=== PATIENT | male | born 1995 | race Caucasian/White ===

== ENCOUNTER 2020-10-12 13:15 | Emergency (ER) | payer MEDICARE, MEDICAID, SELFPAY ==
--- NOTE | ~2020-10-12 | XR_ITS ---
EXAMINATION: XR RIBS, LEFT CLINICAL INFORMATION: Fall, trauma, left-sided pain COMPARISON: None TECHNIQUE: Frontal view chest and 6 views left ribs are obtained for a total of 7 views. FINDINGS: The lungs are clear. There is no pneumothorax, pneumomediastinum, airspace consolidation, or effusion. No pleural reaction. The costophrenic sulci are clear. The heart is normal in size. The hilar and mediastinal contours are normal. There is no visible left rib fracture or rib destructive process. No subcutaneous emphysema. No free air beneath the diaphragms. XR/XR ribs LT min 3V w CXR1V IMPRESSION: Unremarkable examination.
[2020-10-12 13:43] VITALS: BP 111/56; PULSE 90; RESP 18; TEMP 36.5; O2SAT 99; BMI 39.1
--- NOTE | 2020-10-12 14:31 | ED.FALL ---
HPI - Fall General Chief Complaint: Fall Stated Complaint: L SIDE RIB INJ Time Seen by Provider: 10/12/20 14:17 Source: patient Mode of arrival: ambulatory Limitations: no limitations History of Present Illness HPI Narrative: 25 y/o male presenting with left sided rib pain after a slip and fall on icy stairs at home at 3am today. He fell onto his left side and hit his head on the way down. He did not lose consciousness and he does not have any headaches. He has been taking Tylenol with minimal relief. He denies SOB but states it hurts when he takes a deep breath. complaint: fall Fall from: standing Fall witnessed: yes, by family Place fall occurred: home Loss of consciousness: none Prolonged down time: no Symptoms prior to fall: chest pain Context: tripped/slipped Location of injury: chest Severity: moderate Severity scale (1-10): 6 Quality: aching Associated symptoms (after fall): denies Related Data Previous Rx's Medication Instructions Recorded cyclobenzaprine 10 mg PO TID PRN #8 tab 10/12/20 ibuprofen 600 mg PO Q8H PRN #20 tab 10/12/20 lidocaine [Lidoderm] 1 patch TOPICAL DAILY #15 ea 10/12/20 Allergies Allergy/AdvReac Type Severity Reaction Status Date / Time No Known Allergies Allergy Unverified 05/14/20 16:36 Review of Systems Review of Systems: Constitutional: No Fever, No Chills Cardiovascular: + Chest Pain, No SOB, No Orthopnea, No Edema Respiratory: No Cough, No Sputum, No Wheezing, No dyspnea Gastrointestinal: No Nausea, No Vomiting, No Diarrhea, No abdominal Pain Musculoskeletal: + joint pain, + Myalgias Skin: No Skin Lesions, No rash Neuro: No Weakness, No Numbness, No Dizziness, No Headache Heme/Lymph: No Bruising, No Lymphadenopathy Endocrine: No Polyuria, No Polydipsia PMFSH Past Medical History Attestation statement: The following information was validated with the patient. Medical History (Updated 10/12/20 @ 14:37 by LUTHER Melchor) Asthma Physical Exam Vital Signs: Vital Signs: Last Vital Signs Temp 97.7 F 10/12/20 13:43 Pulse 90 10/12/20 13:43 Resp 18 10/12/20 13:43 BP 111/56 L 10/12/20 13:43 Pulse Ox 99 10/12/20 13:43 Body Mass Index 39.1 Appearance: Alert. Oriented X3. No acute distress. HEENT: superficial abrasion to right upper forehead. PERRLA, EOMI CVS: Normal heart rate and rhythm. Pulses normal. Respiratory: No respiratory distress. Lungs CTAB. Left lateral rib tenderness throughout, no ecchymosis. Skin: Skin warm and dry. Normal skin color. Normal skin turgor. No rashes. Extremities: atraumatic, no edema, no ecchymosis, no tenderness throughout. Neuro: Oriented X 3. No motor deficit. No sensory deficit. Ambulates with steady gait. Course Course Course Narrative: 25 y/o male presenting with left sided rib pain after a slip on icy stairs. SPO2 99%, no respiratory distress. Good inspiratory effort. XR is negative. Likely contusion to chest wall. Doubt pulmonary contusion without significant rib fractures. Will start NSAID, flexeril and Lidoderm patches. He has been counseled and is stable for discharge. Critical Care Time Critical Care Time Critical Care Time: No Discharge Plan Discharge Clinical Impression: Chest wall contusion Qualifiers: Encounter type: initial encounter Laterality: left Qualified Code(s): S20.212A - Contusion of left front wall of thorax, initial encounter Patient Disposition: Home, Self-Care Instructions: Rib Contusion (ED) Additional Instructions: Your x-ray today was normal. Recommend rest and using ice several times per day. Recommend taking Ibuprofen every 6 hours and Tylenol 1,000 mg every 6 hours. Take the muscle relaxer medication as needed. Do not drive after taking this medication, it can make you drowsy. Follow up with your doctor as needed. If you develop worsening pain, shortness of breath or difficulty breathing, come back to the ER for further evaluation. Prescriptions: New lidocaine [Lidoderm] 5 % adhesive patch,medicated 1 patch topical DAILY Qty: 15 RF: 0 ibuprofen 600 mg tablet 600 mg PO Q8H PRN (Reason: pain) Qty: 20 RF: 0 cyclobenzaprine 10 mg tablet 10 mg PO TID PRN (Reason: muscle spasm) Qty: 8 RF: 0
== END 2020-10-12 15:10 | disposition home or self-care (01) ==
LOC: HO.ED 15:00
PROVIDERS: Emergency Provider Emergency Medicine
DX: S20.212A Contusion of left front wall of thorax, initial encounter (principal); W00.1XXA Fall from stairs and steps due to ice and snow, initial encounter; Y93.89 Activity, other specified; Y92.019 Unspecified place in single-family (private) house as the place of occurrence of the external cause; Y99.9 Unspecified external cause status
CPT/HCPCS: 71101; 99283

== ENCOUNTER 2021-03-06 17:44 | Emergency (ER) | payer MEDICARE, MEDICAID, SELFPAY ==
--- NOTE | ~2021-03-06 | US_ITS ---
EXAMINATION: CHEST 2 VIEWS CLINICAL INFORMATION: Pain COMPARISON: None. TECHNIQUE: PA and lateral views of the chest were obtained. FINDINGS: No significant abnormality is noted involving the heart, lungs, mediastinum, bony thorax or soft tissues. US/US venous duplex LE RT IMPRESSION: Unremarkable examination. EXAMINATION: LEG VENOUS ULTRASOUND WITH DOPPLER, RIGHT CLINICAL INFORMATION: Calf pain COMPARISON: None TECHNIQUE: Deep venous ultrasound using grayscale and duplex Doppler. FINDINGS: No evidence of any DVT. Normal compressibility and phasic waveforms with respiration. No popliteal fossa abnormality. Of note are enlarged right inguinal lymph nodes measuring up to 5 cm. Similar but small lymph nodes within the left inguinal location. IMPRESSION: No DVT demonstrated in the right lower extremity. Pathologic right inguinal lymph nodes. Similar lymph nodes less prominent within the left inguinal location. Further workup indicated.. These are amenable to subcutaneous sampling.
--- NOTE | ~2021-03-06 | CT_ITS ---
EXAMINATION: CT ABDOMEN AND PELVIS WITH CONTRAST CLINICAL INFORMATION: Pathologic right inguinal node COMPARISON: Ultrasound 06/16/2015 TECHNIQUE: Multidetector volumetric images were obtained from the superior aspect of the liver through the pubic symphysis following administration 85 mL of Omnipaque 350 intravenous contrast. Sagittal and coronal reformatted images were obtained on the technologist's workstation. Oral contrast: No This CT examination was performed using dose optimization techniques as appropriate, variously including the following: *Automated exposure control *Adjustment of mA and/or kV according to patient size (this includes techniques or standardized protocols for targeted exams where dose is matched to indication/reason for exam; i.e. extremities or head) *Use of iterative reconstruction technique DLP: 866 mGy-cm FINDINGS: LUNG BASES: The visualized lung bases are unremarkable. LIVER, GALLBLADDER, AND BILIARY TREE: The liver is normal in size, shape, and attenuation. No focal hepatic lesion or biliary ductal dilatation is present. The gallbladder is unremarkable with no evidence of radiopaque gallstones, gallbladder wall thickening, or obvious pericholecystic inflammatory changes. PANCREAS: Unremarkable. SPLEEN: Enlarged spleen measuring 15.5 cm CC. No focal splenic lesion. ADRENAL GLANDS: Unremarkable. KIDNEYS AND URETERS: The kidneys are normal in size, shape, and attenuation. No hydronephrosis, hydroureter, or calculi seen. No perinephric stranding. BLADDER: Unremarkable. GASTROINTESTINAL TRACT: The stomach is unremarkable. Normal caliber of the small bowel. There is no obstruction. No colonic wall thickening or inflammatory change. Normal appendix. No free air or free fluid. ABDOMINAL WALL: No significant hernia is appreciated. LYMPH NODES: There is extensive lymphadenopathy. For instance, there is a left para-aortic lymph node measuring 5.3 cm at the level of the kidneys. There is a perisplenic lymph node measuring short axis I.4 cm on series 3 image 30. Enlarged bilateral iliac chain lymph nodes. Enlarged bilateral inguinal lymph nodes. For instance there is a right inguinal node which measures 2.8 x 2.6 cm. VASCULAR: Unremarkable. PELVIC VISCERA: The prostate and seminal vesicles are unremarkable. OSSEOUS STRUCTURES: No acute or suspicious osseous abnormality. CT/CT abdomen pelvis w con IMPRESSION: Extensive lymphadenopathy. This is concerning for lymphoma. Mild splenomegaly. This critical result was discussed with LUTHER Mello by telephone at 03/06/2021 11:36 PM and it was ascertained that the content and urgency of the report was understood at the time of direct communication.
[2021-03-06 17:53] VITALS: BP 132/71; PULSE 135; RESP 20; TEMP 39.6; O2SAT 99; BMI 39.1
[2021-03-06] MEDS: Acetaminophen 325 MG TABLET 650 MG PO (18:05)
[2021-03-06 18:36] LABS: COVID-19 Test Negative (Negative)
--- NOTE | 2021-03-06 20:45 | ED_ITS ---
HPI - General Adult General Chief complaint: Extremity Problem Stated complaint: blood clot? Time Seen by Provider: 03/06/21 19:30 Source: patient Mode of arrival: ambulatory History of Present Illness HPI narrative: 25-year-old male with a past medical history of asthma, ADHD, presenting to the ED complaining of right posterior knee/calf pain/swelling and superficial thrombophlebitis x a couple days. Patient also noted to be febrile in triage. Patient denies knowing he had fever. Denies chills, chest pain, shortness of breath, abdominal pain, nausea, vomiting, diarrhea, recent travel, sick contacts, history of blood clots Is a cigarette smoker Onset (ago): day(s) Related Data Previous Rx's Medication Instructions Recorded cyclobenzaprine 10 mg PO TID PRN #8 tab 10/12/20 ibuprofen 600 mg PO Q8H PRN #20 tab 10/12/20 lidocaine [Lidoderm] 1 patch TOPICAL DAILY #15 ea 10/12/20 Allergies Allergy/AdvReac Type Severity Reaction Status Date / Time No Known Allergies Allergy Verified 03/06/21 17:57 Review of Systems Review of Systems: Constitutional: +Fever, No Chills, No Fatigue, No Malaise ENT/Mouth: No Ear Pain, No sore throat, No Rhinorrhea Eyes: No Eye Pain, No Vision Changes Cardiovascular: No Chest Pain, No SOB, + Edema Respiratory: No Cough, No Sputum, No Dyspnea Gastrointestinal: No Nausea, No Vomiting, No Diarrhea, No Constipation, No Abdominal pain Genitourinary: No Dysuria, No Urinary Frequency, No Hematuria, No Flank Pain Musculoskeletal: No joint pain, No Myalgias, No Joint Swelling Skin: No Skin Lesions, No rash Neuro: No Weakness, No Numbness, No Headache Yes all other systems are reviewed and are negative [facility] Past Medical History Attestation statement: The following information was validated with the patient. Medical History (Updated 03/06/21 @ 23:49 by LUTHER Mello) ADHD Asthma Social History Social History Advance Directives: No Advance Directives Information Provided: Yes Physical Exam Vital Signs: Vital Signs: Last Vital Signs Temp 98.3 F 03/06/21 22:55 Pulse 98 03/06/21 22:20 Resp 20 03/06/21 22:20 BP 112/59 L 07/10/21 22:20 Pulse Ox 100 03/06/21 22:20 Body Mass Index 39.1 Const: General: cooperative, no acute distress and diaphoretic Nutritional Appearance: overweight Orientation/consciousness: patient oriented x3 Limitations: no limitations HENMT: Head: Yes normal to inspection and Yes atraumatic Ears: hearing grossly normal bilaterally and TM's normal bilaterally General nose exam: Normal external nose present Face and sinus: Yes normal facial exam Mouth: Normal oral and palatal mucosa present Throat: Yes posterior oropharynx normal, Yes tonsils normal, Yes uvula midline and No uvular edema Eyes: General: appearance normal, both eyes and all related structures EOM: EOMs intact bilaterally Neck: Neck: Yes normal visual inspection and Yes no meningeal signs Resp: Effort & Inspection: normal respiratory effort Auscultation: clear to auscultation bilaterally, no rales, no rhonchi and no wheezes Cardio: Rate: regular rate Heart sounds: S1 normal heart sound present and S2 normal heart sound present GI: Inspection: Yes normal to inspection Palpation (GI): Soft to palpation, nontender, no guarding and not rigid Skin: Rashes: no rashes Wounds: no wounds Neuro: General: patient oriented x3, tone normal and no meningeal signs G ait exam (Neuro): Normal gait present Extrem: Other: Right calf with tenderness to palpation. No appreciable swelling. Superficial thrombophlebitis noted to right upper thigh Course Course Course Narrative: -2046--chest x-ray unremarkable, COVID-19 and rapid strep negative -no leukocytosis, bilirubins/AST/ALT mildly elevated, lactic negative -2143--fever resolved with antipyretics LEG VENOUS ULTRASOUND WITH DOPPLER, RIGHT IMPRESSION: No DVT demonstrated in the right lower extremity Pathologic right inguinal lymph nodes. Similar lymph nodes less prominent within the left inguinal location. Further workup indicated.. These are amenable to subcutaneous sampling. -Case discussed with Dr. Francis, added CRP >> CT abdomen pelvis added for further evaluation -2345--CT abdomen pelvis w con IMPRESSION: Extensive lymphadenopathy. This is concerning for lymphoma. Mild splenomegaly. > results discussed with patient with Dr. Francis including need for close follow- up with Hem/Onc, patient verbalized understanding Medical Decision Making Lab Data Result diagrams: 03/06/21 20:46 03/06/21 20:46 Labs: Lab Results 03/06/21 03/06/21 03/06/21 Range/Units 18:02 20:46 20:46 WBC 8.4 (4.8-10.8) X10*3/uL RBC 4.27 L (4.60-5.80) X10*6/uL Hgb 10.5 L (14.0-18.0) g/dl Hct 33.2 L (42-52) % MCV 77.8 L (80-98) fL MCH 24.6 L (27.0-33.0) pg MCHC 31.6 (31.0-36.0) g/dl RDW 15.5 (11.0-16.0) % Plt Count 364 (160-400) X10*3/uL MPV 10.3 (9.4-12.4) fL Immature Gran % (Auto) 1.0 H (0.0-0.4) % Neut % (Auto) 72.8 (45-73) % Lymph % (Auto) 10.5 L (20-40) % [place] % (Auto) 15.5 H (2-11) % Eos % (Auto) 0.1 (0-4) % Baso % (Auto) 0.1 (0-2) % Lymph # (Auto) 0.9 L (1.2-4.9) X10*3/uL [place] # (Auto) 1.3 H (0.1-1.2) X10*3/uL Eos # (Auto) 0.0 (0.0-0.4) X10*3/uL Baso # (Auto) 0.0 (0.0-0.2) X10*3/uL Abs Immat Gran (auto) 0.08 H (0.00-0.03) X10*3/uL Absolute Neuts (auto) 6.1 (2.0-8.3) X10*3/uL Absolute Nucleated RBC 0.000 (0.0-0.012) X10*3/uL Nucleated RBC % (auto) 0.0 (0.0-0.2) /100WBC Sodium 136 (135-145) mmol/L Potassium 3.8 (3.3-5.1) mmol/L Chloride 97 (96-108) mmol/L Carbon Dioxide 23 (22-29) mmol/L Anion Gap 20 (12-20) BUN 7 L (9-16) mg/dL Creatinine 0.79 (0.5-1.4) mg/dL Estim Creat Clear Calc 174.8 Estimated GFR > 60 Random Glucose 114 (60-115) mg/dL Lactic Acid (0.5-2.0) mmol/L Calcium 9.2 (8.4-10.2) mg/dL Magnesium 2.2 (1.6-2.6) mg/dL Total Bilirubin 1.2 H (0.0-1.0) mg/dL Direct Bilirubin 0.7 H (0.0-0.5) mg/dL AST 67 H (5-37) U/L ALT 69 H (0-40) U/L Alkaline Phosphatase 247 H (39-117) U/L C-Reactive Protein 25.13 H (< or = 0.50) mg/dL Total Protein 6.2 L (6.5-8.0) g/dL Albumin 3.9 (3.5-5.0) g/dL COVID-19 (TRAY) Negative (Negative) COVID-19 Clin Com See Note S. pyogenes GrpA ROSA (Negative) 03/06/21 03/06/21 Range/Units 20:46 20:46 WBC (4.8-10.8) X10*3/uL RBC (4.60-5.80) X10*6/uL Hgb (14.0-18.0) g/dl Hct (42-52) % MCV (80-98) fL MCH (27.0-33.0) pg MCHC (31.0-36.0) g/dl RDW (11.0-16.0) % Plt Count (160-400) X10*3/uL MPV (9.4-12.4) fL Immature Gran % (Auto) (0.0-0.4) % Neut % (Auto) (45-73) % Lymph % (Auto) (20-40) % [place] % (Auto) (2-11) % Eos % (Auto) (0-4) % Baso % (Auto) (0-2) % Lymph # (Auto) (1.2-4.9) X10*3/uL [place] # (Auto) (0.1-1.2) X10*3/uL Eos # (Auto) (0.0-0.4) X10*3/uL Baso # (Auto) (0.0-0.2) X10*3/uL Abs Immat Gran (auto) (0.00-0.03) X10*3/uL Absolute Neuts (auto) (2.0-8.3) X10*3/uL Absolute Nucleated RBC (0.0-0.012) X10*3/uL Nucleated RBC % (auto) (0.0-0.2) /100WBC Sodium (135-145) mmol/L Potassium (3.3-5.1) mmol/L Chloride (96-108) mmol/L Carbon Dioxide (22-29) mmol/L Anion Gap (12-20) BUN (9-16) mg/dL Creatinine (0.5-1.4) mg/dL Estim Creat Clear Calc Estimated GFR Random Glucose (60-115) mg/dL Lactic Acid 1.0 (0.5-2.0) mmol/L Calcium (8.4-10.2) mg/dL Magnesium (1.6-2.6) mg/dL Total Bilirubin (0.0-1.0) mg/dL Direct Bilirubin (0.0-0.5) mg/dL AST (5-37) U/L ALT (0-40) U/L Alkaline Phosphatase (39-117) U/L C-Reactive Protein (< or = 0.50) mg/dL Total Protein (6.5-8.0) g/dL Albumin (3.5-5.0) g/dL COVID-19 (TRAY) (Negative) COVID-19 Clin Com S. pyogenes GrpA ROSA Negative (Negative) Discharge Plan Discharge Clinical Impression: Lymphadenopathy, Lymphoma Patient Disposition: Home, Self-Care Instructions: Lymphadenopathy (ED) Additional Instructions: Your CAT scan shows extensive inflamed lymph nodes throughout your abdomen and and inflamed spleen, this is concerning for lymphoma Lymphoma is a blood cancer, the diagnosis of lymphoma is made by biopsy, you need to call the poultry farm worker/oncologist for follow-up TOD If you develop fever unresolved with Tylenol/Motrin, constant worsening swelling, any chest pain or shortness of breath please return to the ED Prescriptions: No Action lidocaine [Lidoderm] 5 % adhesive patch,medicated 1 patch topical DAILY Qty: 15 RF: 0 ibuprofen 600 mg tablet 600 mg PO Q8H PRN (Reason: pain) Qty: 20 RF: 0 cyclobenzaprine 10 mg tablet 10 mg PO TID PRN (Reason: muscle spasm) Qty: 8 RF: 0 Referrals: Camila Naylor MD [Physician] - 2 days Interventions: ED Discharge Assessment Last Done: 03/06/21 23:57 Discharge Date/Time: 03/07/21 00:11
[2021-03-06 20:53] LABS: MANUAL DIFF FLAG NO
[2021-03-06] MEDS: 0.9 % Sodium Chloride 1,000 ML 999 ML IVCONT (20:53)
[2021-03-06] MEDS: Ibuprofen 600 MG TABLET PO (20:56)
[2021-03-06 20:57] LABS: Basophils Percent Auto 0.1 % (0-2); Eosinophils Percent Auto 0.1 % (0-4); Hematocrit 33.2 % (42-52); Hemoglobin 10.5 g/dl (14.0-18.0); Imm Gran Abs Auto 0.08 X10*3/uL (0.00-0.03); Lymphocytes Absolute Auto 0.9 X10*3/uL (1.2-4.9); Lymphocytes Percent Auto 10.5 % (20-40); Mean Corpuscular HGB Conc 31.6 g/dl (31.0-36.0); Mean Corpuscular Hemoglobin 24.6 pg (27.0-33.0); Mean Corpuscular Volume 77.8 fL (80-98); Mean Platelet Volume 10.3 fL (9.4-12.4); Monocytes Absolute Auto 1.3 X10*3/uL (0.1-1.2); Monocytes Percent Auto 15.5 % (2-11); Neutrophils Absolute Auto 6.1 X10*3/uL (2.0-8.3); Neutrophils Percent Auto 72.8 % (45-73); Platelet Count 364 X10*3/uL (160-400); Red Blood Count 4.27 X10*6/uL (4.60-5.80); Red Cell Distribution Width 15.5 % (11.0-16.0); White Blood Count 8.4 X10*3/uL (4.8-10.8)
[2021-03-06 20:58] VITALS: BP 124/67; PULSE 94; RESP 16
[2021-03-06 21:06] LABS: Strep A Nucleic Acid Negative (Negative)
[2021-03-06 21:22] LABS: Alanine Aminotransferase 69 U/L (0-40); Albumin Level 3.9 g/dL (3.5-5.0); Alkaline Phosphatase 247 U/L (39-117); Anion Gap 20 (12-20); Aspartate Amino Transferase 67 U/L (5-37); Bilirubin Direct 0.7 mg/dL (0.0-0.5); Bilirubin Total 1.2 mg/dL (0.0-1.0); Blood Urea Nitrogen 7 mg/dL (9-16); Calcium 9.2 mg/dL (8.4-10.2); Carbon Dioxide 23 mmol/L (22-29); Chloride 97 mmol/L (96-108); Creatinine Clr Calc Pharmacy 174.8; Estimated Glomerular Filt Rate > 60; Glucose Random 114 mg/dL (60-115); Magnesium 2.2 mg/dL (1.6-2.6); Potassium 3.8 mmol/L (3.3-5.1); Sodium 136 mmol/L (135-145); Total Protein 6.2 g/dL (6.5-8.0)
[2021-03-06 21:42] VITALS: TEMP 36.8
[2021-03-06 22:02] LABS: C Reactive Protein 25.13 mg/dL (< or = 0.50)
[2021-03-06 22:20] VITALS: BP 112/59; PULSE 98; RESP 20; TEMP 36.7; O2SAT 100
[2021-03-06 22:55] VITALS: TEMP 36.8
--- NOTE | 2021-03-06 22:56 | PC.NURSE ---
pt walking around by his bed trying to give a urine. steady gait.
--- NOTE | 2021-03-06 23:00 | PC.NURSE ---
pt refusing ct of abd and pelvis.
[2021-03-06] MEDS: iohexoL 350 MG/ML 100 ML INFUS..BTL 85 ML IV (23:15)
== END 2021-03-07 00:11 | disposition home or self-care (01) ==
PROVIDERS: Physician Assistant; Emergency Provider Internal Medicine
DX: R59.1 Generalized enlarged lymph nodes (principal); M79.661 Pain in right lower leg; R50.9 Fever, unspecified; F17.210 Nicotine dependence, cigarettes, uncomplicated; Z20.822 Contact with and (suspected) exposure to COVID-19
CPT/HCPCS: 36415; 71046; 74177; 80048; 80076; 83605; 83735; 85025; 86140; 87040; 87147; 87205; 87635; 87651; 93971; 96360; 99283; 99285; Q9967

== ENCOUNTER → 2021-03-17 10:44 | Outpatient (BNV) | payer MEDICAID, MEDICARE, SELFPAY | PROVIDERS: Referring Provider Physician Assistant; Visit Provider Internal Medicine | DX: C81.90 Hodgkin lymphoma, unspecified, unspecified site (principal); R74.01 Elevation of levels of liver transaminase levels | CPT/HCPCS: 99204; 99213; 99214 ==

== ENCOUNTER 2021-03-19 11:44 | Outpatient (REF) | payer MEDICARE, MEDICAID, SELFPAY ==
--- NOTE | ~2021-03-19 | US_ITS ---
EXAMINATION: ULTRASOUND-GUIDED LYMPH NODE BIOPSY CLINICAL INFORMATION: Enlarged lymph nodes. COMPARISON: Previous right lower extremity venous ultrasound and CT of the abdomen and pelvis 03/06/2021 TECHNIQUE: Procedure and risks and benefits including bleeding and infection were discussed with the patient and informed consent was obtained. The right groin was prepped and draped in the usual sterile fashion. Skin and soft tissues were anesthetized with 1% lidocaine plain. Using ultrasound guidance and a coaxial system, access to an enlarged right inguinal lymph node was obtained. 4 20-gauge core biopsies were obtained. FINDINGS: There is an enlarged approximately 2 x 4 cm right inguinal lymph node that was targeted for core biopsy. This has abnormal ultrasound morphology and appears diffusely hypoechoic. US/US biopsy lymph node IMPRESSION: Ultrasound-guided right inguinal lymph node biopsy.
--- NOTE | ~2021-03-19 | US_ITS ---
EXAMINATION: US SCROTUM CLINICAL INFORMATION: Lymphadenopathy. COMPARISON: None TECHNIQUE: A sonogram of the scrotum was performed assessing chaves-scale appearance and color Doppler flow. Spectral Doppler analysis of the arterial and venous flow were performed in the testes bilaterally. FINDINGS: RIGHT: Right testicle measures 4.0 x 1.8 x 2.4 cm, volume 8.7 mL. No focal testicular parenchymal lesions are visualized. Spectral Doppler analysis of the arterial and venous flow is normal in the right testis. Right epididymal head is normal in size. No right hydrocele or varicocele is seen. Right epididymal Doppler flow is normal. LEFT: Left testicle measures 3.9 x 1.6 x 2.3 cm, volume 7.5 mL. No focal testicular parenchymal lesions are visualized. Spectral Doppler analysis of the arterial and venous flow is normal in the left testis. Left epididymal head is normal in size. No left hydrocele or varicocele is seen. Left epididymal Doppler flow is normal. US/US scrotum IMPRESSION: Normal scrotal ultrasound.
[2021-03-19] MEDS: Lidocaine HCl 1 % MPF 5 ML VIAL SUBCUT (13:55)
[2021-03-19 14:33] LABS: INTERNATIONAL NORM RATIO 1.6 (0.9-1.1); Prothrombin Time 18.2 SEC (9.9-13.0)
[2021-03-19 14:35] LABS: Partial Thromboplastin Time 43.4 SEC (24.1-38.0)
[2021-03-19 14:45] LABS: Iron 15 mcg/dL (45-160); Percent Iron Saturation 6 % (15-50); Total Iron Binding Capacity 250 mcg/dL (228-428); Unsaturated Iron Binding 235 ug/dL
[2021-03-22 03:48] LABS: HBc Num1 0.02 S/CO (0.00-0.79); HBsAGNum1 0.15 S/CO (0.00-0.99); Hepatitis B Core Antibody Nonreactive (Nonreactive); Hepatitis B Surface Antigen Negative (Negative)
[2021-03-22 03:56] LABS: ~HepC Num1 0.03 S/CO (0.00-0.79); ~Hepatitis B Surface Antibody NONREACTIVE (Nonreactive); ~Hepatitis C Antibody Nonreactive (Nonreactive)
[2021-03-24 12:15] LABS: Hepatitis A Antibody IgM 0.29 Index (0-0.79); ~Hepatitis A Antibody IgM Nonreactive (Nonreactive)
== END 2021-03-19 11:45 | disposition home or self-care (01) ==
LOC: HO.US 11:44
PROVIDERS: Radiology Diagnostic Radiology; Visit Provider Internal Medicine
DX: R59.1 Generalized enlarged lymph nodes (principal)
CPT/HCPCS: 36415; 38505; 76870; 76942; 81245; 81246; 83540; 85610; 85730; 86704; 86706; 86709; 86803; 87340; 88184; 88185; 88300; 88305; 88333; 88341; 88342

== ENCOUNTER 2021-04-02 08:43 | Outpatient (REF) | payer MEDICARE, MEDICAID, SELFPAY ==
--- NOTE | 2021-04-02 | PFT_ITS ---
FLOWS: FEV1 of 116% of predicted at 4.90 L. FVC 109% of predicted at 5.43 L. FEV1 to FVC ratio of 0.90. No bronchodilator response. LUNG VOLUMES: Total lung capacity 99% of predicted at 6.01 L. Residual volume 63% of predicted at 0.81 L. Slow vital capacity 108% of predicted at 5.20 L. Expiratory reserve volume 123% of predicted at 1.92 L. Diffusion capacity is normal. IMPRESSION: No obstructive or restrictive ventilatory defect. No bronchodilator response. Essentially normal pulmonary function test. MD REGINALD Mclaughlin/MODL / [id number]
[2021-04-02 10:26] LABS: INTERNATIONAL NORM RATIO 1.5 (0.9-1.1); Prothrombin Time 17.7 SEC (9.9-13.0)
== END 2021-04-02 08:44 | disposition home or self-care (01) ==
LOC: HO.RESP 08:43
PROVIDERS: Visit Provider Internal Medicine
DX: C81.90 Hodgkin lymphoma, unspecified, unspecified site (principal); R59.1 Generalized enlarged lymph nodes
CPT/HCPCS: 36415; 85610; 94060; 94727; 94729

== ENCOUNTER 2021-04-02 10:12 | Day surgery (SDC) | payer MEDICARE, MEDICAID, SELFPAY ==
--- NOTE | ~2021-04-02 | IR_ITS ---
PROCEDURE: IR INSERTION OF TUNNEL CATHETER IR ULTRASOUND GUIDED VENOUS ACCESS CLINICAL INFORMATION: Hodgkin's lymphoma for chemotherapy. COMPARISON: None TECHNIQUE: Procedure and risks and benefits including bleeding, infection and pneumothorax were discussed with the patient, and informed consent was obtained. All elements of maximal sterile barrier technique followed including use of cap, mask, sterile gown, sterile gloves, a sterile full body drape and hand hygiene. Also followed skin preparation with 2% chlorhexidine for cutaneous antisepsis, and sterile ultrasound preparation with sterile gel and probe cover when applicable. The right neck and upper chest were prepped and draped in the usual sterile fashion. The skin and soft tissues were anesthetized with 1% lidocaine plain. Using ultrasound guidance and a 5-Ivorian micropuncture system, right internal jugular vein access was obtained. Over an .018 wire, a 5-Ivorian dilator was in the SVC. The skin and soft tissues of the upper anterior chest were anesthetized with 1% lidocaine plain. A small incision was made. Using blunt dissection, a subcutaneous pocket was created. A subcutaneous tunnel from the chest to the neck incision was anesthetized with 1% lidocaine plain. Using a tunneler, a 6.6-Ivorian single-lumen catheter was tunneled from the chest to the neck incision. The catheter was attached to the port. The port and catheter were flushed. The port was positioned in the subcutaneous pocket and secured using two 2-0 nonabsorbable sutures. An .035 wire was advanced through the 5-Ivorian dilator into the IVC. 5-Ivorian dilator was exchanged for a 7-Ivorian peel-away sheath. Using bent wire technique, the catheter length was estimated and the catheter was cut. The catheter was fed through the peel-away sheath. Catheter length is 21 cm. The neck incision was closed using a 4-0 absorbable subcuticular suture. The chest incision was closed using three 3-0 absorbable interrupted sutures followed by a 4-0 running absorbable subcuticular suture. The port was accessed. The port had good blood return and flushed easily and was instilled with 5 mL heparin 500 unit per mL solution. The patient received Versed 2 mg and fentanyl 125 mcg intravenously during the procedure and 2 g of intravenous Kefzol. Total sedation time was 39 minutes. Real-time ultrasound guidance was used to document vein patency and for needle entry. A formal ultrasound picture was recorded. One saved fluoroscopic image. Patient dose: 62 cGy-cm2. Fluoroscopy time: 0.3 minutes. FINDINGS: There is a right internal jugular Port-A-Cath with tip projecting over the cavoatrial junction. IR/IR cvc insert tunnel w prt/performance consultant IMPRESSION: 6.6-Ivorian single-lumen Dignity Port-A-Cath placement.
--- NOTE | ~2021-04-02 | IR_ITS ---
PROCEDURE: IR INSERTION OF TUNNEL CATHETER IR ULTRASOUND GUIDED VENOUS ACCESS CLINICAL INFORMATION: Hodgkin's lymphoma for chemotherapy. COMPARISON: None TECHNIQUE: Procedure and risks and benefits including bleeding, infection and pneumothorax were discussed with the patient, and informed consent was obtained. All elements of maximal sterile barrier technique followed including use of cap, mask, sterile gown, sterile gloves, a sterile full body drape and hand hygiene. Also followed skin preparation with 2% chlorhexidine for cutaneous antisepsis, and sterile ultrasound preparation with sterile gel and probe cover when applicable. The right neck and upper chest were prepped and draped in the usual sterile fashion. The skin and soft tissues were anesthetized with 1% lidocaine plain. Using ultrasound guidance and a 5-Ukrainian micropuncture system, right internal jugular vein access was obtained. Over an .018 wire, a 5-Ukrainian dilator was in the SVC. The skin and soft tissues of the upper anterior chest were anesthetized with 1% lidocaine plain. A small incision was made. Using blunt dissection, a subcutaneous pocket was created. A subcutaneous tunnel from the chest to the neck incision was anesthetized with 1% lidocaine plain. Using a tunneler, a 6.6-Ukrainian single-lumen catheter was tunneled from the chest to the neck incision. The catheter was attached to the port. The port and catheter were flushed. The port was positioned in the subcutaneous pocket and secured using two 2-0 nonabsorbable sutures. An .035 wire was advanced through the 5-Ukrainian dilator into the IVC. 5-Ukrainian dilator was exchanged for a 7-Ukrainian peel-away sheath. Using bent wire technique, the catheter length was estimated and the catheter was cut. The catheter was fed through the peel-away sheath. Catheter length is 21 cm. The neck incision was closed using a 4-0 absorbable subcuticular suture. The chest incision was closed using three 3-0 absorbable interrupted sutures followed by a 4-0 running absorbable subcuticular suture. The port was accessed. The port had good blood return and flushed easily and was instilled with 5 mL heparin 500 unit per mL solution. The patient received Versed 2 mg and fentanyl 125 mcg intravenously during the procedure and 2 g of intravenous Kefzol. Total sedation time was 39 minutes. Real-time ultrasound guidance was used to document vein patency and for needle entry. A formal ultrasound picture was recorded. One saved fluoroscopic image. Patient dose: 62 cGy-cm2. Fluoroscopy time: 0.3 minutes. FINDINGS: There is a right internal jugular Port-A-Cath with tip projecting over the cavoatrial junction. IR/IR us guide venous access IMPRESSION: 6.6-Ukrainian single-lumen Dignity Port-A-Cath placement.
[2021-04-02 10:17] VITALS: BMI 29.1
[2021-04-02] MEDS: LORazepam 1 MG TABLET PO (10:33)
--- NOTE | 2021-04-02 12:08 | HO.RADPN ---
RADIOLOGY Narrative Narrative: Right IJ 6.6 fr single lumen Dignity port placed. Tip at cavoatrial junction.
[2021-04-02] MEDS: Lidocaine HCl 1 % MPF 5 ML VIAL 10 ML SUBCUT (12:27)
[2021-04-02 12:28] VITALS: BP 104/60; PULSE 102; RESP 18; TEMP 36.4; O2SAT 98
[2021-04-02] MEDS: Heparin Sodium,Porcine Flush 500 UNIT/5 ML SYRINGE IVFLUSH (12:29)
[2021-04-02 12:47] VITALS: BP 98/59; PULSE 102; RESP 17; O2SAT 98
[2021-04-02 13:17] VITALS: BP 111/48; PULSE 103; RESP 17; O2SAT 98
== END 2021-04-02 13:32 | disposition home or self-care (01) ==
PROVIDERS: Visit Provider Radiology Diagnostic Radiology
DX: C85.90 Non-Hodgkin lymphoma, unspecified, unspecified site (principal); J45.909 Unspecified asthma, uncomplicated; F17.210 Nicotine dependence, cigarettes, uncomplicated; F12.90 Cannabis use, unspecified, uncomplicated; Z79.899 Other long term (current) drug therapy
CPT/HCPCS: 36561; 76937; 99152; 99153; C1769; C1788; J0690; J1642; J2250; J3010

== ENCOUNTER → 2021-04-05 08:58 | Outpatient (REF) | payer MEDICARE, MEDICAID, SELFPAY ==
--- NOTE | 2021-04-05 09:03 | CA_ITS ---
Transthoracic Echocardiogram Patient (Last, First, Middle): Shon Marion, Gender: Male Date of : 1995 Age: 25 Procedure Date: 04/05/2021 Procedure Type: Transthoracic Echocardiogram Location: OP Height: 167.64 cm Weight: 99. kg BSA: 2.08 m2 Heart Rate: bpm BP: 100 / 50 mmHg Fullerette: TANESHA Houston MD: Lenore Solomon MD Engineering Technician: Castillo Park MD Symptoms: adriamycin needed for treatment Study Quality: Fair ECG Rhythm: Sinus tachycardia Conclusions: - Essentially normal study Findings Procedure Information The patient receives contrast. Left Ventricle Normal left ventricular size, thickness, and systolic function. The visually estimated ejection fraction is between 60-65%. Diastolic function is normal for age. Right Ventricle Normal right ventricular cavity size and systolic function. Atria Both atria are normal in size. There is no evidence of interatrial shunt. Aortic Valve The aortic valve structure and function is likely normal. There is no aortic valve regurgitation. Mitral Valve Normal mitral valve structure and function. There is no mitral valve regurgitation. There is no mitral valve stenosis. Pulmonic Valve The pulmonic valve was not well visualized. Tricuspid Valve Likely normal tricuspid valve structure and function. Tricuspid regurgitation envelope is inadequate for calculation of right ventricular systolic pressure. Great Vessels All visible segments of the aorta are normal in size. The pulmonary artery was not well visualized. Venous The inferior vena cava is normal in size and collapses greater than 50% with inspiration. Pericardium/Pleural There is no evidence of pericardial effusion. Prior Study Comparison No prior study available for comparison. Measurements 2D Linear Measurements RVIDd: 2.77 RVIDd Index: 1.33 IVSd: 0.93 0.6-0.9/0.6-1.0 cm LVIDd: 5.16 3.9-5.3/4.2-5.9 cm LVIDd Index: 2.48 2.4-3.2/2.2-3.1 cm/m2 LVIDs: 3.71 2.0-3.6 cm LVPWd: 1.02 0.7-1.1 cm Ao Root: 3.00 2.1-3.5 cm LA Diam: 3.70 2.7-3.8/3.0-4.0 cm LAIDs Index: 1.78 1.5-2.3 cm/m2 LV Mass: 230.13 67-162/88-224 g LV Mass Index: 110.64 43-95/49-115 g/m2 LVOT Diam: 2.20 3.0+(-)1.3 cm 2D Systolic Function EF 4C: 67.10 >55% EF 2C: 60.50 >55% EF BiP: 63.70 >55% Mitral Valve MV Pk E: 0.98 MV PK A: 0.75 MV Decel Time: 146.00 E/A: 1.30 E'Lateral: 18.50 E'Medial: 11.50 E/E' Med: 8.50 E/E' Lat: 5.30 Aortic Valve AoV Pk Brandan: 1.72 AoV Mn Brandan: 1.20 AoV VTI: 0.25 AoV Pk Grad: 12.00 Aov Mn Grad: 7.00 JUAN DIEGO Cont.VTI: 2.49 LVOT LVOT Pk Brandan: 0.94 LVOT Mn Brandan: 0.63 LVOT VTI: 0.17 LVOT Pk Grad: 4.00 LVOT Mn Grad: 2.00 LVOT Diam: 2.20 LVOT Area: 3.80 Diastolic Function MV Pk E: 0.98 MV Pk A: 0.75 E/A: 1.30 E'Medial: 11.50 E/E' Med: 8.50 E' Laterial: 18.50 E/E' Lat: 5.30 Right Ventricle TAPSE (mm): 2.30 TVS' Brandan: 12.40 Tricuspid Valve RA Press: 3.00 Great Vessels Aorta Ao Root-2D: 3.00 2.0-3.7 cm Ao Asc: 2.50 2.1-3.4 cm Ao Arch: 2.80 Updated in Other Vendor System with Status of Final Castillo Park MD electronically signed on 04/06/2021 12:24:34 PM with status of Final
== END ==
LOC: HO.CARD 08:58
PROVIDERS: Visit Provider Internal Medicine
DX: C81.90 Hodgkin lymphoma, unspecified, unspecified site (principal)
CPT/HCPCS: 93306; Q9957

== ENCOUNTER 2021-04-06 12:57 | Outpatient (REF) | payer MEDICARE, MEDICAID, SELFPAY | END 2021-04-06 12:58 | disposition home or self-care (01) | LOC: HO.PET 12:57 | PROVIDERS: Visit Provider Internal Medicine | DX: Z13.89 Encounter for screening for other disorder (principal) ==

== ENCOUNTER 2021-04-20 09:57 | Outpatient (REF) | payer MEDICARE, MEDICAID, SELFPAY ==
--- NOTE | ~2021-04-20 | PE_ITS ---
EXAMINATION: Fluorine-18 FDG PET/CT Scan CLINICAL INDICATION: Initial treatment management. Hodgkin lymphoma. PROCEDURE: 58 minutes following the intravenous administration of 16.3 mCi of fluorine 18 FDG, images from the base of the skull to the mid thighs were obtained using a combined PET/CT scanner with CT scan based attenuation correction. No oral contrast was administered. No intravenous contrast was administered. Transverse, coronal, sagittal, and volume reconstruction projections were obtained. The patient's blood glucose as determined by a finger stick, was 98 mg/dl immediately prior to injection. Total CT exam dose-length product 1119.53 mGy-cm * These CT images were obtained using dose optimization techniques as appropriate, variously including the following: Automated exposure control * Adjustment of mA and/or kV according to patient size (this includes techniques or standardized protocols for targeted exams where dose is matched to indication/reason for exam; i.e. extremities or head) * Use of iterative reconstruction technique COMPARISON: No previous PET/CT scan is available for comparison. CT scan of the abdomen done pelvis dated 03/06/2021 is available for comparison. FINDINGS: (Slice numbers described in this report are numbered superiorly to inferiorly with slice #1 in the head) NECK AND VISUALIZED HEAD: Left parotid and multilevel bilateral intensely FDG avid cervical lymphadenopathy is present. The most intense focus is in the left parotid which shows SUVmax 12.7, slice 25/311. On the right of FDG avid lymph nodes which are predominantly within level 2B are noted showing SUVmax 9.6, slice 39/311. Bilateral small subcentimeter FDG avid cervical level 5B (supraclavicular) lymph nodes are also present. THORAX: Extensive intensely FDG avid mediastinal lymphadenopathy is present. Most intense focus is a right-sided pretracheal confluent lymph node mass showing SUVmax 14.1, slice 77/311. Additional FDG avid subcarinal, left prevascular, anterior, periaortic and bilateral hilar lymphadenopathy is present. A few weakly FDG avid subcentimeter right axillary lymph nodes are present. There there is no left sided axillary lymphadenopathy. No pulmonary nodules are visualized. There is no pleural or pericardial fluid, or pneumothorax. A left chest port with internal jugular catheter terminating in the superior vena cava is noted. ABDOMEN AND PELVIS: Extensive bulky retroperitoneal lymphadenopathy is present. The largest and most intense focus there is a left retroperitoneal mass showing SUVmax 25.3, slice 165/311. This measures 5.7 x 4.1 cm in largest transverse dimensions and approximately 11.6 cm cephalocaudad, extending from the L1-L4 levels. Bilateral retroperitoneal lymphadenopathy is present as well as periportal, portacaval and extensive left common, internal and external iliac lymphadenopathy. Some right common iliac and bulky right inguinal FDG avid lymphadenopathy is present. There are multiple intensely FDG avid foci within the spleen, most intense medially in the upper spleen showing SUVmax 14.5, slice 118/311. The spleen is enlarged measuring 17 cm in largest dimension in the coronal projection. No foci of abnormal FDG activity are present in the liver. The gallbladder is unremarkable. The kidneys, adrenal glands, and pancreas are unremarkable. There is FDG activity of varying intensities throughout the gastrointestinal tract with prominent FDG activity in the cecum and right colon but with no associated CT abnormality. The pelvic organs are unremarkable. MUSCULOSKELETAL: Multifocal FDG avid osseous lesions are noted. In the spine, the most intense of these involve the vertebral bodies of C3, T9, T10, L1, and L3 but less intensely increased FDG activity is present involving almost all of the vertebral bodies. Intensely increased FDG activity is present in multiple sacral lesions, most intensely S1 multiple additional pelvic lesions are present. The most intense osseous lesion is in the L1 vertebral body, SUVmax 16.7. FDG avid proximal right humeral lesion is present, SUVmax 9.7, slice 65/311. VASCULAR: No significant abnormalities are present. PET/PET CT fusion skull to thigh IMPRESSION: Extensive FDG avid malignant disease is noted. There is extensive FDG avid lymphadenopathy, osseous opacities and extensive multifocal FDG avid splenic lesions, the latter superimposed on moderate splenomegaly.
== END 2021-04-20 09:58 | disposition home or self-care (01) ==
LOC: HO.PET 09:57
PROVIDERS: Visit Provider Internal Medicine
DX: Z13.89 Encounter for screening for other disorder (principal)

== ENCOUNTER 2021-04-28 11:30 | Outpatient (REF) | payer MEDICARE, MEDICAID, SELFPAY ==
[2021-04-28 12:16] LABS: Basophils Percent Auto 0.8 % (0-2); Eosinophils Absolute Auto 0.1 X10*3/uL (0.0-0.4); Eosinophils Percent Auto 3.6 % (0-4); Hematocrit 34.4 % (42-52); Hemoglobin 10.4 g/dl (14.0-18.0); Imm Gran Abs Auto 0.11 X10*3/uL (0.00-0.03); Imm Gran Pct Auto 4.5 % (0.0-0.4); Lymphocytes Absolute Auto 0.5 X10*3/uL (1.2-4.9); Lymphocytes Percent Auto 20.6 % (20-40); MANUAL DIFF FLAG SCAN; Mean Corpuscular HGB Conc 30.2 g/dl (31.0-36.0); Mean Corpuscular Hemoglobin 23.9 pg (27.0-33.0); Mean Corpuscular Volume 78.9 fL (80-98); Mean Platelet Volume 10.2 fL (9.4-12.4); Monocytes Percent Auto 1.6 % (2-11); Neutrophils Absolute Auto 1.7 X10*3/uL (2.0-8.3); Neutrophils Percent Auto 68.9 % (45-73); Platelet Count 211 X10*3/uL (160-400); Red Blood Count 4.36 X10*6/uL (4.60-5.80); Red Cell Distribution Width 16.3 % (11.0-16.0); SCAN SMEAR FLAG 1
[2021-04-28 12:18] LABS: White Blood Count 2.5 X10*3/uL (4.8-10.8)
[2021-04-28 12:39] LABS: Alanine Aminotransferase 92 U/L (0-40); Alkaline Phosphatase 144 U/L (39-117); Anion Gap 13 (12-20); Aspartate Amino Transferase 61 U/L (5-37); Bilirubin Total 0.5 mg/dL (0.0-1.0); Blood Urea Nitrogen 10 mg/dL (9-16); Calcium 9.5 mg/dL (8.4-10.2); Carbon Dioxide 28 mmol/L (22-29); Chloride 103 mmol/L (96-108); Estimated Glomerular Filt Rate > 60; Glucose Random 99 mg/dL (60-115); Magnesium 2.2 mg/dL (1.6-2.6); Potassium 4.3 mmol/L (3.3-5.1); Sodium 140 mmol/L (135-145); Total Protein 5.7 g/dL (6.5-8.0)
[2021-04-28 12:49] LABS: SLIDE REVIEW VERIFIED
== END 2021-04-28 11:31 | disposition home or self-care (01) ==
LOC: HO.LAB 11:30
PROVIDERS: Visit Provider Internal Medicine
DX: C81.90 Hodgkin lymphoma, unspecified, unspecified site (principal)
CPT/HCPCS: 36415; 80053; 83735; 85025

== ENCOUNTER 2021-06-06 17:05 | Emergency (ER) | payer MEDICARE, MEDICAID, SELFPAY | END 2021-06-06 18:50 | disposition left against medical advice (07) | LOC: HO.ED 18:27 | PROVIDERS: Emergency Provider Emergency Medicine | DX: T14.8XXA Other injury of unspecified body region, initial encounter (principal); W57.XXXA Bitten or stung by nonvenomous insect and other nonvenomous arthropods, initial encounter; Y93.9 Activity, unspecified; Y92.9 Unspecified place or not applicable; Y99.9 Unspecified external cause status ==

== ENCOUNTER 2021-06-08 15:10 | Inpatient (IN) | payer MEDICARE, MEDICAID, SELFPAY ==
--- NOTE | 2021-06-08 | ECG_ITS ---
Test Reason : TACHYCARDIA Blood Pressure : / mmHG Vent. Rate : 128 BPM Atrial Rate : 128 BPM P-R Int : 128 ms QRS Dur : 068 ms QT Int : 296 ms P-R-T Axes : -15 049 021 degrees QTc Int : 432 ms Sinus tachycardia Nonspecific T wave abnormality Abnormal ECG When compared with ECG of 16-JUN-2015 17:26, Heart rate has increased Nonspecific T wave abnormality is new Referred By: Generic ED Physician Electronically Signed By:PANKAJ SMITH MD
--- NOTE | ~2021-06-08 | CT_ITS ---
EXAMINATION: CT PELVIS WITHOUT CONTRAST CLINICAL INFORMATION: Leaking pus on thigh . History of lymphoma. COMPARISON: PET/CT dated from 04/20/2021. TECHNIQUE: Helical scanning was performed with submillimeter collimation through the pelvis. Sagittal and coronal multiplanar 2-D reconstructions were obtained. This CT examination was performed using dose optimization techniques as appropriate, variously including the following: *Automated exposure control *Adjustment of mA and/or kV according to patient size (this includes techniques or standardized protocols for targeted exams where dose is matched to indication/reason for exam; i.e. extremities or head) *Use of iterative reconstruction technique DLP: 823 mGy-cm FINDINGS: PELVIS: There is asymmetric soft tissue thickening and fat stranding within the medial surface of the right upper thigh there is a subcutaneous laceration measuring up to 1.2 cm in depth on image 49 of series 5 and several foci of subcutaneous air more proximally in the upper thigh nearby the perineum for example as visualized on image 52 of series 5. Pelvic lymphadenopathy has decreased when compared to the PET from March. For instance, a 6 mm maximum short axis left pelvic sidewall lymph node (image 30, series 3) previously measured up to 2.2 cm. Retroperitoneal lymphadenopathy has also improved, for instance a left retroperitoneal lymph node measuring up to 9 mm in maximum short axis (image 1, series 3) previously measured up to 1.9 cm. Inguinal lymphadenopathy has also decreased, for example a right inguinal lymph nodes measuring up to 1.6 cm in maximum short axis (image 39, series 3) previously measured up to 2.5 cm. No pericolic or perirectal inflammatory changes within the visualized portions of the bowel. No ascites. Normal appearance of the prostate and urinary bladder. OSSEOUS STRUCTURES: Minimal heterogeneity of the bone marrow is slightly more apparent than on prior PET, possibly due to differences in technique. No destructive osseous lesions. No acute fractures. CT/CT pelvis wo con IMPRESSION: Soft tissue thickening and fat stranding within the medial surface of the right upper thigh where there is a subcutaneous laceration and more superiorly near the perineum there are a few foci of subcutaneous air. An acute necrotizing infection is difficult to exclude given the presence of air. Correlate clinically. Lymphadenopathy has decrease in size since March 2021. Heterogeneity of the bone marrow is slightly more prominent since March 2021 which could be related with treatment response, although this could also be in part explained by differences in technique. Metabolic response would be best evaluated with a PET/CT. This critical result was discussed with Dr. Puckett at 06/08/2021 11:57 PM and it was ascertained that the content and urgency of the report was understood at the time of direct communication.
[2021-06-08 15:14] VITALS: BP 118/79; PULSE 150; RESP 22; TEMP 36.8; O2SAT 99; BMI 32.1
--- NOTE | 2021-06-08 22:15 | ED.GENADULT ---
HPI - General Adult General Chief complaint: General Medical Stated complaint: multiple complaints, bleeding from spider bite Time Seen by Provider: 06/08/21 15:41 History of Present Illness HPI narrative: Patient is 25 years old presents today with a history non-Hodgkin's lymphoma. Seemed to be stage IV. Patient is currently on chemotherapy. Over last 2 weeks has noticed an increasing and wound over the area inferior to his scrotum. Also an area of wound to his right inner thigh. Extremely malodorous. Positive discharge. No fever no chills. Positive pain. Patient from home. Related Data Home Medications Medication Instructions Recorded Confirmed buspirone 15 mg tablet 1 tab PO BEDTIME 03/17/21 03/31/21 buspirone 5 mg tablet 1 tab PO QAM 03/17/21 03/31/21 dextroamphetamine-amphetamine ER 1 cap PO QAM 03/17/21 03/31/21 30 mg 24hr capsule,extend release fluoxetine 40 mg capsule 1 cap PO DAILY 03/17/21 03/31/21 guanfacine 1 mg tablet 1 tab PO BID 03/17/21 03/31/21 Previous Rx's Medication Instructions Recorded ibuprofen 600 mg tablet 600 mg PO Q8H PRN #20 tab 10/12/20 omeprazole magnesium 10 mg oral 20 mg PO DAILY #30 ea 03/17/21 suspension,delayed release (Prilosec) ferrous sulfate 325 mg (65 mg 325 mg PO BID #60 tab 03/19/21 iron) tablet (Iron (ferrous sulfate)) dexamethasone 4 mg tablet 4 mg PO BID #30 tab 04/14/21 (Decadron) ondansetron HCl 4 mg tablet 4 mg PO Q6H PRN #30 tab 04/14/21 (Zofran) chlorpromazine 25 mg tablet 25 mg PO Q8H PRN #20 tab 04/23/21 nystatin 100,000 unit/mL oral 1 ml PO TID #60 ml 04/28/21 suspension tramadol 37.5 mg-acetaminophen 325 1 tab PO Q6H PRN #30 tab 04/28/21 mg tablet oxycodone 5 mg tablet 5 mg PO BID PRN #60 tab 06/02/21 Allergies Allergy/AdvReac Type Severity Reaction Status Date / Time No Known Allergies Allergy Verified 06/08/21 15:14 Review of Systems Review of Systems: No fever, positive excruciating pain to the groin area No bowel urinary incontinence Increasing pain Yes all other systems are reviewed and are negative [facility] Past Medical History Attestation statement: The following information was validated with the patient. Medical History ADHD Asthma Hodgkin lymphoma Hx of fracture of foot Surgical History Hx of brain surgery Family History Family History Maternal Aunt Breast cancer Family/Other Colon cancer Maternal Aunt Ovarian cancer Maternal Grandfather Stroke Pulmonary emboli Heart attack Diabetes Parkinson disease Mother Asthma Father Diabetes Social History Social History Are you a primary career advisor to a significant other at home: No Alcohol intake: former Patient Tobacco Use Status: Current everyday Tobacco user Tobacco use type: Cigarette Substance Use Type: Marijuana Advance Directives: No Advance Directives Information Provided: Yes Current occupational status: unemployed Physical Exam Vital Signs: Vital Signs: Last Vital Signs Temp 98.7 F 06/08/21 23:28 Pulse 99 06/08/21 23:28 Resp 20 06/08/21 23:28 BP 138/68 06/08/21 23:28 Pulse Ox 100 06/08/21 23:28 Body Mass Index 32.1 Appearance: Alert. Oriented X3. Complaining of pain to the groin. Eyes: Pupils equal, round and reactive to light. ENT: Pharynx normal. Neck: Normal inspection. Neck supple. No lymph nodes noted. No crepitus CVS: Normal heart rate and rhythm. Pulses normal. Normal S1 and S2 Respiratory: No respiratory distress. Breath sounds normal. No Wheezing. No rales Abdomen: Soft and nontender. No rigidity. No distention. good BS x4 Skin: Large open wound to the right proximal thigh. Another large wound opening inferior to the scrotum appears to be producing the fecal and purulent material. Extremities: No lower extremity edema. Neurovascular intact to all extremities. No Lacerations. No Rash Neuro: Oriented X 3. No motor deficit. No sensory deficit. Moving all extermities. No slurred speech Medical Decision Making MDM Narrative Medical decision making narrative: Patient's white count was normal. Lactate was less than 2. However patient has a history of non-Hodgkin's lymphoma. Currently on chemotherapy is somewhat immunocompromised. Cultures obtained. Vancomycin and cefepime was started. CT scan of the pelvis was done. There is no gross abscess that was noted. There is evidence of possible early necrotizing fasciitis. Surgery was consulted. Will admit patient for further evaluation evaluated the patient in the emergency department. Agree with plan of antibiotics. Will monitor very carefully. Lab Data Result diagrams: 06/08/21 22:29 06/08/21 22:29 Labs: Lab Results 06/08/21 06/08/21 06/08/21 Range/Units 22:29 22:29 22:29 WBC 6.7 (4.8-10.8) X10*3/uL RBC 4.41 L (4.60-5.80) X10*6/uL Hgb 11.7 L (14.0-18.0) g/dl Hct 34.0 L (42-52) % MCV 77.1 L (80-98) fL MCH 26.5 L (27.0-33.0) pg MCHC 34.4 (31.0-36.0) g/dl RDW 20.2 H (11.0-16.0) % Plt Count 231 D (160-400) X10*3/uL MPV 10.4 (9.4-12.4) fL Immature Gran % (Auto) Cancelled Neut % (Auto) Cancelled Lymph % (Auto) Cancelled [place] % (Auto) Cancelled Eos % (Auto) Cancelled Baso % (Auto) Cancelled Lymph # (Auto) Cancelled [place] # (Auto) Cancelled Eos # (Auto) Cancelled Baso # (Auto) Cancelled Abs Immat Gran (auto) Cancelled Absolute Neuts (auto) Cancelled Absolute Nucleated RBC 0.000 (0.0-0.012) X10*3/uL Nucleated RBC % (auto) 0.0 (0.0-0.2) /100WBC Neutrophils % (Manual) 62 (45-73) % Band Neutrophils % 8 H (3-5) % Lymphocytes % (Manual) 23 (20-40) % Monocytes % (Manual) 7 (2-11) % Abs Neuts (Manual) 4.7 (2.2-7.9) X10*3/uL Lymphocytes # (Manual) 1.5 (0.6-4.8) X10*3/uL Monocytes # (Manual) 0.5 (0.0-1.2) X10*3/uL Platelet Estimate NORMAL (NORMAL) Plt Morphology Comment NORMAL RBC Morphology NOTED Hypochromasia 1+ (5-14) /OIF Microcytosis 1+ (5-14) /OIF Sodium 133 L (135-145) mmol/L Potassium 3.5 (3.3-5.1) mmol/L Chloride 94 L (96-108) mmol/L Carbon Dioxide 27 (22-29) mmol/L Anion Gap 16 (12-20) BUN 8 L (9-16) mg/dL Creatinine 0.67 (0.5-1.4) mg/dL Estim Creat Clear Calc 186.4 Estimated GFR > 60 Random Glucose 120 H (60-115) mg/dL Lactic Acid 1.6 (0.5-2.0) mmol/L Calcium 9.8 (8.4-10.2) mg/dL COVID-19 (TRAY) (Negative) COVID-19 Clin Com 06/08/21 Range/Units 22:43 WBC (4.8-10.8) X10*3/uL RBC (4.60-5.80) X10*6/uL Hgb (14.0-18.0) g/dl Hct (42-52) % MCV (80-98) fL MCH (27.0-33.0) pg MCHC (31.0-36.0) g/dl RDW (11.0-16.0) % Plt Count (160-400) X10*3/uL MPV (9.4-12.4) fL Immature Gran % (Auto) Neut % (Auto) Lymph % (Auto) [place] % (Auto) Eos % (Auto) Baso % (Auto) Lymph # (Auto) [place] # (Auto) Eos # (Auto) Baso # (Auto) Abs Immat Gran (auto) Absolute Neuts (auto) Absolute Nucleated RBC (0.0-0.012) X10*3/uL Nucleated RBC % (auto) (0.0-0.2) /100WBC Neutrophils % (Manual) (45-73) % Band Neutrophils % (3-5) % Lymphocytes % (Manual) (20-40) % Monocytes % (Manual) (2-11) % Abs Neuts (Manual) (2.2-7.9) X10*3/uL Lymphocytes # (Manual) (0.6-4.8) X10*3/uL Monocytes # (Manual) (0.0-1.2) X10*3/uL Platelet Estimate (NORMAL) Plt Morphology Comment RBC Morphology Hypochromasia /OIF Microcytosis /OIF Sodium (135-145) mmol/L Potassium (3.3-5.1) mmol/L Chloride (96-108) mmol/L Carbon Dioxide (22-29) mmol/L Anion Gap (12-20) BUN (9-16) mg/dL Creatinine (0.5-1.4) mg/dL Estim Creat Clear Calc Estimated GFR Random Glucose (60-115) mg/dL Lactic Acid (0.5-2.0) mmol/L Calcium (8.4-10.2) mg/dL COVID-19 (TRAY) Negative (Negative) COVID-19 Clin Com See Note Critical Care Time Critical Care Time Critical Care Time: Yes Total Critical Care Time: 40 Attestation: I have personally provided 40 minutes of critical care time exclusive of time spent on separately billable procedures. Time includes review of lab data, radiology results, discussion with consultants, and monitoring for potential decompensation. Interventions were performed as documented above Discharge Plan Discharge Clinical Impression: Cellulitis Patient Disposition: Admitted As Inpatient Prescriptions: No Action ibuprofen 600 mg tablet 600 mg PO Q8H PRN (Reason: pain) Qty: 20 RF: 0 fluoxetine 40 mg capsule 1 cap PO DAILY RF: 0 buspirone 5 mg tablet 1 tab PO QAM RF: 0 guanfacine 1 mg tablet 1 tab PO BID RF: 0 dextroamphetamine-amphetamine 30 mg capsule,extended release 24hr 1 cap PO QAM RF: 0 buspirone 15 mg tablet 1 tab PO BEDTIME RF: 0 Prilosec 10 mg Susp,Delayed Release For Recon 20 mg PO DAILY Qty: 30 RF: 1 ferrous sulfate [Iron (ferrous sulfate)] 325 mg (65 mg iron) Tablet 325 mg PO BID Qty: 60 RF: 2 ondansetron HCl [Zofran] 4 mg Tablet 4 mg PO Q6H PRN (Reason: Nausea) Qty: 30 RF: 3 dexamethasone [Decadron] 4 mg Tablet 4 mg PO BID Qty: 30 RF: 2 chlorpromazine 25 mg Tablet 25 mg PO Q8H PRN (Reason: Hiccups) Qty: 20 RF: 0 tramadol-acetaminophen 37.5-325 mg Tablet 1 tab PO Q6H PRN (Reason: Back Pain) Qty: 30 RF: 0 nystatin 100,000 unit/mL Suspension 1 ml PO TID Qty: 60 RF: 2 oxycodone 5 mg Tablet 5 mg PO BID PRN (Reason: Pain) Qty: 60 RF: 0
[2021-06-08 22:45] LABS: Lactic Acid 1.6 mmol/L (0.5-2.0)
[2021-06-08 22:54] LABS: Anion Gap 16 (12-20); Blood Urea Nitrogen 8 mg/dL (9-16); Calcium 9.8 mg/dL (8.4-10.2); Carbon Dioxide 27 mmol/L (22-29); Chloride 94 mmol/L (96-108); Creatinine Clr Calc Pharmacy 186.4; Estimated Glomerular Filt Rate > 60; Glucose Random 120 mg/dL (60-115); Hemoglobin 11.7 g/dl (14.0-18.0); Mean Corpuscular HGB Conc 34.4 g/dl (31.0-36.0); Mean Corpuscular Hemoglobin 26.5 pg (27.0-33.0); Mean Corpuscular Volume 77.1 fL (80-98); Mean Platelet Volume 10.4 fL (9.4-12.4); Platelet Count 231 X10*3/uL (160-400); Potassium 3.5 mmol/L (3.3-5.1); Red Blood Count 4.41 X10*6/uL (4.60-5.80); Red Cell Distribution Width 20.2 % (11.0-16.0); Sodium 133 mmol/L (135-145)
[2021-06-08 22:56] LABS: WBC ABN SCTR FOR CBC 1
[2021-06-08 23:02] LABS: Band Neutrophils Percent 8 % (3-5); Lymphocytes Percent Manual 23 % (20-40); Monocytes Percent Manual 7 % (2-11); Neutrophils Percent Manual 62 % (45-73); RBC Morphology NOTED
[2021-06-08 23:03] LABS: Hypochromasia 1+ (5-14) /OIF; Microcytosis 1+ (5-14) /OIF; Platelet Estimate NORMAL (NORMAL); Platelet Morphology Comment NORMAL
[2021-06-08 23:04] LABS: Lymphocytes Absolute Manual 1.5 X10*3/uL (0.6-4.8); Monocytes Absolute Manual 0.5 X10*3/uL (0.0-1.2); Neutrophils Absolute Manual 4.7 X10*3/uL (2.2-7.9); White Blood Count 6.7 X10*3/uL (4.8-10.8)
[2021-06-08 23:10] LABS: COVID-19 Test Negative (Negative); IDNOW Serial# 55D5AD1C
[2021-06-08 23:28] VITALS: BP 138/68; PULSE 99; RESP 20; TEMP 37.1; O2SAT 100
[2021-06-08] MEDS: 0.9 % Sodium Chloride 1,000 ML 999 ML IV (23:29)
[2021-06-08] MEDS: cefEPime HCl 2 GM in 0.9 % Sodium Chloride 50 ML IV (23:29)
[2021-06-08] MEDS: HYDROmorphone HCl 0.5 MG/0.5 ML SYRINGE IVPUSH (23:59)
[2021-06-08] MEDS: vancomycin HCL 1,000 MG in 0.9 % Sodium Chloride 250 ML 270 MG IV (23:59)
[2021-06-09] VITALS (14 sets, daily range): BP systolic 110–146; BP diastolic 47–74; PULSE 74–95; RESP 16–20; TEMP 36.3–37.1; O2SAT 98–100; BMI 32.1
--- NOTE | 2021-06-09 00:50 | P.HPGS_ITS ---
History of Present Illness History of Present Illness Date of Service: 06/09/21 Chief complaint: multiple complaints, bleeding from spider bite Narrative: Shon Marion is a 25 year old male presenting with an open draining wound of the groin extending up towards the scrotal sac which developed over the last 3 weeks. Patient is currently being treated for Hodgkin's lymphoma receiving chemotherapy under the direction of Dr. Solomon. He reports having a wound in the groin which would stick to his clothing but now is open and draining. He reports severe pain when the lesion is touched. He presented to the emergency department last evening and was found to have foul-smelling discharge from the wound especially in the upper inner thigh right side. CT of the pelvis revealed inflammation of the skin especially on the right leg with several air bubbles within the skin. Patient is being admitted for wound care and IV antibiotics. Review of Systems Review of Systems: Yes all other systems are reviewed and are negative Constitutional: Constitutional: Reports body ache(s), Reports lethargy and Reports weakness Cardiovascular: Cardiovascular: Denies chest pain, Denies rapid heart rate, De nies irregular heart rhythm and Denies dyspnea Respiratory: Respiratory: Denies chest congestion, Denies cough and Denies dyspnea Gastrointestinal: Gastrointestinal: Denies abdominal pain Musculoskeletal: Musculoskeletal: Reports as per HPI Integumentary/Breasts: Skin/Breast: Reports as per HPI Neurologic: Reports weakness PMFSH Past Medical History Medical History ADHD Asthma Hodgkin lymphoma Hx of fracture of foot Family History Family History Maternal Aunt Breast cancer Family/Other Colon cancer Maternal Aunt Ovarian cancer Maternal Grandfather Stroke Pulmonary emboli Heart attack Diabetes Parkinson disease Mother Asthma Father Diabetes Surgical History Surgical History Hx of brain surgery Social History Social History Are you a primary vehicle care specialist to a significant other at home: No Alcohol intake: former Patient Tobacco Use Status: Current everyday Tobacco user Tobacco use type: Cigarette Substance Use Type: Marijuana Advance Directives: No Advance Directives Information Provided: Yes Current occupational status: unemployed Meds Allergies Allergy/AdvReac Type Severity Reaction Status Date / Time No Known Allergies Allergy Verified 06/08/21 15:14 Active Medications: Current Medications Pharmacy Consult (Consult Rx Perform Med Rec) 1 each MISCELLANE ONCE PRN PRN Reason: Consult order Home Medications Medication Instructions Recorded Confirmed Last Taken Type buspirone 15 mg tablet 1 tab PO BEDTIME 03/17/21 03/31/21 Unknown History buspirone 5 mg tablet 1 tab PO QAM 03/17/21 03/31/21 Unknown History dextroamphetamine-amphetamine ER 1 cap PO QAM 03/17/21 03/31/21 Unknown History 30 mg 24hr capsule,extend release fluoxetine 40 mg capsule 1 cap PO DAILY 03/17/21 03/31/21 Unknown History guanfacine 1 mg tablet 1 tab PO BID 03/17/21 03/31/21 Unknown History Physical Exam Vital Signs: Vital Signs: Last Vital Signs Temp 98.7 F 06/08/21 23:28 Pulse 99 06/08/21 23:28 Resp 20 06/08/21 23:28 BP 138/68 06/08/21 23:28 Pulse Ox 100 06/08/21 23:28 Body Mass Index 32.1 Const: General: well developed and ill appearing Nutritional Appearance: well nourished Orientation/consciousness: patient oriented x3 Limitations: no limitations HENMT: Head: Yes normocephalic and Yes atraumatic Ears: hearing grossly normal bilaterally Neck: Neck: Yes normal visual inspection Resp: Effort & Inspection: normal respiratory effort, no audible wheezes, no cough and no respiratory distress Cardio: Jugular venous distension: no JVD Rate: regular rate Rhythm: regular rhythm GI: Inspection: Yes normal to inspection Palpation (GI): Soft to palpation, nontender and no guarding : Other: Edema in the scrotum to the right of midline. No palpable subcutaneous crepitance. Open wound in the Right upper inner thigh with purulence discharge. No evidence of skin necrosis, tender along the inner thigh. Male genitals images: 1. open wound with foul-smelling discharge Skin: Other: as noted above Neuro: General: patient oriented x3 Extrem: General: Yes no pedal edema Results Results Labs: Short CBC 06/08/21 Range/Units 22:29 WBC 6.7 (4.8-10.8) X10*3/uL Hgb 11.7 L (14.0-18.0) g/dl Hct 34.0 L (42-52) % Plt Count 231 D (160-400) X10*3/uL [facility] 06/08/21 22:29 Sodium 133 L Potassium 3.5 Chloride 94 L Carbon Dioxide 27 BUN 8 L Creatinine 0.[address] scan - pelvis: image reviewed Assessment and Plan (1) Hodgkin lymphoma: Status: Acute (2) Abscess of groin, right: Status: Acute 25-year-old male patient with history of Hodgkin's disease currently undergoing chemotherapy found to have an open wound in the right upper inner thigh with foul-smelling discharge. The wound developed approximately 3 weeks ago and is increasing in severity. He has not been on antibiotics for this infection. On examination the patient has an open wound in the upper inner thigh with tenderness surrounding the wound. There is no evidence of necrotizing skin infection and no palpable crepitus is identified. The wounds will need to be watched carefully and may require operative debridement in the OR. I recommended admission for IV antibiotics and local wound care. I will consult Dr. Solomon and infectious disease. He will be started on Zosyn. Recheck laboratories in a.m. Quality Stroke Does the patient have a stroke diagnosis?: No VTE Prior VTE?: No VTE Risk Level:: Surgical - moderate VTE Device Contraindication: N/A - Device Ordered VTE Drug Contraindication: Treatment Not Indicated Procedures Date of Service Date of Service: 06/09/21
[2021-06-09] MEDS: Piperacillin Sodium/Tazobactam 3.375 GM in 0.9 % Sodium Chloride 50 ML IV ×4 (03:09→20:02)
[2021-06-09] MEDS: Dextrose 5 % and Lactated Ring 1,000 ML 125 ML IVCONT ×3 (03:09→20:05)
[2021-06-09] MEDS: oxyCODONE HCl Immed Release 5 MG TABLET PO ×2 (03:13→19:58)
[2021-06-09 07:34] LABS: MANUAL DIFF FLAG NO
[2021-06-09 07:36] LABS: Basophils Absolute Auto 0.1 X10*3/uL (0.0-0.2); Eosinophils Percent Auto 0.2 % (0-4); Hematocrit 30.7 % (42-52); Hemoglobin 10.3 g/dl (14.0-18.0); Imm Gran Abs Auto 0.19 X10*3/uL (0.00-0.03); Imm Gran Pct Auto 3.2 % (0.0-0.4); Lymphocytes Absolute Auto 1.2 X10*3/uL (1.2-4.9); Lymphocytes Percent Auto 19.5 % (20-40); Mean Corpuscular HGB Conc 33.6 g/dl (31.0-36.0); Mean Corpuscular Hemoglobin 25.9 pg (27.0-33.0); Mean Corpuscular Volume 77.3 fL (80-98); Mean Platelet Volume 9.1 fL (9.4-12.4); Monocytes Absolute Auto 0.3 X10*3/uL (0.1-1.2); Monocytes Percent Auto 5.4 % (2-11); Neutrophils Absolute Auto 4.2 X10*3/uL (2.0-8.3); Neutrophils Percent Auto 70.7 % (45-73); Platelet Count 202 X10*3/uL (160-400); Red Blood Count 3.97 X10*6/uL (4.60-5.80); Red Cell Distribution Width 20.3 % (11.0-16.0)
--- NOTE | 2021-06-09 08:13 | PHA.MEDREC ---
Pharmacy Consult ? Medication Reconciliation Pharmacy has completed the medication reconciliation. Thanks Sofia Hedrick
[2021-06-09] MEDS: HYDROmorphone HCl 0.5 MG/0.5 ML SYRINGE IVPUSH ×5 (08:22→22:46)
--- NOTE | 2021-06-09 09:37 | P.CONAN_ITS ---
HPI - Anesthesia Eval Consult details Narrative: Urgent case for I & D absecess lower extremites PMFSH Active Problems Active Problems: All Active Problems (Updated 06/09/21 @ 01:01 by Aren Hicks MD) Abscess of groin, right (Acute) Lymphadenopathy (Acute) Hodgkin lymphoma (Acute) Cellulitis (Acute) Past Medical History Medical History ADHD Asthma Hodgkin lymphoma Hx of fracture of foot Family History Family History Maternal Aunt Breast cancer Family/Other Colon cancer Maternal Aunt Ovarian cancer Maternal Grandfather Stroke Pulmonary emboli Heart attack Diabetes Parkinson disease Mother Asthma Father Diabetes Family history of problems with anesthesia: No Surgical History Surgical History Hx of brain surgery History of Problems with Anesthesia: No Social History Social History Are you a primary career development facilitator to a significant other at home: No Alcohol intake: former Patient Tobacco Use Status: Current everyday Tobacco user Tobacco use type: Cigarette Cigarettes Per Day: 15 Years Smoked: 12 Substance Use Type: Marijuana Current occupational status: unemployed Meds Allergies Allergy/AdvReac Type Severity Reaction Status Date / Time No Known Allergies Allergy Verified 06/09/21 09:25 Active Medications: Current Medications Acetaminophen (Acetaminophen 325 Mg Tablet) 650 mg PO Q6H PRN PRN Reason: Pain, Mild (Pain Scale 1-3) Hydromorphone HCl (Hydromorphone Hcl 0.5 Mg/0.5 Ml Syringe) 0.5 mg IVPUSH Q4H PRN; Protocol PRN Reason: Pain, Severe (Pain Scale 7-10) Last Admin: 06/09/21 08:22 Dose: 0.5 mg Documented by: Dextrose/Lactated Ringer's ([email or web address]) 1,000 mls @ 125 mls/hr IVCONT .Q8H JANNA Last Admin: 06/09/21 03:09 Dose: 125 mls/hr Documented by: Piperacillin Sod/Tazobactam (Sod 3.375 gm/ Sodium Chloride) 50 mls @ 100 mls/hr IV Q6H JANNA Last Admin: 06/09/21 08:22 Dose: 100 mls/hr Documented by: Ondansetron HCl (Ondansetron Hcl 4 Mg/2 Ml Vial) 4 mg IVPUSH Q8H PRN PRN Reason: Nausea and Vomiting Oxycodone HCl (Oxycodone Hcl Immed Release 5 Mg Tablet) 5 mg PO Q6H PRN PRN Reason: Pain, Moderate (Pain Scale 4-6 Last Admin: 06/09/21 03:13 Dose: 5 mg Documented by: Pharmacy Consult (Consult Rx Perform Med Rec) 1 each MISCELLANE ONCE PRN PRN Reason: Consult order Zolpidem Tartrate (Zolpidem Tartrate 5 Mg Tablet) 5 mg PO BEDTIME PRN PRN Reason: Insomnia Home Medications Medication Instructions Recorded Confirmed Last Taken Type buspirone 15 mg tablet 1 tab PO BEDTIME 03/17/21 06/09/21 Unknown History dextroamphetamine-amphetamine ER 1 cap PO QAM 03/17/21 06/09/21 06/08/21 History 30 mg 24hr capsule,extend release fluoxetine 40 mg capsule 1 cap PO DAILY 03/17/21 06/09/21 06/08/21 History guanfacine 1 mg tablet 1 tab PO BID 03/17/21 06/09/21 06/08/21 History chlorpromazine 25 mg tablet 25 mg PO Q8H PRN 06/09/21 06/09/21 Unknown History Exam Exam Date and Time: June 09, 2021 0937 Height,Weight and Vital Signs: Height 5 ft 7 in Weight 92.986 kg Last Vital Signs Temp 98.4 F 06/09/21 07:40 Pulse 95 06/09/21 07:40 Resp 20 06/09/21 07:40 BP 125/59 L 06/09/21 07:40 Pulse Ox 98 06/09/21 06:26 Pertinent Lab Results Pertinent Lab Results: Laboratory Tests 06/08/21 06/08/21 06/08/21 22:29 22:29 22:29 WBC 6.7 RBC 4.41 L Hgb 11.7 L Hct 34.0 L MCV 77.1 L MCH 26.5 L MCHC 34.4 RDW 20.2 H Plt Count 231 D MPV 10.4 Immature Gran % (Auto) Cancelled Neut % (Auto) Cancelled Lymph % (Auto) Cancelled Starke % (Auto) Cancelled Eos % (Auto) Cancelled Baso % (Auto) Cancelled Lymph # (Auto) Cancelled Starke # (Auto) Cancelled Eos # (Auto) Cancelled Baso # (Auto) Cancelled Abs Immat Gran (auto) Cancelled Absolute Neuts (auto) Cancelled Absolute Nucleated RBC 0.000 Nucleated RBC % (auto) 0.0 Neutrophils % (Manual) 62 Band Neutrophils % 8 H Lymphocytes % (Manual) 23 Monocytes % (Manual) 7 Abs Neuts (Manual) 4.7 Lymphocytes # (Manual) 1.5 Monocytes # (Manual) 0.5 Platelet Estimate NORMAL Plt Morphology Comment NORMAL RBC Morphology NOTED Hypochromasia 1+ (5-14) Microcytosis 1+ (5-14) Sodium 133 L Potassium 3.5 Chloride 94 L Carbon Dioxide 27 Anion Gap 16 BUN 8 L Creatinine 0.67 Estim Creat Clear Calc 186.4 Estimated GFR > 60 Random Glucose 120 H Lactic Acid 1.6 Calcium 9.8 COVID-19 (TRAY) COVID-19 Clin Com 06/08/21 06/09/21 22:43 07:28 WBC 6.0 RBC 3.97 L Hgb 10.3 L Hct 30.7 L MCV 77.3 L MCH 25.9 L MCHC 33.6 RDW 20.3 H Plt Count 202 MPV 9.1 L Immature Gran % (Auto) 3.2 H Neut % (Auto) 70.7 Lymph % (Auto) 19.5 L Starke % (Auto) 5.4 Eos % (Auto) 0.2 Baso % (Auto) 1.0 Lymph # (Auto) 1.2 Starke # (Auto) 0.3 Eos # (Auto) 0.0 Baso # (Auto) 0.1 Abs Immat Gran (auto) 0.19 H Absolute Neuts (auto) 4.2 Absolute Nucleated RBC 0.000 Nucleated RBC % (auto) 0.0 Neutrophils % (Manual) Band Neutrophils % Lymphocytes % (Manual) Monocytes % (Manual) Abs Neuts (Manual) Lymphocytes # (Manual) Monocytes # (Manual) Platelet Estimate Plt Morphology Comment RBC Morphology Hypochromasia Microcytosis Sodium Potassium Chloride Carbon Dioxide Anion Gap BUN Creatinine Estim Creat Clear Calc Estimated GFR Random Glucose Lactic Acid Calcium COVID-19 (TRAY) Negative COVID-19 Clin Com See Note Airway Mallampati Class: III TM Dist: >3cm Neck ROM: Full Loose/Missing/Broken Teeth: Yes (1 lower left back molar loose) Heart: [id number] Lungs: cta b/l Assessment and Plan Assessment Anesthesia Assessment: Anesthesia Plan Discussed and Chart Reviewed Final Anesthetic Review Family History of Problems with Anesthesia: No History of Problems with Anesthesia: No NPO: Yes ASA Class: III Final Preanesthetic Review: No Changes in Pt Med Stat, Meds/Allgs Chart R jazmyn, Consent Obtained/Reviewed and Anes Risks/Benef Reviewed Patient Risk: Intermediate Procedure Risk: Intermediate Assessment/Block/Sedation in SS: Assess/Block/Sedation-SS Anesthetic Plan Anesthetic Plan: GA and Agree w/ Assess. and Plan Disposition: Standard PACU
--- NOTE | 2021-06-09 09:39 | PC.NURSE ---
Patient arrived tp [facility] with a PRN angio #20 in Left AC. Site asymptomatic and flushed well.
--- NOTE | 2021-06-09 09:40 | PC.NURSE ---
Patient states he ate Two chicken nuggets at about 2330 last night as well as Two cups of water and two cups of gingerale this AM . Patient specified that last time he had any fluid was 0730am. Dr. Smallwood aware. No new orders. Okay to proceed with surgery.
--- NOTE | 2021-06-09 10:16 | MHC.SHP ---
Pre-Procedural Eval Section A Date of Service: 06/09/21 The patient is an INPATIENT: Yes Section B Chief Complaint: Hodgkin's lymphoma, groin abscess Allergies: Allergies Allergy/AdvReac Type Severity Reaction Status Date / Time No Known Allergies Allergy Verified 06/09/21 09:25 Plan Diagnosis/Plan: Unchanged I have reviewed the history and physical and performed a pertinent physical examination on my patient. No changes have occurred unless specified.
[2021-06-09] MEDS: Lactated Ringers 1,000 ML 50 ML IVCONT (10:26)
--- NOTE | 2021-06-09 11:33 | P.OP_ITS ---
Operative Note Operative Note Date of Service: 06/09/21 Narrative: Preoperative diagnosis: right leg necrotizing skin infection Postoperative diagnosis: same Procedure: exam under anesthesia, debridement of right leg necrotizing skin infection Surgeon: Aren Hicks MD Associate Professor Of Geography: Josee Berger PA-C Anesthesia: general LMA Indications for procedure: 25-year-old male patient diagnosed with stage IV chance disease currently undergoing chemotherapy presenting with an open foul- smelling wound in the right groin and upper leg. Patient also has areas of inflammation extending into the buttock. Presents today for wound exploration under anesthesia and debridement. Operative findings: Area of necrosis located in the right groin in the crease of the leg with a 2nd wound located slightly inferior to this with necrotic subcutaneous tissue. An area measuring approximately 10 x 5 cm was debrided in the groin (Skin/ subcutaneous tissue)down to viable healthy tissue. The lower wound measured approximately 3 x 2 cm and was also debrided in skin and subcutaneous tissue. Specimen: necrotic skin and subcutaneous tissue right groin Estimated blood loss: 25 Complications: none Procedure details: patient was brought to the OR placed in a supine position. After administering general anesthesia the patient's legs were placed in a frogleg position. The patient's groin and perineum and upper legs were prepped with Betadine and draped in a sterile fashion. A surgical time-out was called the consent confirmed. Patient received preoperative antibiotics and Venodyne boots were in place. Local anesthesia consisting of 1% lidocaine with epinephrine plus 0.5% Sensorcaine plain was infiltrated around both ulcers as noted above. A scalpel was then used to excise necrotic skin surrounding the 2 ulcers down to viable skin and subcutaneous tissue. Copious bleeding was identified from the tissue and no deeper pockets were identified. No undrained abscess could be identified. Hemostasis was achieved using electrocautery and light pressure. When both wounds are completely debrided they were then irrigated with copious amounts of saline solution using the Pulsavac. This was then irrigated with peroxide and packed with Betadine-soaked Kerlix. Fluffed gauze followed by ABD pads were then applied. The patient tolerated the procedure well. He was transferred to PACU in stable condition.
[2021-06-09] MEDS: oxyCODONE HCl Immed Release 5 MG TABLET 10 MG PO (11:55)
--- NOTE | 2021-06-09 13:54 | MHC.CM.PN ---
Patient transferred to surgery before he could be seen by case management. Continue to monitor for d/c needs.
--- NOTE | 2021-06-09 15:13 | MHC.CLN ---
NUTRITION CONSULT CONSULT FOR WEIGHT LOSS, NAUSEA, RECEIVES CHEMOTHERAPY. WEIGHT HX REVIEWED AND CONFIRMS SIGNIFICANT WEIGHT LOSS, -20.4 KG (45#) X 3 MONTHS. DESPITE SIGNIFICANT WEIGHT LOSS, APPEARS WELL NOURISHED WITH BMI=32.1. REPORTS NAUSEA WITH CHEMOTHERAPY. WOULD LIKE CHOCOLATE ENSURE TID (1050 KCAL, 60 G PROTEIN). KITCHEN AWARE OF FLAVOR PREFERENCE. DIET LIMITED SINCE DISLIKES VEGETABLES AND DOES NOT EAT MUCH FRUIT.
--- NOTE | 2021-06-09 16:17 | P.CNHO_ITS ---
Subjective - Subjective Chief complaint: Consult for: Hodgkin's lymphoma. Patient: known to practice within the last 3 years Consult date: 06/09/21 Requesting Physician: Kurt Primary Care Provider: [facility] Medical Summary: DIAGNOSIS: HODGKIN'S LYMPHOMA. HPI - Consult Narrative Reason for consult: Consult for: Hodgkin's lymphoma. Narrative: Shon Marion is a pleasant 25 year old gentleman, who presents today with a history Hodgkin's lymphoma. Seemed to be stage IV. Patient is currently on chemotherapy. Over last 2 weeks has noticed an increasing and wound over the area inferior to his scrotum. Also an area of wound to his right inner thigh. Extremely malodorous. Positive discharge. No fever no chills. Positive pain. Recent history: Diagnosis: Hodgkin's lymphoma February 2021. Presented with extensive retroperitoneal lymphadenopathy mostly on the left side along with splenomegaly and constitutional symptoms. CT abdomen /pelvis with contrast performed 03/06/2021 showed enlarged spleen measuring 15.5 cm, enlarged left para-aortic lymph node measuring 5.3 cm at the level of the kidneys, perisplenic lymph node measuring 1.4 cm, enlarged bilateral iliac chain and bilateral inguinal lymph nodes. Largest right inguinal lymph node measuring 2.8 x 2.6 cm. On 03/19/2021 patient underwent core biopsy of right inguinal lymph node which revealed atypical lymphoid infiltrate consistent with classical Hodgkin's lymphoma. Flow cytometry revealed scan T-cell predominant lymphoid population LDH is elevated. AFP and beta HCG were normal. Scrotal ultrasound was negative for testicular tumor. Review of Systems - Constitutional Reports system reviewed and no additional complaints, except as documented, Reports fever(s), Reports lack of energy, Reports malaise, Reports weakness, Reports weight loss - Eyes Reports system reviewed and no additional complaints, except as documented - ENT Reports system reviewed and no additional complaints, except as documented - Cardiovascular Reports system reviewed and no additional complaints, except as documented - Respiratory Reports no additional respiratory complaints - Gastrointestinal Reports system reviewed and no additional complaints, except as documented - Genitourinary Genitourinary: Reports no additional male genitourinary complaints - Musculoskeletal Reports system reviewed and no additional complaints, except as documented - Integumentary/Breasts Skin/Breast: Reports no additional skin complaints - Neurologic Reports weakness - Psychiatric Reports system reviewed and no additional complaints, except as documented - Endocrine Reports no additional endocrine complaints - Hematologic/Lymphatic Reports system reviewed and no additional complaints, except as documented - Allergic/Immunologic Reports system reviewed and no additional complaints, except as documented [facility] Medical History: Medical History (Last Reviewed 06/10/21 @ 21:45 by Zayda Sanchez MD) ADHD Asthma Hodgkin lymphoma Hx of fracture of foot Family History: Family History (Last Reviewed 06/10/21 @ 21:45 by Zayda Sanchez MD) Maternal Aunt Breast cancer Family/Other Colon cancer Maternal Aunt Ovarian cancer Maternal Grandfather Stroke Pulmonary emboli Heart attack Diabetes Parkinson disease Mother Asthma Father Diabetes Surgical History: Surgical History (Last Reviewed 06/10/21 @ 21:46 by Zayda Sanchez MD) Hx of brain surgery Social History: Social History (Last Reviewed 06/10/21 @ 21:46 by Zayda Sanchez MD) Living Situation History: Household Members: Significant Other Household Members Other:: 6 children Housing: Apartment Are you a primary child caregiver to a significant other at home: No Do you presently have visiting nurse or other home services: Yes Alcohol History: Alcohol intake: former Alcohol History Details: Alcohol intake frequency: former alcohol drinker Tobacco History: Patient Tobacco Use Status: Current everyday Tobacco Tobacco use type: Cigarette Years Smoked: 12 Substance Use History: Substance Use Type: Marijuana Occupation Assessmet: service: No Current occupational status: unemployed Home Medications and Allergies Current Medications: Current Medications Acetaminophen (Acetaminophen 325 Mg Tablet) 650 mg PO Q6H PRN PRN Reason: Pain, Mild (Pain Scale 1-3) Buspirone HCl (Buspirone Hcl 5 Mg Tablet) 15 mg PO BEDTIME JANNA Fluoxetine HCl (Fluoxetine Hcl 20 Mg Capsule) 40 mg PO DAILY JANNA Hydromorphone HCl (Hydromorphone Hcl 0.5 Mg/0.5 Ml Syringe) 0.5 mg IVPUSH Q4H PRN; Protocol PRN Reason: Pain, Severe (Pain Scale 7-10) Last Admin: 06/09/21 08:22 Dose: 0.5 mg Documented by: Dextrose/Lactated Ringer's (D5lr) 1,000 mls @ 125 mls/hr IVCONT .Q8H JANNA Last Admin: 06/09/21 12:29 Dose: 125 mls/hr Documented by: Piperacillin Sod/Tazobactam (Sod 3.375 gm/ Sodium Chloride) 50 mls @ 100 mls/hr IV Q6H JANNA Last Admin: 06/09/21 15:28 Dose: 100 mls/hr Documented by: Promethazine HCl 12.5 mg/ (Sodium Chloride) 50.5 mls @ 202 mls/hr IV Q6H PRN PRN Reason: Nausea and Vomiting Last Infusion: 06/09/21 14:30 Dose: Infused Documented by: Non-Formulary Medication (Guanfacine) 1 tab PO BID JANNA Ondansetron HCl (Ondansetron Hcl 4 Mg/2 Ml Vial) 4 mg IVPUSH Q8H PRN PRN Reason: Nausea and Vomiting Oxycodone HCl (Oxycodone Hcl Immed Release 5 Mg Tablet) 5 mg PO Q6H PRN PRN Reason: Pain, Moderate (Pain Scale 4-6 Last Admin: 06/09/21 03:13 Dose: 5 mg Documented by: Pharmacy Consult (Consult Rx Perform Med Rec) 1 each MISCELLANE ONCE PRN PRN Reason: Consult order Zolpidem Tartrate (Zolpidem Tartrate 5 Mg Tablet) 5 mg PO BEDTIME PRN PRN Reason: Insomnia Home Medications Medication Instructions Recorded Confirmed Type buspirone 15 mg tablet 1 tab PO BEDTIME 03/17/21 06/09/21 History dextroamphetamine-amphetamine ER 1 cap PO QAM 03/17/21 06/09/21 History 30 mg 24hr capsule,extend release fluoxetine 40 mg capsule 1 cap PO DAILY 03/17/21 06/09/21 History guanfacine 1 mg tablet 1 tab PO BID 03/17/21 06/09/21 History chlorpromazine 25 mg tablet 25 mg PO Q8H PRN 06/09/21 06/09/21 History Allergies Allergy/AdvReac Type Severity Reaction Status Date / Time No Known Allergies Allergy Verified 06/09/21 09:25 Physical Exam Vital signs: Vital Signs Temp 98.5 F 06/09/21 15:30 Pulse 82 06/09/21 15:30 Resp 18 06/09/21 15:30 BP 128/60 06/09/21 15:30 Pulse Ox 99 06/09/21 15:30 Intake & Output 06/08/21 06/09/21 06/09/21 18:59 06:59 18:59 Intake Total 1370 / 1370 1584.667 / 1584.667 Output Total 650 / 650 Balance 1370 / 1370 934.667 / 934.667 Urine Output (Average ml/kg/hr) 0.58 Intake: Intake, Oral Amount 360 / 360 Intake, IV Amount 1370 / 1370 1224.667 / 1224.667 0.9 % Sodium Chloride 1,000 ml 1000 / 1000 @ 999 mls/hr IV .Q1H1M [facility] Rx#: [id number] Piperacillin Sodium/Tazobactam 50 / 50 50 / 50 3.375 gm In 0.9 % Sodium Chloride 50 ml @ 100 mls/hr IV Q6H [facility] Rx#:[id number] Promethazine HCL 12.5 mg In 0.9 50.5 / 50.5 % Sodium Chloride 50 ml @ 202 mls/hr IV Q6H PRN Rx#: [id number] cefEPime HCl 2 gm In 0.9 % 50 / 50 Sodium Chloride 50 ml @ 100 mls /hr IV ONCE ONE Rx#:[id number] vancomycin HCL 1,000 mg In 0.9 270 / 270 % Sodium Chloride 250 ml @ 270 mls/hr IV ONCE ONE Rx#: [id number] Dextrose 5 % and Lactated Ring 1000 / 1000 1,000 ml @ 125 mls/hr IVCONT . Q8H [facility] Rx#:[id number] Lactated Ringers 1,000 ml @ 50 124.167 / 124.167 mls/hr IVCONT .Q20H [facility] Rx#: [id number] Output: Output, Urine Amount 650 / 650 Other: Meal Refused No NPO No Lunch % Eaten 100% Last Bowel Movement 06/08/21 Weight 92.986 kg 92.986 kg Weight 92.986 kg - Constitutional Present: mild distress - Routine HEENT Exam Head: Present: normal inspection Eye: Present: normal appearance ENT: Present: mucous membranes moist - Routine Neck Exam Present: supple - Routine Respiratory Exam Present: CTAB - Routine Cardiovascular Exam Cardiovascular: Present: RRR, S1, S2 - Routine Abdominal Exam Present: normal bowel sounds, nontender Hem/Onc Consult Result - Labs CBC & Chem 7: 06/09/21 07:28 06/08/21 22:29 Labs: Short CBC 06/08/21 06/09/21 Range/Units 22:29 07:28 WBC 6.7 6.0 (4.8-10.8) X10*3/uL Hgb 11.7 L 10.3 L (14.0-18.0) g/dl Hct 34.0 L 30.7 L (42-52) % Plt Count 231 D 202 (160-400) X10*3/uL BMP 06/08/21 22:29 Sodium 133 L Potassium 3.5 Chloride 94 L Carbon Dioxide 27 BUN 8 L Creatinine 0.67 Calcium 9.8 Assessment and Plan Patient Active problem list reviewed?: Yes (1) Hodgkin lymphoma Status: Acute Assessment and plan: This is a 25-year-old male with classical Hodgkin's lymphoma, stage IV, advanced stage. IPS 3, which gives him a 5 year FFP of 74% and overall survival 88%. On 03/19/2021 patient underwent core biopsy of right inguinal lymph node which revealed atypical lymphoid infiltrate consistent with classical Hodgkin's lymphoma. PET-CT performed 04/20/21 revealed extensive FDG avid lymphadenopathy, osseous opacities and extensive multifocal FDG avid splenic lesions, with maximum SUV of 25.3 in the retroperitoneum. He started on treatment with AVD plus brentuximab vedotin. He had cycle 2, day 15, last week. He has tolerated it well so far. 2. Iron deficiency anemia with symptoms of GERD. He has been prescribed both Prilosec and ferrous sulfate. He now presents with infection in his inguinal and groin area. His Skin exam revealed: Large open wound to the right proximal thigh. Another large wound opening inferior to the scrotum appears to be producing the fecal and purulent material. There is evidence of possible early necrotizing fasciitis. His white count is normal. Lactate less than 2. CT scan of the pelvis was done. There is no gross abscess that was noted. He does have a history of Hodgkin's lymphoma. Currently on chemotherapy with ABVD. He would be immunocompromised. PLAN: Cultures have been obtained. Vancomycin and cefepime was started. Seen by ID as follows: (1) Necrotizing soft tissue infection: He was started on Zosyn and feels better. THere is no MRSA found Would continue Zosyn Observe for cultures Surgery has been consulted. Planning on taking him to the OR for I and D. Will monitor very carefully. PET-CT is to be performed after this cycle to assess response to treatment. Thank you for the consult, Will follow along with you, CC: - Time Spent With Patient Time Spent with Patient (in minutes): 35
[2021-06-09] MEDS: ondansetron HCL 4 MG/2 ML VIAL IVPUSH (19:58)
[2021-06-09] MEDS: busPIRone HCl 5 MG TABLET 15 MG PO (19:59)
[2021-06-09] MEDS: Zolpidem Tartrate 5 MG TABLET PO (22:47)
[2021-06-10] MEDS: Piperacillin Sodium/Tazobactam 3.375 GM in 0.9 % Sodium Chloride 50 ML IV ×4 (02:56→19:26)
[2021-06-10] MEDS: HYDROmorphone HCl 0.5 MG/0.5 ML SYRINGE IVPUSH ×6 (03:05→23:32)
[2021-06-10 03:18] VITALS: BP 100/53; PULSE 80; RESP 17; TEMP 36.2; O2SAT 99
[2021-06-10] MEDS: Dextrose 5 % and Lactated Ring 1,000 ML 125 ML IVCONT ×3 (04:26→19:19)
--- NOTE | 2021-06-10 06:49 | HO.POSTANES ---
Post Anesthesia Evaluation Post Anesthesia Evaluation Vital Signs: Vital Signs Temp Pulse Resp BP Pulse Ox 06/10/21 03:18 97.1 F 80 17 100/53 L 99 06/09/21 23:35 97.3 F 81 17 110/56 L 99 06/09/21 19:11 97.8 F 91 18 127/70 99 Anesthesia: General Mental Status: Awake Pain Control: Satisfactory Nausea/Vomiting: None Hydration: Adequate Anesthesia-Related Issues: No Anes. Related Issues
--- NOTE | 2021-06-10 07:53 | PM.PNGS ---
Subjective Subjective Date of Service: 06/10/21 <Josee Berger PA-C - Last Filed: 06/10/21 07:59> 06/10/21 <Aren Hicks MD - Last Filed: 06/10/21 08:17> Interval history: Pain at debridement site. <Josee Berger PA-C - Last Filed: 06/10/21 07:59> Physical Exam Vital Signs: Vital Signs: Last Vital Signs Temp 97.1 F 06/10/21 03:18 Pulse 80 06/10/21 03:18 Resp 17 06/10/21 03:18 BP 100/53 L 06/10/21 03:18 Pulse Ox 99 06/10/21 03:18 Body Mass Index 32.1 <Josee Berger PA-C - Last Filed: 06/10/21 07:59> Const: General: no acute distress and alert <Josee Berger PA-C - Last Filed: 06/10/21 07:59> Orientation/consciousness: patient oriented x3 <Josee Berger PA-C - Last Filed: 06/10/21 07:59> Resp: Effort & Inspection: normal respiratory effort <Josee Berger PA-C - Last Filed: 06/10/21 07:59> Skin: Other: right groin debridement sites remain open with healthy appearing subq tissue and granulation tissue, no necrosis noted, no purulent drainage, no surrounding erythema; site remains significantly tender <Josee Berger PA-C - Last Filed: 06/10/21 07:59> Neuro: General: patient oriented x3 <Josee Berger PA-C - Last Filed: 06/10/21 07:59> Extrem: General: Yes no clubbing, cyanosis or edema <Josee Berger PA-C - Last Filed: 06/10/21 07:59> Procedures Date of Service Date of Service: 06/10/21 <Josee Berger PA-C - Last Filed: 06/10/21 07:59> Progress Note: A&P Assessment and plan (1) Hodgkin lymphoma: Status: Acute <MARTINEZ Sutherland Last Filed: 06/10/21 07:59> (2) Necrotizing soft tissue infection: Status: Acute <Josee Berger PA-C - Last Filed: 06/10/21 07:59> Assessment and Plan: 25 year old male with hx of hodgkin lymphoma admitted with necrotizing soft tissue infection of right groin POD #1 s/p EUA, debridement of soft tissue of right groin. The dressings were changed this morning and the wounds are clean with some granulation tissue. No further necrosis noted. Continue daily dressings changes with dry gauze, abdominal dressings. Cont IV abx, pain control. <Josee Berger PA-C - Last Filed: 06/10/21 07:59> 25 year old male with hx of hodgkin lymphoma admitted with necrotizing soft tissue infection of right groin POD #1 s/p EUA, debridement of soft tissue of right groin. The dressings were changed this morning and the wounds are clean with some granulation tissue. No further necrosis noted. Continue daily dressings changes with dry gauze, abdominal dressings. Cont IV abx, pain control. Appreciate Oncology evaluation. Will consult wound care for outpatient follow up. <Aren Hicks MD - Last Filed: 06/10/21 08:17> Fall Risk Details Current Medications: Current Medications Acetaminophen (Acetaminophen 325 Mg Tablet) 650 mg PO Q6H PRN PRN Reason: Pain, Mild (Pain Scale 1-3) Buspirone HCl (Buspirone Hcl 5 Mg Tablet) 15 mg PO BEDTIME [facility] Last Admin: 06/09/21 19:59 Dose: 15 mg Documented by: Fluoxetine HCl (Fluoxetine Hcl 20 Mg Capsule) 40 mg PO DAILY [facility] Hydromorphone HCl (Hydromorphone Hcl 0.5 Mg/0.5 Ml Syringe) 0.5 mg IVPUSH Q4H PRN; Protocol PRN Reason: Pain, Severe (Pain Scale 7-10) Last Admin: 06/10/21 03:05 Dose: 0.5 mg Documented by: Dextrose/Lactated Ringer's (D5lr) 1,000 mls @ 125 mls/hr IVCONT .Q8H [facility] Last Admin: 06/10/21 04:26 Dose: 125 mls/hr Documented by: Piperacillin Sod/Tazobactam (Sod 3.375 gm/ Sodium Chloride) 50 mls @ 100 mls/hr IV Q6H JANNA Last Infusion: 06/10/21 03:35 Dose: Infused Documented by: Promethazine HCl 12.5 mg/ (Sodium Chloride) 50.5 mls @ 202 mls/hr IV Q6H PRN PRN Reason: Nausea and Vomiting Last Infusion: 06/09/21 14:30 Dose: Infused Documented by: Non-Formulary Medication (Guanfacine) 1 tab PO BID JANNA Ondansetron HCl (Ondansetron Hcl 4 Mg/2 Ml Vial) 4 mg IVPUSH Q8H PRN PRN Reason: Nausea and Vomiting Last Admin: 06/09/21 19:58 Dose: 4 mg Documented by: Oxycodone HCl (Oxycodone Hcl Immed Release 5 Mg Tablet) 5 mg PO Q6H PRN PRN Reason: Pain, Moderate (Pain Scale 4-6 Last Admin: 06/09/21 19:58 Dose: 5 mg Documented by: Pharmacy Consult (Consult Rx Perform Med Rec) 1 each MISCELLANE ONCE PRN PRN Reason: Consult order Zolpidem Tartrate (Zolpidem Tartrate 5 Mg Tablet) 5 mg PO BEDTIME PRN PRN Reason: Insomnia Last Admin: 06/09/21 22:47 Dose: 5 mg Documented by: <Josee Berger PA-C - Last Filed: 06/10/21 07:59> Time Spent With Patient Time: Total time spent is greater than 50% in coordination of care (as documented) at patient's floor/unit and/or counseling patient: <Josee Berger PA-C - Last Filed: 06/10/21 07:59> Time with patient: 15 - 24 minutes <Josee Berger PA-C - Last Filed: 06/10/21 07:59> Quality Stroke Does the patient have a stroke diagnosis?: No <Josee Berger PA-C - Last Filed: 06/10/21 07:59> VTE Prior VTE?: No <Josee Berger PA-C - Last Filed: 06/10/21 07:59> VTE Risk Level:: Surgical - moderate <MARTINEZ Sutherland Last Filed: 06/10/21 07:59> VTE Device Contraindication: N/A - Device Ordered <Josee Berger PA-C - Last Filed: 06/10/21 07:59> VTE Drug Contraindication: Treatment Not Indicated <Josee Berger PA-C - Last Filed: 06/10/21 07:59>
[2021-06-10] MEDS: ondansetron HCL 4 MG/2 ML VIAL IVPUSH ×2 (07:55→16:16)
[2021-06-10 08:00] VITALS: BP 124/59; PULSE 81; RESP 18; TEMP 36.3; O2SAT 98
[2021-06-10] MEDS: FLUoxetine HCl 20 MG CAPSULE 40 MG PO (09:47)
--- NOTE | 2021-06-10 11:15 | MHC.CM.PN ---
IMM 06/10/21, EMR REVIEWED, PT W/HODGKIN'S LYMPHOMA ADMITTED W/GROIN ABCESS, CM MET W/PT WHO LIVES W/ AND 6 CHILDREN, PT REPORTS HE IS INDEPENDENT W/ALL CARE, NO DME AND NO HOME SERVICES, PT DENIES HAVING A PCP AND WOULD LIKE A PROVIDER IN [place], PT GIVEN FLYER W/[facility] PROVIDERS AND [facility] FOR WOUND CLINIC WHERE PT WILL NEED OUTPT FOLLOW-UP, PT HAS COMPLETED HCP W/CM, PT GIVEN EDUCATIONAL INFO, ORIGINAL AND 3 COPIES, COPY UPLOADED TO [employer] AND PLACED IN CHART. D/C PLAN: HOME SELF-CARE W/OUTPT FOLLOW-UP IN WOUND CLINIC, FAMILY FOR TRANSPORT. PCP: NONE HCP: HAYLEY LAURENT (PARENT) [phone]
[2021-06-10 12:00] VITALS: BP 133/63; PULSE 83; RESP 16; TEMP 36.4; O2SAT 99
[2021-06-10] MEDS: oxyCODONE HCl Immed Release 5 MG TABLET PO (14:41)
[2021-06-10 15:25] VITALS: BP 137/63; PULSE 75; RESP 18; TEMP 36.2; O2SAT 99
[2021-06-10] MEDS: busPIRone HCl 5 MG TABLET 15 MG PO (19:26)
[2021-06-10 19:33] VITALS: BP 131/71; PULSE 84; RESP 18; TEMP 36.4; O2SAT 100
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
[2021-06-10 23:54] VITALS: BP 137/73; PULSE 87; RESP 17; TEMP 36.9; O2SAT 100
[2021-06-11] MEDS: oxyCODONE HCl Immed Release 5 MG TABLET PO (03:00)
[2021-06-11] MEDS: ondansetron HCL 4 MG/2 ML VIAL IVPUSH ×2 (03:00→15:48)
[2021-06-11] MEDS: Piperacillin Sodium/Tazobactam 3.375 GM in 0.9 % Sodium Chloride 50 ML IV ×4 (03:01→20:55)
[2021-06-11] MEDS: Dextrose 5 % and Lactated Ring 1,000 ML 125 ML IVCONT (03:06)
[2021-06-11 03:28] VITALS: BP 115/74; PULSE 83; RESP 17; TEMP 36.6; O2SAT 97
[2021-06-11] MEDS: HYDROmorphone HCl 0.5 MG/0.5 ML SYRINGE IVPUSH ×3 (03:35→15:48)
[2021-06-11 07:29] VITALS: BP 140/80; PULSE 79; RESP 18; TEMP 36.4; O2SAT 97
[2021-06-11] MEDS: FLUoxetine HCl 20 MG CAPSULE 40 MG PO (08:36)
--- NOTE | 2021-06-11 09:11 | P.PNGS_ITS ---
Subjective Subjective Date of Service: 06/11/21 <Josee Berger PA-C - Last Filed: 06/11/21 09:17> 06/11/21 <Aren Hicks MD - Last Filed: 06/11/21 13:42> Interval history: Pain a little better. Still requiring IV analgesics but complains that it wears off too quickly. Tolerating food but having some nausea. Was OOB yesterday to the chair. <Josee Berger PA-C - Last Filed: 06/11/21 09:17> Physical Exam Vital Signs: Vital Signs: Last Vital Signs Temp 97.5 F 06/11/21 07:29 Pulse 79 06/11/21 07:29 Resp 18 06/11/21 07:29 BP 140/80 H 06/11/21 07:29 Pulse Ox 97 06/11/21 07:29 Body Mass Index 32.1 <Josee Berger PA-C - Last Filed: 06/11/21 09:17> Const: General: comfortable, no acute distress and alert <Josee Berger PA-C - Last Filed: 06/11/21 09:17> Orientation/consciousness: patient oriented x3 <Josee Berger PA-C - Last Filed: 06/11/21 09:17> Resp: Effort & Inspection: normal respiratory effort <Josee Berger PA-C - Last Filed: 06/11/21 09:17> Skin: Other: right groin debridement site with dressing still in place, remains clean <Josee Berger PA-C - Last Filed: 06/11/21 09:17> Neuro: General: patient oriented x3 <Josee Berger PA-C - Last Filed: 06/11/21 09:17> Extrem: General: Yes no clubbing, cyanosis or edema <Josee Berger PA-C - Last Filed: 06/11/21 09:17> Procedures Date of Service Date of Service: 06/11/21 <Josee Berger PA-C - Last Filed: 06/11/21 09:17> Progress Note: A&P Assessment and plan (1) Necrotizing soft tissue infection: Status: Acute <Josee Berger PA-C - Last Filed: 06/11/21 09:17> (2) Hodgkin lymphoma: Status: Acute <Josee Berger PA-C - Last Filed: 06/11/21 09:17> Assessment and Plan: 25 year old male with hx of hodgkin lymphoma admitted with necro tizing soft tissue infection of right groin POD #2 s/p debridement of soft tissue of right groin. Having difficulty with pain control- will add ketorolac, oxycodone 10mg in hopes that it lasts longer for him. Wound to be evaluated by tobacco sample puller, dressings to be changed then. Continue daily dressings changes with dry gauze, abdominal dressings for now. Cont antibiotics.? <Josee Berger PA-C - Last Filed: 06/11/21 09:17> 25 year old male with hx of hodgkin lymphoma admitted with necrotizing soft tissue infection of right groin POD #2 s/p debridement of soft tissue of right groin. Having difficulty with pain control- will add ketorolac, oxycodone 10mg in hopes that it lasts longer for him. Wound to be evaluated by tobacco sample puller, dressings to be changed then. Continue daily dressings changes with dry gauze, abdominal dressings for now. Cont antibiotics.? Patient was independently interviewed and examined by me today and I agree with the above assessment and plan. Will await evaluation from wound care later today. Patient will need follow-up with wound care center upon discharge as well. <Aren Hicks MD - Last Filed: 06/11/21 13:42> Fall Risk Details Current Medications: Current Medications Acetaminophen (Acetaminophen 325 Mg Tablet) 650 mg PO Q6H PRN PRN Reason: Pain, Mild (Pain Scale 1-3) Buspirone HCl (Buspirone Hcl 5 Mg Tablet) 15 mg PO BEDTIME [facility] Last Admin: 06/10/21 19:26 Dose: 15 mg Documented by: Fluoxetine HCl (Fluoxetine Hcl 20 Mg Capsule) 40 mg PO DAILY [facility] Last Admin: 06/11/21 08:36 Dose: 40 mg Documented by: Hydromorphone HCl (Hydromorphone Hcl 0.5 Mg/0.5 Ml Syringe) 0.5 mg IVPUSH Q4H PRN; Protocol PRN Reason: Pain, Severe (Pain Scale 7-10) Last Admin: 06/11/21 08:39 Dose: 0.5 mg Documented by: Dextrose/Lactated Ringer's (D5lr) 1,000 mls @ 125 mls/hr IVCONT .Q8H JANNA Last Admin: 06/11/21 03:06 Dose: 125 mls/hr Documented by: Piperacillin Sod/Tazobactam (Sod 3.375 gm/ Sodium Chloride) 50 mls @ 100 mls/hr IV Q6H JANNA Last Admin: 06/11/21 08:36 Dose: 100 mls/hr Documented by: Promethazine HCl 12.5 mg/ (Sodium Chloride) 50.5 mls @ 202 mls/hr IV Q6H PRN PRN Reason: Nausea and Vomiting Last Infusion: 06/10/21 12:18 Dose: Infused Documented by: Non-Formulary Medication (Guanfacine) 1 tab PO BID [facility]AN[facility] Ondansetron HCl (Ondansetron Hcl 4 Mg/2 Ml Vial) 4 mg IVPUSH Q8H PRN PRN Reason: Nausea and Vomiting Last Admin: 06/11/21 03:00 Dose: 4 mg Documented by: Oxycodone HCl (Oxycodone Hcl Immed Release 5 Mg Tablet) 5 mg PO Q6H PRN PRN Reason: Pain, Moderate (Pain Scale 4-6 Last Admin: 06/11/21 03:00 Dose: 5 mg Documented by: Pharmacy Consult (Consult Rx Perform Med Rec) 1 each MISCELLANE ONCE PRN PRN Reason: Consult order Zolpidem Tartrate (Zolpidem Tartrate 5 Mg Tablet) 5 mg PO BEDTIME PRN PRN Reason: Insomnia Last Admin: 06/09/21 22:47 Dose: 5 mg Documented by: <Josee Berger PA-C - Last Filed: 06/11/21 09:17> Time Spent With Patient Time: Total time spent is greater than 50% in coordination of care (as documented) at patient's floor/unit and/or counseling patient: <Josee Berger PA-C - Last Filed: 06/11/21 09:17> Time with patient: 15 - 24 minutes <Josee Berger PA-C - Last Filed: 06/11/21 09:17> Quality Stroke Does the patient have a stroke diagnosis?: No <Josee Berger PA-C - Last Filed: 06/11/21 09:17> VTE Prior VTE?: No <Josee Berger PA-C - Last Filed: 06/11/21 09:17> VTE Risk Level:: Surgical - moderate <Josee Berger PA-C - Last Filed: 06/11/21 09:17> VTE Device Contraindication: N/A - Device Ordered <Josee Berger PA-C - Last Filed: 06/11/21 09:17> VTE Drug Contraindication: Treatment Not Indicated <Josee Berger PA-C - Last Filed: 06/11/21 09:17>
[2021-06-11] MEDS: oxyCODONE HCl Immed Release 5 MG TABLET 10 MG PO ×3 (11:29→19:18)
[2021-06-11] MEDS: Ketorolac Tromethamine 15 MG/ML VIAL 30 MG IVPUSH (11:30)
[2021-06-11 11:34] VITALS: BP 128/74; PULSE 86; RESP 18; TEMP 36.2; O2SAT 98
--- NOTE | 2021-06-11 13:35 | MHC.CLN ---
F/U TOLERATING FOOD WITH SOME NAUSEA. CONTINUE REGULAR DIET AND SUPPLEMENT ENSURE TID.
[2021-06-11 15:18] VITALS: BP 127/62; PULSE 67; RESP 18; TEMP 36.8; O2SAT 100
[2021-06-11 19:40] VITALS: BP 132/68; PULSE 80; RESP 18; TEMP 36.8; O2SAT 99
[2021-06-11] MEDS: busPIRone HCl 5 MG TABLET 15 MG PO (20:54)
[2021-06-12] VITALS: BP 147/66; PULSE 80; RESP 18; TEMP 36; O2SAT 98
[2021-06-12] MEDS: oxyCODONE HCl Immed Release 5 MG TABLET 10 MG PO ×3 (00:22→17:54)
[2021-06-12] MEDS: ondansetron HCL 4 MG/2 ML VIAL IVPUSH ×3 (00:32→19:52)
[2021-06-12] MEDS: Piperacillin Sodium/Tazobactam 3.375 GM in 0.9 % Sodium Chloride 50 ML IV ×4 (03:53→20:58)
[2021-06-12 03:54] VITALS: BP 127/68; PULSE 71; RESP 16; TEMP 36.2; O2SAT 99
[2021-06-12] MEDS: HYDROmorphone HCl 0.5 MG/0.5 ML SYRINGE IVPUSH ×3 (04:13→09:20)
[2021-06-12 08:00] VITALS: BP 132/60; PULSE 76; RESP 17; TEMP 36.7; O2SAT 98
[2021-06-12] MEDS: FLUoxetine HCl 20 MG CAPSULE 40 MG PO (08:34)
--- NOTE | 2021-06-12 11:28 | P.PNGS_ITS ---
Subjective Subjective Date of Service: 06/12/21 Interval history: Continues to report significant pain, difficulty sitting Physical Exam Vital Signs: Vital Signs: Last Vital Signs Temp 98.1 F 06/12/21 08:00 Pulse 76 06/12/21 08:00 Resp 17 06/12/21 08:00 BP 132/60 06/12/21 08:00 Pulse Ox 98 06/12/21 08:00 Body Mass Index 32.1 Const: General: cooperative and no acute distress Skin: Other: Moderate induration right groin/proximal medial right thigh, no significant erythema, wound bed pink and granulating, moderate induration of surrounding subcutaneous tissues Procedures Date of Service Date of Service: 06/12/21 Progress Note: A&P Assessment and plan (1) Necrotizing soft tissue infection: Status: Acute (2) Abscess of groin, right: Status: Acute (3) Hodgkin lymphoma: Status: Acute (4) Cellulitis: Status: Acute Assessment and Plan: 25-year-old with Hodgkin's lymphoma receiving chemotherapy, developed necrotizing soft tissue right groin area, improving. Has been on Zosyn. Cultures today are growing MRSA. Add Vanco today. Dressing change done. Wound clean and granulating. Continue daily silver alginate dressings. Culture re sults reviewed with him. Fall Risk Details Current Medications: Current Medications Acetaminophen (Acetaminophen 325 Mg Tablet) 650 mg PO Q6H PRN PRN Reason: Pain, Mild (Pain Scale 1-3) Buspirone HCl (Buspirone Hcl 5 Mg Tablet) 15 mg PO BEDTIME [facility] [place] Last Admin: 06/11/21 20:54 Dose: 15 mg Documented by: Fluoxetine HCl (Fluoxetine Hcl 20 Mg Capsule) 40 mg PO DAILY [facility] [place] Last Admin: 06/12/21 08:34 Dose: 40 mg Documented by: Hydromorphone HCl (Hydromorphone Hcl 0.5 Mg/0.5 Ml Syringe) 0.5 mg IVPUSH Q4H PRN; Protocol PRN Reason: Pain, Severe (Pain Scale 7-10) Last Admin: 06/12/21 08:33 Dose: 0.5 mg Documented by: Piperacillin Sod/Tazobactam (Sod 3.375 gm/ Sodium Chloride) 50 mls @ 100 mls/hr IV Q6H [facility] [place] Last Infusion: 06/12/21 09:13 Dose: Infused Documented by: Promethazine HCl 12.5 mg/ (Sodium Chloride) 50.5 mls @ 202 mls/hr IV Q6H PRN PRN Reason: Nausea and Vomiting Last Infusion: 06/12/21 11:14 Dose: Infused Documented by: Ketorolac Tromethamine (Ketorolac Tromethamine 15 Mg/Ml Vial) 30 mg IVPUSH Q6H PRN PRN Reason: pain Last Admin: 06/11/21 11:30 Dose: 30 mg Documented by: Non-Formulary Medication (Guanfacine) 1 tab PO BID [facility] Ondansetron HCl (Ondansetron Hcl 4 Mg/2 Ml Vial) 4 mg IVPUSH Q8H PRN PRN Reason: Nausea and Vomiting Last Admin: 06/12/21 08:33 Dose: 4 mg Documented by: Oxycodone HCl (Oxycodone Hcl Immed Release 5 Mg Tablet) 5 mg PO Q6H PRN PRN Reason: Pain, Moderate (Pain Scale 4-6 Last Admin: 06/11/21 03:00 Dose: 5 mg Documented by: Oxycodone HCl (Oxycodone Hcl Immed Release 5 Mg Tablet) 10 mg PO Q4H PRN PRN Reason: Pain, Severe (Pain Scale 7-10) Last Admin: 06/12/21 00:22 Dose: 10 mg Documented by: Pharmacy Consult (Consult Rx Perform Med Rec) 1 each MISCELLANE ONCE PRN PRN Reason: Consult order Pharmacy Consult (Consult Rx Vancomycin Dosing) 1 each MISCELLANE DAILY PRN PRN Reason: Consult order Zolpidem Tartrate (Zolpidem Tartrate 5 Mg Tablet) 5 mg PO BEDTIME PRN PRN Reason: Insomnia Last Admin: 06/09/21 22:47 Dose: 5 mg Documented by: Time Spent With Patient Time: Total time spent is greater than 50% in coordination of care (as documented) at patient's floor/unit and/or counseling patient: Time with patient: 15 - 24 minutes Quality Stroke Does the patient have a stroke diagnosis?: No VTE Prior VTE?: No VTE Risk Level:: Surgical - moderate VTE Device Contraindication: N/A - Device Ordered VTE Drug Contraindication: Treatment Not Indicated
[2021-06-12 12:00] VITALS: BP 139/75; PULSE 84; RESP 16; TEMP 36.8; O2SAT 100
[2021-06-12] MEDS: vancomycin HCL 1,500 MG in 0.9 % Sodium Chloride 500 ML 333.33 MG IV (12:17)
[2021-06-12] MEDS: Ketorolac Tromethamine 15 MG/ML VIAL 30 MG IVPUSH (12:20)
[2021-06-12] MEDS: Nicotine 14 MG PATCH.TD24 TRANSDERMA (13:51)
[2021-06-12] MEDS: Doxycycline Hyclate 100 MG in 0.9 % Sodium Chloride 250 ML 166.67 MG IV (13:52)
[2021-06-12 15:51] VITALS: BP 126/76; PULSE 78; RESP 18; TEMP 36; O2SAT 98
[2021-06-12 20:06] VITALS: BP 127/59; PULSE 88; RESP 18; TEMP 36.8; O2SAT 97
[2021-06-12] MEDS: busPIRone HCl 5 MG TABLET 15 MG PO (20:59)
[2021-06-13] VITALS (7 sets, daily range): BP systolic 113–135; BP diastolic 56–66; PULSE 67–86; RESP 16–18; TEMP 36–36.9; O2SAT 97–99
[2021-06-13] MEDS: HYDROmorphone HCl 0.5 MG/0.5 ML SYRINGE IVPUSH ×3 (00:16→14:26)
[2021-06-13] MEDS: Piperacillin Sodium/Tazobactam 3.375 GM in 0.9 % Sodium Chloride 50 ML IV ×4 (02:09→20:40)
[2021-06-13] MEDS: Doxycycline Hyclate 100 MG in 0.9 % Sodium Chloride 250 ML 166.67 MG IV ×2 (02:58→14:26)
[2021-06-13] MEDS: FLUoxetine HCl 20 MG CAPSULE 40 MG PO (09:28)
[2021-06-13] MEDS: Nicotine 14 MG PATCH.TD24 TRANSDERMA (09:35)
[2021-06-13] MEDS: Ketorolac Tromethamine 15 MG/ML VIAL 30 MG IVPUSH ×2 (10:24→20:41)
--- NOTE | 2021-06-13 11:39 | P.PNGS_ITS ---
Subjective Subjective Date of Service: 06/13/21 Interval history: Continues to report significant pain associated with his right groin and medial thigh wounds, exacerbated by movement and dressing changes. Physical Exam Vital Signs: Vital Signs: Last Vital Signs Temp 98.3 F 06/13/21 08:00 Pulse 83 06/13/21 08:00 Resp 18 06/13/21 08:00 BP 130/66 06/13/21 08:00 Pulse Ox 97 06/13/21 08:00 Body Mass Index 32.1 Const: General: cooperative, no acute distress and alert Skin: Other: Wound a right groin appears generally clean with some exudate medially, wound of medial right thigh is clean and granulating Procedures Date of Service Date of Service: 06/13/21 Progress Note: A&P Assessment and plan (1) Necrotizing soft tissue infection: Status: Acute (2) Abscess of groin, right: Status: Acute (3) Hodgkin lymphoma: Status: Acute Assessment and Plan: Wounds of right groin and right medial thigh generally clean. Wound culture is growing MRSA. Doxycycline added yesterday. Continue Zosyn, daily dressing changes with silver alginate. Fall Risk Details Current Medications: Current Medications Acetaminophen (Acetaminophen 325 Mg Tablet) 650 mg PO Q6H PRN PRN Reason: Pain, Mild (Pain Scale 1-3) Buspirone HCl (Buspirone Hcl 5 Mg Tablet) 15 mg PO BEDTIME [facility] Last Admin: 06/12/21 20:59 Dose: 15 mg Documented by: Fluoxetine HCl (Fluoxetine Hcl 20 Mg Capsule) 40 mg PO DAILY [facility] Last Admin: 06/13/21 09:28 Dose: 40 mg Documented by: Hydromorphone HCl (Hydromorphone Hcl 0.5 Mg/0.5 Ml Syringe) 0.5 mg IVPUSH Q4H PRN; Protocol PRN Reason: Pain, Severe (Pain Scale 7-10) Last Admin: 06/13/21 09:27 Dose: 0.5 mg Documented by: Piperacillin Sod/Tazobactam (Sod 3.375 gm/ Sodium Chloride) 50 mls @ 100 mls/hr IV Q6H [facility] Last Infusion: 06/13/21 10:25 Dose: Infused Documented by: Promethazine HCl 12.5 mg/ (Sodium Chloride) 50.5 mls @ 202 mls/hr IV Q6H PRN PRN Reason: Nausea and Vomiting Last Infusion: 06/13/21 09:54 Dose: Infused Documented by: Doxycycline Hyclate 100 mg/ (Sodium Chloride) 250 mls @ 166.67 mls/hr IV Q12H [facility] Last Infusion: 06/13/21 04:54 Dose: Infused Documented by: Ketorolac Tromethamine (Ketorolac Tromethamine 15 Mg/Ml Vial) 30 mg IVPUSH Q6H PRN PRN Reason: pain Last Admin: 06/13/21 10:24 Dose: 30 mg Documented by: Nicotine (Nicotine 14 Mg Patch.Td24) 14 mg TRANSDERMA DAILY [facility] Last Admin: 06/13/21 09:35 Dose: 14 mg Documented by: Non-Formulary Medication (Guanfacine) 1 tab PO BID [facility]AN[facility] Ondansetron HCl (Ondansetron Hcl 4 Mg/2 Ml Vial) 4 mg IVPUSH Q8H PRN PRN Reason: Nausea and Vomiting Last Admin: 06/12/21 19:52 Dose: 4 mg Documented by: Oxycodone HCl (Oxycodone Hcl Immed Release 5 Mg Tablet) 5 mg PO Q6H PRN PRN Reason: Pain, Moderate (Pain Scale 4-6 Last Admin: 06/11/21 03:00 Dose: 5 mg Documented by: Oxycodone HCl (Oxycodone Hcl Immed Release 5 Mg Tablet) 10 mg PO Q4H PRN PRN Reason: Pain, Severe (Pain Scale 7-10) Last Admin: 06/12/21 17:54 Dose: 10 mg Documented by: Pharmacy Consult (Consult Rx Perform Med Rec) 1 each MISCELLANE ONCE PRN PRN Reason: Consult order Zolpidem Tartrate (Zolpidem Tartrate 5 Mg Tablet) 5 mg PO BEDTIME PRN PRN Reason: Insomnia Last Admin: 06/09/21 22:47 Dose: 5 mg Documented by: Time Spent With Patient Time: Total time spent is greater than 50% in coordination of care (as documented) at patient's floor/unit and/or counseling patient: Time with patient: 15 - 24 minutes Quality Stroke Does the patient have a stroke diagnosis?: No VTE Prior VTE?: No VTE Risk Level:: Surgical - moderate VTE Device Contraindication: N/A - Device Ordered VTE Drug Contraindication: Treatment Not Indicated
[2021-06-13] MEDS: oxyCODONE HCl Immed Release 5 MG TABLET 10 MG PO (12:08)
[2021-06-13] MEDS: ondansetron HCL 4 MG/2 ML VIAL IVPUSH ×2 (12:08→20:41)
[2021-06-13] MEDS: busPIRone HCl 5 MG TABLET 15 MG PO (20:41)
[2021-06-14] MEDS: oxyCODONE HCl Immed Release 5 MG TABLET PO (00:11)
[2021-06-14] MEDS: Doxycycline Hyclate 100 MG in 0.9 % Sodium Chloride 250 ML 166.7 MG IV (02:36)
[2021-06-14 04:00] VITALS: BP 121/59; PULSE 80; RESP 18; TEMP 36.3; O2SAT 97
[2021-06-14] MEDS: ondansetron HCL 4 MG/2 ML VIAL IVPUSH ×2 (06:18→15:30)
[2021-06-14] MEDS: Piperacillin Sodium/Tazobactam 3.375 GM in 0.9 % Sodium Chloride 50 ML IV ×4 (06:18→20:29)
[2021-06-14] MEDS: HYDROmorphone HCl 0.5 MG/0.5 ML SYRINGE IVPUSH ×2 (06:19→15:30)
[2021-06-14 07:23] VITALS: BP 129/59; PULSE 83; RESP 18; TEMP 36.1; O2SAT 96
[2021-06-14] MEDS: oxyCODONE HCl Immed Release 5 MG TABLET 10 MG PO ×3 (08:04→18:48)
[2021-06-14] MEDS: FLUoxetine HCl 20 MG CAPSULE 40 MG PO (08:05)
[2021-06-14] MEDS: Nicotine 14 MG PATCH.TD24 TRANSDERMA (08:05)
[2021-06-14 11:55] VITALS: BP 131/61; PULSE 88; RESP 18; TEMP 36.1; O2SAT 97
--- NOTE | 2021-06-14 13:18 | P.PNGS_ITS ---
Subjective Subjective Date of Service: 06/14/21 <Josee Berger PA-C - Last Filed: 06/14/21 13:23> 06/14/21 <Aren Hicks MD - Last Filed: 06/14/21 13:57> Interval history: Continues to have pain at groin site; dressing changes remain very painful. C/o burning from yesterdays dressing change. <Josee Berger PA-C - Last Filed: 06/14/21 13:23> Physical Exam Vital Signs: Vital Signs: Last Vital Signs Temp 97 F 06/14/21 11:55 Pulse 88 06/14/21 11:55 Resp 18 06/14/21 11:55 BP 131/61 06/14/21 11:55 Pulse Ox 97 06/14/21 11:55 Body Mass Index 32.1 <Josee Berger PA-C - Last Filed: 06/14/21 13:23> Const: General: comfortable, no acute distress and alert <Josee Berger PA-C - Last Filed: 06/14/21 13:23> Orientation/consciousness: patient oriented x3 <Josee Berger PA-C - Last Filed: 06/14/21 13:23> Resp: Effort & Inspection: normal respiratory effort <Josee Berger PA-C - Last Filed: 06/14/21 13:23> Skin: Other: right groin debridement site- dressing intact, no surrounding significant induration or erythema <Josee Berger PA-C - Last Filed: 06/14/21 13:23> Neuro: General: patient oriented x3 <Josee Berger PA-C - Last Filed: 06/14/21 13:23> Procedures Date of Service Date of Service: 06/14/21 <Josee Berger PA-C - Last Filed: 06/14/21 13:23> Progress Note: A&P Assessment and plan (1) Necrotizing soft tissue infection: Status: Acute <Josee Berger PA-C - Last Filed: 06/14/21 13:23> (2) Hodgkin lymphoma: Status: Acute <Josee Berger PA-C - Last Filed: 06/14/21 13:23> Assessment and Plan: Wounds of right groin/right medial thigh remained clean over weekend. No significant cellulitis today.? Wound culture growing MRSA- day 3 of Doxycyline.? Continue Zosyn/doxycycline, daily dressing changes with silver alginate. Encouraged transition to PO analgesics for eventual disposition. <Josee Berger PA-C - Last Filed: 06/14/21 13:23> Wounds of right groin/right medial thigh remained clean over weekend. No significant cellulitis today.? Wound culture growing MRSA- day 3 of Doxycyline.? Continue Zosyn/doxycycline, daily dressing changes with silver alginate. Encouraged transition to PO analgesics for eventual disposition. 25-year-old male patient with necrotizing skin infection of the right groin status post wide excision in the OR last week. Wound cultures revealed MRSA and he is now being treated with Zosyn/doxycycline. Overall he appears much more comfortable but still complains of pain with dressing changes. Examination reveals no additional erythema in the surrounding skin with evidence of healing at the wound base. He should continue with the IV antibiotics and local wound care. Agree with the above assessment and plan, transition to oral pain med ication. He was encouraged to get out of bed and ambulate. <Aren Hicks MD - Last Filed: 06/14/21 13:57> Fall Risk Details Current Medications: Current Medications Acetaminophen (Acetaminophen 325 Mg Tablet) 650 mg PO Q6H PRN PRN Reason: Pain, Mild (Pain Scale 1-3) Buspirone HCl (Buspirone Hcl 5 Mg Tablet) 15 mg PO BEDTIME [facility] Last Admin: 06/13/21 20:41 Dose: 15 mg Documented by: Fluoxetine HCl (Fluoxetine Hcl 20 Mg Capsule) 40 mg PO DAILY [facility] Last Admin: 06/14/21 08:05 Dose: 40 mg Documented by: Hydromorphone HCl (Hydromorphone Hcl 0.5 Mg/0.5 Ml Syringe) 0.5 mg IVPUSH Q4H PRN; Protocol PRN Reason: Pain, Severe (Pain Scale 7-10) Last Admin: 06/14/21 06:19 Dose: 0.5 mg Documented by: Piperacillin Sod/Tazobactam (Sod 3.375 gm/ Sodium Chloride) 50 mls @ 100 mls/hr IV Q6H [facility] Last Infusion: 10/18/21 08:52 Dose: Infused Documented by: Promethazine HCl 12.5 mg/ (Sodium Chloride) 50.5 mls @ 202 mls/hr IV Q6H PRN PRN Reason: Nausea and Vomiting Last Infusion: 06/14/21 09:45 Dose: Infused Documented by: Doxycycline Hyclate 100 mg/ (Sodium Chloride) 250 mls @ 166.67 mls/hr IV Q12H [facility] Last Infusion: 06/14/21 06:20 Dose: Infused Documented by: Ketorolac Tromethamine (Ketorolac Tromethamine 15 Mg/Ml Vial) 30 mg IVPUSH Q6H PRN PRN Reason: pain Last Admin: 06/13/21 20:41 Dose: 30 mg Documented by: Nicotine (Nicotine 14 Mg Patch.Td24) 14 mg TRANSDERMA DAILY [facility] Last Admin: 06/14/21 08:05 Dose: 14 mg Documented by: Non-Formulary Medication (Guanfacine) 1 tab PO BID [facility] Ondansetron HCl (Ondansetron Hcl 4 Mg/2 Ml Vial) 4 mg IVPUSH Q8H PRN PRN Reason: Nausea and Vomiting Last Admin: 06/14/21 06:18 Dose: 4 mg Documented by: Oxycodone HCl (Oxycodone Hcl Immed Release 5 Mg Tablet) 5 mg PO Q6H PRN PRN Reason: Pain, Moderate (Pain Scale 4-6 Last Admin: 06/14/21 00:11 Dose: 5 mg Documented by: Oxycodone HCl (Oxycodone Hcl Immed Release 5 Mg Tablet) 10 mg PO Q4H PRN PRN Reason: Pain, Severe (Pain Scale 7-10) Last Admin: 06/14/21 08:04 Dose: 10 mg Documented by: Pharmacy Consult (Consult Rx Perform Med Rec) 1 each MISCELLANE ONCE PRN PRN Reason: Consult order Zolpidem Tartrate (Zolpidem Tartrate 5 Mg Tablet) 5 mg PO BEDTIME PRN PRN Reason: Insomnia Last Admin: 06/09/21 22:47 Dose: 5 mg Documented by: <Josee Berger PA-C - Last Filed: 06/14/21 13:23> Time Spent With Patient Time: Total time spent is greater than 50% in coordination of care (as documented) at patient's floor/unit and/or counseling patient: <Josee Berger PA-C - Last Filed: 06/14/21 13:23> Time with patient: less than 15 minutes <Josee Berger PA-C - Last Filed: 06/14/21 13:23> Quality Stroke Does the patient have a stroke diagnosis?: No <Josee Berger PA-C - Last Filed: 06/14/21 13:23> VTE Prior VTE?: No <Josee Berger PA-C - Last Filed: 06/14/21 13:23> VTE Risk Level:: Surgical - moderate <Josee Berger PA-C - Last Filed: 06/14/21 13:23> VTE Device Contraindication: N/A - Device Ordered <Josee Berger PA-C - Last Filed: 06/14/21 13:23> VTE Drug Contraindication: Treatment Not Indicated <Josee Berger PA-C - Last Filed: 06/14/21 13:23>
[2021-06-14] MEDS: Doxycycline Hyclate 100 MG in 0.9 % Sodium Chloride 250 ML 167 MG IV (13:21)
--- NOTE | 2021-06-14 14:12 | MHC.CLN ---
F/U PATIENT REPORTS THAT ATE BITES ONLY AT LUNCH. VARIABLE INTAKE RECORDED, 0-100%, AT MEALS. CONTINUE REGULAR DIET WITH ENSURE (CHOCOLATE) TID.
[2021-06-14 14:55] VITALS: BP 136/62; PULSE 76; RESP 18; TEMP 36.4; O2SAT 99
--- NOTE | 2021-06-14 15:08 | PM.HEMONCPN ---
Medical Summary - Medical Summary Date of Service: 06/14/21 Chief complaint: Right thigh pain Medical Summary: DIAGNOSIS: HODGKIN'S LYMPHOMA. Interval History Interval history: Patient is feeling better overall. Pain in his right thigh and groin has improved. He denies fever or chills. He is receiving IV antibiotics. Review of Systems - Constitutional Reports as per HPI, Reports no additional constitutional complaints - Cardiovascular Reports no additional cardiovascular complaints - Respiratory Reports no additional respiratory complaints - Neurologic Reports weakness [facility] Medical History: Medical History (Last Reviewed 06/10/21 @ 21:45 by Zayda Sanchez MD) ADHD Asthma Hodgkin lymphoma Hx of fracture of foot Family History: Family History (Last Reviewed 06/10/21 @ 21:45 by Zayda Sanchez MD) Maternal Aunt Breast cancer Family/Other Colon cancer Maternal Aunt Ovarian cancer Maternal Grandfather Stroke Pulmonary emboli Heart attack Diabetes Parkinson disease Mother Asthma Father Diabetes Family history: reviewed and not pertinent Surgical History: Surgical History (Last Reviewed 06/10/21 @ 21:46 by Zayda Sanchez MD) Hx of brain surgery Social History: Social History (Last Reviewed 06/10/21 @ 21:46 by Zayda Sanchez MD) Living Situation History: Household Members: Significant Other Household Members Other:: 6 children Housing: Apartment Are you a primary career and transition teacher to a significant other at home: No Do you presently have visiting nurse or other home services: Yes Alcohol History: Alcohol intake: former Alcohol History Details: Alcohol intake frequency: former alcohol drinker Tobacco History: Patient Tobacco Use Status: Current everyday Tobacco Tobacco use type: Cigarette Years Smoked: 12 Substance Use History: Substance Use Type: Marijuana Occupation Assessmet: service: No Current occupational status: unemployed Home Medications and Allergies Current Medications: Current Medications Acetaminophen (Acetaminophen 325 Mg Tablet) 650 mg PO Q6H PRN PRN Reason: Pain, Mild (Pain Scale 1-3) Buspirone HCl (Buspirone Hcl 5 Mg Tablet) 15 mg PO BEDTIME [facility] Last Admin: 06/13/21 20:41 Dose: 15 mg Documented by: Fluoxetine HCl (Fluoxetine Hcl 20 Mg Capsule) 40 mg PO DAILY [facility] Last Admin: 06/14/21 08:05 Dose: 40 mg Documented by: Hydromorphone HCl (Hydromorphone Hcl 0.5 Mg/0.5 Ml Syringe) 0.5 mg IVPUSH Q4H PRN; Protocol PRN Reason: Pain, Severe (Pain Scale 7-10) Last Admin: 06/14/21 06:19 Dose: 0.5 mg Documented by: Piperacillin Sod/Tazobactam (Sod 3.375 gm/ Sodium Chloride) 50 mls @ 100 mls/hr IV Q6H [facility] Last Infusion: 06/14/21 08:52 Dose: Infused Documented by: Promethazine HCl 12.5 mg/ (Sodium Chloride) 50.5 mls @ 202 mls/hr IV Q6H PRN PRN Reason: Nausea and Vomiting Last Infusion: 06/14/21 09:45 Dose: Infused Documented by: Doxycycline Hyclate 100 mg/ (Sodium Chloride) 250 mls @ 166.67 mls/hr IV Q12H [facility] Last Admin: 06/14/21 13:21 Dose: 167 mls/hr Documented by: Ketorolac Tromethamine (Ketorolac Tromethamine 15 Mg/Ml Vial) 30 mg IVPUSH Q6H PRN PRN Reason: pain Last Admin: 06/13/21 20:41 Dose: 30 mg Documented by: Nicotine (Nicotine 14 Mg Patch.Td24) 14 mg TRANSDERMA DAILY [facility] Last Admin: 06/14/21 08:05 Dose: 14 mg Documented by: Non-Formulary Medication (Guanfacine) 1 tab PO BID [facility] Ondansetron HCl (Ondansetron Hcl 4 Mg/2 Ml Vial) 4 mg IVPUSH Q8H PRN PRN Reason: Nausea and Vomiting Last Admin: 06/14/21 06:18 Dose: 4 mg Documented by: Oxycodone HCl (Oxycodone Hcl Immed Release 5 Mg Tablet) 5 mg PO Q6H PRN PRN Reason: Pain, Moderate (Pain Scale 4-6 Last Admin: 06/14/21 00:11 Dose: 5 mg Documented by: Oxycodone HCl (Oxycodone Hcl Immed Release 5 Mg Tablet) 10 mg PO Q4H PRN PRN Reason: Pain, Severe (Pain Scale 7-10) Last Admin: 06/14/21 13:21 Dose: 10 mg Documented by: Pharmacy Consult (Consult Rx Perform Med Rec) 1 each MISCELLANE ONCE PRN PRN Reason: Consult order Zolpidem Tartrate (Zolpidem Tartrate 5 Mg Tablet) 5 mg PO BEDTIME PRN PRN Reason: Insomnia Last Admin: 06/09/21 22:47 Dose: 5 mg Documented by: Home Medications Medication Instructions Recorded Confirmed Type buspirone 15 mg tablet 1 tab PO BEDTIME 03/17/21 06/09/21 History dextroamphetamine-amphetamine ER 1 cap PO QAM 03/17/21 06/09/21 History 30 mg 24hr capsule,extend release fluoxetine 40 mg capsule 1 cap PO DAILY 03/17/21 06/09/21 History guanfacine 1 mg tablet 1 tab PO BID 03/17/21 06/09/21 History chlorpromazine 25 mg tablet 25 mg PO Q8H PRN 06/09/21 06/09/21 History Allergies Allergy/AdvReac Type Severity Reaction Status Date / Time No Known Allergies Allergy Verified 06/09/21 09:25 Exam Vital signs: Vital Signs Temp 97.6 F 06/14/21 14:55 Pulse 76 06/14/21 14:55 Resp 18 06/14/21 14:55 BP 136/62 06/14/21 14:55 Pulse Ox 99 06/14/21 14:55 Intake & Output 06/13/21 06/14/21 06/14/21 18:59 06:59 18:59 Intake Total 1411.0 / 2251.0 840 / 2251.0 1110.5 / 1110.5 Output Total 925 / 1525 600 / 1525 1125 / 1125 Balance 486.0 / 726.0 240 / 726.0 -14.5 / -14.5 Urine Output (Average ml/kg/hr) 0.83 0.54 1.01 Intake: Intake, Oral Amount 960 / 1500 540 / 1500 960 / 960 Intake, IV Amount 451.0 / 751.0 300 / 751.0 150.5 / 150.5 Doxycycline Hyclate 100 mg In 0 250 / 500 250 / 500 .9 % Sodium Chloride 250 ml @ 166.67 mls/hr IV Q12H [facility]ANNA Rx#: [id number] Piperacillin Sodium/Tazobactam 100 / 150 50 / 150 100 / 100 3.375 gm In 0.9 % Sodium Chloride 50 ml @ 100 mls/hr IV Q6H [facility]AN[facility] Rx#:[id number] Promethazine HCL 12.5 mg In 0.9 101.0 / 101.0 50.5 / 50.5 % Sodium Chloride 50 ml @ 202 mls/hr IV Q6H PRN Rx#: [id number] Output: Output, Urine Amount 925 / 1525 600 / 1525 1125 / 1125 Other: Meal Refused No NPO No Breakfast % Eaten 25% <25% Lunch % Eaten 75% <25% Urine Urinal Urinal Urinal Urine Color Yellow Yellow Yellow Weight 92.986 kg Body Mass Index 32.1 - Constitutional Present: mild distress - Routine HEENT Exam Head: Present: normal inspection - Routine Respiratory Exam Present: CTAB - Routine Cardiovascular Exam Cardiovascular: Present: RRR, S1, S2 - Routine Abdominal Exam Present: normal bowel sounds, nontender Data - Labs CBC & Chem 7: 06/09/21 07:28 06/08/21 22:29 Labs: 06/08/21 ECG 12 lead EKG Stat 06/08/21 15:26 EKG Documentation DIRECTED 06/08/21 22:14 cefEPime HCl [Maxipime] 2 gm 0.9 % Sodium Chloride [Ns] 50 ml IV ONCE vancomycin HCL 1,000 mg 0.9 % Sodium Chloride [Ns] 250 ml IV ONCE 06/08/21 22:17 CT pelvis wo con Stat 06/08/21 22:18 vancomycin HCL 1,000 mg .ROUTE .STK-MED ONE 06/08/21 22:19 cefEPime HCl [Maxipime] 2 gm IV .STK-MED ONE 06/08/21 22:29 Basic Metabolic Panel Stat Complete Blood Count Man Dif Stat Lactic Acid Stat 06/08/21 22:43 COVID-19 ID NOW ([facility]) Stat 06/08/21 22:50 Blood Culture X2 [BC] Stat 06/08/21 22:56 EKG Documentation DIRECTED 06/08/21 23:00 0.9 % Sodium Chloride [Ns] 1,000 ml IV 999 mls/hr 06/08/21 23:34 HYDROmorphone HCl [Dilaudid] 0.5 mg IVPUSH ONCE ONE 06/09/21 00:43 Transfer Order Routine 06/09/21 02:28 Dextrose 5 % and Lactated Ring [D5lr] 1,000 ml IVCONT 125 mls/hr 06/09/21 03:03 Piperacillin Sodium/Tazobactam [Zosyn] 3.375 gm IV .STK-MED ONE 06/09/21 07:28 Complete Blood Count Auto Diff AM 06/09/21 08:14 Piperacillin Sodium/Tazobactam [Zosyn] 3.375 gm IV .STK-MED ONE 06/09/21 09:36 HYDROmorphone HCl [Dilaudid] 0.5 mg IVPUSH Q5M PRN oxyCODONE HCl Immed Release [Roxicodone] 10 mg PO ONCE PRN 06/09/21 09:48 ceFAZolin Sodium/Dextrose,Iso [Ancef] 2 gm in 50 ml .ROUTE As directed 06/09/21 10:00 Lactated Ringers [Lr] 1,000 ml IVCONT 50 mls/hr 06/09/21 10:01 Lidocaine HCl 2 % MPF [Xylocaine 2 % MPF] 5 ml .ROUTE .STK-MED ONE Midazolam HCl/PF [Versed] 2 mg .ROUTE .STK-MED ONE Rocuronium [place] [Zemuron] 100 mg IV .STK-MED ONE Sugammadex Sodium [Bridion] 200 mg IVPUSH .STK-MED ONE dexAMETHasone sod phosphate [Decadron] 4 mg .ROUTE .STK-MED ONE fentaNYL citrate/PF [Sublimaze] 50 mcg .ROUTE .STK-MED ONE ondansetron HCL [Zofran] 4 mg .ROUTE .STK-MED ONE propofoL [Diprivan] 200 mg IVPUSH .STK-MED ONE 06/09/21 10:15 Artificial Tears Ophth Oint [Lacri-Lube Ophth Oint] 1 appl .ROUTE .STK-MED ONE 06/09/21 10:29 Bupivacaine MPF 0.5 % [Sensorcaine MPF 0.5% 30 ML] 30 ml .ROUTE .STK-MED ONE Lidocaine HCl 1%/Epi 1:100,000 [Xylocaine 1 %-Epi 1:100,000] 20 ml .ROUTE .STK-MED ONE 06/09/21 10:50 Sevoflurane [Ultane] 250 ml INHALE .STK-MED ONE 06/09/21 10:57 fentaNYL citrate/PF [Sublimaze] 50 mcg .ROUTE .STK-MED ONE 06/09/21 11:07 fentaNYL citrate/PF [Sublimaze] 50 mcg .ROUTE .STK-MED ONE 06/09/21 11:11 fentaNYL citrate/PF [Sublimaze] 50 mcg .ROUTE .STK-MED ONE 06/09/21 11:20 fentaNYL citrate/PF [Sublimaze] 50 mcg .ROUTE .STK-MED ONE 06/09/21 11:26 Transfer Order Routine 06/09/21 11:37 Routine Culture w Gram Stain Stat Surgical [PTH] Routine 06/09/21 11:53 oxyCODONE HCl Immed Release [Roxicodone] 5 mg .ROUTE .STK-MED ONE 06/09/21 11:54 HYDROmorphone HCl [Dilaudid] 0.5 mg .ROUTE .STK-MED ONE 06/09/21 12:05 HYDROmorphone HCl [Dilaudid] 0.5 mg .ROUTE .STK-MED ONE 06/09/21 13:44 Promethazine HCL [Phenergan] 25 mg IV .STK-MED ONE 06/09/21 15:20 Piperacillin Sodium/Tazobactam [Zosyn] 3.375 gm IV .STK-MED ONE 06/09/21 18:27 Flu Vacc [id number](6mos up)/PF [Fluarix Quad [id number]] 0.5 ml IM .ONCE ONE 06/09/21 19:53 Piperacillin Sodium/Tazobactam [Zosyn] 3.375 gm IV .STK-MED ONE 06/10/21 02:51 Piperacillin Sodium/Tazobactam [Zosyn] 3.375 gm IV .STK-MED ONE 06/10/21 07:30 HYDROmorphone HCl [Dilaudid] 0.5 mg IVPUSH ONCE ONE 06/10/21 09:39 Piperacillin Sodium/Tazobactam [Zosyn] 3.375 gm IV .STK-MED ONE 06/10/21 09:44 HYDROmorphone HCl [Dilaudid] 2 mg .ROUTE .STK-MED ONE 06/10/21 11:58 Promethazine HCL [Phenergan] 25 mg IV .STK-MED ONE 06/10/21 14:33 Piperacillin Sodium/Tazobactam [Zosyn] 3.375 gm IV .STK-MED ONE 06/10/21 19:22 Piperacillin Sodium/Tazobactam [Zosyn] 3.375 gm IV .STK-MED ONE 06/11/21 02:54 Piperacillin Sodium/Tazobactam [Zosyn] 3.375 gm IV .STK-MED ONE 06/11/21 08:31 Piperacillin Sodium/Tazobactam [Zosyn] 3.375 gm IV .STK-MED ONE 06/11/21 09:02 Promethazine HCL [Phenergan] 25 mg IV .STK-MED ONE 06/11/21 15:34 Piperacillin Sodium/Tazobactam [Zosyn] 3.375 gm IV .STK-MED ONE 06/11/21 19:48 Promethazine HCL [Phenergan] 25 mg IV .STK-MED ONE 06/11/21 20:48 Piperacillin Sodium/Tazobactam [Zosyn] 3.375 gm IV .STK-MED ONE 06/12/21 03:46 Piperacillin Sodium/Tazobactam [Zosyn] 3.375 gm IV .STK-MED ONE 06/12/21 08:23 Piperacillin Sodium/Tazobactam [Zosyn] 3.375 gm IV .STK-MED ONE 06/12/21 09:05 HYDROmorphone HCl [Dilaudid] 0.5 mg IVPUSH ONCE STA 06/12/21 09:26 Promethazine HCL [Phenergan] 25 mg IV .STK-MED ONE 06/12/21 11:25 Consult Rx Vancomycin Dosing 1 each MISCELLANE DAILY PRN 06/12/21 11:34 vancomycin HCL 1,500 mg 0.9 % Sodium Chloride [Ns] 500 ml IV ONCE 06/12/21 12:07 vancomycin HCL 1,500 mg IV .STK-MED ONE 06/12/21 13:47 Doxycycline Hyclate [Vibramycin] 100 mg IV .STK-MED ONE 06/12/21 15:20 Piperacillin Sodium/Tazobactam [Zosyn] 3.375 gm IV .STK-MED ONE 06/12/21 17:47 Promethazine HCL [Phenergan] 25 mg IV .STK-MED ONE 06/12/21 20:55 Piperacillin Sodium/Tazobactam [Zosyn] 3.375 gm IV .STK-MED ONE 06/13/21 02:05 Piperacillin Sodium/Tazobactam [Zosyn] 3.375 gm IV .STK-MED ONE 06/13/21 02:20 Promethazine HCL [Phenergan] 25 mg IV .STK-MED ONE 06/13/21 02:21 Doxycycline Hyclate [Vibramycin] 100 mg IV .STK-MED ONE 06/13/21 09:17 Promethazine HCL [Phenergan] 25 mg IV .STK-MED ONE 06/13/21 09:19 Piperacillin Sodium/Tazobactam [Zosyn] 3.375 gm IV .STK-MED ONE 06/13/21 14:18 Doxycycline Hyclate [Vibramycin] 100 mg IV .STK-MED ONE 06/13/21 16:15 Piperacillin Sodium/Tazobactam [Zosyn] 3.375 gm IV .STK-MED ONE Promethazine HCL [Phenergan] 25 mg IV .STK-MED ONE 06/13/21 20:02 Piperacillin Sodium/Tazobactam [Zosyn] 3.375 gm IV .STK-MED ONE 06/14/21 02:26 Doxycycline Hyclate [Vibramycin] 100 mg IV .STK-MED ONE Piperacillin Sodium/Tazobactam [Zosyn] 3.375 gm IV .STK-MED ONE 06/14/21 08:02 Piperacillin Sodium/Tazobactam [Zosyn] 3.375 gm IV .STK-MED ONE 06/14/21 09:24 Promethazine HCL [Phenergan] 25 mg IV .STK-MED ONE 06/14/21 13:10 Doxycycline Hyclate [Vibramycin] 100 mg IV .STK-MED ONE Laboratory Last Values WBC 6.0 X10*3/uL (4.8-10.8) 06/09/21 07:28 RBC 3.97 X10*6/uL (4.60-5.80) L 06/09/21 07:28 Hgb 10.3 g/dl (14.0-18.0) L 06/09/21 07:28 Hct 30.7 % (42-52) L 06/09/21 07: MCV 77.3 fL (80-98) L 06/09/21 07: MCH 25.9 pg (27.0-33.0) L 06/09/21 07: MCHC 33.6 g/dl (31.0-36.0) 06/09/21 07: RDW 20.3 % (11.0-16.0) H 06/09/21 07:28 Plt Count 202 X10*3/uL (160-400) 06/09/21 07: MPV 9.1 fL (9.4-12.4) L 06/09/21 07: Immature Gran % (Auto) 3.2 % (0.0-0.4) H 06/09/21: Neut % (Auto) 70.7 % (45-73) 06/09/21 07: Lymph % (Auto) 19.5 % (20-40) L 06/09/21: [place] % (Auto) 5.4 % (2-11) 06/09/21 07: Eos % (Auto) 0.2 % (0-4) 06/09/21 07: Baso % (Auto) 1.0 % (0-2) 06/09/21: Lymph # (Auto) 1.2 X10*3/uL (1.2-4.9) 06/09/21 07: [place] # (Auto) 0.3 X10*3/uL (0.1-1.2) 06/09/21 07: Eos # (Auto) 0.0 X10*3/uL (0.0-0.4) 06/09/21 07: Baso # (Auto) 0.1 X10*3/uL (0.0-0.2) 06/09/21 07: Abs Immat Gran (auto) 0.19 X10*3/uL (0.00-0.03) H 06/09/21 07:28 Absolute Neuts (auto) 4.2 X10*3/uL (2.0-8.3) 06/09/21 07:28 Absolute Nucleated RBC 0.000 X10*3/uL (0.0-0.012) 06/09/21 07:28 Nucleated RBC % (auto) 0.0 /100WBC (0.0-0.2) 06/09/21 07:28 Neutrophils % (Manual) 62 % (45-73) 06/08/21 22:29 Band Neutrophils % 8 % (3-5) H 06/08/21 22:29 Lymphocytes % (Manual) 23 % (20-40) 06/08/21 22:29 Monocytes % (Manual) 7 % (2-11) 06/08/21 22:29 Abs Neuts (Manual) 4.7 X10*3/uL (2.2-7.9) 06/08/21 22: Lymphocytes # (Manual) 1.5 X10*3/uL (0.6-4.8) 06/08/21 22:29 Monocytes # (Manual) 0.5 X10*3/uL (0.0-1.2) 06/08/21 22:29 Platelet Estimate NORMAL (NORMAL) 06/08/21 22:29 Plt Morphology Comment NORMAL 06/08/21 22:29 RBC Morphology NOTED 06/08/21 22:29 Hypochromasia 1+ (5-14) /OIF 06/08/21 22:29 Microcytosis 1+ (5-14) /OIF 06/08/21 22:29 Sodium 133 mmol/L (135-145) L 06/08/21 22:29 Potassium 3.5 mmol/L (3.3-5.1) 06/08/21 22:29 Chloride 94 mmol/L (96-108) L 06/08/21 22:29 Carbon Dioxide 27 mmol/L (22-29) 06/08/21 22:29 Anion Gap 16 (12-20) 06/08/21 22:29 BUN 8 mg/dL (9-16) L 06/08/21 22:29 Creatinine 0.67 mg/dL (0.5-1.4) 06/08/21 22:29 Estim Creat Clear Calc 186.4 06/08/21 22:29 Estimated GFR > 60 06/08/21 22:29 Random Glucose 120 mg/dL (60-115) H 06/08/21 22:29 Lactic Acid 1.6 mmol/L (0.5-2.0) 10/12/21 22:29 Calcium 9.8 mg/dL (8.4-10.2) 06/08/21 22:29 COVID-19 (TRAY) Negative (Negative) 06/08/21 22:43 COVID-19 Clin Com See Note 06/08/21 22:43 - Imaging Radiologist's impression: ITS Impressions Pelvis CT 06/08/21 22:17 IMPRESSION: Soft tissue thickening and fat stranding within the medial surface of the right upper thigh where there is a subcutaneous laceration and more superiorly near the perineum there are a few foci of subcutaneous air. An acute necrotizing infection is difficult to exclude given the presence of air. Correlate clinically. Lymphadenopathy has decrease in size since March 2021. Heterogeneity of the bone marrow is slightly more prominent since March 2021 which could be related with treatment response, although this could also be in part explained by differences in technique. Metabolic response would be best evaluated with a PET/CT. This critical result was discussed with Dr. Puckett at 06/08/2021 11:57 PM and it was ascertained that the content and urgency of the report was understood at the time of direct communication. Assessment and Plan Patient Active problem list reviewed?: Yes (1) Hodgkin lymphoma Status: Acute Assessment and plan: This is a 25-year-old male with advanced stage Hodgkin's lymphoma admitted for right thigh necrotizing fasciitis. He has MRSA growing from his wound culture. He is on Zosyn and doxycycline. He is feeling better overall. He has completed 2 cycles of chemotherapy. He appears to have had a disease response based on imaging with CT pelvis recently, PET CT is awaited. Chemotherapy will be postponed this week. Patient was advised to follow-up next week in the clinic. - Time Spent With Patient Time Spent with Patient (in minutes): 15
--- NOTE | 2021-06-14 17:48 | PC.NURSE ---
Pt today does not want to be bothered. States wants to sleep. When asked to look at dressing, he replied my dressing is fine and proceeded to close his eyes. Pt medicated as needed for pain and nausae with good effect. Encouraged oob but refused at this time
[2021-06-14 20:00] VITALS: BP 137/60; PULSE 78; RESP 18; TEMP 36.3; O2SAT 99
[2021-06-14] MEDS: busPIRone HCl 5 MG TABLET 15 MG PO (20:29)
--- NOTE | 2021-06-14 21:02 | PM.EVENT ---
Event Note Date of Service: 07/25/21 Event Note: He is seeing Surgery He has no fever or chills or elevated WBC. He has MRSA Po Doxycycline for 14 days and Surgery followup.
[2021-06-14 23:40] VITALS: BP 124/58; PULSE 78; RESP 18; TEMP 36.9; O2SAT 97
[2021-06-15 04:00] VITALS: BP 130/71; PULSE 84; RESP 16; TEMP 36.3; O2SAT 97
[2021-06-15 07:39] VITALS: BP 122/60; PULSE 85; RESP 17; TEMP 36.9; O2SAT 97
[2021-06-15] MEDS: FLUoxetine HCl 20 MG CAPSULE 40 MG PO (07:42)
[2021-06-15] MEDS: Nicotine 14 MG PATCH.TD24 TRANSDERMA (07:42)
[2021-06-15] MEDS: oxyCODONE HCl Immed Release 5 MG TABLET 10 MG PO ×3 (07:47→22:29)
[2021-06-15] MEDS: ondansetron HCL 4 MG/2 ML VIAL IVPUSH ×2 (08:47→16:58)
[2021-06-15] MEDS: Ketorolac Tromethamine 15 MG/ML VIAL 30 MG IVPUSH ×2 (10:09→19:46)
[2021-06-15 11:57] VITALS: BP 153/65; PULSE 94; RESP 19; TEMP 36.7; O2SAT 100
--- NOTE | 2021-06-15 11:58 | PC.NURSE ---
Skin/wound assessment completed. Patient is a surgical patient with incision to right groin and thigh from an I & D of abscesses. Small drainage is present with severe pain. Wound cleansed and patted dry, silver alginate applied covered with gauze and ABD pad. No other skin issues at this time. His nurse was told of this pain.
[2021-06-15 15:35] VITALS: BP 126/60; PULSE 83; RESP 18; TEMP 36.8; O2SAT 99
[2021-06-15 18:58] VITALS: BP 134/63; PULSE 82; RESP 18; TEMP 36.7; O2SAT 98
[2021-06-15] MEDS: busPIRone HCl 5 MG TABLET 15 MG PO (19:47)
[2021-06-15] MEDS: Zolpidem Tartrate 5 MG TABLET PO (22:30)
[2021-06-15 23:44] VITALS: BP 134/62; PULSE 79; RESP 18; TEMP 37.1; O2SAT 99
[2021-06-16 04:00] VITALS: BP 121/58; PULSE 75; RESP 18; TEMP 36.1; O2SAT 99
[2021-06-16] MEDS: FLUoxetine HCl 20 MG CAPSULE 40 MG PO (07:32)
[2021-06-16] MEDS: Nicotine 14 MG PATCH.TD24 TRANSDERMA (07:32)
[2021-06-16 07:40] VITALS: BP 113/57; PULSE 67; RESP 17; TEMP 36.8; O2SAT 99
[2021-06-16] MEDS: Acetaminophen 325 MG TABLET 650 MG PO (08:38)
[2021-06-16] MEDS: oxyCODONE HCl Immed Release 5 MG TABLET 10 MG PO (08:38)
[2021-06-16] MEDS: ondansetron HCL 4 MG/2 ML VIAL IVPUSH (08:49)
--- NOTE | 2021-06-16 09:05 | MHC.CM.PN ---
PT DISCHARGING TODAY HOME SELF-CARE PER SURGICAL, PT'S MOTHER IS A WET SANDER AND WILL BE ASSISTING PT WITH DRESSING CHANGES, PT W/HAVE OUTPT FOLLOW-UP W/DR SPRAGUE, PT'S MOTHER FOR TRANSPORT
--- NOTE | 2021-06-16 09:31 | PM.DS ---
DS: Providers Provider Date of Service: 06/16/21 Date of admission: 06/09/21 00:49 Primary care physician: Unknown Physician Consults: 06/09/21 02:28 Consult to Hematology / Oncology Routine Consulting Provider: Lenore Solomon Reason for consultation: Hodgkin's disease, groin infection Consult to Infectious Diseases Routine Consulting Provider: Zayda Sanchez Reason for consultation: Groin infection, immunocompromised DS: Diagnosis Discharge Diagnosis (1) Hodgkin lymphoma: Status: Acute (2) Necrotizing soft tissue infection: Status: Acute DS: Summary Hospital Course Hospital Course: BRIEF HPI: Shon Marion is a 25 year old male? presenting with an open draining wound of the groin extending up towards the scrotal sac which developed over the last 3 weeks.? Patient is currently being treated for Hodgkin's lymphoma receiving chemotherapy under the direction of Dr. Solomon.? He reports having a wound in the groin which would stick to his clothing but now is open and draining.? He reports severe pain when the lesion is touched.? He presented to the emergency department last evening and was found to have foul-smelling discharge from the wound especially in the upper inner thigh right side.? CT of the? pelvis revealed inflammation of the skin especially on the right leg with several air? bubbles within the skin.? HOSPITAL COURSE: The patient was admitted for IV antibiotics and local wound care.? He was started on Zosyn. Dr. Solomon was consulted for his hodgkin lymphoma and infectious disease.?? On 06/09/21, ASHLEY, debridement of right leg/groin necrotizing skin infection was performed by Dr. Hicks without complication. Operative findings included an area of necrosis located in the right groin in the crease of the leg with a 2nd wound located slightly inferior to this with necrotic subcutaneous tissue. The patient tolerated the procedure well and was admitted to the medical/surgical floor for observation. The patient had an uncomplicated recovery and post operative course. He remained inpatient for IV antibiotics and pain control. The wounds remained clean following the debridement and began granulating. The surrounding cellulitic changes improved significantly. He was seen by the wound care nurse and started on silver alginate dressing to the wounds daily. The wound cultures grew MRSA and he was started on doxycycline 100mg IV BID. Zosyn was discontinued. His pain control improved and he was tolerating dressing changes with PO analgesics. He completed a 6 day course of IV zosyn and 2 day course of IV doxycycline and was then transitioned to PO doxycyline by ID. He felt well on the day of discharge and his wounds remained clean. He declined VNA services and his mother, who is a SEAS[employer] P[employer]AGE [employer]ER will be doing the daily dressing changes with silver alginate followed by fluffs. He was discharged to home on 06/16/21 on a course of PO doxycycline to complete a 14 day course per ID. He is to follow up with Dr. Hicks in office in 1 week for a wound check. Status at Discharge Functional status at discharge: independent ambulation Overall status at discharge: patient is progressing back to baseline Time Spent with Patient Time attestation: Total time spent providing and/or coordinating discharge services: Discharge coordination time: Greater than 30 minutes Quality: Stroke Does the patient have a stroke diagnosis?: No Physical Exam Vital Signs: Vital Signs: Last Vital Signs Temp 98.2 F 06/16/21 07:40 Pulse 67 06/16/21 07:40 Resp 17 06/16/21 07:40 BP 113/57 L 06/16/21 07:40 Pulse Ox 99 06/16/21 07:40 Body Mass Index 32.1 Const: General: comfortable, no acute distress and alert Orientation/consciousness: patient oriented x3 Resp: Effort & Inspection: normal respiratory effort Skin: Other: right groin wounds clean, granulation at base, no surrounding induration or edema, areas remain significantly tender Neuro: General: patient oriented x3 Extrem: General: Yes no clubbing, cyanosis or edema DS: Data Data Completed and Pending Completed studies during hospitalization [Text1]: 06/09/21 11:37 Surgical [PTH] Routine Skin, groin, excision:? Ulcerated and necrotic skin and subcutaneous tissue with abscess formation; no malignancy identified. Discharge Plan Discharge Patient Disposition: Home, Self-Care Discharge Diagnosis: necrotizing soft tissue infection Referrals: Aren Hicks MD [Physician] - 1 Week PhysicianEthan [Primary Care Provider] - 1 Week Discharge Medications: New doxycycline hyclate 100 mg Tablet 100 mg PO Q12H 12 Days Qty: 24 RF: 0 oxycodone 5 mg Tablet 5 mg PO Q6H PRN (Reason: Pain, Moderate (Pain Scale 4-6) Qty: 30 RF: 0 silver-calcium alginate 2 X 2 bandage 1 ea topical Q OTHER DAY Qty: 10 RF: 2 Continued fluoxetine 40 mg capsule 1 cap PO DAILY RF: 0 guanfacine 1 mg tablet 1 tab PO BID RF: 0 dextroamphetamine-amphetamine 30 mg capsule,extended release 24hr 1 cap PO QAM RF: 0 buspirone 15 mg tablet 1 tab PO BEDTIME RF: 0 ferrous sulfate [Iron (ferrous sulfate)] 325 mg (65 mg iron) Tablet 325 mg PO BID Qty: 60 RF: 2 ondansetron HCl [Zofran] 4 mg Tablet 4 mg PO Q6H PRN (Reason: Nausea) Qty: 30 RF: 3 dexamethasone [Decadron] 4 mg Tablet 4 mg PO BID Qty: 30 RF: 2 chlorpromazine 25 mg tablet 25 mg PO Q8H PRN (Reason: Nausea) RF: 0 Discontinued oxycodone 5 mg Tablet 5 mg PO BID PRN (Reason: Pain) Qty: 60 RF: 0 Discharge Orders: Discharge Order (Routine); Ordered 06/16/21 Ordered By: Aren Hicks Diet: advance to usual diet Activity on Discharge: As tolerated Stand Alone Forms: Patient Portal Discharge page Care Plan Goals: Wound healing Health Concerns: Hodgkin lymphoma, necrotizing skin infection Plan of Treatment: PO doxycycline, f/u in office wound care Assessment: Improved Discharge Date/Time: 06/16/21 10:29
== END 2021-06-16 10:29 | disposition home or self-care (01) | DRG 464 ==
LOC: HO.ED 06-09 00:43 → HO.EDOVER 06-09 01:05 → HO.S3 06-09 10:06
PROVIDERS: Admitting Provider Surgery; Emergency Provider Emergency Medicine Emergency Medical Services; Visit Provider Surgery
PROC: 0JBC0ZZ Excision of Pelvic Region Subcutaneous Tissue and Fascia, Open Approach (ICD-10-PCS; principal; 2021-06-09 10:00)
DX: M72.6 Necrotizing fasciitis (principal); L02.214 Cutaneous abscess of groin; C81.90 Hodgkin lymphoma, unspecified, unspecified site; B95.62 Methicillin resistant Staphylococcus aureus infection as the cause of diseases classified elsewhere; F90.9 Attention-deficit hyperactivity disorder, unspecified type; F17.210 Nicotine dependence, cigarettes, uncomplicated; Z71.6 Tobacco abuse counseling; Z23 Encounter for immunization; Z20.822 Contact with and (suspected) exposure to COVID-19; Z79.899 Other long term (current) drug therapy
CPT/HCPCS: 36415; 72192; 80048; 83605; 85007; 85025; 85027; 87040; 87071; 87077; 87186; 87205; 87635; 88304; 88305; 90686; 93005; 96361; 96365; 96375; 99024; 99284; 99291; J0690; J0692; J1100; J1170; J1885; J2250; J2405; J2543; J2550; J3010; J3370

== ENCOUNTER 2021-06-22 11:08 | Outpatient (REF) | payer MEDICARE, MEDICAID, SELFPAY ==
--- NOTE | ~2021-06-22 | PE_ITS ---
EXAMINATION: Fluorine-18 FDG PET/CT Scan CLINICAL INDICATION: Subsequent treatment management. Hodgkin lymphoma, status post chemotherapy. PROCEDURE: 63 minutes following the intravenous administration of 16.8 mCi of fluorine 18 FDG, images from the base of the skull to the mid thighs were obtained using a combined PET/CT scanner with CT scan based attenuation correction. No oral contrast was administered. No intravenous contrast was administered. Transverse, coronal, sagittal, and volume reconstruction projections were obtained. The patient's blood glucose as determined by a finger stick, was 79 mg/dl immediately prior to injection. Total CT exam dose-length product 890.13 mGy-cm * These CT images were obtained using dose optimization techniques as appropriate, variously including the following: Automated exposure control * Adjustment of mA and/or kV according to patient size (this includes techniques or standardized protocols for targeted exams where dose is matched to indication/reason for exam; i.e. extremities or head) * Use of iterative reconstruction technique COMPARISON: The previous PET CT scan dated 04/20/2021 is available for comparison. CT scan of the pelvis dated 06/08/2021 is also available for comparison. FINDINGS: (Slice numbers described in this report are numbered superiorly to inferiorly with slice #1 in the head) NECK AND VISUALIZED HEAD: Previously present extensive intensely FDG avid cervical lymphadenopathy present on the prior 04/20/[address] scan is almost completely resolved. A few mildly FDG avid normal-sized cervical lymph nodes persist, the most prominent a left cervical level 2B lymph node showing SUVmax 3.3, slice 38/311, similar to the same lymph node on the prior study which showed SUVmax 3.0, 4.1, slice 45/311 and a more superior cervical level IIb lymph node showing SUVmax 4.1, previously SUVmax 4.7. There is also a mildly FDG avid normal-sized right cervical level IIb lymph node that is also much less intense than FDG avid lymphadenopathy in this region on 04/20/2021. No definite new FDG avid lymph nodes or lymph nodes of increasing intensity are present in the cervical region. All of the other activity in this region appears physiological. THORAX: There are normal-sized mediastinal lymph nodes which do not show FDG activity more intense than the mediastinal blood pool. Some of these were intensely FDG avid on the prior 04/20/2021 PET/CT and none of that previously intensely FDG avid lymphadenopathy is now present. There is no axillary or supraclavicular lymphadenopathy. No pulmonary nodules are visualized. There is no pleural or pericardial fluid, or pneumothorax. The mediastinal blood pool shows SUVmax 2.3, slice 89/311. A right-sided chest port with internal jugular catheter terminating in the superior vena cava is noted. ABDOMEN AND PELVIS: There is an FDG avid lymph node in the right groin that shows SUVmax 7.5, slice 241/311, and this measures 2.2 x 1.3 cm in largest transverse dimensions on the CT images. Previously this showed SUVmax 6.7 and measured 3.0 x 1.[address] images. Mildly FDG avid subcentimeter bilateral inguinal lymph nodes are present with FDG avidity similar to the mediastinal blood pool. Extensive retroperitoneal, abdominal, and pelvic lymphadenopathy present on 04/20/2021 is almost completely resolved. There is a small subcentimeter FDG avid focus in the gastrohepatic ligament posteriorly showing SUVmax 3.3, slice 134/311, corresponding to a larger and much more FDG avid focus on 04/20/2021, previous S SUVmax 6.4. No additional significant FDG avid lymphadenopathy is present in the abdomen or pelvis. Multifocal FDG avid lesions previously present in the spleen are no longer present, and the spleen is now similar intensity to the liver and much smaller in size than previously, now measuring 13.8 cm in largest dimension on the coronal projections versus 17 cm previously. The liver, gallbladder, kidneys, adrenal glands and pancreas appear unremarkable. SUVmax in the liver is 3.5, slice 126/311. MUSCULOSKELETAL: Multiple intensely FDG avid osseous lesions previously present are either resolved or markedly improved. No new FDG avid osseous lesions are present. [employer] is a T10 lesion which now shows SUVmax 5.5, slice 127/311, versus SUVmax 12.1 previously. The most intense FDG avid vertebral body on the prior study was at L1 which showed SUVmax 16.7, but which on the current study is relatively photopenic compared to adjacent vertebra, showing SUVmax 4.4. No new FDG avid osseous lesions are present. VASCULAR: No significant abnormalities are present. PET/PET CT fusion skull to thigh IMPRESSION: There has been a marked partial metabolic response to therapy as described above. Extensive previously present multifocal intensely FDG avid lymphadenopathy, splenic lesions and osseous lesions are now almost completely resolved. Some residual activity is present in a few osseous lesions and lymph nodes, as described above. The most intense residual activity is in a right groin node showing SUVmax 7.5, and this is significantly more intense than the liver. No significantly FDG avid new lesions are visualized. Using the 5 point Deauville scale, this patient would be classified as a Deauville score of 5.
== END 2021-06-22 11:09 | disposition home or self-care (01) ==
LOC: HO.PET 11:08
PROVIDERS: Visit Provider Internal Medicine
DX: Z13.89 Encounter for screening for other disorder (principal)

== ENCOUNTER → 2021-07-01 09:11 | Outpatient (BNVA) | payer MEDICARE, MEDICAID, SELFPAY | PROVIDERS: Visit Provider Surgery | DX: Z48.817 Encounter for surgical aftercare following surgery on the skin and subcutaneous tissue (principal); Z87.2 Personal history of diseases of the skin and subcutaneous tissue; C81.90 Hodgkin lymphoma, unspecified, unspecified site | CPT/HCPCS: 99212 ==

== ENCOUNTER 2021-09-07 10:26 | Outpatient (REF) | payer MEDICARE, MEDICAID, SELFPAY ==
--- NOTE | ~2021-09-07 | PE_ITS ---
EXAMINATION: Fluorine-18 FDG PET/CT Scan CLINICAL INDICATION: Subsequent treatment management. Hodgkin's lymphoma, restaging. PROCEDURE: 60 minutes following the intravenous administration of 13.4 mCi of fluorine 18 FDG, images from the base of the skull to the mid thighs were obtained using a combined PET/CT scanner with CT scan based attenuation correction. No oral contrast was administered. No intravenous contrast was administered. Transverse, coronal, sagittal, and volume reconstruction projections were obtained. The patient's blood glucose as determined by a finger stick, was 93 mg/dl immediately prior to injection. Total CT exam dose-length product 922.75 mGy-cm * These CT images were obtained using dose optimization techniques as appropriate, variously including the following: Automated exposure control * Adjustment of mA and/or kV according to patient size (this includes techniques or standardized protocols for targeted exams where dose is matched to indication/reason for exam; i.e. extremities or head) * Use of iterative reconstruction technique COMPARISON: Previous PET CT scans dated 06/22/2021 and 04/20/2021 are available for comparison. FINDINGS: (Slice numbers described in this report are numbered superiorly to inferiorly with slice #1 in the head) NECK AND VISUALIZED HEAD: No foci of abnormal FDG activity are noted. The distribution of FDG activity is physiological. There is no cervical lymphadenopathy. There is fairly bilaterally symmetrical increased FDG activity in the supraclavicular adipose tissues, consistent with physiological brown fat uptake. Small mildly FDG avid cervical lymph nodes present on the 06/22/2021 PET/CT scan are not present on the current study. THORAX: There are no foci of abnormal FDG activity. No pulmonary nodules are visualized. There is no pleural or pericardial fluid or pneumothorax. There is no mediastinal, supraclavicular, or axillary lymphadenopathy. The mediastinal blood pool shows SUVmax 2.1, slice 87/311. ABDOMEN AND PELVIS: There are no foci of abnormal FDG activity in the abdomen or pelvis. There is mild FDG activity throughout the gastrointestinal tract, predominantly in the large bowel without a suspicious focal component. The liver, spleen, gallbladder, kidneys, adrenal glands, and pancreas are unremarkable. The liver SUVmax is 4.9, slice 132/311. There is a small subcentimeter peripancreatic lymph node that shows mild FDG activity, SUVmax 3.9, slice 135/311. There is a mildly FDG avid left inguinal lymph node that shows SUVmax 2.7, slice 233/311 and measures 1.1 x 0.8 cm in largest transverse dimensions. This is similar in appearance to its size and FDG avidity on 06/22/2021. An FDG avid right inguinal lymph node present on 06/22/2021 has resolved. There is no additional retroperitoneal, mesenteric, pelvic or inguinal lymphadenopathy. MUSCULOSKELETAL: No FDG avid osseous lesions are now present. Some mild FDG avid vertebral lesions present on 06/22/2021 are now no longer present. VASCULAR: No significant abnormalities are present. PET/PET CT fusion skull to thigh IMPRESSION: FDG avid lesions present on the prior study have resolved. A few minimally FDG avid normal-sized lymph nodes are present in the abdomen as described above. These are less intense than the FDG activity in the liver. Using the 5 point Deauville scale, this patient would be classified as a Deauville score of 3. Extensive FDG avid abnormalities present on the baseline 04/20/[address] scan are resolved.
== END 2021-09-07 10:27 | disposition home or self-care (01) ==
LOC: HO.PET 10:26
PROVIDERS: Visit Provider Internal Medicine
DX: Z13.89 Encounter for screening for other disorder (principal)

== ENCOUNTER 2021-10-18 17:23 | Emergency (ER) | payer MEDICARE, MEDICAID, SELFPAY ==
--- NOTE | ~2021-10-18 | XR_ITS ---
EXAMINATION: PORTABLE CHEST 1 VIEW CLINICAL INFORMATION: chest pain . COMPARISON: 03/06/2021. TECHNIQUE: Portable frontal view of the chest was obtained. FINDINGS: The lungs are well expanded. No focal infiltrate, effusion, edema, or pneumothorax. Cardiac and mediastinal silhouettes are within normal limits for technique. Right-sided CT compatible chest port in place with the tip near the cavoatrial junction. No acute bony abnormality seen. XR/XR chest 1V IMPRESSION: No evidence of acute disease.
--- NOTE | 2021-10-18 17:43 | ECG_ITS ---
Test Reason : CHEST PAIN Blood Pressure : / mmHG Vent. Rate : 090 BPM Atrial Rate : 090 BPM P-R Int : 134 ms QRS Dur : 086 ms QT Int : 330 ms P-R-T Axes : -04 061 013 degrees QTc Int : 403 ms Normal sinus rhythm Nonspecific ST and T wave abnormality Borderline ECG When compared with ECG of 08-JUN-2021 15:38, No significant change was found Referred By: Generic ED Physician Electronically Signed By:KALPANA HERNANDEZ
[2021-10-18 18:45] LABS: MANUAL DIFF FLAG NO
[2021-10-18 18:46] LABS: Basophils Percent Auto 0.2 % (0-2); Hematocrit 38.6 % (42.0-52.0); Hemoglobin 12.8 g/dl (14.0-18.0); Imm Gran Abs Auto 0.12 X10*3/uL (0.00-0.03); Imm Gran Pct Auto 1.1 % (0.0-0.4); Lymphocytes Absolute Auto 1.7 X10*3/uL (1.2-4.9); Lymphocytes Percent Auto 15.5 % (20-40); Mean Corpuscular HGB Conc 33.2 g/dl (31.0-36.0); Mean Corpuscular Hemoglobin 27.8 pg (27.0-33.0); Mean Corpuscular Volume 83.9 fL (80.0-98.0); Monocytes Absolute Auto 0.5 X10*3/uL (0.1-1.2); NRBC Pct Auto 0.2 /100WBC (0.0-0.2); Neutrophils Absolute Auto 8.5 x10*3/uL (2.0-8.3); Neutrophils Percent Auto 78.2 % (45-73); Platelet Count 416 X10*3/uL (160-400); Red Cell Distribution Width 18.6 % (11.0-16.0); White Blood Count 10.8 X10*3/uL (4.8-10.8)
[2021-10-18 19:02] LABS: Anion Gap 18 (12-20); Blood Urea Nitrogen 8 mg/dL (9-16); Calcium 10.8 mg/dL (8.4-10.2); Carbon Dioxide 25 mmol/L (22-29); Chloride 105 mmol/L (96-108); Estimated Glomerular Filt Rate > 60; Glucose Random 97 mg/dL (60-115); Potassium 3.5 mmol/L (3.3-5.1); Sodium 144 mmol/L (135-145)
[2021-10-18 19:06] LABS: Troponin-I High Sensitivity 4.1 ng/L (<3.5-35.0)
[2021-10-18 19:29] VITALS: BP 152/65; PULSE 120; RESP 24; TEMP 36.8; O2SAT 100; BMI 32.8
[2021-10-18] MEDS: Ondansetron ODT 4 MG TAB.RAPDIS TRANSLINGU (19:36)
[2021-10-18 23:51] VITALS: BP 118/62; PULSE 86; RESP 20; O2SAT 100
[2021-10-19] MEDS: 0.9 % Sodium Chloride 1,000 ML 999 ML IV (00:03)
--- NOTE | 2021-10-19 00:07 | ED_ITS ---
HPI - Nausea/Vomiting/Diarrhea General Chief complaint: Chest Pain Stated complaint: chest pains/nausea/hot flashes Time Seen by Provider: 10/18/21 23:49 Source: patient Mode of arrival: ambulatory Limitations: no limitations History of Present Illness HPI Narrative: History of Hodgkin's lymphoma finish his last cycle on 10/13 been vomiting multiple times taking Zofran 8 mg without much relief unable to hold down any food also while vomiting complaining of mid chest pain and cough with muco purulent phlegm no fever no chills Related Data Home Medications Medication Instructions Recorded Confirmed buspirone 15 mg tablet 1 tab PO BEDTIME 03/17/21 09/15/21 dextroamphetamine-amphetamine ER 1 cap PO QAM 03/17/21 09/15/21 30 mg 24hr capsule,extend release fluoxetine 40 mg capsule 1 cap PO DAILY 03/17/21 09/15/21 guanfacine 1 mg tablet 1 tab PO BID 03/17/21 09/15/21 chlorpromazine 25 mg tablet 25 mg PO Q8H PRN 06/09/21 09/15/21 Previous Rx's Medication Instructions Recorded silver-calcium alginate 2 X 2 1 ea TOPICAL Q OTHER DAY #10 ea 06/16/21 bandage ondansetron HCl 4 mg tablet 4 mg PO Q6H PRN #30 tab 06/25/21 (Zofran) dexamethasone 4 mg tablet 4 mg PO BID #30 tab 08/04/21 (Decadron) ferrous sulfate 325 mg (65 mg 325 mg PO BID #60 tab 08/04/21 iron) tablet (Iron (ferrous sulfate)) ondansetron 8 mg disintegrating 8 mg PO Q8H PRN #30 tab 09/01/21 tablet ondansetron 4 mg disintegrating 4 mg PO Q6H #60 tab 09/29/21 tablet oxycodone 5 mg tablet 5 mg PO BID PRN #60 tab 09/29/21 carbamide peroxide 6.5 % ear drops 5 drp OTIC (EARS) Q12H #20 ml 10/13/21 (Debrox) Allergies Allergy/AdvReac Type Severity Reaction Status Date / Time No Known Allergies Allergy Verified 10/18/21 19:29 Review of Systems Review of Systems: Yes all other systems are reviewed and are negative PMFSH Past Medical History Medical History ADHD Asthma Hodgkin lymphoma Hx of fracture of foot Surgical History Hx of brain surgery Family History Family History Maternal Aunt Breast cancer Family/Other Colon cancer Maternal Aunt Ovarian cancer Maternal Grandfather Stroke Pulmonary emboli Heart attack Diabetes Parkinson disease Mother Asthma Father Diabetes Social History Social History Household Members: Significant Other Household Members Other:: 6 children Housing: Apartment Are you a primary home care companion to a significant other at home: No Do you presently have visiting nurse or other home services: Yes Alcohol intake: former Patient Tobacco Use Status: Current everyday Tobacco user Tobacco use type: Cigarette Years Smoked: 12 Substance Use Type: Marijuana Advance Directives: No service: No Current occupational status: unemployed Physical Exam Vital Signs: Vital Signs: Last Vital Signs Temp 98.2 F 10/18/21 19:29 Pulse 86 10/18/21 23:51 Resp 20 10/18/21 23:51 BP 118/62 10/18/21 23:51 Pulse Ox 100 10/18/21 23:51 BMI result Body Mass Index 32.8 Appearance: Alert. Oriented X3. No acute distress. Eyes: Mild pallor ENT: Pharynx normal. Oral Mucosa moist Neck: Normal inspection. Neck supple. CVS: Normal heart rate and rhythm. Pulses normal. Respiratory: No respiratory distress. Equal air entry bilateral, no wheezing/rales/rhonchi Abdomen: Soft, mild epigastric tenderness no rebound tenderness or guarding Bowel sounds are present, no mass palpable, no CVA tenderness Skin: Skin warm and dry. Normal skin color. Normal skin turgor. Extremities: No lower extremity edema. No calf tenderness Neuro: Oriented X 3. No motor deficit. MDM - Nausea/Vomiting/Diarrhea MDM Narrative Medical decision making narrative: Patient's chemo induced vomiting feeling much better after IV hydration taking p.o. fluids will discharge patient home patient already has Compazine and Zofran at home Medical Records Attestation: I reviewed the patient's medical records. Lab Data Attestation: I reviewed the patient's lab results. Result diagrams: 10/18/21 18:30 10/18/21 18:30 Labs: Lab Results 10/18/21 10/18/21 10/18/21 Range/Units 18:30 18:30 18:30 WBC 10.8 (4.8-10.8) X10*3/uL RBC 4.60 (4.60-5.80) X10*6/uL Hgb 12.8 L (14.0-18.0) g/dl Hct 38.6 L (42.0-52.0) % MCV 83.9 (80.0-98.0) fL MCH 27.8 (27.0-33.0) pg MCHC 33.2 (31.0-36.0) g/dl RDW 18.6 H (11.0-16.0) % Plt Count 416 H (160-400) X10*3/uL MPV 9.0 L (9.4-12.4) fL Immature Gran % (Auto) 1.1 H (0.0-0.4) % Neut % (Auto) 78.2 H (45-73) % Lymph % (Auto) 15.5 L (20-40) % [place] % (Auto) 5.0 (2-11) % Eos % (Auto) 0.0 (0-4) % Baso % (Auto) 0.2 (0-2) % Lymph # (Auto) 1.7 (1.2-4.9) X10*3/uL [place] # (Auto) 0.5 (0.1-1.2) X10*3/uL Eos # (Auto) 0.0 (0.0-0.4) X10*3/uL Baso # (Auto) 0.0 (0.0-0.2) X10*3/uL Abs Immat Gran (auto) 0.12 H (0.00-0.03) X10*3/uL Absolute Neuts (auto) 8.5 H (2.0-8.3) x10*3/uL Absolute Nucleated RBC 0.020 H (0.0-0.012) X10*3/uL Nucleated RBC % (auto) 0.2 (0.0-0.2) /100WBC Sodium 144 (135-145) mmol/L Potassium 3.5 (3.3-5.1) mmol/L Chloride 105 (96-108) mmol/L Carbon Dioxide 25 (22-29) mmol/L Anion Gap 18 (12-20) BUN 8 L D (9-16) mg/dL Creatinine 0.79 (0.5-1.4) mg/dL Estim Creat Clear Calc TNP Estimated GFR > 60 Random Glucose 97 (60-115) mg/dL Calcium 10.8 H D (8.4-10.2) mg/dL Troponin I High Sens 4.1 (<3.5-35.0) ng/L Urine Color Urine Appearance Urine pH (5.0-8.0) Ur Specific [place] (1.005-1.025) Urine Protein (NEG-TRACE) MG/DL Urine Glucose (UA) (NEG) MG/DL Urine Ketones (NEG) MG/DL Urine Blood (NEG) Urine Nitrite (NEG) Ur Leukocyte Esterase (NEG) Urine RBC (0) /HPF Urine WBC (0-4) /HPF Ur Squamous Epith Cells /LPF Amorphous Sediment /LPF Urine Bacteria /LPF Hyaline Casts /LPF Urine Mucus /LPF COVID-19 (TRAY) (Negative) COVID-19 Clin Com 10/19/21 10/19/21 Range/Units 00:04 00:46 WBC (4.8-10.8) X10*3/uL RBC (4.60-5.80) X10*6/uL Hgb (14.0-18.0) g/dl Hct (42.0-52.0) % MCV (80.0-98.0) fL MCH (27.0-33.0) pg MCHC (31.0-36.0) g/dl RDW (11.0-16.0) % Plt Count (160-400) X10*3/uL MPV (9.4-12.4) fL Immature Gran % (Auto) (0.0-0.4) % Neut % (Auto) (45-73) % Lymph % (Auto) (20-40) % [place] % (Auto) (2-11) % Eos % (Auto) (0-4) % Baso % (Auto) (0-2) % Lymph # (Auto) (1.2-4.9) X10*3/uL [place] # (Auto) (0.1-1.2) X10*3/uL Eos # (Auto) (0.0-0.4) X10*3/uL Baso # (Auto) (0.0-0.2) X10*3/uL Abs Immat Gran (auto) (0.00-0.03) X10*3/uL Absolute Neuts (auto) (2.0-8.3) x10*3/uL Absolute Nucleated RBC (0.0-0.012) X10*3/uL Nucleated RBC % (auto) (0.0-0.2) /100WBC Sodium (135-145) mmol/L Potassium (3.3-5.1) mmol/L Chloride (96-108) mmol/L Carbon Dioxide (22-29) mmol/L Anion Gap (12-20) BUN (9-16) mg/dL Creatinine (0.5-1.4) mg/dL Estim Creat Clear Calc Estimated GFR Random Glucose (60-115) mg/dL Calcium (8.4-10.2) mg/dL Troponin I High Sens (<3.5-35.0) ng/L Urine Color DK YELLOW Urine Appearance HAZY Urine pH 6.5 (5.0-8.0) Ur Specific [place] 1.020 (1.005-1.025) Urine Protein 1+ H (NEG-TRACE) MG/DL Urine Glucose (UA) NEG (NEG) MG/DL Urine Ketones 5 (NEG) MG/DL Urine Blood NEG (NEG) Urine Nitrite NEG (NEG) Ur Leukocyte Esterase NEG (NEG) Urine RBC 0 (0) /HPF Urine WBC 0-2 (0-4) /HPF Ur Squamous Epith Cells TRACE /LPF Amorphous Sediment 2+ /LPF Urine Bacteria TRACE /LPF Hyaline Casts 0-2 /LPF Urine Mucus 4+ /LPF COVID-19 (TRAY) Negative (Negative) COVID-19 Clin Com See Note Discharge Plan Discharge Clinical Impression: Chemotherapy induced nausea and vomiting Patient Disposition: Home, Self-Care Instructions: Chemo Induced Nausea and Vomiting (ED) Additional Instructions: Drink plenty of fluids Take medication for nausea as prescribed by your oncologist and follow-up with them Prescriptions: No Action fluoxetine 40 mg capsule 1 cap PO DAILY 0RF guanfacine 1 mg tablet 1 tab PO BID 0RF dextroamphetamine-amphetamine 30 mg capsule,extended release 24hr 1 cap PO QAM 0RF buspirone 15 mg tablet 1 tab PO BEDTIME 0RF ondansetron HCl [Zofran] 4 mg Tablet 4 mg PO Q6H PRN (Reason: Nausea) Qty: 30 3RF ferrous sulfate [Iron (ferrous sulfate)] 325 mg (65 mg iron) Tablet 325 mg PO BID Qty: 60 2RF dexamethasone [Decadron] 4 mg Tablet 4 mg PO BID Qty: 30 2RF Rx Instructions: for 2 days after chemo ondansetron 8 mg Tablet,Disintegrating 8 mg PO Q8H PRN (Reason: Nausea) Qty: 30 6RF oxycodone 5 mg Tablet 5 mg PO BID PRN (Reason: Pain) Qty: 60 0RF ondansetron 4 mg Tablet,Disintegrating 4 mg PO Q6H Qty: 60 6RF Debrox 6.5 % Drops 5 drp OTIC (EARS) Q12H Qty: 20 0RF chlorpromazine 25 mg tablet 25 mg PO Q8H PRN (Reason: Nausea) 0RF silver-calcium alginate 2 X 2 bandage 1 ea topical Q OTHER DAY Qty: 10 2RF
[2021-10-19 00:29] LABS: COVID-19 Test Negative (Negative); IDNOW Serial# 55D5AD1C
[2021-10-19 00:51] LABS: Appearance Urine HAZY; Color Urine DK YELLOW; Glucose Urine UA NEG (NEG); Leukocyte Esterase Urine NEG (NEG); Nitrite Urine NEG (NEG); PH 6.5 (5.0-8.0); UACC Culture Trigger NO; Urine Blood NEG (NEG); Urine Ketones 5 MG/DL (NEG); Urine Protein 1+ MG/DL (NEG-TRACE)
[2021-10-19 01:05] LABS: Amorphous Sediment Urine 2+ /LPF; Bacteria Urine TRACE /LPF; Hyaline Casts Urine 0-2 /LPF; Mucus Urine 4+ /LPF; RBC Urine 0 /HPF (0); Squamous Epithelial Cell Urine TRACE /LPF; WBC Urine 0-2 /HPF (0-4)
[2021-10-19] MEDS: Morphine Sulfate 4 MG/ML CARTRIDGE IVPUSH (01:42)
[2021-10-19 01:45] VITALS: BP 112/84; PULSE 70; RESP 16; TEMP 37; O2SAT 100
== END 2021-10-19 01:47 | disposition home or self-care (01) ==
PROVIDERS: Emergency Provider Internal Medicine
DX: R07.89 Other chest pain (principal); R11.2 Nausea with vomiting, unspecified; Z20.822 Contact with and (suspected) exposure to COVID-19; Z79.899 Other long term (current) drug therapy
CPT/HCPCS: 36415; 71045; 80048; 81001; 84484; 85025; 87635; 93005; 96361; 96374; 99284; J2270

== ENCOUNTER 2021-11-01 12:03 | Outpatient (REF) | payer MEDICARE, MEDICAID, SELFPAY ==
--- NOTE | 2021-11-01 16:45 | MHC.AU.AEV ---
Adult Audiological Evaluation Date of Visit: 11/01/21 Reason for Appointment: Audiological evaluation due to concern for decreased hearing in the right ear. Mr. Marion just completed chemotherapy to treat Hodgkin Lymphoma, with his last round on October 13, 2021. He states that prior to his final round of chemo, he noticed a sudden decrease in hearing, feelings of blockage, and onset of tinnitus. At present, he feels he is hearing well again and tinnitus has decreased. Does patient feel they have a hearing loss?: Unsure Hearing Handicap Inventory HHIE SCORE: 6 Based on HHIE score, patient has: No perceived hearing handicap Ear History: Recent Ear Pain: Left Ear Blocked/Full Sensation in Ear(s): Yes Medical History: Medical History: Cancer, Dizziness or Unsteadiness, Headache, Tobacco Use Medical History: Hodgkin Lymphoma. Began chemotherapy in late February 2021 and had his final treatment on October 13, 2021. Allergies: No Known Allergies Medication List: buspirone, dextroamphetamine-amphetamine, fluoxetine, guanfacine, chlorpromazine Otoscopy: Right Ear: Clear canal, dull TM Left Ear: Clear canal, dull TM Tympanometry: Tympanometry performed due to: Patient reports sensation that ears are blocked/plugged. Right Ear: Negative Middle Ear Pressure (Type C), Reduced Middle Ear Compliance (Type As) Left Ear: Non-compliant Middle Ear System (Type B) Hearing Evaluation: Transducer(s) Used: High Frequency Headphones Method: Conventional Audiometry Stimuli Used: Pure Tones Right Ear: Description of Hearing: Normal hearing from 250-8k Hz. Left Ear: Description of Hearing: Normal hearing from 250-8k Hz. High Frequency Audiometry: High Frequency Audiometry: High frequency audiometry performed from 9k-20k Hz due to recent chemotherapy treatment, which is known to be ototoxic and typically causes an initial decrease in hearing for high frequencies . Responses in the normal hearing range from 9k-12.5k in the right ear and 9k-11.2k Hz in the left ear, then sloping to the mild hearing loss range through 20k Hz. Speech Recognition Threshold (SRT): Method Used: Monitored Live Voice Stimuli Used: Spondee Words Right Ear: 10 dBHL Left Ear: 15 dBHL Word Discrimination: Method: Recorded Lists Word Lists Used: NU-6 Right Ear: 92% at 50 dBHL Left Ear: 92% at 55 dBHL Interpretation of Results: Audiometry for the standard test frequencies indicates normal hearing bilaterally. Hearing for high-frequency audiometry suggests a slight decrease into the mild hearing loss range, which may indicate some ototoxic effects of chemotherapy, though there are no previous audiograms to compare. Mr. Marion also presents with binaural middle-ear dysfunction today, likely related to any recent sinus problems/congestion, which can cause sounds to have a dull, muffled quality as if listening underwater. Recommendations: Audiological re-evaluation if changes are noted. If symptoms of middle-ear dysfunction persist, Mr. Marion may benefit from a referral to otolaryngology. Diagnosis: Primary Diagnosis: H69.93 Unspecified Eustachian Tube Dysfunction, Bilateral Services Performed: Pure Tone- Air (CPT 39726) Speech Audiometry Threshold, with Speech Recognition (CPT 63076) Tympanometry (CPT 96603) Signature: Provider: Dayan Galeano, CCC-A
== END 2021-11-01 12:04 | disposition home or self-care (01) ==
LOC: HO.SH 12:03
PROVIDERS: Visit Provider Internal Medicine
DX: H91.90 Unspecified hearing loss, unspecified ear (principal); Z92.21 Personal history of antineoplastic chemotherapy
CPT/HCPCS: 92552; 92556; 92567

== ENCOUNTER 2021-11-20 12:13 | Emergency (ER) | payer MEDICARE, MEDICAID, SELFPAY ==
[2021-11-20 12:22] VITALS: BP 106/56; PULSE 118; RESP 16; TEMP 36.8; O2SAT 98; BMI 36.3
--- NOTE | 2021-11-20 12:30 | ED.SKABFB ---
HPI - Skin/Abscess/Foreign Bdy General Chief complaint: Skin/Abscess/Foreign Body Stated complaint: Abscess Time Seen by Provider: 11/20/21 12:30 Source: patient Mode of arrival: ambulatory Limitations: no limitations History of Present Illness HPI narrative: 26-year-old male with a history Hodgkin's lymphoma status post chemotherapy, history of a right inguinal abscess secondary to MRSA requiring operative debridement and admission for IV antibiotics May 2021 who presents to the ER with a left upper thigh abscess for the last 4 days. The area has been very tender and painful. He denies any fever or chills. He denies any drainage. He reports history of chronic abscess and infections in his inguinal area for a long time. He states when he got admitted for this in the Fall it was much worse and he kept putting it off. He states there was significant drainage and it was much larger area. He has completely chemotherapy with Dr. Solomon but was told his counts are still low. MD complaint: abscess/boil Onset (ago): day(s) (4) Tetanus up to date: yes Location: LLE Severity: moderate Severity scale (1-10): 7 Quality: aching Pain Consistency: intermittent Relieving factors: immobilization Exacerbating factors: movement Context: none Associated symptoms: denies other symptoms Treatments prior to arrival: none Related Data Home Medications Medication Instructions Recorded Confirmed buspirone 15 mg tablet 1 tab PO BEDTIME 03/17/21 11/03/21 dextroamphetamine-amphetamine ER 1 cap PO QAM 03/17/21 11/03/21 30 mg 24hr capsule,extend release fluoxetine 40 mg capsule 1 cap PO DAILY 03/17/21 11/03/21 guanfacine 1 mg tablet 1 tab PO BID 03/17/21 11/03/21 chlorpromazine 25 mg tablet 25 mg PO Q8H PRN 06/09/21 11/03/21 Previous Rx's Medication Instructions Recorded silver-calcium alginate 2 X 2 1 ea TOPICAL Q OTHER DAY #10 ea 06/16/21 bandage dexamethasone 4 mg tablet 4 mg PO BID #30 tab 08/04/21 (Decadron) ferrous sulfate 325 mg (65 mg 325 mg PO BID #60 tab 08/04/21 iron) tablet (Iron (ferrous sulfate)) ondansetron 8 mg disintegrating 8 mg PO Q8H PRN #30 tab 09/01/21 tablet oxycodone 5 mg tablet 5 mg PO BID PRN #60 tab 09/29/21 carbamide peroxide 6.5 % ear drops 5 drp OTIC (EARS) Q12H #20 ml 10/13/21 (Debrox) amoxicillin 500 mg tablet 500 mg PO BID #14 tab 11/10/21 doxycycline hyclate 100 mg tablet 100 mg PO BID #20 tab 11/20/21 Allergies Allergy/AdvReac Type Severity Reaction Status Date / Time No Known Allergies Allergy Verified 11/03/21 12:51 Review of Systems Review of Systems: Constitutional: No Fever, No Chills Cardiovascular: No Chest Pain, No SOB Gastrointestinal: No Nausea, No Vomiting, No Diarrhea, No abdominal Pain Genitourinary: No Dysuria, No Urinary Frequency, No Hematuria, No scrotal pain Musculoskeletal: No joint pain, No Myalgias Skin: + Skin Lesions, No rash Neuro: No Weakness, No Numbness, No Dizziness, No Headache Psych: + Anxiety/Panic, No Depression Heme/Lymph: No Bruising, No Lymphadenopathy Endocrine: No Polyuria, No Polydipsia PMFSH Past Medical History Medical History ADHD Asthma Hodgkin lymphoma Hx of fracture of foot Surgical History Hx of brain surgery Family History Family History Maternal Aunt Breast cancer Family/Other Colon cancer Maternal Aunt Ovarian cancer Maternal Grandfather Stroke Pulmonary emboli Heart attack Diabetes Parkinson disease Mother Asthma Father Diabetes Social History Social History (Updated 11/03/21 @ 12:51 by Brooke Bone CMA) Household Members: Significant Other Household Members Other:: 6 children Housing: Apartment Are you a primary hearing healthcare practitioner to a significant other at home: No Do you presently have visiting nurse or other home services: No Alcohol intake: former Patient Tobacco Use Status: Current everyday Tobacco user Tobacco use type: Cigarette Cigarette Packs Per Day: 0.5 Years Smoked: 12 Substance Use Type: Marijuana Advance Directives: No Advance Directives Information Provided: No service: No Current occupational status: unemployed Physical Exam Vital Signs: Vital Signs: Last Vital Signs Temp 98.2 F 11/20/21 12:22 Pulse 118 H 11/20/21 12:22 Resp 16 11/20/21 12:22 BP 106/56 L 11/20/21 12:22 Pulse Ox 98 11/20/21 12:22 BMI result Body Mass Index 36.3 Appearance: Alert. Oriented X3. No acute distress. HEENT: alopecia of the scalp with diffuse new growth CVS: Normal heart rate and rhythm. Pulses normal. Respiratory: No respiratory distress. Skin: Skin warm and dry. Normal skin color. Normal skin turgor. No rashes. Extremities: left inner proximal thigh with 2x2cm tender and indurated area with foul smelling yellow purulent discharge, small area of surrounding erythema and warmth, other surrounding lesions consistent with open comedomes Neuro: Oriented X 3. No motor deficit. No sensory deficit. Course Course Course Narrative: 26-year-old male with a history of Hodgkin lymphoma status post chemotherapy, now completed, history of right inguinal abscess due to MRSA requiring surgical debridement of necrotic tissue and admission for IV antibiotics presents to the ER with a new left proximal inner thigh abscess. Area was able to be drained of pus at the bedside without any incision. Patient tolerated well. Area of infection does not extend to the perineal or scrotal area. It seems to be localized and is much less extensive than the infection that was present on the right In the past. He has no systemic signs of infection. Given his recent completion of chemotherapy will check basic lab workup and make sure he is neutropenic. Will plan to treat for MRSA with oral doxycycline. Reevaluation(s) Reevaluation #1: white blood cell count is normal. He is not neutropenic. Given the areas very localized will plan to discharge home with oral doxycycline to treat empirically for possible MRSA. Will refer to Dr. Hicks for wound follow-up. Stable for discharge home. Patient agrees with plan. MDM - Skin/Abscess/Foreign Bdy Lab Data Result diagrams: 11/20/21 13:13 11/20/21 13:13 Labs: Lab Results 11/20/21 11/20/21 Range/Units 13:13 13:13 WBC 7.9 (4.8-10.8) X10*3/uL RBC 4.79 (4.60-5.80) X10*6/uL Hgb 13.7 L (14.0-18.0) g/dl Hct 42.7 (42.0-52.0) % MCV 89.1 (80.0-98.0) fL MCH 28.6 (27.0-33.0) pg MCHC 32.1 (31.0-36.0) g/dl RDW 16.3 H (11.0-16.0) % Plt Count 264 (160-400) X10*3/uL MPV 9.3 L (9.4-12.4) fL Immature Gran % (Auto) 0.6 H (0.0-0.4) % Neut % (Auto) 58.5 (45-73) % Lymph % (Auto) 31.6 (20-40) % Emmons % (Auto) 6.1 (2-11) % Eos % (Auto) 2.8 (0-4) % Baso % (Auto) 0.4 (0-2) % Lymph # (Auto) 2.5 (1.2-4.9) X10*3/uL Emmons # (Auto) 0.5 (0.1-1.2) X10*3/uL Eos # (Auto) 0.2 (0.0-0.4) X10*3/uL Baso # (Auto) 0.0 (0.0-0.2) X10*3/uL Abs Immat Gran (auto) 0.05 H (0.00-0.03) X10*3/uL Absolute Neuts (auto) 4.6 (2.0-8.3) x10*3/uL Absolute Nucleated RBC 0.000 (0.0-0.012) X10*3/uL Nucleated RBC % (auto) 0.0 (0.0-0.2) /100WBC Sodium 139 (135-145) mmol/L Potassium 4.6 (3.3-5.1) mmol/L Chloride 103 (96-108) mmol/L Carbon Dioxide 27 (22-29) mmol/L Anion Gap 14 (12-20) BUN 7 L D (9-16) mg/dL Creatinine 0.72 (0.5-1.4) mg/dL Estim Creat Clear Calc 177.0 Estimated GFR > 60 Random Glucose 89 (60-115) mg/dL Calcium 9.5 (8.4-10.2) mg/dL Discharge Plan Discharge Clinical Impression: Abscess Patient Disposition: Home, Self-Care Instructions: Abscess (ED) Additional Instructions: Use warm compresses to the area several times per day. Take the prescribed antibiotic as directed - complete the entire course Follow up with Dr. Hicks this week If you develop worsening pain or infection come back to the ER for further evaluation. Prescriptions: New doxycycline hyclate 100 mg tablet 100 mg PO BID Qty: 20 0RF No Action fluoxetine 40 mg capsule 1 cap PO DAILY 0RF guanfacine 1 mg tablet 1 tab PO BID 0RF dextroamphetamine-amphetamine 30 mg capsule,extended release 24hr 1 cap PO QAM 0RF buspirone 15 mg tablet 1 tab PO BEDTIME 0RF ferrous sulfate [Iron (ferrous sulfate)] 325 mg (65 mg iron) Tablet 325 mg PO BID Qty: 60 2RF dexamethasone [Decadron] 4 mg Tablet 4 mg PO BID Qty: 30 2RF Rx Instructions: for 2 days after chemo ondansetron 8 mg Tablet,Disintegrating 8 mg PO Q8H PRN (Reason: Nausea) Qty: 30 6RF oxycodone 5 mg Tablet 5 mg PO BID PRN (Reason: Pain) Qty: 60 0RF Debrox 6.5 % Drops 5 drp OTIC (EARS) Q12H Qty: 20 0RF amoxicillin 500 mg Tablet 500 mg PO BID Qty: 14 0RF chlorpromazine 25 mg tablet 25 mg PO Q8H PRN (Reason: Nausea) 0RF silver-calcium alginate 2 X 2 bandage 1 ea topical Q OTHER DAY Qty: 10 2RF Referrals: Aren Hicks MD [Physician] - 3 days (left inguinal abscess)
[2021-11-20 13:18] LABS: MANUAL DIFF FLAG NO
[2021-11-20 13:19] LABS: Basophils Percent Auto 0.4 % (0-2); Eosinophils Absolute Auto 0.2 X10*3/uL (0.0-0.4); Eosinophils Percent Auto 2.8 % (0-4); Hematocrit 42.7 % (42.0-52.0); Hemoglobin 13.7 g/dl (14.0-18.0); Imm Gran Abs Auto 0.05 X10*3/uL (0.00-0.03); Imm Gran Pct Auto 0.6 % (0.0-0.4); Lymphocytes Absolute Auto 2.5 X10*3/uL (1.2-4.9); Lymphocytes Percent Auto 31.6 % (20-40); Mean Corpuscular HGB Conc 32.1 g/dl (31.0-36.0); Mean Corpuscular Hemoglobin 28.6 pg (27.0-33.0); Mean Corpuscular Volume 89.1 fL (80.0-98.0); Mean Platelet Volume 9.3 fL (9.4-12.4); Monocytes Absolute Auto 0.5 X10*3/uL (0.1-1.2); Monocytes Percent Auto 6.1 % (2-11); Neutrophils Absolute Auto 4.6 x10*3/uL (2.0-8.3); Neutrophils Percent Auto 58.5 % (45-73); Platelet Count 264 X10*3/uL (160-400); Red Blood Count 4.79 X10*6/uL (4.60-5.80); Red Cell Distribution Width 16.3 % (11.0-16.0); White Blood Count 7.9 X10*3/uL (4.8-10.8)
[2021-11-20 13:35] LABS: Anion Gap 14 (12-20); Blood Urea Nitrogen 7 mg/dL (9-16); Calcium 9.5 mg/dL (8.4-10.2); Carbon Dioxide 27 mmol/L (22-29); Chloride 103 mmol/L (96-108); Estimated Glomerular Filt Rate > 60; Glucose Random 89 mg/dL (60-115); Potassium 4.6 mmol/L (3.3-5.1); Sodium 139 mmol/L (135-145)
== END 2021-11-20 13:52 | disposition home or self-care (01) ==
PROVIDERS: Physician Assistant; Emergency Provider Emergency Medicine
DX: L02.415 Cutaneous abscess of right lower limb (principal); F17.200 Nicotine dependence, unspecified, uncomplicated; F12.90 Cannabis use, unspecified, uncomplicated; Z79.899 Other long term (current) drug therapy; C81.90 Hodgkin lymphoma, unspecified, unspecified site; Z92.21 Personal history of antineoplastic chemotherapy; Z86.14 Personal history of Methicillin resistant Staphylococcus aureus infection
CPT/HCPCS: 36415; 80048; 85025; 99283

== ENCOUNTER 2021-12-14 23:25 | Emergency (ER) | payer MEDICARE, MEDICAID, SELFPAY ==
--- NOTE | ~2021-12-14 | XR_ITS ---
EXAMINATION: XR CHEST CLINICAL INFORMATION: Confusion and change in mental status with question pneumonia COMPARISON: 10/18/2021 TECHNIQUE: 2 views of the chest were obtained. FINDINGS: No significant abnormality is noted involving the heart, lungs, mediastinum, bony thorax or soft tissues. Again noted is a right chest wall jugular port with its tip in the SVC. XR/XR chest 2V IMPRESSION: Unremarkable examination.
--- NOTE | ~2021-12-14 | CT_ITS ---
EXAMINATION: CT HEAD WITHOUT CONTRAST CLINICAL INFORMATION: Change in mental status. COMPARISON: None. TECHNIQUE: Contiguous axial imaging was performed from the skull base to vertex without intravenous contrast. This CT examination was performed using dose optimization techniques as appropriate, variously including the following: * Automated exposure control * Adjustment of mA and/or kV according to patient size (this includes techniques or standardized protocols for targeted exams where dose is matched to indication/reason for exam; i.e. extremities or head) Use of iterative reconstruction technique DLP: 735 mGy-cm. FINDINGS: There is no evidence of acute intracranial hemorrhage or territorial infarction. No abnormal mass effect or midline shift is seen. Miller to white matter differentiation is well preserved. No extra-axial fluid collections are identified. No hydrocephalus. No significant volume loss. There is no abnormal attenuation within the brain parenchyma. The osseous structures and soft tissues are normal. Partially opacified bilateral mastoid air cells. Moderate opacification throughout the paranasal sinuses, greatest in the left [facility] region. CT/CT head/brain wo con IMPRESSION: No acute intracranial pathology.
[2021-12-14 23:40] VITALS: BP 138/63; BP 192/94; PULSE 103; PULSE 81; RESP 16; TEMP 36.9; O2SAT 100; O2SAT 98; BMI 35.5
--- NOTE | 2021-12-14 23:40 | ED_ITS ---
HPI - Altered Mental Status General Chief Complaint: Altered Mental Status Stated Complaint: SUBSTANCE ABUSE Time Seen by Provider: 12/14/21 23:29 Source: patient Mode of arrival: EMS Limitations: altered mental status History of Present Illness HPI narrative: 26-year-old male who was brought to the emergency department for evaluation with altered mental status. I did receive the report from [facility] EMT who transported the patient to the emergency department. Apparently, the patient was noted to be altered by his family. There is some concerned that he may have taken some drugs at home, possibly PCP. The EMT states that the patient initially seem to be out of it, he would open his eyes to verbal commands and appeared to have labor breathing. When they got him into the ambulance he seemed to be more responsive. He did not receive any Narcan EN route. At the time of my evaluation in the emergency department the patient is oriented to person and place, he does appear to be slightly confused and often stares off into the distance. He did not appear to be in any distress. He does admit to smoking ma rijuana daily. He denies using opiates benzodiazepines or PCP. Information was also obtained from the patient's mother who was here in the emergency department, she is Amharic speaking only assistant dean was used. The patient lives with his on the 1st floor. Apparently his found him lying on the floor in the hallway. His body was lying in the house but has had was lying outside of the door. He apparently vomited. He was unresponsive. His called an ambulance. His mother states he does use marijuana and also uses other drugs. She believes that since he was diagnosed with Hodgkin's lymphoma was no longer using drugs except for marijuana. She is not certain what drugs he has used in the past. The patient has a history of Hodgkin's lymphoma 1st diagnosed in February 2021 with completion of his chemotherapy treatment with resolution of lesions seen on PET scan done in August of 2021, last seen here in the emergency department on 11/20/2021 (30 days prior) with left proximal inner thigh abscess which was drained in the emergency department and treated with doxycycline orally. Laboratory evaluation was normal at that time with a WBC of 7900. complaint: altered mental status Onset (ago): unknown (Just prior to arrival) Timing confirmed by: family member Severity: severe Consistency of symptoms: waxing and waning Context: unknown Related Data Home Medications Medication Instructions Recorded Confirmed buspirone 15 mg tablet 1 tab PO BEDTIME 03/17/21 12/15/21 dextroamphetamine-amphetamine ER 1 cap PO QAM 03/17/21 12/15/21 30 mg 24hr capsule,extend release fluoxetine 40 mg capsule 1 cap PO DAILY 03/17/21 12/15/21 guanfacine 1 mg tablet 1 tab PO BID 03/17/21 12/15/21 Previous Rx's Medication Instructions Recorded silver-calcium alginate 2 X 2 1 ea TOPICAL Q OTHER DAY #10 ea 06/16/21 bandage ferrous sulfate 325 mg (65 mg 325 mg PO BID #60 tab 08/04/21 iron) tablet (Iron (ferrous sulfate)) ondansetron 8 mg disintegrating 8 mg PO Q8H PRN #30 tab 09/01/21 tablet oxycodone 5 mg tablet 5 mg PO BID PRN #60 tab 09/29/21 Allergies Allergy/AdvReac Type Severity Reaction Status Date / Time No Known Allergies Allergy Verified 11/03/21 12:51 Review of Systems Review of Systems: Yes Unobtainable due to mental status PMFSH Past Medical History Medical History ADHD Asthma Hodgkin lymphoma Hx of fracture of foot Surgical History Hx of brain surgery Family History Family History Maternal Aunt Breast cancer Family/Other Colon cancer Maternal Aunt Ovarian cancer Maternal Grandfather Stroke Pulmonary emboli Heart attack Diabetes Parkinson disease Mother Asthma Father Diabetes Social History Social History (Updated 11/03/21 @ 12:51 by Brooke Bone CMA) Household Members: Significant Other Household Members Other:: 6 children Housing: Apartment Are you a primary coronary care unit nurse to a significant other at home: No Do you presently have visiting nurse or other home services: No Alcohol intake: former Patient Tobacco Use Status: Current everyday Tobacco user Tobacco use type: Cigarette Cigarette Packs Per Day: 0.5 Years Smoked: 12 Use of substances other than those prescribed or required for medical reasons: Yes Substance Use Type: Marijuana Last Used Substance: Just Prior to Admission Advance Directives: No service: No Current occupational status: unemployed Physical Exam ED Vital Signs: Vital Signs - 24 hr 12/14/21 23:40 Temperature 98.4 F Pulse Rate 81 Respiratory Rate 16 Blood Pressure 138/63 Pulse Oximetry 98 BMI result Body Mass Index 35.5 Course Course Course Narrative: 26-year-old male who was brought to emergency department by EMS for evaluation of altered level of consciousness at home. The circumstances regarding the patient's presentation are unclear, there was question that he may have taken some illicit drugs at home however patient denies this. The patient does have a history stage IV, advanced, Hodgkin's lymphoma diagnosed in February of 2021, he re ceived chemotherapy with no radiation therapy and had resolution of his lesions on a PET scan done in August of 2021. He was also seen in the emergency department proximally 30 days prior with a left inner thigh abscess which was drained in the emergency department in treated doxycycline, does have a history of MRSA in the past. The patient does appear to be confused on presentation. Vital signs were normal. Physical examination was unremarkable. I did order laboratory evaluation to include CBC, CMP, lipase, lactic acid, drug screen, lactate, alcohol level, urinalysis, blood cultures x2. I also ordered a chest x-ray two view and CT scan of the head without contrast. Patient will be kept on a cardiac and O2 saturation monitor. 0153: Laboratory evaluation: Elevated WBC 09416. Elevated alk-phos 139. Urinalysis was negative. Ethanol was below detectable limits. Urine tox screen was positive for PCP and marijuana. Radiology evaluation: CT scan of the brain was unremarkable. Chest x-ray was unremarkable. Given the patient's positive drug screen, I suspect that the patient did do PCP today which causes his change in mental status. Discuss this with th e patient and the patient's mother. The patient does not want any detox at this time, however he was given patient resources. I did tell the patient that any street drug can be contaminated with fentanyl and if he was to continue to use street drugs he should make sure that there is a sober observer that can administer Narcan in the event that he loses consciousness. He was given a Narcan discharge CT. MDM - Altered Mental Status Lab Data Result diagrams: 12/14/21 23:59 12/15/21 00:56 Labs: Lab Results 12/14/21 12/14/21 12/15/21 Range/Units 23:59 23:59 00:00 WBC 12.0 H (4.8-10.8) X10*3/uL RBC 5.32 (4.60-5.80) X10*6/uL Hgb 15.0 (14.0-18.0) g/dl Hct 46.2 (42.0-52.0) % MCV 86.8 (80.0-98.0) fL MCH 28.2 (27.0-33.0) pg MCHC 32.5 (31.0-36.0) g/dl RDW 14.6 (11.0-16.0) % Plt Count 253 (160-400) X10*3/uL MPV 10.0 (9.4-12.4) fL Immature Gran % (Auto) 0.3 (0.0-0.4) % Neut % (Auto) 52.3 (45-73) % Lymph % (Auto) 40.9 H (20-40) % [place] % (Auto) 4.9 (2-11) % Eos % (Auto) 1.3 (0-4) % Baso % (Auto) 0.3 (0-2) % Lymph # (Auto) 4.9 (1.2-4.9) X10*3/uL [place] # (Auto) 0.6 (0.1-1.2) X10*3/uL Eos # (Auto) 0.2 (0.0-0.4) X10*3/uL Baso # (Auto) 0.0 (0.0-0.2) X10*3/uL Abs Immat Gran (auto) 0.04 H (0.00-0.03) X10*3/uL Absolute Neuts (auto) 6.3 (2.0-8.3) x10*3/uL Absolute Nucleated RBC 0.000 (0.0-0.012) X10*3/uL Nucleated RBC % (auto) 0.0 (0.0-0.2) /100WBC ESR 4 (0-15) MM/HR Sodium (135-145) mmol/L Potassium (3.3-5.1) mmol/L Chloride (96-108) mmol/L Carbon Dioxide (22-29) mmol/L Anion Gap (12-20) BUN (9-16) mg/dL Creatinine (0.5-1.4) mg/dL Estim Creat Clear Calc Estimated GFR Random Glucose (60-115) mg/dL Lactic Acid (0.5-2.0) mmol/L Calcium (8.4-10.2) mg/dL Total Bilirubin (0.0-1.0) mg/dL AST (5-37) U/L ALT (0-40) U/L Alkaline Phosphatase (39-117) U/L C-Reactive Protein (< or = 0.50) mg/dL Total Protein (6.5-8.0) g/dL Albumin (3.5-5.0) g/dL Lipase (8-78) U/L Urine Color Urine Appearance Urine pH (5.0-8.0) Ur Specific Barnhart (1.005-1.025) Urine Protein (NEG-TRACE) MG/DL Urine Glucose (UA) (NEG) MG/DL Urine Ketones (NEG) MG/DL Urine Blood (NEG) Urine Nitrite (NEG) Ur Leukocyte Esterase (NEG) Urine Opiates Screen (Not Detect) Urine Fentanyl Screen (Not Detect) Ur Barbiturates Screen (Not Detect) Ur Phencyclidine Scrn (Not Detect) Ur Amphetamines Screen (Not Detect) U Benzodiazepines Scrn (Not Detect) Urine Cocaine Screen (Not Detect) U Marijuana (THC) Screen (Not Detect) Ethyl Alcohol < 10 mg/dL 12/15/21 12/15/21 12/15/21 Range/Units 00:02 00:56 01:16 WBC (4.8-10.8) X10*3/uL RBC (4.60-5.80) X10*6/uL Hgb (14.0-18.0) g/dl Hct (42.0-52.0) % MCV (80.0-98.0) fL MCH (27.0-33.0) pg MCHC (31.0-36.0) g/dl RDW (11.0-16.0) % Plt Count (160-400) X10*3/uL MPV (9.4-12.4) fL Immature Gran % (Auto) (0.0-0.4) % Neut % (Auto) (45-73) % Lymph % (Auto) (20-40) % [place] % (Auto) (2-11) % Eos % (Auto) (0-4) % Baso % (Auto) (0-2) % Lymph # (Auto) (1.2-4.9) X10*3/uL [place] # (Auto) (0.1-1.2) X10*3/uL Eos # (Auto) (0.0-0.4) X10*3/uL Baso # (Auto) (0.0-0.2) X10*3/uL Abs Immat Gran (auto) (0.00-0.03) X10*3/uL Absolute Neuts (auto) (2.0-8.3) x10*3/uL Absolute Nucleated RBC (0.0-0.012) X10*3/uL Nucleated RBC % (auto) (0.0-0.2) /100WBC ESR (0-15) MM/HR Sodium 142 (135-145) mmol/L Potassium 4.2 (3.3-5.1) mmol/L Chloride 104 (96-108) mmol/L Carbon Dioxide 27 (22-29) mmol/L Anion Gap 15 (12-20) BUN 11 D (9-16) mg/dL Creatinine 0.84 (0.5-1.4) mg/dL Estim Creat Clear Calc 149.9 Estimated GFR > 60 Random Glucose 97 (60-115) mg/dL Lactic Acid 1.3 (0.5-2.0) mmol/L Calcium 10.7 H D (8.4-10.2) mg/dL Total Bilirubin 0.7 (0.0-1.0) mg/dL AST 18 (5-37) U/L ALT 15 (0-40) U/L Alkaline Phosphatase 139 H (39-117) U/L C-Reactive Protein 0.83 H (< or = 0.50) mg/dL Total Protein 7.8 D (6.5-8.0) g/dL Albumin 5.3 H (3.5-5.0) g/dL Lipase 27 (8-78) U/L Urine Color Urine Appearance Urine pH (5.0-8.0) Ur Specific Barnhart (1.005-1.025) Urine Protein (NEG-TRACE) MG/DL Urine Glucose (UA) (NEG) MG/DL Urine Ketones (NEG) MG/DL Urine Blood (NEG) Urine Nitrite (NEG) Ur Leukocyte Esterase (NEG) Urine Opiates Screen Not Detected (Not Detect) Urine Fentanyl Screen Not Detected (Not Detect) Ur Barbiturates Screen Not Detected (Not Detect) Ur Phencyclidine Scrn POSITIVE H (Not Detect) Ur Amphetamines Screen Not Detected (Not Detect) U Benzodiazepines Scrn Not Detected (Not Detect) Urine Cocaine Screen Not Detected (Not Detect) U Marijuana (THC) Screen POSITIVE H (Not Detect) Ethyl Alcohol mg/dL 12/15/21 Range/Units 01:16 WBC (4.8-10.8) X10*3/uL RBC (4.60-5.80) X10*6/uL Hgb (14.0-18.0) g/dl Hct (42.0-52.0) % MCV (80.0-98.0) fL MCH (27.0-33.0) pg MCHC (31.0-36.0) g/dl RDW (11.0-16.0) % Plt Count (160-400) X10*3/uL MPV (9.4-12.4) fL Immature Gran % (Auto) (0.0-0.4) % Neut % (Auto) (45-73) % Lymph % (Auto) (20-40) % [place] % (Auto) (2-11) % Eos % (Auto) (0-4) % Baso % (Auto) (0-2) % Lymph # (Auto) (1.2-4.9) X10*3/uL [place] # (Auto) (0.1-1.2) X10*3/uL Eos # (Auto) (0.0-0.4) X10*3/uL Baso # (Auto) (0.0-0.2) X10*3/uL Abs Immat Gran (auto) (0.00-0.03) X10*3/uL Absolute Neuts (auto) (2.0-8.3) x10*3/uL Absolute Nucleated RBC (0.0-0.012) X10*3/uL Nucleated RBC % (auto) (0.0-0.2) /100WBC ESR (0-15) MM/HR Sodium (135-145) mmol/L Potassium (3.3-5.1) mmol/L Chloride (96-108) mmol/L Carbon Dioxide (22-29) mmol/L Anion Gap (12-20) BUN (9-16) mg/dL Creatinine (0.5-1.4) mg/dL Estim Creat Clear Calc Estimated GFR Random Glucose (60-115) mg/dL Lactic Acid (0.5-2.0) mmol/L Calcium (8.4-10.2) mg/dL Total Bilirubin (0.0-1.0) mg/dL AST (5-37) U/L ALT (0-40) U/L Alkaline Phosphatase (39-117) U/L C-Reactive Protein (< or = 0.50) mg/dL Total Protein (6.5-8.0) g/dL Albumin (3.5-5.0) g/dL Lipase (8-78) U/L Urine Color YELLOW Urine Appearance CLEAR Urine pH 6.0 (5.0-8.0) Ur Specific Barnhart 1.010 (1.005-1.025) Urine Protein NEG (NEG-TRACE) MG/DL Urine Glucose (UA) NEG (NEG) MG/DL Urine Ketones NEG (NEG) MG/DL Urine Blood NEG (NEG) Urine Nitrite NEG (NEG) Ur Leukocyte Esterase NEG (NEG) Urine Opiates Screen (Not Detect) Urine Fentanyl Screen (Not Detect) Ur Barbiturates Screen (Not Detect) Ur Phencyclidine Scrn (Not Detect) Ur Amphetamines Screen (Not Detect) U Benzodiazepines Scrn (Not Detect) Urine Cocaine Screen (Not Detect) U Marijuana (THC) Screen (Not Detect) Ethyl Alcohol mg/dL ECG Data ECG #1: Attestation: I personally reviewed and interpreted this ECG as follows: Interpretation: 2335: Normal sinus rhythm with a rate of 89, normal NM interval, QRS duration and QTC interval, no ST segment elevation, no ST segment depression, no PACs, no PVCs, this is a normal EKG. Discharge Plan Discharge Clinical Impression: Acute alteration in mental status, PCP (phencyclidine) abuse, Marijuana use Patient Disposition: Home, Self-Care Instructions: Polysubstance Abuse (ED) Additional Instructions: The CT scan of your head was normal. Your chest x-ray was normal. Your blood work was unremarkable. Your alcohol level was below detectable limits. Your urine drug screen was positive for marijuana and PCP. The PCP is most likely the cause of the passing out and your confusion. Any street drugs that you by an use can be contaminated with fentanyl and can cause you to . Your are being discharged home with intranasal Narcan. If you are going to continue to use street drugs, you should make sure that there is a sober person with you that is not using drugs and that this person can administer intranasal Narcan in the event that you stop breathing. Prescriptions: No Action fluoxetine 40 mg capsule 1 cap PO DAILY 0RF guanfacine 1 mg tablet 1 tab PO BID 0RF dextroamphetamine-amphetamine 30 mg capsule,extended release 24hr 1 cap PO QAM 0RF buspirone 15 mg tablet 1 tab PO BEDTIME 0RF ferrous sulfate [Iron (ferrous sulfate)] 325 mg (65 mg iron) Tablet 325 mg PO BID Qty: 60 2RF ondansetron 8 mg Tablet,Disintegrating 8 mg PO Q8H PRN (Reason: Nausea) Qty: 30 6RF oxycodone 5 mg Tablet 5 mg PO BID PRN (Reason: Pain) Qty: 60 0RF silver-calcium alginate 2 X 2 bandage 1 ea topical Q OTHER DAY Qty: 10 2RF
--- NOTE | 2021-12-14 23:50 | PC.NURSE ---
pt confused as to why he is here, this RN reassured him and told him his family was worried about him for acting strange. pt understands but moments later will ask the same question. pt asking why he needs blood work and despite letting him know numberous times, he continues to ask this RN.
--- NOTE | 2021-12-15 | ECG_ITS ---
Test Reason : ALTERED MENTAL STATUS Blood Pressure : / mmHG Vent. Rate : 089 BPM Atrial Rate : 089 BPM P-R Int : 166 ms QRS Dur : 082 ms QT Int : 350 ms P-R-T Axes : 021 022 022 degrees QTc Int : 425 ms Normal sinus rhythm Normal ECG When compared to the previous EKG of No significant changes seen Referred By: Juan Eaton Electronically Signed By:STEPHANY MEJÍA MD
[2021-12-15 00:07] LABS: MANUAL DIFF FLAG NO
[2021-12-15 00:08] LABS: Basophils Percent Auto 0.3 % (0-2); Eosinophils Absolute Auto 0.2 X10*3/uL (0.0-0.4); Eosinophils Percent Auto 1.3 % (0-4); Hematocrit 46.2 % (42.0-52.0); Imm Gran Abs Auto 0.04 X10*3/uL (0.00-0.03); Imm Gran Pct Auto 0.3 % (0.0-0.4); Lymphocytes Absolute Auto 4.9 X10*3/uL (1.2-4.9); Lymphocytes Percent Auto 40.9 % (20-40); Mean Corpuscular HGB Conc 32.5 g/dl (31.0-36.0); Mean Corpuscular Hemoglobin 28.2 pg (27.0-33.0); Mean Corpuscular Volume 86.8 fL (80.0-98.0); Monocytes Absolute Auto 0.6 X10*3/uL (0.1-1.2); Monocytes Percent Auto 4.9 % (2-11); Neutrophils Absolute Auto 6.3 x10*3/uL (2.0-8.3); Neutrophils Percent Auto 52.3 % (45-73); Platelet Count 253 X10*3/uL (160-400); Red Blood Count 5.32 X10*6/uL (4.60-5.80); Red Cell Distribution Width 14.6 % (11.0-16.0)
[2021-12-15 00:21] LABS: Lactic Acid 1.3 mmol/L (0.5-2.0)
[2021-12-15 00:29] LABS: Ethanol < 10 mg/dL
[2021-12-15 01:26] LABS: Erythrocyte Sedimentation Rate 4 MM/HR (0-15)
[2021-12-15 01:26] LABS: Appearance Urine CLEAR; Color Urine YELLOW; Glucose Urine UA NEG (NEG); Leukocyte Esterase Urine NEG (NEG); Nitrite Urine NEG (NEG); Urine Blood NEG (NEG); Urine Ketones NEG (NEG); Urine Protein NEG (NEG-TRACE)
[2021-12-15 01:29] LABS: Alanine Aminotransferase 15 U/L (0-40); Albumin Level 5.3 g/dL (3.5-5.0); Alkaline Phosphatase 139 U/L (39-117); Anion Gap 15 (12-20); Aspartate Amino Transferase 18 U/L (5-37); Bilirubin Total 0.7 mg/dL (0.0-1.0); Blood Urea Nitrogen 11 mg/dL (9-16); C Reactive Protein 0.83 mg/dL (< or = 0.50); Calcium 10.7 mg/dL (8.4-10.2); Carbon Dioxide 27 mmol/L (22-29); Chloride 104 mmol/L (96-108); Creatinine Clr Calc Pharmacy 149.9; Estimated Glomerular Filt Rate > 60; Glucose Random 97 mg/dL (60-115); Lipase 27 U/L (8-78); Potassium 4.2 mmol/L (3.3-5.1); Sodium 142 mmol/L (135-145); Total Protein 7.8 g/dL (6.5-8.0)
--- NOTE | 2021-12-15 01:33 | PC.NURSE ---
family member at bedside
[2021-12-15 01:47] LABS: Amphetamine Screen Urine Not Detected (Not Detect); Barbiturates, Urine Not Detected (Not Detect); Benzodiazepines Screen Urine Not Detected (Not Detect); Cannabinoid Screen Urine POSITIVE (Not Detect); Cocaine Screen Urine Not Detected (Not Detect); Fentanyl, urine Not Detected (Not Detect); Opiate Screen Urine Not Detected (Not Detect); Phencyclidine Screen Urine POSITIVE (Not Detect)
[2021-12-15 02:21] VITALS: BP 138/63; PULSE 83; PULSE 93; RESP 20; RESP 22; O2SAT 96; O2SAT 98
--- NOTE | 2021-12-15 02:31 | PC.NURSE ---
mom at bedside, pt being discharged home with a take home narcan. this RN educated pt on how and when to use it
== END 2021-12-15 02:37 | disposition home or self-care (01) ==
PROVIDERS: Emergency Provider Emergency Medicine Emergency Medical Services
DX: R41.82 Altered mental status, unspecified (principal); F16.10 Hallucinogen abuse, uncomplicated; F12.90 Cannabis use, unspecified, uncomplicated; J45.909 Unspecified asthma, uncomplicated; F17.210 Nicotine dependence, cigarettes, uncomplicated; Z85.71 Personal history of Hodgkin lymphoma; Z92.21 Personal history of antineoplastic chemotherapy; Z79.899 Other long term (current) drug therapy
CPT/HCPCS: 36415; 70450; 71046; 80053; 80307; 81003; 82077; 83605; 83690; 85025; 85652; 86140; 87040; 93005; 99285

== ENCOUNTER 2022-02-10 11:06 | Emergency (ER) | payer MEDICARE, MEDICAID, SELFPAY ==
--- NOTE | ~2022-02-10 | CT_ITS ---
EXAMINATION: CT HEAD WITHOUT CONTRAST CLINICAL INFORMATION: Disorientation COMPARISON: Previous head CT November 2020 TECHNIQUE: Contiguous axial imaging was performed from the skull base to vertex without intravenous administration of contrast. This CT examination was performed using dose optimization techniques as appropriate, variously including the following: *Automated exposure control *Adjustment of mA and/or kV according to patient size (this includes techniques or standardized protocols for targeted exams where dose is matched to indication/reason for exam; i.e. extremities or head) *Use of iterative reconstruction technique DLP: 717 mGy-cm FINDINGS: There is no evidence of acute intracranial hemorrhage or territorial infarction. No abnormal mass effect or midline shift is seen. Miller to white matter differentiation is well preserved. No extra-axial fluid collections are identified. The ventricles are normal in size. There is no abnormal attenuation within the brain parenchyma. The osseous structures and soft tissues are normal. There is mild soft tissue opacification of the bilateral inferior mastoid air cells. The mastoid air cells and visualized portions of the paranasal sinuses are otherwise clear. CT/CT head/brain wo con IMPRESSION: No acute intracranial pathology.
--- NOTE | 2022-02-10 11:27 | ED.GENADULT ---
HPI - General Adult General Chief complaint: Psychiatric Symptoms Stated complaint: crisis Time Seen by Provider: 02/10/22 11:27 Source: patient and family (mother) Mode of arrival: ambulatory Limitations: no limitations History of Present Illness HPI narrative: Patient is a 26 year old male presenting to the emergency department today with suicidal ideation. Patient states that he is ready to and wants to kill himself. Patient's mother states that she is very concerned to leave the patient alone because he is going to kill himself. Patient denies any dizziness, lightheadedness, abdominal pain, nausea, vomiting, fever, chills, blurry vision, double vision, loss of vision, chest pain, difficulty breathing, shortness of breath, back pain, night sweats, pain with urination, increased urinary frequency, increased urinary urgency, blood in his urine or stool, syncope or a near syncopal episode, recent trauma or falls, bowel incontinence, bladder incontinence, bowel retention, bladder retention, or any other complaints at this time. Onset (ago): day(s) Relieving factors: none Exacerbating factors: none Associated symptoms: denies other symptoms Treatments prior to arrival: none Related Data Home Medications Medication Instructions Recorded Confirmed buspirone 15 mg tablet 1 tab PO BEDTIME 03/17/21 12/15/21 dextroamphetamine-amphetamine ER 1 cap PO QAM 03/17/21 12/15/21 30 mg 24hr capsule,extend release fluoxetine 40 mg capsule 1 cap PO DAILY 03/17/21 12/15/21 guanfacine 1 mg tablet 1 tab PO BID 03/17/21 12/15/21 Previous Rx's Medication Instructions Recorded silver-calcium alginate 2 X 2 1 ea topical Q OTHER DAY #10 ea 06/16/21 bandage ferrous sulfate 325 mg (65 mg 325 mg PO BID #60 tabs 08/04/21 iron) tablet (Iron (ferrous sulfate)) ondansetron 8 mg disintegrating 8 mg PO Q8H PRN Nausea #30 tabs 09/01/21 tablet oxycodone 5 mg tablet 5 mg PO BID PRN Pain #60 tabs 09/29/21 Allergies Allergy/AdvReac Type Severity Reaction Status Date / Time No Known Allergies Allergy Verified 11/03/21 12:51 Review of Systems Constitutional: Constitutional: Reports no additional constitutional complaints, Denies chills, Denies fever(s) and Denies night sweats Eyes: Eyes: Reports no additional eye complaints, Denies blurry vision, Denies change in vision, Denies diplopia, Denies eye discharge, Denies loss of vision and Denies eye pain ENT: Denies dizziness Cardiovascular: Cardiovascular: Reports no additional cardiovascular complaints, Denies chest pain, Denies lightheadedness, Denies Loss of Consciousness and Denies dyspnea Respiratory: Respiratory: Reports no additional respiratory complaints and Denies dyspnea Gastrointestinal: Gastrointestinal: Reports no additional gastrointestinal complaints, Denies abdominal pain, Denies melena, Denies hematochezia, Denies change in bowel habits and Denies change in stool character Genitourinary: Genitourinary: Reports no additional male genitourinary complaints, Denies hematuria, Denies oliguria, Denies difficulty urinating, Denies dysuria, Denies urinary frequency, Denies urinary hesitancy, Denies urinary incontinence and Denies urinary urgency Musculoskeletal: Musculoskeletal: Reports no additional musculoskeletal complaints, Denies numbness and Denies tingling Neurologic: Denies dizziness, Denies loss of vision, Denies numbness and Denies tingling Psychiatric: Psychiatric: Reports depression and Reports suicidal ideation Endocrine: Endocrine: Reports no additional endocrine complaints Hematologic/Lymphatic: Hematologic/Lymphatic: Reports no additional hematologic/lymphatic complaints Allergic/Immunologic: Allergic/Immunologic: Reports no additional allergic/immunologic complaints [facility] Past Medical History Attestation statement: The following information was validated with the patient. Source: old records reviewed Medical History ADHD Asthma Hodgkin lymphoma Hx of fracture of foot Surgical History Hx of brain surgery Family History Family History Maternal Aunt Breast cancer Family/Other Colon cancer Maternal Aunt Ovarian cancer Maternal Grandfather Stroke Pulmonary emboli Heart attack Diabetes Parkinson disease Mother Asthma Father Diabetes Social History Social History Household Members: Significant Other Household Members Other:: 6 children Housing: Apartment Are you a primary reservoir caretaker to a significant other at home: No Do you presently have visiting nurse or other home services: No Alcohol intake: former Patient Tobacco Use Status: Current everyday Tobacco user Tobacco use type: Cigarette Cigarette Packs Per Day: 0.5 Years Smoked: 12 Substance Use Type: Marijuana Advance Directives: Yes Advance Directives on File: Yes Advance Directives Date on File: 06/17/21 service: No Current occupational status: unemployed Physical Exam ED Vital Signs: Vital Signs - 24 hr 02/10/22 11:37 Pulse Rate 78 Respiratory Rate 16 Blood Pressure 147/81 H BMI result Body Mass Index 0.0 Const General: cooperative, no acute distress, alert and awake Nutritional Appearance: well nourished Orientation/consciousness: patient oriented x3 Limitations: no limitations HENMT Head: Yes normal to inspection and Yes atraumatic Ears: hearing grossly normal bilaterally and external ears normal General nose exam: Normal external nose present, no nasal discharge noted and no epistaxis Face and sinus: Yes normal facial exam, No abrasion and No laceration Mouth: Normal oral and palatal mucosa present, no drooling and no muffled voice Eyes General: appearance normal, both eyes and all related structures Periorbital: periorbital findings normal Eyelids: Yes eyelids normal Conjunctivae: conjunctivae normal Pupils: Equal, round and reactive pupils present EOM: EOMs intact bilaterally Neck Neck: Yes normal visual inspection, Yes full ROM and Yes no lymphadenopathy Chest Chest palpation & inspection: normal inspection of the chest Resp Effort & Inspection: normal respiratory effort and able to speak in complete sentences Auscultation: clear to auscultation bilaterally Cardio Rate: regular rate Rhythm: regular rhythm GI Inspection: Yes normal to inspection Neuro General: patient oriented x3 and moves all extremities Cranial nerves: Yes Equal, round and reactive pupils present Cognition (Neuro): normal cognition Motor exam (neuro): 5/5 motor strength present throughout Sensory Exam: Normal double simultaneous stimulation for sensation Coordination: [id number] test normal Extrem General: Yes normal to inspection, Yes full ROM and Yes capillary refill normal Psych Appearance: grossly normal Mental Status: mental status grossly normal Affect: Sad affect present and Irritable affect present Attitude: Guarded attititude/behavior present Thought process: Normal thought process present Thought content: Suicidality present Insight: Fair insight present (Psych) Judgement: Fair judgement present (Psych) Medical Decision Making MDM Narrative Medical decision making narrative: Patient is a 26 year old male presenting to the emergency department today with agitation and suicidal ideation. Patient's physical exam showed a disorganized male. Patient's blood work was unremarkable. Patient's urine showed no acute process. Patient's drug screen was positive for PCP. Patient's head CT showed no acute process. I explained my physical exam findings as well as all test results to the patient. I answered all questions asked by the patient. I spoke with CARE team who recommended the patient stay for the remainder of the evening and be reevaluated tomorrow by a member of CARE team. Differential Diagnosis Differential Diagnosis: PCP psychosis Medical Records Medical records reviewed: Yes I reviewed the patient's medical records. Lab Data Lab results reviewed: Yes I reviewed the patient's lab results. Result diagrams: 02/10/22 15:04 02/10/22 15:04 Labs: Lab Results 02/10/22 02/10/22 02/10/22 Range/Units 12:37 12:37 15:04 WBC 9.4 (4.8-10.8) X10*3/uL RBC 5.71 (4.60-5.80) X10*6/uL Hgb 15.3 (14.0-18.0) g/dl Hct 47.1 (42.0-52.0) % MCV 82.5 (80.0-98.0) fL MCH 26.8 L (27.0-33.0) pg MCHC 32.5 (31.0-36.0) g/dl RDW 14.5 (11.0-16.0) % Plt Count 237 (160-400) X10*3/uL MPV 10.0 (9.4-12.4) fL Immature Gran % (Auto) 0.3 (0.0-0.4) % Neut % (Auto) 63.5 (45-73) % Lymph % (Auto) 29.3 (20-40) % Denali % (Auto) 5.9 (2-11) % Eos % (Auto) 0.8 (0-4) % Baso % (Auto) 0.2 (0-2) % Lymph # (Auto) 2.8 (1.2-4.9) X10*3/uL Denali # (Auto) 0.6 (0.1-1.2) X10*3/uL Eos # (Auto) 0.1 (0.0-0.4) X10*3/uL Baso # (Auto) 0.0 (0.0-0.2) X10*3/uL Abs Immat Gran (auto) 0.03 (0.00-0.03) X10*3/uL Absolute Neuts (auto) 6.0 (2.0-8.3) x10*3/uL Absolute Nucleated RBC 0.000 (0.0-0.012) X10*3/uL Nucleated RBC % (auto) 0.0 (0.0-0.2) /100WBC Sodium (135-145) mmol/L Potassium (3.3-5.1) mmol/L Chloride (96-108) mmol/L Carbon Dioxide (22-29) mmol/L Anion Gap (12-20) BUN (9-16) mg/dL Creatinine (0.5-1.4) mg/dL Estim Creat Clear Calc Estimated GFR Random Glucose (60-115) mg/dL Calcium (8.4-10.2) mg/dL Total Bilirubin (0.0-1.0) mg/dL AST (5-37) U/L ALT (0-40) U/L Alkaline Phosphatase (39-117) U/L Total Protein (6.5-8.0) g/dL Albumin (3.5-5.0) g/dL Urine Color YELLOW Urine Appearance CLOUDY Urine pH 6.0 (5.0-8.0) Ur Specific Crockett >= 1.030 H (1.005-1.025) Urine Protein 1+ H (NEG-TRACE) MG/DL Urine Glucose (UA) NEG (NEG) MG/DL Urine Ketones 5 (NEG) MG/DL Urine Blood TRACE (NEG) Urine Nitrite NEG (NEG) Ur Leukocyte Esterase NEG (NEG) Urine RBC 1-4 (0) /HPF Urine WBC 0 (0-4) /HPF Ur Squamous Epith Cells NONE /LPF Calcium Oxalate Crystal 1+ /LPF Urine Bacteria NONE /LPF Urine Mucus 1+ /LPF Urine Opiates Screen Not Detected (Not Detect) Urine Fentanyl Screen Not Detected (Not Detect) Ur Barbiturates Screen Not Detected (Not Detect) Ur Phencyclidine Scrn POSITIVE H (Not Detect) Ur Amphetamines Screen Not Detected (Not Detect) U Benzodiazepines Scrn Not Detected (Not Detect) Urine Cocaine Screen Not Detected (Not Detect) U Marijuana (THC) Screen POSITIVE H (Not Detect) COVID-19 (TRAY) (Negative) COVID-19 Clin Com 02/10/22 02/10/22 Range/Units 15:04 16:19 WBC (4.8-10.8) X10*3/uL RBC (4.60-5.80) X10*6/uL Hgb (14.0-18.0) g/dl Hct (42.0-52.0) % MCV (80.0-98.0) fL MCH (27.0-33.0) pg MCHC (31.0-36.0) g/dl RDW (11.0-16.0) % Plt Count (160-400) X10*3/uL MPV (9.4-12.4) fL Immature Gran % (Auto) (0.0-0.4) % Neut % (Auto) (45-73) % Lymph % (Auto) (20-40) % Denali % (Auto) (2-11) % Eos % (Auto) (0-4) % Baso % (Auto) (0-2) % Lymph # (Auto) (1.2-4.9) X10*3/uL Denali # (Auto) (0.1-1.2) X10*3/uL Eos # (Auto) (0.0-0.4) X10*3/uL Baso # (Auto) (0.0-0.2) X10*3/uL Abs Immat Gran (auto) (0.00-0.03) X10*3/uL Absolute Neuts (auto) (2.0-8.3) x10*3/uL Absolute Nucleated RBC (0.0-0.012) X10*3/uL Nucleated RBC % (auto) (0.0-0.2) /100WBC Sodium 142 (135-145) mmol/L Potassium 3.5 (3.3-5.1) mmol/L Chloride 108 (96-108) mmol/L Carbon Dioxide 23 (22-29) mmol/L Anion Gap 15 (12-20) BUN 9 (9-16) mg/dL Creatinine 0.79 (0.5-1.4) mg/dL Estim Creat Clear Calc TNP Estimated GFR > 60 Random Glucose 104 (60-115) mg/dL Calcium 10.0 (8.4-10.2) mg/dL Total Bilirubin 0.8 (0.0-1.0) mg/dL AST 35 D (5-37) U/L ALT 27 (0-40) U/L Alkaline Phosphatase 154 H (39-117) U/L Total Protein 7.3 (6.5-8.0) g/dL Albumin 5.2 H (3.5-5.0) g/dL Urine Color Urine Appearance Urine pH (5.0-8.0) Ur Specific Crockett (1.005-1.025) Urine Protein (NEG-TRACE) MG/DL Urine Glucose (UA) (NEG) MG/DL Urine Ketones (NEG) MG/DL Urine Blood (NEG) Urine Nitrite (NEG) Ur Leukocyte Esterase (NEG) Urine RBC (0) /HPF Urine WBC (0-4) /HPF Ur Squamous Epith Cells /LPF Calcium Oxalate Crystal /LPF Urine Bacteria /LPF Urine Mucus /LPF Urine Opiates Screen (Not Detect) Urine Fentanyl Screen (Not Detect) Ur Barbiturates Screen (Not Detect) Ur Phencyclidine Scrn (Not Detect) Ur Amphetamines Screen (Not Detect) U Benzodiazepines Scrn (Not Detect) Urine Cocaine Screen (Not Detect) U Marijuana (THC) Screen (Not Detect) COVID-19 (TRAY) Negative (Negative) COVID-19 Clin Com See Note Imaging Data CT scan - head: Attestation: I personally reviewed and interpreted this imaging study as follows: My impression: No acute process. Radiologist's impression: EXAMINATION: CT HEAD WITHOUT CONTRAST CLINICAL INFORMATION: Disorientation? COMPARISON: Previous head CT November 2020 TECHNIQUE: Contiguous axial imaging was performed from the skull base to vertex without intravenous administration of contrast. This CT examination was performed using dose optimization techniques as appropriate, variously including the following: *Automated exposure control *Adjustment of mA and/or kV according to patient size (this includes techniques or standardized protocols for targeted exams where dose is matched to indication/reason for exam; i.e. extremities or head) *Use of iterative reconstruction technique DLP: 717 mGy-cm FINDINGS: There is no evidence of acute intracranial hemorrhage or territorial infarction. No abnormal mass effect or midline shift is seen. Miller to white matter differentiation is well preserved. No extra-axial fluid collections are identified. The ventricles are normal in size. There is no abnormal attenuation within the brain parenchyma. The osseous structures and soft tissues are normal. There is mild soft tissue opacification of the bilateral inferior mastoid air cells. The mastoid air cells and visualized portions of the paranasal sinuses are otherwise clear. ? CT/CT head/brain wo con IMPRESSION: No acute intracranial pathology. Dictated By: Angelica Wolff MD Signed By: Electronically signed by Angelica Wolff MD 02/10/22 1075 Discharge Plan Discharge Clinical Impression: Psychosis Patient Disposition: Still a Patient Prescriptions: No Action fluoxetine 40 mg capsule 1 cap PO DAILY guanfacine 1 mg tablet 1 tab PO BID dextroamphetamine-amphetamine 30 mg capsule,extended release 24hr 1 cap PO QAM buspirone 15 mg tablet 1 tab PO BEDTIME ferrous sulfate [Iron (ferrous sulfate)] 325 mg (65 mg iron) Tablet 325 mg PO BID Qty: 60 2RF ondansetron 8 mg Tablet,Disintegrating 8 mg PO Q8H PRN (Reason: Nausea) Qty: 30 6RF oxycodone 5 mg Tablet 5 mg PO BID PRN (Reason: Pain) Qty: 60 0RF silver-calcium alginate 2 X 2 bandage 1 ea topical Q OTHER DAY Qty: 10 2RF Print Language: Bhutanese
[2022-02-10 11:37] VITALS: BP 147/81; PULSE 78; RESP 16
--- NOTE | 2022-02-10 11:51 | PC.NURSE ---
PT REFUSING TO TALK WITH STAFF. KEEPS YELLING THAT HE WANTS TO GO HOME.
--- NOTE | 2022-02-10 12:25 | PC.NURSE ---
Kirsten - [phone] (four kids - Ryan Servin Aiden, Amena)
[2022-02-10 12:46] LABS: Appearance Urine CLOUDY; Color Urine YELLOW; Glucose Urine UA NEG (NEG); Leukocyte Esterase Urine NEG (NEG); Nitrite Urine NEG (NEG); Specific Gravity - Urine >= 1.030 (1.005-1.025); UACC Culture Trigger NO; Urine Blood TRACE (NEG); Urine Ketones 5 MG/DL (NEG); Urine Protein 1+ MG/DL (NEG-TRACE)
[2022-02-10] MEDS: LORazepam 2 MG/ML VIAL IM (12:53)
[2022-02-10] MEDS: Haloperidol Lactate 5 MG/ML VIAL IM (12:53)
--- NOTE | 2022-02-10 12:55 | PC.NURSE ---
PT AGREED TO IM MEDICATION ORDERED PER TRANSPORT TANK TECHNICIAN. T/W ATTEMPTED TO GIVE IM PT AGREED TO T/W TO ADMINISTER, AFTER T/W CLEANED WITH ALCOHOL AND UNCAPPED THE NEEDLE, PT JUMPED BACK STATING NO . EDUCATED PROVIDED TO PT REGARDING NEED AND SAFETY OF THE MEDICATION AT THIS TIME PT IS THREATENING. PT STATED DURING OUR CONVERSATION I JUST WANT TO KILL MYSELF . PT TEARFUL. MOMENTS WHERE HE IS BLOCKING HIS EARS DURING OUR CONVERSATION. PT APPEARS TO BE THOUGHT BLOCKING, VACANT FACIAL EXPRESSION. PT RUMINATIVE RELATED TO WANTING TO LEAVE. NEEDING REPEAT RE-DIRECTION AND INSTRUCTION
[2022-02-10 12:58] LABS: Amphetamine Screen Urine Not Detected (Not Detect); Barbiturates, Urine Not Detected (Not Detect); Benzodiazepines Screen Urine Not Detected (Not Detect); Cannabinoid Screen Urine POSITIVE (Not Detect); Cocaine Screen Urine Not Detected (Not Detect); Fentanyl, urine Not Detected (Not Detect); Opiate Screen Urine Not Detected (Not Detect); Phencyclidine Screen Urine POSITIVE (Not Detect)
[2022-02-10 13:00] LABS: Calcium Oxalate Crystals Urine 1+ /LPF; Mucus Urine 1+ /LPF; WBC Urine 0 /HPF (0-4)
--- NOTE | 2022-02-10 13:28 | MHC.CARE ---
CARE Team makes numerous attempts to engage with pt in order to assess for safety. Pt repeats let me go, let me go. According to security who were present when pt's mother and brother dropped him off at the ED, pt's mother reports that pt made a suicidal statement. Pt is asked about this, but only responds with let me do. He escalates at times, yelling, mood is irritable. He is also agitated when redirected to his room and is difficult to redirect. Thought process is fixed on being discharged, and pt is not able/willing to participate in the process to be discharged potentially, which is explained to pt numerous times. CARE Team speaks with pt's partner of six years, Kirsten [phone], who reports that she has been concerned about pt for the past three days because he's not right, looks off like he's not there, and seems confused and not himself. Kirsten was concerned that pt may have had a strke. She reports that when mother was bringing pt to the ED, he made the SI statement in the context of being brought to the ED. Suicidality was not the initial reason family brought pt to the ED. Kirsten reports that pt just beat cancer, and was treated from Hodgkins lymphoma. Wide denies any drug use in many years, outside of pt smoking marijuana. denies pt having a hx of inpt admissions, delusions, hallucinations, disturbances with sleep or apatite. reports that pt does see a counselor and is prescribed psychiatric medications. She states that he went off his psych meds for two weeks, but resumed taking them three days ago. speculates that pt restarting his psych meds ma have contributed to his change in mental status. UTOX positive for PCP. Pt continues to appear confused, distressed, yelling out, and holding his ears as if there is a constant loud noise around him. Plan is for pt to be assessed medically at this time. If pt is in need of crisis assessment, CARE Team should be consulted.
--- NOTE | 2022-02-10 13:48 | MHC.CARE ---
CARE Team attempts to return brother's phone call [phone], Jason Villarreal, but this does not appear to be a working number.
[2022-02-10 15:10] LABS: MANUAL DIFF FLAG NO
[2022-02-10 15:12] LABS: Basophils Percent Auto 0.2 % (0-2); Eosinophils Absolute Auto 0.1 X10*3/uL (0.0-0.4); Eosinophils Percent Auto 0.8 % (0-4); Hematocrit 47.1 % (42.0-52.0); Hemoglobin 15.3 g/dl (14.0-18.0); Imm Gran Abs Auto 0.03 X10*3/uL (0.00-0.03); Imm Gran Pct Auto 0.3 % (0.0-0.4); Lymphocytes Absolute Auto 2.8 X10*3/uL (1.2-4.9); Lymphocytes Percent Auto 29.3 % (20-40); Mean Corpuscular HGB Conc 32.5 g/dl (31.0-36.0); Mean Corpuscular Hemoglobin 26.8 pg (27.0-33.0); Mean Corpuscular Volume 82.5 fL (80.0-98.0); Monocytes Absolute Auto 0.6 X10*3/uL (0.1-1.2); Monocytes Percent Auto 5.9 % (2-11); Neutrophils Percent Auto 63.5 % (45-73); Platelet Count 237 X10*3/uL (160-400); Red Blood Count 5.71 X10*6/uL (4.60-5.80); Red Cell Distribution Width 14.5 % (11.0-16.0); White Blood Count 9.4 X10*3/uL (4.8-10.8)
[2022-02-10 15:29] LABS: Alanine Aminotransferase 27 U/L (0-40); Albumin Level 5.2 g/dL (3.5-5.0); Alkaline Phosphatase 154 U/L (39-117); Anion Gap 15 (12-20); Aspartate Amino Transferase 35 U/L (5-37); Bilirubin Total 0.8 mg/dL (0.0-1.0); Blood Urea Nitrogen 9 mg/dL (9-16); Carbon Dioxide 23 mmol/L (22-29); Chloride 108 mmol/L (96-108); Estimated Glomerular Filt Rate > 60; Glucose Random 104 mg/dL (60-115); Potassium 3.5 mmol/L (3.3-5.1); Sodium 142 mmol/L (135-145); Total Protein 7.3 g/dL (6.5-8.0)
[2022-02-10 16:56] LABS: COVID-19 Test Negative (Negative); IDNOW Serial# 16C4AD1C
--- NOTE | 2022-02-10 17:50 | MHC.CARE ---
CARE Team speaks with LUTHER Tao who reports that pt is medically stable. Hypothesis at this time is that behavioral changes resulted from use of PCP. Plan is for CARE Team to meet with pt in the morning to screen for risk once clinically sober.
[2022-02-11 03:42] VITALS: BP 132/74; PULSE 69; RESP 16; O2SAT 97
--- NOTE | 2022-02-11 06:18 | PC.NURSE ---
Patient slept through the night, no distress observed/reported, med rec completed/pending provider's approval, patient was assessed by care team with disposition pending, patient constantly requesting for discharge, behavior non concerning at this time may escalate, VSS, will continue to monitor.
--- NOTE | 2022-02-11 07:23 | PC.NURSE ---
patient appears to remain asleep at present respirations are even and unlabored patient appears in no distress
--- NOTE | 2022-02-11 08:47 | PHA.MEDREC ---
Pharmacy Consult ? Medication Reconciliation Pharmacy has reviewed the medication reconciliation compelted by Daniel.
[2022-02-11] MEDS: FLUoxetine HCl 20 MG CAPSULE 40 MG PO (09:51)
[2022-02-11] MEDS: Ferrous Sulfate 324 MG TABLET.DR PO ×2 (09:52→20:00)
[2022-02-11] MEDS: LORazepam 1 MG TABLET 2 MG PO ×2 (10:09→20:00)
[2022-02-11] MEDS: diphenhydrAMINE HCL 25 MG TABLET 50 MG PO (10:09)
[2022-02-11] MEDS: HaloperidoL 5 MG TABLET PO (10:10)
--- NOTE | 2022-02-11 12:39 | MHC.CARE ---
CARE Team meets with pt as a follow up to yesterday?s presentation to the ED.? Pt is re-assessed for risk in his room in the behavioral health pod of the ED.? He appears confused and it is difficult to determine his level of alertness and orientation.? Pt appears confused and disoriented throughout the re-assessment; he asks CARE Team who I was 4 times during the brief exchange.? He repeatedly stated ?I don?t know?, and stated ?I?m confused?.? He denies SI, HI, and self-harm urges.? He stated at one point ?I wanted to once.?? He appeared to have difficulty recalling when that was or the circumstances that may have provoked that feeling. ? He denies AVH but was observed mid conversation, stopping mid-sentence and saying ?I?m not doing anything.? His tone was mumbled and he appeared to not be addressing this conventional mortgage underwriter.? Speech is soft in tone, at times inaudible, and sounds confused.? Eye contact is minimal.? He cannot discuss sleep or appetite as he doesn?t ?Know? appearing to have difficulty recalling.? Mood is not discussed, his affect is flat. Pt is observed after the reassessment demonstrating exit seeking behavior, patrolling the common area nearby the exit to the pod, testing the push bar and expressing he wants to leave. Staff attempted to redirect pt and were largely unsuccessful.? Pt received medication willingly and grew calm. Insight, judgement, memory, impulse control, and concentration appear poor.? While pt does not immediately appear to be a risk to himself or others, the level of risk is, however, unclear. CARE Team speaks with pt?s significant other Kirsten, who reports that they have been with one another for 6 years.? She states that pt?s confusion appears to stem from his not knowing why he is at this facility; pt is questioning the validity of his need to be here and is growing frustrated with being on a locked unit.? She reports that when pt is frustrated he acts out and grows stubborn.? She reports that up until a few days ago (Approximately 5), when pt started his medications back up again, he appeared fine.? When pt started his medications again his behavior became this way.? It is unclear if pt is taking his medications as prescribed or overtaking/undertaking them, his presentation is due to his recent PCP use or prolonged PCP use. She stated that pt was off his medications at least 2 weeks ?Maybe longer? and discontinued their use ?because he felt better?. She does report speaking with pt this morning and that pt ?Sounds better? and is ?his normal self? on the phone.? She reports no hx (to her knowledge) of AVH, SI, HI, , self-harm, and attempts.? She reports that at baseline pt is ?Very? guarded.? He has a therapist he sees every other week, a psychiatrist who prescribes his medication (both from [facility]), and a ?Big? family support system.? She does note that his mother appears to be a trigger for him. She reports that he is able to return home and believes he can be safe a home.? She stated that, based on her experience with pt, he sounds as if he is at his baseline. CARE has consulted with psychiatry on this case. Pt appears to be at his baseline and does not appear to an imminent risk of harm to self or others.? Psychiatry and [facility] Garner are in agreement.? Ed provider has raised concerns over discharging today and believes re-evaluation tomorrow would be a wiser decision for this patient. Pt will be a follow up tomorrow to determine a final disposition.
[2022-02-11] MEDS: busPIRone HCl 5 MG TABLET 15 MG PO ×2 (19:59)
[2022-02-12 06:00] VITALS: BP 134/70; PULSE 93; RESP 16; TEMP 36; O2SAT 97
--- NOTE | 2022-02-12 06:32 | PC.NURSE ---
Patient slept through the night, no distress observed/reported, medication compliant, patient was re-assessed by care team with disposition still pending, behavior non concerning at this time, contracted for the safety, VSS, will continue to monitor.
[2022-02-12 07:42] VITALS: BP 121/71; PULSE 100; RESP 16; TEMP 36.4; O2SAT 98
[2022-02-12] MEDS: Ondansetron ODT 8 MG TAB.RAPDIS TRANSLINGU (07:46)
--- NOTE | 2022-02-12 07:48 | PC.NURSE ---
this technical publications writer assumed care of this pt at 0700. pt in room having breakfast, then out in common area. pt requested something for nausea, prn zofran given. will continue to observe.
[2022-02-12] MEDS: FLUoxetine HCl 20 MG CAPSULE 40 MG PO (08:10)
[2022-02-12] MEDS: Dextroamphetamine/Amphetamine XR 10 MG CAP.ER.24H 30 MG PO (08:10)
[2022-02-12] MEDS: Ferrous Sulfate 324 MG TABLET.DR PO (08:11)
--- NOTE | 2022-02-12 08:16 | PC.NURSE ---
pt c/o confusion. asked this narrative writer why is he here and how long has he been here. med compliant.
[2022-02-12] MEDS: LORazepam 1 MG TABLET 2 MG PO (08:36)
--- NOTE | 2022-02-12 10:00 | PC.NURSE ---
pt requested to use phone to call girlfriend. shortly after being on the phone he began banging the phone. he was redirected to his room. pt went into his room, slammed the door, and threw the water pitcher on the bed then started crying and saying he's sorry. he came out of his room shortly after and sat in the common area. no other issues observed. will continue to monitor.
[2022-02-12] MEDS: Acetaminophen 325 MG TABLET 650 MG PO (10:41)
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
== END 2022-02-12 12:28 | disposition home or self-care (01) ==
PROVIDERS: Physician Assistant Medical; Emergency Provider Student in an Organized Health Care Education/Training Program
DX: F16.951 Hallucinogen use, unspecified with hallucinogen-induced psychotic disorder with hallucinations (principal); R45.851 Suicidal ideations; R45.1 Restlessness and agitation; F17.200 Nicotine dependence, unspecified, uncomplicated; F12.90 Cannabis use, unspecified, uncomplicated; Z20.822 Contact with and (suspected) exposure to COVID-19
CPT/HCPCS: 36415; 70450; 80053; 80307; 81001; 85025; 87635; 96372; 99285; J2060; Q0163

== ENCOUNTER 2022-03-06 12:58 | Emergency (ER) | payer MEDICARE, MEDICAID, SELFPAY | END 2022-03-06 14:14 | disposition left against medical advice (07) | LOC: HO.ED 14:12 | PROVIDERS: Emergency Provider Emergency Medicine | DX: R22.0 Localized swelling, mass and lump, head (principal) ==

== ENCOUNTER 2024-04-10 11:01 | Outpatient (REF) | payer MEDICAID, SELFPAY ==
--- NOTE | ~2024-04-10 | US_ITS ---
History of non-Hodgkin's lymphoma. Patient presents with right inguinal lymphadenopathy PROCEDURES: 1. Limited preprocedure ultrasound of the right groin. Permanent images saved in PACS. 2. Ultrasound-guided biopsy of the enlarged right inguinal lymph node. 3. Limited preprocedure ultrasound of the right groin. Permanent images saved in PACS. CLINICIANS: Matias Guerrero PA-C MEDICATIONS: -Lidocaine 1% 10 mL SQ -Antibiotics: None -For additional details, please see nursing flowsheet. COMPLICATIONS: None ESTIMATED BLOOD LOSS: < 5 ml CONTRAST: None SPECIMENS: 4 x 18 g cores were sent to for pathology and flow cytometry PROCEDURE NOTE: The procedure, risks, benefits, and alternatives were carefully explained to the patient and written informed consent was obtained. The patient was placed supine on the exam table. A timeout was performed. A limited ultrasound of the right groin was performed to localize the enlarged right inguinal lymph node and choose appropriate needle entry and trajectory. The patient was prepped and draped in usual sterile fashion. The skin and deeper soft tissues were anesthetized with lidocaine. Under ultrasound guidance, a 17 gague trocar needle was advanced to the right inguinal lymph node. An 18 gauge biopsy device was inserted through the trocar needle and advanced into the lymph node. A total of 4,18 gague cores were performed. The specimens were placed in formalin and RPMI. The needle was removed. A limited post procedure ultrasound was then performed. Images were saved in PACS. A dry dressing was applied and secured with Tegaderm. There were no immediate complications. US/US biopsy lymph node IMPRESSION: Ultrasound-guided biopsy of the enlarged right inguinal lymph node. No immediate complication. This procedure was performed by Matias Guerrero PA-C and supervised by Dr. Carlisle.
[2024-04-10] MEDS: Lidocaine HCl 1 % 20 ML VIAL 10 ML SUBCUT (12:31)
== END 2024-04-10 11:02 | disposition home or self-care (01) ==
LOC: HO.US 11:01
PROVIDERS: Pathology Anatomic Pathology & Clinical Pathology; Visit Provider Internal Medicine
DX: C81.90 Hodgkin lymphoma, unspecified, unspecified site (principal)
CPT/HCPCS: 36415; 38505; 76942; 88184; 88185; 88300; 88305; 88312; 88341; 88342; 88360

== ENCOUNTER → 2024-04-10 11:06 | Outpatient (BNV) | payer MEDICAID, SELFPAY | PROVIDERS: Visit Provider Physician Assistant Surgical | DX: R59.0 Localized enlarged lymph nodes (principal) | CPT/HCPCS: 38505; 76942 ==

== ENCOUNTER 2024-08-19 13:06 | Outpatient (REF) | payer MEDICAID, SELFPAY ==
--- NOTE | ~2024-08-19 | CT_ITS ---
EXAMINATION: CT ABDOMEN AND PELVIS WITH CONTRAST CLINICAL INFORMATION: ? Recurrent lymphoma. COMPARISON: PET CT 09/07/2021. TECHNIQUE: Multidetector volumetric images were obtained from the superior aspect of the liver through the pubic symphysis following administration 85 mL of Omnipaque 350 intravenous contrast. Sagittal and coronal reformatted images were obtained on the technologist's workstation. Oral contrast: No This CT examination was performed using dose optimization techniques as appropriate, variously including the following: *Automated exposure control *Adjustment of mA and/or kV according to patient size (this includes techniques or standardized protocols for targeted exams where dose is matched to indication/reason for exam; i.e. extremities or head) *Use of iterative reconstruction technique DLP: 1800 mGy-cm FINDINGS: LUNG BASES: The dedicated chest CT performed concurrently. LIVER, GALLBLADDER, AND BILIARY TREE: Liver is borderline enlarged with associated diffuse fatty infiltration. There are foci of focal fatty sparing. There is no suspicious liver lesion. There is no intra or extrahepatic biliary dilatation. The gallbladder is unremarkable with no evidence of radiopaque gallstones, gallbladder wall thickening, or obvious pericholecystic inflammatory changes. PANCREAS: Unremarkable. SPLEEN: Unremarkable. ADRENAL GLANDS: Unremarkable. KIDNEYS AND URETERS: The kidneys are normal in size, shape, and attenuation. No hydronephrosis, hydroureter, or calculi seen. No perinephric stranding. BLADDER: Unremarkable. GASTROINTESTINAL TRACT: The small and large bowel are unremarkable. The appendix is unremarkable. ABDOMINAL WALL: No significant hernia is appreciated. LYMPH NODES: -There are a few borderline enlarged retroperitoneal left para-aortic nodes measuring up to 1.0 cm short axis, which were notably more enlarged on the PET CT of 09/07/2021. -There are are pathologically enlarged and increasing in size right inguinal lymph nodes, highly suspicious for disease recurrence and extending into the external iliac chain. Largest lymph node measures approximately 1.7 cm in short axis (series 3, image 101). VASCULAR: Unremarkable. PELVIC VISCERA: Unremarkable. OSSEOUS STRUCTURES: Unremarkable. CT/CT abdomen pelvis w IV con IMPRESSION: 1. Compared with the prior PET CT on 09/07/2021, increasing right inguinal and external iliac pathologically enlarged lymph nodes is suggestive of disease recurrence. 2. Borderline enlarged retroperitoneal left periaortic nodes, smaller than on the previous PET/CT. 3. Diffuse fatty infiltration of liver. No focal lesion. 4. Otherwise, no additional significant findings. Fleischner guidelines were followed. Electronically signed by: Myles Carlisle MD 08/20/2024 03:37 PM [facility]
--- NOTE | ~2024-08-19 | CT_ITS ---
EXAMINATION: CT SOFT TISSUE NECK WITH CONTRAST CLINICAL INFORMATION: ? Recurrent lymphoma COMPARISON: PET/CT on 09/07/2021 TECHNIQUE: Following the intravenous administration of 90 mL of Omnipaque 350 intravenous contrast, helical imaging was performed in the axial plane with generation of coronal and sagittal reformatted images. This CT examination was performed using dose optimization techniques as appropriate, variously including the following: *Automated exposure control *Adjustment of mA and/or kV according to patient size (this includes techniques or standardized protocols for targeted exams where dose is matched to indication/reason for exam; i.e. extremities or head) *Use of iterative reconstruction technique DLP: 352 mGy-cm FINDINGS: There are multiple predominantly subcentimeter lymph nodes scattered through the neck bilaterally, increased in number and size when compared to PET/CT on 09/07/2021. For reference: -Bilateral level Ib nodes measuring 0.9 cm on the left and 0.7 cm on the right. -Multiple bilateral level IIa nodes measuring up to 0.9 cm on the right and 1.1 cm on the left. -Multiple bilateral level IIb nodes measuring up to 0.7 cm on the right and 0.6 cm on the left. -Bilateral level IV nodes measuring up to 0.8 cm on the right and 0.6 cm on the left. The nasopharynx, oropharynx, hypopharynx, and laryngeal structures are unremarkable. The parotid, submandibular, and thyroid glands are unremarkable. The visualized orbits are unremarkable. Mild mucosal thickening of the paranasal sinuses. Small right mastoid effusion. Right approach Port-A-Cath in place. The visualized vasculature of the neck are otherwise unremarkable. The imaged portions of the brain are unremarkable. No acute osseous abnormality. No lytic or blastic osseous lesions. Please refer to same-day imaging for findings below the thoracic inlet. CT/CT soft tissue neck w IV con IMPRESSION: Since 09/07/2021, -Interval increased size and number of multiple bilateral predominantly subcentimeter cervical lymph nodes. Electronically signed by: Stephy Tolentino MD 08/20/2024 02:37 PM [facility]
--- NOTE | ~2024-08-19 | CT_ITS ---
EXAMINATION: CT CHEST WITH CONTRAST CLINICAL INFORMATION: ? Recurrent lymphoma. COMPARISON: PET CT 09/07/2021. TECHNIQUE: Multidetector volumetric CT imaging of the chest was obtained after the administration of 50 mL of Omnipaque 350 intravenous contrast without immediate adverse reactions. Axial MIP volume rendering provided. Sagittal and coronal reformatted images were obtained. This CT examination was performed using dose optimization techniques as appropriate, variously including the following: *Automated exposure control *Adjustment of mA and/or kV according to patient size (this includes techniques or standardized protocols for targeted exams where dose is matched to indication/reason for exam; i.e. extremities or head) *Use of iterative reconstruction technique DLP: 552 mGy-cm FINDINGS: Right chest port noted in place, tip terminates in the distal SVC above the right atrium. PULMONARY NODULES: -No suspicious pulmonary nodules. LUNGS: -Linear discoid atelectasis present in the lingular segment, new from prior. This could also represent scarring. -Minimal bronchiectasis and bronchial wall thickening of the small airways within the right middle lobe, lingula, and bilateral lower lobes. Findings suggest some component of inflammatory airways disease. -Lungs otherwise clear. No consolidations or abnormal groundglass opacities. -No effusions or pneumothoraces. MEDIASTINUM: -Stable and unchanged subcentimeter lymph nodes in the mediastinum when compared with the prior PET CT. No change in the size nor appearance. No pathologic lymphadenopathy present. -Heart size is normal. There is no pericardial effusion. -Aorta and main pulmonary artery are normal. -No esophageal abnormality. -Normal thyroid. AXILLA/CHEST WALL: -Moderate bilateral male gynecomastia. -Mildly increasing in size right greater than left low axillary lymph nodes measuring up to 1.0 cm short axis (series 3, image 21), previously measuring approximately 4 mm. -No masses. UPPER ABDOMEN: Refer to the dedicated abdomen and pelvis CT. OSSEOUS STRUCTURES: -No lytic or blastic bone lesions identified. There are a few scattered Schmorl's nodes in the spinal endplates. CT/CT chest w IV con IMPRESSION: 1. Slightly more prominent borderline enlarged right greater than left axillary lymph nodes measuring up to 1.0 cm currently, measuring approximately 4 mm on the prior PET CT from 09/07/2021. This is nonspecific. 2. No increasing or worsening mediastinal lymphadenopathy identified. There is no clear evidence of thoracic lymphoma recurrence. 3. Interval development of linear scarring or platelike atelectasis in the lingula. The lungs are otherwise grossly clear. 4. There is mild bronchiectasis of the small airways with associated wall thickening, findings suggesting chronic bronchitis/inflammatory airways disease. Electronically signed by: Myles Carlisle MD 08/20/2024 03:28 PM [facility]
[2024-08-19] MEDS: iohexoL 350 MG/ML 100 ML INFUS..BTL 90 ML IV (15:27)
== END 2024-08-19 13:07 | disposition home or self-care (01) ==
LOC: HO.CT 13:06
PROVIDERS: PCP Internal Medicine; Visit Provider Internal Medicine
DX: C81.90 Hodgkin lymphoma, unspecified, unspecified site (principal)
CPT/HCPCS: 70491; 71260; 74177; Q9967

== ENCOUNTER 2024-08-19 13:06 | Outpatient (REF) | payer MEDICAID, SELFPAY | END 2024-08-19 13:07 | disposition home or self-care (01) | LOC: HO.CT 13:06 | PROVIDERS: PCP Internal Medicine; Visit Provider Internal Medicine | DX: Z13.89 Encounter for screening for other disorder (principal) ==

== ENCOUNTER → 2024-08-19 13:08 | Outpatient (BNV) | payer MEDICAID, SELFPAY | PROVIDERS: PCP Internal Medicine; Visit Provider Radiology Diagnostic Radiology | DX: C81.90 Hodgkin lymphoma, unspecified, unspecified site (principal) | CPT/HCPCS: 71260; 74177 ==

== ENCOUNTER 2024-10-30 11:35 | Outpatient (AMB) | payer MEDICAID, SELFPAY ==
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
[2024-10-30 11:40] VITALS: BMI 47.1
--- OUTSIDE RECORDS SUMMARY | 2024-10-30 14:03 | XMS_ITS | Encounter Summary ---
Author Organization [employer] Address [address] [place] [address] Care Team Providers Care Hot Oiler Name Role Phone Celso Lewis MD Primary Care Prov ider Encounter Details Date Type Department Care Team (Late st Contact Info) Description 10/15/2024 Telephone [facility] MEDICINE [address] [place] [address] Celso Lewis MD [address] [place] [address] Social History Tobacco Use Types Packs/Day Years Used Date Smoking Tobacco: Every Day Cigarettes 0.5 10.2 Started: 2014 Smokeless Tobacco: Never Depression Answer Date Recorded Patient Health Questionnaire-9 Score 10 07/10/2024 Patient Health Questionnaire-9 Score 10 07/10/2024 Last PHQ-9: Questionnaire Data Not on file 1 09/09/2023 Depression Answer Date Recorded Patient Health Questionnaire-2 Score 4 07/10/2024 Sex and Gender Information Value Date Recorded Sex Assigned at Male 06/27/2022 10:14 AM EDT Legal Sex Male 10:14 AM EDT Gender Identity Male 01/11/2024 8:16 AM EDT Sexual Orientation Straight 01/11/2024 8: 17 AM EDT documented as of this encounter Miscellaneous Notes * Telephone Encounter - Edgar Michael - 10/15/2024 10:35 AM EST Pharmacy [facility] attempted outreach call on 10/15/24 for CDTM - Diabetes appointment; however, unable to reach patient. LVM for patient to contact Edgar Michael at [phone]. documented in this encounter Plan of Treatment Upcoming Encounters Date Type Department Care Team (Late st Contact Info) Description 11/05/2024 1:15 PM EDT Telemedicine [facility] MED & PEDS [address] [place] [address] Celso Lewis MD [address] [place] [address] documented as of this encounter Visit Diagnoses Not on filedocumented in this encounter Additional Health Concerns Assessment Noted Time PHQ-9 Depression Total Score: 10 024 2:32 PM EST documented as of this encounter Care Teams Hot Oiler Relationship Specialty Start Date End Date Celso Lewis MD [address] [place] [address] PCP - General Internal Medicine 02/21/24 documented as of this encounter
--- OUTSIDE RECORDS SUMMARY | 2024-10-30 14:03 | XMS_ITS | Encounter Summary ---
Author Organization [employer] Address [address], [place] [address] Care Team Providers Care Forest Logistics Manager Name Role Phone Celso Lewis MD Primary Care Prov ider Reason for Visit * Reason Comments Care Coordination Outreach Encounter Details Date Type Department Care Team (Latest Contact Info) Description 10/25/2024 Patient Outreach [facility] [address] [place] [address] Celso Lewis MD [address] [place] [address] Care Coordination (Outreach) Social History Tobacco Use Types Packs/Day Years [...] AM EDT documented as of this encounter Progress Notes * Kristen Ernst - 10/25/2024 8:41 AM EST CHW Kristen Ernst , placed outbound call to patient in regards to offer services. CHW introducing herself from [facility] Department with CHW's name department and direct contact number requesting call back. Will re-attempt to contact within 5 days. and address not confirmed. documented in this encounter Plan of Treatment Upcoming Encounters Date Type Department Care Team ([facility] st Contact Info) Description 11/05/2024 1:15 PM EDT Telemedicine [facility] [address] [place] [address] Celso Lewis MD [address] [place] [address] documented as of this encounter Visit Diagnoses Not on filedocumented in this encounter Additional Health Concerns Assessment Noted Time PHQ-9 Depression Total Score: 10 07/10/ 024 2:32 PM EST documented as of this encounter Care Teams Forest Logistics Manager Relationship Specialty Start Date End Date Celso Leiws MD [address] [place] [address] PCP - General Internal Medicine 02/21/24 documented as of this encounter
--- OUTSIDE RECORDS SUMMARY | 2024-10-30 14:03 | XMS_ITS | Clinical Summary ---
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 HO.CT ? Attending Dr: Lenore Solomon MD ? Ordering Physician: Lenore Solomon MD ?? Date of Service: 08/19/24 ?? Procedure(s): CT soft tissue neck w IV con ?? Accession Number(s): [id number] ? cc: Celso Lewis MD; Lenore Solomon MD ? EXAMINATION: ?? CT SOFT TISSUE NECK WITH CONTRAST ? CLINICAL INFORMATION: ?? ? Recurrent lymphoma ? COMPARISON: ?? PET/CT on 09/07/2021 ? TECHNIQUE: ?? Following the intravenous administration of 90 mL of Omnipaque 350 ?? intravenous contrast, helical imaging was performed in the axial plane ?? with generation of coronal and sagittal reformatted images. ? This CT examination was performed using dose optimization techniques as ?? appropriate, variously including the following: ?? *Automated exposure control ?? *Adjustment of mA and/or kV according to patient size (this includes ?? techniques or standardized protocols for targeted exams where dose is ?? matched to indication/reason for exam; i.e. extremities or head) ?? *Use of iterative reconstruction technique ? DLP: ?? 352 mGy-cm ? FINDINGS: ?? There are multiple predominantly subcentimeter lymph nodes scattered ?? through the neck bilaterally, increased in number and size when ?? compared to PET/CT on 09/07/2021. For reference: ?? -Bilateral level Ib nodes measuring 0.9 cm on the left and 0.7 cm on ?? the right. ?? -Multiple bilateral level IIa nodes measuring up to 0.9 cm on the right ?? and 1.1 cm on the left. ?? -Multiple bilateral level IIb nodes measuring up to 0.7 cm on the right ?? and 0.6 cm on the left. ?? -Bilateral level IV nodes measuring up to 0.8 cm on the right and 0.6 ?? cm on the left. ? The nasopharynx, oropharynx, hypopharynx, and laryngeal structures are ?? unremarkable. ? The parotid, submandibular, and thyroid glands are unremarkable. ? The visualized orbits are unremarkable. Mild mucosal thickening of the ?? paranasal sinuses. Small right mastoid effusion. ? Right approach Port-A-Cath in place. The visualized vasculature of the ?? neck are otherwise unremarkable. ? The imaged portions of the brain are unremarkable. ? No acute osseous abnormality. No lytic or blastic osseous lesions. ? Please refer to same-day imaging for findings below the thoracic inlet. ? CT/CT soft tissue neck w IV con ?? IMPRESSION: ?? Since 09/07/2021, ? -Interval increased size and number of multiple bilateral predominantly ?? subcentimeter cervical lymph nodes. ? Electronically signed by: ??Stephy Tolentino MD ??08/20/2024 02:37 PM EST RP ? Dictated By: ?Stephy Tolentino MD ? Signed By: ?<Electronically signed by Stephy Tolentino MD in OV> ? 08/20/24 1437 ? DD/ 1325 ? TD/TT: 08/19/24 1340 ? Audio Visual Director: ? Procedure Note Donotuseinterpreter, Image - 08/20/[address] [place] [id number] [address] Scan Report Signed Patient: Kenny [place]#: [id number] : 1995Acct:[id number] Age/Sex: 28 / MADM Date: 08/19/24 Loc: HO.CT Attending Dr: Lenore Solomon MD Ordering Physician: Lenoer Solomon MD Date of Service: 08/19/24 Procedure(s): CT soft tissue neck w IV con Accession Number(s): [id number] cc: Celso Lewis MD; Lenore Solomon MD EXAMINATION: CT SOFT TISSUE NECK WITH CONTRAST CLINICAL INFORMATION: ? Recurrent lymphoma COMPARISON: PET/CT on 09/07/2021 TECHNIQUE: Following the intravenous administration of 90 mL of Omnipaque 350 intravenous contrast, helical imaging was performed in the axial plane with generation of coronal and sagittal reformatted images. This CT examination was performed using dose optimization techniques as appropriate, variously including the following: *Automated exposure control *Adjustment of mA and/or kV according to patient size (this includes techniques or standardized protocols for targeted exams where dose is matched to indication/reason for exam; i.e. extremities or head) *Use of iterative reconstruction technique DLP: 352 mGy-cm FINDINGS: There are multiple predominantly subcentimeter lymph nodes scattered through the neck bilaterally, increased in number and size when compared to PET/CT on 09/07/2021. For reference: -Bilateral level Ib nodes measuring 0.9 cm on the left and 0.7 cm on the right. -Multiple bilateral level IIa nodes measuring up to 0.9 cm on the right and 1.1 cm on the left. -Multiple bilateral level IIb nodes measuring up to 0.7 cm on the right and 0.6 cm on the left. -Bilateral level IV nodes measuring up to 0.8 cm on the right and 0.6 cm on the left. The nasopharynx, oropharynx, hypopharynx, and laryngeal structures are unremarkable. The parotid, submandibular, and thyroid glands are unremarkable. The visualized orbits are unremarkable. Mild mucosal thickening of the paranasal sinuses. Small right mastoid effusion. Right approach Port-A-Cath in place. The visualized vasculature of the neck are otherwise unremarkable. The imaged portions of the brain are unremarkable. No acute osseous abnormality. No lytic or blastic osseous lesions. Please refer to same-day imaging for findings below the thoracic inlet. CT/CT soft tissue neck w IV con IMPRESSION: Since 09/07/2021, -Interval increased size and number of multiple bilateral predominantly subcentimeter cervical lymph nodes. Electronically signed by: Stephy Tolentino MD 08/20/2024 02:37 PM [facility] Dictated By: Stephy Tolentino MD Signed By: <Electronically signed by Stephy Tolentino MD in OV> 08/20/24 1437 DD/ 1325 TD/TT: 08/19/24 1340 Audio Visual Director: [facility] External Provider IMG CT PROCEDURES Edited Result - Final * (ABNORMAL) POCT HGB A1C (05/02/2024 4:20 PM EDT) Hemoglobin A1C 6.6(A) 4.0 - 6.0 % QC Media Lot # [id number] Lot# Expiration Date [id number] Blood 05/02/2024 4:20 PM EDT Adalberto Pacheco MD POINT OF CARE TEST ENTER/ED IT ORDERABLES Final Result from Last 3 Months or Most Recently Relevant to Health Maintenance [place] [address] [place] [address] C3 Care Teams Literacy Coordinator Relationship Specialty Start Date End Date Celso Lewis MD [address] [place] [id number] PCP - General Internal Medicine 02/21/24
--- OUTSIDE RECORDS SUMMARY | 2024-10-30 14:03 | XMS_ITS | Encounter Summary ---
Author Organization [employer] [facility] Address [address] [place] [address] Care Team Providers Care Retoucher Photoengraving Name Role Phone Celso Lewis MD Primary Care Prov ider Reason for Referral * Consultation (Routine) - Authorized Specialty Diagnoses / Procedures Referred By Contac t Referred To Contact Pharmacy Diagnoses Type 2 diabetes mellitus with hypoglycemia without coma, without long-term current use of insulin (CMS/HCC) Celso Lewis MD [address] [place] [address] Phone: tel: fax: Referral ID Status Reason Start Date Expiration Date Visits Requested Visits Authorized [id number] Authorized Consult and Treat 10/11/2024 10/11/2025 6 6 Encounter Details Date Type Department Care Team (Late st Contact Info) Description 10/11/2024 Orders Only [facility] MED & PEDS [address] [place] [id number] Celso Lewis MD [address] [place] [address] Type 2 diabetes mellitus with hypoglycemia without coma, without long-term current use of insulin (CMS/HCC) (Primary Dx) Social History Tobacco Use Types Packs/Day Years [...] AM EDT documented as of this encounter Plan of Treatment Upcoming Encounters Date Type Department Care Team (Late st Contact Info) Description 11/05/2024 1:15 PM EDT Telemedicine [facility] MED & PEDS [address] [place] [address] Celso Lewis MD [address] [place] [address] Scheduled Referrals Name Type Priority Associated Diagnoses Orde r Schedule Referral to Pharmacy CDTM Outpatient Referral Routine Type 2 diabetes mellitus with hypoglycemia without coma, without long-term current use of insulin (CMS/[facility]) Ordered: 10/11/2024 documented as of this encounter Visit Diagnoses Diagnosis Type 2 diabetes mellitus with hypoglycemia without coma, without long-term current use of insulin (CMS/[facility])- Primary documented in this encounter Additional Health Concerns Assessment Noted Time PHQ-9 Depression Total Score: 10 024 2:32 PM EST documented as of this encounter Care Teams Retoucher Photoengraving Relationship Specialty Start Date End Date Celso Lewis MD [address] [place] [address] PCP - General Internal Medicine 02/21/24 documented as of this encounter
--- OUTSIDE RECORDS SUMMARY | 2024-10-30 14:03 | XMS_ITS | Encounter Summary ---
Author Organization [employer] Address [address] [facility] [address], [place] [address] Care Team Providers Care Microsoft Dynamics Manager Architect Name Role Phone Celso Lewis MD Primary Care Prov ider Reason for Visit * Reason Comments Care Coordination Outreach Encounter Details Date Type Department Care Team (Latest Contact Info) Description 10/09/2024 Patient Outreach [facility] CH[facility] MED & PEDS [address] [place] [address] Celso Lewis MD [address] [place] [address] Care Coordination (Outreach) Social History Tobacco Use [...] encounter Progress Notes * Kristen Ernst - 10/09/2024 11:03 AM EST CHW Kristen Ernst , placed outbound call to patient in regards to offer services. CHW introducing herself from [facility] Department with CHW's name, department and direct contact [phone] requesting call back. Will re-attempt to contact within 5 days. and address not confirmed. documented in this encounter Plan of Treatment Upcoming Encounters Date Type Department Care Team ([facility] st Contact Info) Description 11/05/2024 1:15 PM EDT Telemedicine [facility] MED & PEDS [address] [place] [address] Celso Lewis MD [address] [place] [address] documented as of this encounter Visit Diagnoses Not on filedocumented in this encounter Additional Health Concerns Assessment Noted Time PHQ-9 Depression Total Score: 10 07/10/ 024 2:32 PM EST documented as of this encounter Care Teams Microsoft Dynamics Manager Architect Relationship Specialty Start Date End Date Celso Lewis MD [address] [place] [address] PCP - General Internal Medicine 02/21/24 documented as of this encounter
--- OUTSIDE RECORDS SUMMARY | 2024-10-30 14:03 | XMS_ITS | Encounter Summary ---
Author Organization [employer] Address [address] [facility] [address] [address] Care Team Providers Care Lead Producer Name Role Phone Celso Lewis MD Primary Care Prov ider Reason for Visit * Reason Comments Care Coordination Outreach Encounter Details Date Type Department Care Team (Latest Contact Info) Description 10/02/2024 Patient Outreach [facility] MED & PEDS [address] [place] [address] Celso Lewis MD [address] [place] [address] Care Coordination (Outreach) Social History Tobacco Use [...] encounter Progress Notes * Kristen Ernst - 10/02/2024 10:04 AM EST CHW Kristen Ernst , placed outbound call to patient in regards to offer services. CHW introducing herself from [facility] Department with CHW's name, department and direct contact [phone] requesting call back. Will re-attempt to contact within 5 days. and address not confirmed. documented in this encounter Plan of Treatment Upcoming Encounters Date Type Department Care Team ([facility] st Contact Info) Description 11/05/2024 1:15 PM EDT Telemedicine [facility] MED & PEDS [address] [place] [address] Celso Lewis MD [address] [place] [address] documented as of this encounter Visit Diagnoses Not on filedocumented in this encounter Additional Health Concerns Assessment Noted Time PHQ-9 Depression Total Score: 10 07/10/ 024 2:32 PM EST documented as of this encounter Care Teams Lead Producer Relationship Specialty Start Date End Date Celso Lewis MD [address] [place] [address] PCP - General Internal Medicine 02/21/24 documented as of this encounter
--- OUTSIDE RECORDS SUMMARY | 2024-10-30 14:03 | XMS_ITS | Encounter Summary ---
Author Organization [employer] Address [address] [facility] [address] [address] Care Team Providers Care Area Safety Manager Name Role Phone Celso Lewis MD Primary Care Prov ider Reason for Visit * Reason Onset Date Comments Med Change Request 05/23/2024 Encounter Details Date Type Department Care Team (Late Contact Info) Description 05/23/2024 Telephone [facility] MEDICINE [address] [place] [address] Celso Lewis MD [address] [place], [place] [phone] Med Change Request Social History Tobacco Use Types Packs/Day Years Used Date Smoking Tobacco: Every Day Cigarettes 0.5 10.2 Started: 2014 Smokeless Tobacco: Never Sex and Gender Information Value Date Recorded Sex Assigned at Male 06/27/2022 10:14 AM EDT Legal Sex Male 10:14 AM EDT Gender Identity Male 01/11/2024 8:16 AM EDT Sexual Orientation Straight 01/11/2024 8: 17 AM EDT documented as of this encounter Miscellaneous Notes * Telephone Encounter - Houston Wagner - 05/23/2024 2:40 PM EDT Tc from patient calling in regards to metFORMIN (Glucophage) 500 MG tablet states was told by pharmacy the insurance will only cover cost if it was a 90 day supply documented in this encounter Plan of Treatment Upcoming Encounters Date Type Department Care Team (Late st Contact Info) Description 11/05/2024 1:15 PM EDT Telemedicine [facility] CHC MED & PEDS [address] [place], [place] [phone] Celso Lewis MD [address] [place] [address] documented as of this encounter Visit Diagnoses Not on filedocumented in this encounter Care Teams Area Safety Manager Relationship Specialty Start Date End Date Celso Lewis MD [address] [place] [address] PCP - General Internal Medicine 02/21/24 documented as of this encounter
== END 2024-10-30 11:44 | disposition home or self-care (01) ==
PROVIDERS: PCP Internal Medicine; Visit Provider Surgery
DX: R59.1 Generalized enlarged lymph nodes (principal)
CPT/HCPCS: 99203

== ENCOUNTER → 2024-10-30 11:35 | Outpatient (BNVA) | payer MEDICAID, SELFPAY | PROVIDERS: PCP Internal Medicine; Visit Provider Surgery | DX: R59.1 Generalized enlarged lymph nodes (principal); Z85.71 Personal history of Hodgkin lymphoma | CPT/HCPCS: 99202 ==

== ENCOUNTER 2024-11-08 12:01 | Day surgery (SDC) | payer MEDICAID, SELFPAY ==
--- OUTSIDE RECORDS SUMMARY | 2024-11-01 06:48 | XMS_ITS | Encounter Summary ---
Author Organization [employer] Address [address] [facility] [address] [place] [address] Care Team Providers Care Nuclear Physics Teacher Name Role Phone Celso Lewis MD Primary Care Prov ider Encounter Details Date Type Department Care Team (Late st Contact Info) Description 10/15/[address] [facility] MEDICINE [address] [place] [address] Celso Lewis MD [address] [place] [address] Social History Tobacco Use Types Packs/Day Years [...] for patient to contact Edgar Michael at [phone]. documented in this encounter Plan of Treatment Upcoming Encounters Date Type Department Care Team (Late st Contact Info) Description 11/05/2024 1:[address] [facility] CHC MED & PEDS [address] [place] [address] Celso Lewis MD [address] [place] [address] documented as of this encounter Visit Diagnoses Not on filedocumented in this encounter Additional Health Concerns Assessment Noted Time PHQ-9 Depression Total Score: 10 024 2:32 PM EST documented as of this encounter Care Teams Nuclear Physics Teacher Relationship Specialty Start Date End Date Celso Lewis MD [address] [place] [address] PCP - General Internal Medicine 02/21/24 documented as of this encounter
--- OUTSIDE RECORDS SUMMARY | 2024-11-01 06:48 | XMS_ITS | Encounter Summary ---
Author Organization [employer] Address [address] [facility] [address] [place] [address] Care Team Providers Care Dance Instructor Name Role Phone Celso Lewis MD Primary Care Prov ider Reason for Visit * Reason Onset Date Comments Med Change Request 05/23/2024 Encounter Details Date Type Department Care Team (Late Contact Info) Description 05/23/2024 Telephone [facility] MEDICINE [address] [place] [address] Celso Lewis MD [address] [place], [place] [phone] Med Change Request Social History Tobacco Use [...] Info) Description 11/05/2024 1:15 PM EDT Telemedicine [facility] CH[facility] MED & PEDS [address] [place], [place] [phone] Celso Lewis MD [address] [place] [address] documented as of this encounter Visit Diagnoses Not on filedocumented in this encounter Care Teams Dance Instructor Relationship Specialty Start Date End Date Celso Lewis MD [address] [place] [address] PCP - General Internal Medicine 02/21/24 documented as of this encounter
--- OUTSIDE RECORDS SUMMARY | 2024-11-01 06:48 | XMS_ITS | Encounter Summary ---
Author Organization [employer] Address [address] [facility] [address] [place] [address] Care Team Providers Care Resident In Diagnostic Radiology Name Role Phone Celso Lewis MD Primary Care Prov ider Reason for Visit * Reason Comments Care Coordination Outreach Encounter Details Date Type Department Care Team (Latest Contact Info) Description 10/25/2024 Patient Outreach [facility] CH[facility] MED & PEDS [address] [place] [address] Celso Lewis MD [address] [place] [address] Care Coordination (Outreach) Social History Tobacco Use [...] to offer services. CHW introducing herself from [facility] Department with CHW's name department and direct contact number requesting call back. Will re-attempt to contact within 5 days. and address not confirmed. documented in this encounter Plan of Treatment Upcoming Encounters Date Type Department Care Team ([facility] st Contact Info) Description 11/05/2024 1:15 PM EDT Telemedicine [facility] ED MED & PEDS [address] [place] [address] Celso Lewis MD [address] [place] [address] documented as of this encounter Visit Diagnoses Not on filedocumented in this encounter Additional Health Concerns Assessment Noted Time PHQ-9 Depression Total Score: 10 07/10/ 024 2:32 PM EST documented as of this encounter Care Teams Resident In Diagnostic Radiology Relationship Specialty Start Date End Date Celso Lewis MD [address] [place] [address] PCP - General Internal Medicine 02/21/24 documented as of this encounter
--- OUTSIDE RECORDS SUMMARY | 2024-11-01 06:48 | XMS_ITS | Clinical Summary ---
Author Organization [employer] Address [address] [place] [address] Care Team Providers Care Supervisor Commissary Production Name Role Phone Celso Lewis MD Primary [...] coma, without long-term current use of insulin ([facility]) Use to test blood sugar 2 times daily 100 each 12 4 05/02/20 25 Active Lancets miscIndications:T ype 2 diabetes mellitus with hypoglycemia without coma, without long-term current use of insulin ([facility]) Use to test blood sugar 2 times daily 100 each 4 Active Alcohol Swabs 70 % padsIndications:T ype 2 diabetes mellitus with hypoglycemia without coma, without long-term current use of insulin ([facility]) Use to test blood sugar 2 times daily 100 each 4 Active Blood Glucose Monitoring Suppl (FreeStyle Colwich Lite) w/Device kitIndications:Ty pe 2 diabetes mellitus with hypoglycemia without coma, without long-term current use of insulin ([facility]) Use to test blood sugar 2 times [...] Department Care Team Description 10/25/2024 Patient Outreach [facility] MED & PEDS [address] [place] [address] Celso Lewis MD Care Coordination (Outreach) 10/15/2024 Telephone [facility] [address] [place], [place] [phone] Celso Lewis MD 10/11/2024 Orders Only [facility] MED & PEDS [address] [place] [address] Celso Lewis MD Type 2 diabetes mellitus with hypoglycemia without coma, without long-term current use of insulin ([facility]) (Primary Dx) 10/09/2024 Patient Outreach [facility] [address] [place] [address] Celso Lewis MD Care Coordination (Outreach) 10/02/2024 Patient Outreach [facility] [address] [place] [address] Celso Lewis MD Care Coordination (Outreach) 09/26/2024 Patient Outreach [facility] & PEDS [address] [place] [address] Celso Lewis MD Care Coordination (Outreach) 09/18/2024 Telephone [facility] [address] [place] [address] Celso Lewis MD 08/19/2024 Orders Only [facility] External Provider, [facility] from Last 3 Months Immunizations Name Administration Dates Next Due DTaP 05/10/2002, 9,03/20/1998,01/13,1997 HPV, Quadrivalent 12/23/2013 Hep A, Unspecified 12/23/2013 Hep A, ped/adol, 2 dose 12/23/2013 Hep B, Adolescent or Pediatric 03/20/1998,1997,1997 Hib ([facility]) 02/10/1999, 8,01/13/1998,11/18 IPV 05/10/2002, 8,01/13/1998,11/18 Influenza injectable [...] Info) Description 11/05/2024 1:15 PM EDT Telemedicine [facility] PEDS [address] [place] [address] Celso Lewis MD [address] [place] [address] Health Maintenance Due Date Last Done Comments [...] coma, without long-term current use of insulin ([facility]) from Last 3 Months or Most Recently Relevant to Health Maintenance Results * CT Abdomen Pelvis w/ Contrast (08/19/2024 1:25 PM EST) Anatomical Region Laterality Modality Body, Pelvis, Abdomen Computed T omography 08/19/2024 1:25 PM EST Narrative 08/20/2024 3:41 PM EST ? [facility] ?[address] ?[place] [address] ? CT Scan Report ? Signed ? Patient: Shon Marion ?MR#: [id number] ? : 1995 ?Acct:[id number] ? Age/Sex: 28 / M ?ADM Date: 08/19/24 ? Loc: HO.CT ? Attending Dr: Lenore Solomon MD ? Ordering Physician: Lenore Solomon MD ?? Date of Service: 08/19/24 ?? Procedure(s): CT abdomen pelvis w IV con ?? Accession Number(s): [id number] ? cc: Celso Lewis MD; Lenore Solomon [...] DD/ 1325 ? TD/TT: 08/19/24 1340 ? Slot Floor Attendant: ? Procedure Note Donotuseinterpreter, Image - 08/20/[address] [place] [address] [address] Scan Report Signed Patient: Kenny Marion#: [id number] : 1995Acct:[id number] Age/Sex: 28 / MADM Date: 08/19/24 Loc: HO.CT Attending Dr: Lenore Solomon MD Ordering Physician: Lenore Solomon MD Date of Service: 08/19/24 Procedure(s): CT abdomen pelvis w IV con Accession Number(s): [id number] cc: Celso Lewis MD; Lenore Solomon MD [...] 08/20/24 1537 DD/ 1325 TD/TT: 08/19/24 1340 Slot Floor Attendant: [facility] External Provider IMG CT PROCEDURES Edited Result - Final * CT Chest w/ Contrast (08/19/2024 1:25 PM EST) Anatomical Region Laterality Modality Body, Chest Computed Tomogra phy 08/19/2024 1:25 PM EST Narrative 08/20/2024 3:31 PM EST ? [facility] ?[address] ?[place] [address] ? CT Scan Report ? Signed ? Patient: Marion,Shon ?MR#: [id number] ? : 1995 ?Acct:[id number] ? Age/Sex: 28 / M ?ADM Date: 08/19/24 ? Loc: HO.CT ? Attending Dr: Lenore Solomon MD ? Ordering Physician: Lenore Solomon MD ?? Date of Service: 08/19/24 ?? Procedure(s): CT chest w IV con ?? Accession Number(s): [id number] ? cc: Celso Lewis MD; Lenore Solomon [...] DD/ 1325 ? TD/TT: 08/19/24 1340 ? Slot Floor Attendant: ? Procedure Note Julieth, Image - 08/20/[address] [address] [address] Scan Report Signed Patient: Kenny Marion#: [id number] : 1995Acct:[id number] Age/Sex: 28 / MADM Date: 08/19/24 Loc: HO.CT Attending Dr: Lenore Solomon MD Ordering Physician: Lenore Solomon MD Date of Service: 08/19/24 Procedure(s): CT chest w IV con Accession Number(s): [id number] cc: Celso Lewis MD; Lenore Solomon MD [...] 08/20/24 1528 DD/ 1325 TD/TT: 08/19/24 1340 Slot Floor Attendant: [facility] External Provider IMG CT PROCEDURES Edited Result - Final * CT Soft Tissue Neck w/ Contrast (08/19/2024 1:25 PM EST) Anatomical Region Laterality Modality Head, Neck Computed Tomogra phy 08/19/2024 1:25 PM EST Narrative 08/20/2024 2:40 PM EST ? [facility] ?[address] ?[place] [address] ? CT Scan Report ? Signed ? Patient: Doni,Shon ?MR#: [id number] ? : 1995 ?Acct:[id number] ? Age/Sex: 28 / M ?ADM Date: 12/23/24 ? Loc: HO.CT ? Attending Dr: Lenore Solomon MD ? Ordering Physician: Lenore Solomon MD ?? Date of Service: 08/19/24 ?? Procedure(s): CT soft tissue neck w IV con ?? Accession Number(s): [id number] ? cc: Celso Lewis MD; Lenore Solomon [...] DD/ 1325 ? TD/TT: 08/19/24 1340 ? Slot Floor Attendant: ? Procedure Note Donotuseinterpreter, Image - 08/20/[address] [place] [address] [address] Scan Report Signed Patient: Kenny Marion#: [id number] : 1995Acct:[id number] Age/Sex: 28 / MADM Date: 08/19/24 Loc: HO.CT Attending Dr: Lenore Solomon MD Ordering Physician: Lenore Solomon MD Date of Service: 08/19/24 Procedure(s): CT soft tissue neck w IV con Accession Number(s): [id number] cc: Celso Lewis MD; Lenore Solomon MD [...] by: Stephy Tolentino MD 08/20/2024 02:37 PM [facility] Dictated By: Stephy Tolentino MD Signed By: <Electronically signed by Stephy Tolentino MD in OV> 08/20/24 1437 DD/ 1325 TD/TT: 08/19/24 1340 Slot Floor Attendant: [facility] External Provider IMG CT PROCEDURES Edited Result - Final * (ABNORMAL) POCT HGB A1C (05/02/2024 4:20 PM EDT) Hemoglobin A1C 6.6(A) 4.0 - 6.0 % QC Media Lot # [id number] Lot# Expiration Date [id number] Blood 05/02/2024 4:20 PM EDT Adalberto Pacheco MD POINT OF CARE TEST ENTER/ED IT ORDERABLES Final Result from Last 3 Months or Most Recently Relevant to Health Maintenance [place] [address] [place] [address] C3 Care Teams Supervisor Commissary Production Relationship Specialty Start Date End Date Celso Lewis MD [address] [place] [id number] PCP - General Internal Medicine 02/21/24
--- OUTSIDE RECORDS SUMMARY | 2024-11-01 06:48 | XMS_ITS | Encounter Summary ---
Author Organization [facility] [facility] Address [address] [place] [address] Care Team Providers Care Cops Name Role Phone Celso Lewis MD Primary Care Prov ider Reason for Referral * Consultation (Routine) - Authorized Specialty Diagnoses / Procedures Referred By Contac t Referred To Contact Pharmacy Diagnoses Type 2 diabetes mellitus with hypoglycemia without coma, without long-term current use of insulin (CMS/HCC) Celso Lewis MD [address] [place] [address] Phone: tel: fax: Referral ID Status Reason Start Date Expiration Date Visits Requested Visits Authorized [id number] Authorized Consult and Treat 10/11/2024 10/11/2025 6 6 Encounter Details Date Type Department Care Team (Late st Contact Info) Description 10/11/2024 Orders Only [facility] MED & PEDS [address] [place] [id number] Celso Lewis MD [address] [place] [address] Type 2 diabetes mellitus with hypoglycemia without [...] Info) Description 11/05/2024 1:15 PM EDT Telemedicine [facility] MED & PEDS [address] [place] [address] Celso Lewis MD [address] [place] [address] Scheduled Referrals Name Type Priority Associated Diagnoses Orde r Schedule Referral to Pharmacy CDTM Outpatient Referral Routine Type 2 diabetes mellitus with hypoglycemia without coma, without long-term current use of insulin (CMS/[facility]) Ordered: 10/11/2024 documented as of this encounter Visit Diagnoses Diagnosis Type 2 diabetes mellitus with hypoglycemia without coma, without long-term current use of insulin (CMS/[facility])- Primary documented in this encounter Additional Health Concerns Assessment Noted Time PHQ-9 Depression Total Score: 10 024 2:32 PM EST documented as of this encounter Care Teams Cops Relationship Specialty Start Date End Date Celso Lewis MD [address] [place] [address] PCP - General Internal Medicine 02/21/24 documented as of this encounter
--- OUTSIDE RECORDS SUMMARY | 2024-11-01 06:48 | XMS_ITS | Encounter Summary ---
Author Organization [employer] Address [address] [facility] [address] [place] [address] Care Team Providers Care Vp Lab Name Role Phone Celso Lewis MD Primary Care Prov ider Reason for Visit * Reason Comments Care Coordination Outreach Encounter Details Date Type Department Care Team (Latest Contact Info) Description 10/02/2024 Patient Outreach [facility] MED & PEDS [address] [place] [address] Celso Lewis MD [address] [place] [address] Care Coordination (Outreach) Social History Tobacco Use [...] to offer services. CHW introducing herself from [facility] Department with CHW's name, department and direct contact [phone] requesting call back. Will re-attempt to contact within 5 days. and address not confirmed. documented in this encounter Plan of Treatment Upcoming Encounters Date Type Department Care Team ([facility] st Contact Info) Description 11/05/2024 1:15 PM EDT Telemedicine [facility] MED & PEDS [address] [place] [address] Celso Lewis MD [address] [place] [address] documented as of this encounter Visit Diagnoses Not on filedocumented in this encounter Additional Health Concerns Assessment Noted Time PHQ-9 Depression Total Score: 10 07/10/ 024 2:32 PM EST documented as of this encounter Care Teams Vp Lab Relationship Specialty Start Date End Date Celso Lewis MD [address] [place] [address] PCP - General Internal Medicine 02/21/24 documented as of this encounter
--- OUTSIDE RECORDS SUMMARY | 2024-11-01 06:48 | XMS_ITS | Encounter Summary ---
Author Organization [employer] Address [address] [facility] [address] [place] [address] Care Team Providers Care Barrel Filler Head Name Role Phone Celso Lewis MD Primary Care Prov ider Reason for Visit * Reason Comments Care Coordination Outreach Encounter Details Date Type Department Care Team (Latest Contact Info) Description 10/09/2024 Patient Outreach [facility] MED [facility] PEDS [address] [place] [address] Celso Lewis MD [address] [place] [address] Care Coordination (Outreach) Social History Tobacco Use [...] to offer services. CHW introducing herself from [facility] Department with CHW's name, department and direct contact [phone] requesting call back. Will re-attempt to contact within 5 days. and address not confirmed. documented in this encounter Plan of Treatment Upcoming Encounters Date Type Department Care Team ([facility] st Contact Info) Description 11/05/2024 1:15 PM EDT Telemedicine [facility] MED & PEDS [address] [place] [address] Celso Lewis MD [address] [place] [address] documented as of this encounter Visit Diagnoses Not on filedocumented in this encounter Additional Health Concerns Assessment Noted Time PHQ-9 Depression Total Score: 10 07/10/ 024 2:32 PM EST documented as of this encounter Care Teams Barrel Filler Head Relationship Specialty Start Date End Date Celso Lewis MD [address] [place] [address] PCP - General Internal Medicine 02/21/24 documented as of this encounter
--- NOTE | 2024-11-06 13:19 | HO.ANESPROP2 ---
Documented by User: Darshana Escamilla NP 11/06/24 13:21 HPI - Anesthesia Eval Consult details Narrative: 29yo M for Right ?Excision Groin Lymph node Hodgkin's lymphoma February 2021 s/p tx with ? recurrence PMFSH Active Problems Active Problems: All Active Problems Abscess of groin, right (Acute) Lymphadenopathy (Chronic) Hodgkin lymphoma (Acute) Past Medical History Medical History Hodgkin lymphoma Hx of fracture of foot ADHD Asthma Family History Family History Maternal Aunt Breast cancer Family/Other Colon cancer Maternal Aunt Ovarian cancer Maternal Grandfather Stroke Pulmonary emboli Heart attack Diabetes Parkinson disease Mother Asthma Father Diabetes Family history of problems with anesthesia: No Surgical History Surgical History Hx of brain surgery History of Problems with Anesthesia: No Social History Social History Household Members: Significant Other Household Members Other:: 6 children Housing: Apartment Are you a primary day care center director to a significant other at home: No Do you presently have visiting nurse or other home services: No Alcohol intake: former Patient Tobacco Use Status: Current everyday Tobacco user Tobacco use type: Cigarette Cigarette Packs Per Day: 0.5 Cigarettes Per Day: 10.0 Years Smoked: 12 Use of substances other than those prescribed or required for medical reasons: Yes Substance Use Type: Marijuana Substance Use Type Other:: last smoked 11/07 Substance Use Frequency: Daily Are you DNR?: No Advance Directives: No Advance Directives Information Provided: Yes Advance Directives Date on File: 06/17/21 service: No Current occupational status: unemployed Meds Allergies Allergy/AdvReac Type Severity Reaction Status Date / Time No Known Allergies Allergy Verified 10/30/24 11:42 Home Medications ?Medication ?Instructions ?Recorded ?Confirmed ?Last Taken ?Type buspirone 15 mg tablet 1 tab PO BID 03/17/21 11/08/24 Unknown History fluoxetine 40 mg capsule 2 cap PO DAILY 03/17/21 11/08/24 06/08/21 History guanfacine 1 mg tablet 1 tab PO BID 03/17/21 11/08/24 06/08/21 History olanzapine 10 mg tablet 10 mg PO DAILY 09/26/23 11/08/24 Unknown History acetaminophen 325 mg tablet 325 mg PO DAILY 03/20/24 11/08/24 Unknown History albuterol 90 mcg-budesonide 80 2 inh inhalation TID PRN prn 03/20/24 11/08/24 Unknown History mcg/actuation HFA aerosol inhaler divalproex 250 mg tablet,extended 250 mg PO BID 03/20/24 11/08/24 Unknown History release 24 hr divalproex 500 mg tablet,delayed 500 mg PO DAILY 03/20/24 11/08/24 Unknown History release hydroxyzine pamoate 50 mg capsule 25 mg PO DAILY 03/20/24 11/08/24 Unknown History nicotine 7 mg/24 hr daily 7 mg DAILY 03/20/24 11/08/24 Unknown History transdermal patch quetiapine 100 mg tablet 100 mg PO DAILY 03/20/24 11/08/24 Unknown History Exam Pertinent Lab Results Pertinent Lab Results: Laboratory Tests 10/15/24 15:25 WBC 10.7 Hgb 17.1 Hct 49.9 Plt Count 234 Sodium 142 Potassium 4.0 Chloride 107 Carbon Dioxide 27 BUN 9 Creatinine 0.67 Assessment and Plan Assessment Anesthesia Assessment: Chart Reviewed Final Anesthetic Review Family History of Problems with Anesthesia: No History of Problems with Anesthesia: No Documented by User: Abril Looney MD 11/08/24 13:40 [facility] Past Medical History Medical History Hodgkin lymphoma Hx of fracture of foot ADHD Asthma Family History Family History Maternal Aunt Breast cancer Family/Other Colon cancer Maternal Aunt Ovarian cancer Maternal Grandfather Stroke Pulmonary emboli Heart attack Diabetes Parkinson disease Mother Asthma Father Diabetes Surgical History Surgical History Hx of brain surgery Social History Social History Household Members: Significant Other Household Members Other:: 6 children Housing: Apartment Are you a primary day care center director to a significant other at home: No Do you presently have visiting nurse or other home services: No Alcohol intake: former Patient Tobacco Use Status: Current everyday Tobacco user Tobacco use type: Cigarette Cigarette Packs Per Day: 0.5 Cigarettes Per Day: 10.0 Years Smoked: 12 Use of substances other than those prescribed or required for medical reasons: Yes Substance Use Type: Marijuana Substance Use Type Other:: last smoked 11/07 Substance Use Frequency: Daily Are you DNR?: No Advance Directives: No Advance Directives Information Provided: Yes Advance Directives Date on File: 06/17/21 service: No Current occupational status: unemployed Meds Allergies Allergy/AdvReac Type Severity Reaction Status Date / Time No Known Allergies Allergy Verified 10/30/24 11:42 Home Medications ?Medication ?Instructions ?Recorded ?Confirmed ?Last Taken ?Type buspirone 15 mg tablet 1 tab PO BID 03/17/21 11/08/24 Unknown History fluoxetine 40 mg capsule 2 cap PO DAILY 03/17/21 11/08/24 06/08/21 History guanfacine 1 mg tablet 1 tab PO BID 03/17/21 11/08/24 06/08/21 History olanzapine 10 mg tablet 10 mg PO DAILY 09/26/23 11/08/24 Unknown History acetaminophen 325 mg tablet 325 mg PO DAILY 03/20/24 11/08/24 Unknown History albuterol 90 mcg-budesonide 80 2 inh inhalation TID PRN prn 03/20/24 11/08/24 Unknown History mcg/actuation HFA aerosol inhaler divalproex 250 mg tablet,extended 250 mg PO BID 03/20/24 11/08/24 Unknown History release 24 hr divalproex 500 mg tablet,delayed 500 mg PO DAILY 03/20/24 11/08/24 Unknown History release hydroxyzine pamoate 50 mg capsule 25 mg PO DAILY 03/20/24 11/08/24 Unknown History nicotine 7 mg/24 hr daily 7 mg DAILY 03/20/24 11/08/24 Unknown History transdermal patch quetiapine 100 mg tablet 100 mg PO DAILY 03/20/24 11/08/24 Unknown History Exam Airway Mallampati Class: II TM Dist: >3cm Neck ROM: Full Heart: rrr Lungs: cts Assessment and Plan Assessment Anesthesia Assessment: Anesthesia Plan Discussed Final Anesthetic Review NPO: Yes ASA Class: III Final Preanesthetic Review: No Changes in Pt Med Stat, Meds/Allgs Chart Reviewed and Consent Obtained/Reviewed Patient Risk: Intermediate Procedure Risk: Low Anesthetic Plan Anesthetic Plan: GA Disposition: Standard PACU
[2024-11-08] VITALS (11 sets, daily range): BP systolic 101–151; BP diastolic 54–95; PULSE 77–95; RESP 14–18; TEMP 36.1–36.8; O2SAT 94–98; BMI 46.6
--- NOTE | 2024-11-08 13:38 | MHC.SHP ---
Pre-Procedural Eval Section A - 24 Hr Update-Section A only Date of Service: 11/08/24 The patient is an INPATIENT: No Changes since office visit: No Cold of Flu in the past 2 weeks, No New Medical Problems, No Changes in Medication and No Patient answered all questions The patient has been examined within 24 hours of the surgical procedure. The History & Physical has been completed within 30 days and I have reviewed it.: Yes Section B - Complete if H&P > 30 days Chief Complaint: Generalized enlarged lymph nodes Allergies: Allergies Allergy/AdvReac Type Severity Reaction Status Date / Time No Known Allergies Allergy Verified 10/30/24 11:42 Plan I have reviewed the history and physical and performed a pertinent physical examination on my patient. No changes have occurred unless specified. Time Spent With Patient Time: Total time managing care of this patient today ____ minutes.
[2024-11-08] MEDS: Lactated Ringers 1,000 ML 100 ML IVCONT (13:45)
[2024-11-08] MEDS: ceFAZolin Sodium/Dextrose,Iso 2 GM/50 ML PIGGYBACK IV (14:10)
--- NOTE | 2024-11-08 14:57 | W.PM.OPN ---
Operative Note Operative Note Date of Service: 11/08/24 Narrative: Preop diagnosis: Right inguinal lymphadenopathy , with history of lymphoma Postop diagnosis: The same Procedure: Excision biopsy, right inguinal lymph node Surgeon: Larry Malone MD The patient is a 29-year-old male with a history of Hodgkin's lymphoma, had completed treatment and noted to have large inguinal lymph nodes again. He was therefore referred [place]. He understood the technique of the planned procedure as well as the risks, benefits, and alternatives. He was brought to the operating room. He was placed supine under general anesthesia via laryngeal mask airway. The right groin was prepped and draped in the usual sterile fashion. A surgical time-out was done. The patient received cefazolin 2 g IV preoperatively I infiltrated the planned line of incision with lidocaine 1%. I made a generous transverse incision on the skin overlying a palpable enlarged lymph node in the right groin with a blade 15. This was carried down with electrocautery through the full-thickness of the skin and thick subcutaneous fat. It was noted that the patient is morbidly obese so we had to go through a very thick layer of subcutaneous fat. Eventually was able to visualize fascia and by palpating this, I could feel a very large lymph node underneath this. I opened up the fascia with Metzenbaum scissors. I continued to gently explore this area and he was able to visualize a large lymph node, about 2.5 cm in diameter. I retracted this with Allis clamps. I gently dissected this sharply with Metzenbaum scissors circumferentially. We had to use a Polysorb 2-0 stitch as well to retract the lymph node and expose the underside for gentle dissection. Once we had thinned out the underside of the lymph node, I applied a right angle clamp across this. I transected this above the clamp and these entire enlarged lymph node was sent as a specimen. I applied a Polysorb 2-0 tie below the right angle clamp I irrigated. I observed for hemostasis. I cauterized oozing areas. Once hemostasis was confirmed, I copiously irrigated I reapposed the fascia with Polysorb 2-0 sutures I reapposed thick subcutaneous fat with Polysorb 3-0 simple interrupted sutures. The skin was closed with Polysorb 4-0 subcuticular running stitch. The area was infiltrated with a Marcaine 0.5% for postop analgesia. Dressings were applied. The procedure was completed The patient tolerated the procedure well. There were no immediate complications. Initial and final counts of sponges and instruments were correct. Estimated blood loss about 25 cc. The patient was extubated without difficulty and transferred to the recovery room with stable vital signs.
[2024-11-08] MEDS: fentaNYL citrate/PF 100 MCG/2 ML VIAL 50 MCG IVPUSH ×2 (15:25→15:30)
== END 2024-11-08 16:25 | disposition home or self-care (01) ==
PROVIDERS: PCP Internal Medicine; Visit Provider Surgery
PROC: (CPT 38531; principal; 2024-11-08 14:30)
DX: I88.9 Nonspecific lymphadenitis, unspecified (principal); Z85.71 Personal history of Hodgkin lymphoma; Z92.21 Personal history of antineoplastic chemotherapy; J45.909 Unspecified asthma, uncomplicated; F90.9 Attention-deficit hyperactivity disorder, unspecified type; E66.01 Morbid (severe) obesity due to excess calories; Z68.42 Body mass index [BMI] 45.0-49.9, adult; Z79.899 Other long term (current) drug therapy; F17.210 Nicotine dependence, cigarettes, uncomplicated; Z56.0 Unemployment, unspecified
CPT/HCPCS: 38531; 88184; 88185; 88305; 88312; 88341; 88342; J0690; J1100; J1885; J2003; J2250; J2405; J2704; J2795; J3010

== ENCOUNTER → 2024-11-08 12:01 | Outpatient (BNV) | payer MEDICAID, SELFPAY | PROVIDERS: PCP Internal Medicine; Visit Provider Surgery | DX: R59.1 Generalized enlarged lymph nodes (principal) | CPT/HCPCS: 38531 ==

== ENCOUNTER → 2024-12-27 13:54 | Outpatient (REF) | payer MEDICAID, SELFPAY ==
--- NOTE | 2024-12-27 14:00 | CA_ITS ---
Transthoracic Echocardiogram Patient (Last, First, Middle): Shon Marion, Gender: Male Date of : 1995 Age: 29 Procedure Date: 12/27/2024 Procedure Type: Transthoracic Echocardiogram Location: OP Height: 167. cm Weight: 147.42 kg BSA: 2.45 m2 Heart Rate: 78 bpm BP: 90 / 50 mmHg Furniture Polisher: NATA Referring MD: Lenore Solomon MD Symptoms: pre chemo eval Study Quality: Fair/Contrast ECG Rhythm: Sinus Conclusions: - Normal left ventricular size, thickness, systolic function, and wall motion. The visually estimated ejection fraction is between 60-65%. Diastolic function is normal for age. - Normal right ventricular cavity size and systolic function. Findings Procedure Information Contrast agent, definity, is being given per protocol without apparent complications. Left Ventricle Normal left ventricular size, thickness, systolic function, and wall motion. The visually estimated ejection fraction is between 60-65%. Diastolic function is normal for age. Right Ventricle Normal right ventricular cavity size and systolic function. Pericardium/Pleural There is no evidence of pericardial effusion. Prior Study Comparison No significant change compared to prior study dated: 04/05/2021. Measurements 2D Linear Measurements IVSd: 0.89 0.6-0.9/0.6-1.0 cm LVIDd: 5.33 3.9-5.3/4.2-5.9 cm LVIDd Index: 2.18 2.4-3.2/2.2-3.1 cm/m2 LVIDs: 2.88 2.0-3.6 cm LVPWd: 0.96 0.7-1.1 cm LA Diam: 3.60 2.7-3.8/3.0-4.0 cm LAIDs Index: 1.47 1.5-2.3 cm/m2 LV Mass: 227.32 67-162/88-224 g LV Mass Index: 92.78 43-95/49-115 g/m2 LVOT Diam: 2.10 3.0+(-)1.3 cm 2D Systolic Function EF 4C: 56.40 >55% EF 2C: 68.20 >55% EF BiP: 63.10 >55% Mitral Valve MV Pk E: 1.12 MV PK A: 0.62 MV Decel Time: 172.00 E/A: 1.80 E'Lateral: 12.00 E'Medial: 6.74 E/E' Med: 16.60 E/E' Lat: 9.30 PHT: 50.00 MVA PHT: 4.40 Decel [place]: 6.50 LVOT LVOT Pk Brandan: 1.01 LVOT Mn Brandan: 0.77 LVOT VTI: 0.21 LVOT Pk Grad: 4.00 LVOT Mn Grad: 3.00 LVOT Diam: 2.10 LVOT Area: 3.46 Diastolic Function MV Pk E: 1.12 MV Pk A: 0.62 E/A: 1.80 E'Medial: 6.74 E/E' Med: 16.60 E' Laterial: 12.00 E/E' Lat: 9.30 Updated in Other Vendor System with Status of Final Juan Jacobo MD electronically signed on 12/29/2024 8:56:50 PM with status of Final
--- OUTSIDE RECORDS SUMMARY | 2024-12-27 14:12 | XMS_ITS | Clinical Summary ---
Author Organization [email or web address] Address [address] [place] [address] Care Team Providers Care Floor Worker [place] Name Role Phone Celso Lewis MD Primary [...] by mouth 2 times daily. 4 Active Alcohol Swabs 70 % padsIndications:T ype 2 diabetes mellitus with hypoglycemia without coma, without long-term current use of insulin (CMS/[facility]) Use to test blood sugar 2 times daily 100 each 11 4 Active Blood Glucose Monitoring Suppl (FreeStyle [place] Lite) w/Device kitIndications:Ty pe 2 diabetes mellitus with hypoglycemia without coma, without long-term current use of insulin (CMS/HCC) Use to test blood sugar 2 times daily 1 kit 4 Active FREESTYLE LITE test stripIndications: Type 2 diabetes mellitus with hypoglycemia without coma, without long-term current use of insulin ([facility]) Use to test blood sugar 2 times daily 100 each 12 5 11/06/19 26 Active Lancets miscIndications:T ype 2 diabetes mellitus with hypoglycemia without coma, without long-term current use of insulin ([facility]) Use to test blood sugar 2 times daily 100 each 5 Active metFORMIN (Glucophage) 500 MG tablet Take 1 tablet (500 mg) by mouth 2 times daily. Take 1 tab each morning and 1 tab each evening 180 tablet 3 5 11/06/19 26 Active semaglutide (Ozempic) 2 MG/1.5ML solution pen-injector Inject 0.25 mg under the skin 1 (one) time per week. 1 each 5 Active Active Problems Patient Care Coordination No te Formatting of this note migh t be different from the original. C3/CM Antonieta Chavez RN Problem Noted Date Diagnosed Date Type 2 diabetes mellitus wit h hypoglycemia without coma, without long-term current use of insulin 07/10/2024 Assessment & Plan (11/05/2024 12:34 PM EDT): On metformin, will add ozempic for better glucose control and weight benefits,follow up in 6 weekjs, new labs ordered Assessment & Plan (07/10/2024 6:31 PM EST): [...] Encounters Date Type Department Care Team Description 12/19/[address] [facility] [address] [place] [phone] Celso Lewis MD 12/11/[address] [facility] [address] [place] [phone] Celso Lewis MD 12/10/2024 Patient Outreach [address] [address] Celso Lewis MD Care Coordination (C3/CM Outreach) 11/27/[address] [facility] [address] [place] [phone] Celso Lewis MD 11/19/[address] [address] Celso Lewis MD 11/11/2024 Patient Outreach [facility] [address] [place] [address] Celso Lewis MD Care Coordination (Outreach) 11/08/2024 Orders Only GENERIC EXTERNAL DATA DEPARTMENT Provider, Generic External Data 11/08/2024 Population Health Risk Score [facility] () Department [address] [place] [id number] Provider, Population Health Generic 11/05/2024 1:15 PM EDT Telemedicine [facility] [address] [place] [address] Celso Lewis MD Type 2 diabetes mellitus with hypoglycemia without coma, without long-term current use of insulin (CMS/HCC) 11/05/2024 Travel 11/04/2024 Telephone [facility] [address] [place] [address] Celso Lewis MD chart prep 10/25/2024 Patient Outreach [facility] [address] [place] [address] Celso Lewis MD Care Coordination (Outreach) 10/15/[address] [facility] [address] [place] [address] Celso Lewis MD 10/11/2024 Orders Only [facility] [address] [place] [address] Celso Lewis MD Type 2 diabetes mellitus with hypoglycemia without coma, without long-term current use of insulin (CMS/HCC) (Primary Dx) 10/09/2024 Patient Outreach [facility] [address] [place] [address] Celso Lewis MD Care Coordination (Outreach) 10/02/2024 Patient Outreach [facility] [address] [place] [address] Celso Lewis MD Care Coordination (Outreach) from Last 3 Months Immunizations Name Administration Dates Next Due DTaP 05/10/2002, 9,03/20/1998,01/13,1997 HPV, Quadrivalent 12/23/2013 Hep A, Unspecified 12/23/2013 Hep A, ped/adol, 2 dose 12/23/2013 Hep B, Adolescent or Pediatric 03/20/1998,1997,1997 Hib (HbOC) 02/10/1999, 8,01/13/1998,11/18 IPV 05/10/2002, 8,01/13/1998,11/18 Influenza injectable [...] Date Smoking Tobacco: Every Day Cigarettes 0.5 10.3 Started: 2014 Smokeless Tobacco: Never Tobacco Cessation:Ready [...] 07/10/2024 2:30 PM EST Plan of Treatment Health Maintenance Due Date Last Done Comments [...] 01/21/2021 12/31/2020 Diabetes: Hemoglobin A1C 10/30/2024 05/02/2024 Tobacco Screening 05/02/2025 05/02/2024 Depression Screening 07/10/2025 07/10/2024, 07/10/20 24 Diabetes: Foot Exam 07/10/2025 07/10/2024, 07/10/2024, 07/10/2024, [...] Procedure Name Priority Date/Time Associated Diagnosis Comments LEUKEMIA/LYMPHOMA EVALUATION TISSUE Routine 11/08/2024 2:46 PM EDT GOMORI METHENAMINE STAIN Routine 11/08/2024 2:46 PM EDT POCT GLYCATED HEMOGLOBIN, TOTAL Routine 05/02/2024 4:20 PM EDT Type 2 diabetes mellitus with hypoglycemia without coma, without long-term current use of insulin ([facility]) from Last 3 Months or Most Recently Relevant to Health Maintenance Results * Leukemia/Lymphoma Evaluation Tissue (11/08/2024 2:46 PM EDT) LLE Interpretation See Note [facility] Comment:See report from [facility] in the EMR. 11/08/2024 2:46 PM EDT 11/08/2024 3:00 PM EDT Narrative [facility] - 11/13/2024 10:19 AM EDT Gen. lymph nodes, rt [id number] groin lymph nodes us Generic External Data Provider LAB CYTOLOGY BESSY SONI Final Result [facility] [address] [place] [phone] * Gomori Methenamine Stain (11/08/2024 2:46 PM EDT) 11/08/2024 2:46 PM EDT 11/08/2024 2:55 PM EDT Edith [facility] - 11/25/2024 11:44 AM EDT ----- ------- Name: Shon Marion ? Age/Sex: 29/M ? : 1995 Unit#: [id number] ?? Attend Dr: Larry Malone MD ?Re11/08/24 ?Status: DEP SDC ? Location: [facility].SSS ?Disch: ? ----- ------- SPEC : [id number] ? RECD: 11/08/24-772 ? STATUS: ??SOUT ? REQ NUM: [id number] ? MARQUISE: 11/08/24-1446 ? SUBM DR: Larry Malone MD ? ENTERED: ??11/08/24-7688 ?SP TYPE: Surgical ? OTHR DR: Celso Lewis MD ORDERED: ??Gom Meth Stain/6, Acid Fast Stain/6, Gross Micro L4, B Cell, T Cell, LCA, IHC, ?Add. immunos/4, Specials Gr. 1/2, CD30 ?Addendum Addendum ??1 ?Entered: 11/25/24-105 The case is seen in consultation by Dr. 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 See the entire scanned consultation report with note and stain results in the EMR - reports/pathology section as a scanned report. AFB stain: ??Negative for acid fast organisms. Controls stain appropriately. Addendum Signed (signature on file) Janeth Elias 11/25/24 1144 ? ----- ------- ? Diagnosis ?? Lymph node, right groin, excision: ?? -Granulomatous lymphadenitis with scattered large atypical cells (see comment). ? Comment: ??The atypical cells have a Jelani-Joao like appearance. ??However, the ?? background inflammation does not support Hodgkin lymphoma. ??Sarcoid and infectious causes ?? must be considered. ??The case is sent for expert consultation; report to follow. ? Flow Cytometry: ?? Diagnosis: ?? -Non-specific B-cell dominant profile. ?? -Diagnostic features of a B-cell lymphoproliferative disorder not identified. ?? -No increase in blast-gate or CD34 positive events. ? See the entire scanned report in the EMR - reports/pathology section (camera icon). ? CONTINUED ON NEXT PAGE ----- ------- Name: Shon Marion ? Age/Sex: 29/M ? : 1995 Unit#: [id number] ?? Attend Dr: Larry Malone MD ?Re11/08/24 ?Status: DEP SDC ? Location: [facility] ?Disch: ? ----- ------- SPEC : [id number] ? RECD: 11/08/24-5245 ? STATUS: ??SOUT ? REQ NUM: [id number] ? MARQUISE: 11/08/24-1446 ? SUBM DR: Larry Malone MD ? ENTERED: ??11/08/24-1457 ?SP TYPE: Surgical ? OTHR DR: Celso eLwis MD ORDERED: ??Gom Meth Stain/6, Acid Fast Stain/6, Gross Micro L4, B Cell, T Cell, LCA, IHC, ?Add. immunos/4, Specials Gr. 1/2, CD30 ?Clinical History Generalized lymph nodes ?Microscopic Description Microscopic sections show sheets of small lymphocytes with scattered Jelani- Joao like cells and many well-formed granulomas, predominantly noncaseating with few small foci of necrosis. ??The large R-S like cells are CD15 positive, LCA negative, and weak PAX5 positive on immunostains. CD30 is attempted, but unsuccessful. The background is predominantly CD3 positive T cells with scattered foci of PAX5 and CD20 positive B cells. ??GMS stain is negative for fungi. ??Controls stain appropriately. ? Material Received ?? Right groin lymph nodes ? Gross Description Received fresh labeled ?right groin lymph nodes? is an irregular, oval mass of rubbery red- pink tissue measuring 4.2 x 3.0 x 1.8 cm in greatest dimension. ??Sectioning reveals a smooth, pink white lymphoid cut surface. ??A portion of tissue is submitted in RPMI to [facility] for flow cytometry. ??The remainder of the specimen is serially sectioned and entirely submitted for microscopic examination in cassettes A1 through A6, 2 pieces each. ([facility]) This case was reviewed intradepartmentally, multiple pathologists. ??Case discussed with Dr.'s Malone and Juanito by secure text by Dr. Griffin on 11/12/2024 at 10:20 am, and on 11/18/24 at 11:39 am. Special studies ordered and performed at [facility]: ??Immunostains for CD3, CD20, and CD45 on A1, AFB and GMS on A1, A2, A3, A4, A5 and A6. Special studies ordered and performed at [facility]: ??Immunostains for PAX5 and CD15 on A1. Copies To: ?? Celso Lewis MD ?? [facility] ?? [address] ?? [place] [address] ?? [phone] ? CONTINUED ON NEXT PAGE ----- ------- Name: Shon Marion ? Age/Sex: 29/M ? : 1995 Unit#: [id number] ?? Attend Dr: Larry Malone MD ?Re11/08/24 ?Status: DEP SDC ? Location: HO.SSS ?Disch: ? ----- ------- SPEC : [id number] ? RECD: 11/08/24-1454 ? STATUS: ??SOUT ? REQ NUM: [id number] ? MARQUISE: 11/08/24-1446 ? SUBM DR: Larry Malone MD ? ENTERED: ??11/08/24-1457 ?SP TYPE: Surgical ? OTHR DR: Celso Lewis MD ORDERED: ??Gom Meth Stain/6, Acid Fast Stain/6, Gross Micro L4, B Cell, T Cell, LCA, IHC, ?Add. immunos/4, Specials Gr. 1/2, CD30 Copies To: ??(Continued) ?? Larry Malone MD ?? [facility] ?? [address] ?? [place] [address] ?? [phone] ----- ------- Signed (signature on file) Janeth Griffin 11/18/24 1211 ? ----- ------- ? END OF REPORT ? us Generic External Data Provider LAB MICROBIOLOGY - GENERAL ORDERABLES Final Result [facility] [address] [place] [address] [phone] * (ABNORMAL) POCT HGB A1C (05/02/2024 4:20 PM EDT) Hemoglobin A1C 6.6(A) 4.0 - 6.0 % QC Media Lot # [id number] Lot# Expiration Date [id number] Blood 05/02/2024 4:20 PM EDT us Adalberto Pacheco MD POINT OF CARE TEST ENTER/ED IT ORDERABLES Final Result from Last 3 Months or Most Recently Relevant to Health Maintenance [facility] Care Teams Floor Worker [place] Relationship Specialty Start Date End Date Celso Lewis MD [address] [place] [phone] PCP - General Internal Medicine 02/21/24
--- OUTSIDE RECORDS SUMMARY | 2024-12-27 14:12 | XMS_ITS | Encounter Summary ---
Author Organization [employer] Address [address], [place] [address] Care Team Providers Care Special Police Officer Name Role Phone Celso Lewis MD Primary Care Prov ider Reason for Visit * Reason Onset Date Comments Med Change Request 05/23/2024 Encounter Details Date Type Department Care Team (Late st Contact Info) Description 05/23/2024 Telephone [facility] [address] [place] [address] Celso Lewis MD [address], [place] [phone] Med Change Request Social History Tobacco Use Types Packs/Day Years Used Date Smoking Tobacco: Every Day Cigarettes 0.5 10.3 Started: 2014 Smokeless Tobacco: Never Sex and [...] documented in this encounter Plan of Treatment Not on file documented as of this encounter Visit Diagnoses Not on filedocumented in this encounter Care Teams Special Police Officer Relationship Specialty Start Date End Date Celso Lewis MD [address] [place] [address] PCP - General Internal Medicine 02/21/24 documented as of this encounter
== END ==
LOC: HO.CARD 13:54
PROVIDERS: PCP Internal Medicine; Visit Provider Internal Medicine
DX: C81.90 Hodgkin lymphoma, unspecified, unspecified site (principal)
CPT/HCPCS: 93308; Q9957

== ENCOUNTER → 2024-12-27 14:00 | Outpatient (BNV) | payer MEDICAID, SELFPAY | PROVIDERS: PCP Internal Medicine; Visit Provider Internal Medicine Cardiovascular Disease | DX: Z01.818 Encounter for other preprocedural examination (principal) | CPT/HCPCS: 93308 ==

== ENCOUNTER → 2025-01-15 15:44 | Outpatient (BNV) | payer MEDICAID, SELFPAY | PROVIDERS: PCP Internal Medicine; Referring Provider Physician Assistant; Visit Provider Radiology Diagnostic Radiology | DX: R06.02 Shortness of breath (principal) | CPT/HCPCS: 71045 ==

== ENCOUNTER 2025-01-29 15:56 | Inpatient (IN) | payer MEDICAID, SELFPAY ==
[2025-01-29] VITALS (10 sets, daily range): BP systolic 85–132; BP diastolic 32–73; PULSE 66–93; RESP 12–18; TEMP 36.3–36.9; O2SAT 95–99; BMI 42.8
--- NOTE | ~2025-01-29 | US_ITS ---
EXAMINATION: US ABDOMEN LIMITED CLINICAL INFORMATION: Hepatitis. COMPARISON: None available. Correlation made with CT abdomen and pelvis 08/19/2024. TECHNIQUE: Real-time imaging of the right upper quadrant abdominal viscera. FINDINGS: As per technologist note, exam limited due to patient body habitus. PANCREAS: Obscured by gas. LIVER: Liver is mildly enlarged. The right hepatic lobe measures 17.4 cm in length. The liver contour is normal. There is diffuse increased liver parenchymal echogenicity, consistent with hepatic steatosis. No focal hepatic lesion. There is no intrahepatic biliary duct dilatation seen. GALLBLADDER: The gallbladder is physiologically distended without evidence of stones, sludge, polyps, wall thickening or pericholecystic fluid. Negative sonographic Dye's sign. COMMON BILE DUCT: Normal in caliber measuring 0.6 cm in diameter. Difficult to visualize due to study limitations. RIGHT KIDNEY: Not imaged. SPLEEN: Enlarged measuring 14.4 cm in length. FREE FLUID: None. US/US abdomen limited IMPRESSION: 1. As per technologist note, significantly limited examination due to patient habitus. 2. Mild hepatic enlargement with diffusely increased echogenicity, likely steatosis. Cannot exclude hepatocellular disease. No focal discrete lesion. 3. Splenomegaly. 4. No free fluid seen. Electronically signed by: Myles Carlisle MD 01/31/2025 09:06 AM EDT
--- NOTE | ~2025-01-29 | CT_ITS ---
CLINICAL HISTORY: Non-Hodgkins lymphoma, elevated LFTs CT abdomen and pelvis with contrast Comparison: CT/WI/SR - CT ABDOMEN PELVIS W IV CON - 08/19/24 13:25 EST Findings: No consolidation or effusion. Moderate hepatomegaly with liver measuring 24 cm in craniocaudal dimension with diffuse hepatic steatosis. Gallbladder is within normal limits. Remainder of the solid organs are unremarkable. No hydronephrosis. No urolithiasis. No bowel obstruction, pneumoperitoneum, or pneumatosis. Stable mildly enlarged retroperitoneal, pelvic and inguinal lymph nodes, measuring up to 1.7 cm in transverse diameter. Pelvic contents unremarkable. Normal appendix. No acute fracture. IMPRESSION: No acute findings. Moderate hepatomegaly with diffuse hepatic steatosis. No focal lesions. Stable mild retroperitoneal, pelvic and inguinal lymphadenopathy measuring up to 1.7 cm in transverse diameter. This document has been electronically signed by: Bay Allen MD on 01/29/2025 19:22:59
--- NOTE | 2025-01-29 17:19 | ED.GENADULT ---
HPI - General Adult General Chief complaint: Extremity Injury, Lower Stated complaint: ? infection high heart rate Time Seen by Provider: 01/29/25 15:58 Source: patient Mode of arrival: ambulatory Limitations: no limitations History of Present Illness ED Provider: Dr. Juan Eaton HPI narrative: 29-year-old male with a history of recurrent non-Hodgkin's lymphoma who is followed by Dr. Solomon. The patient restarted chemotherapy and had 2 cycles of chemotherapy (01/15/2025 and 01/22/2025). The patient was hospitalized at [facility] for cellulitis and discharged discharged on 01/27/2025 (2 days prior to evaluation). He states that the swelling and rash has improved in his lower extremities but not resolved completely. He states that over the last week however he has not been able to eat or drink in his had at least a 20 lb weight loss. He states he is having difficulty swallowing secondary to pain. Patient has had nausea but no vomiting. He has noted 2-3 loose diarrheal stools and is complaining of lower abdominal pain. The patient was seen by Dr. Solomon today and the patient had a significant increase in his LFTs compared to use his values at [facility] (which were also increased). She was concerned that the patient and referred the patient to the emergency department for further evaluation. She was also concerned that the patient had thrush and esophageal candidiasis. Patient denied fever but did have chills. He states that he has an occasional nonproductive cough which is causing him to have chest pain. Feels short of breath and has dyspnea on exertion. He denied dark stools or black stools. He denied frequency, urgency or dysuria Related Data Home Medications ?Medication ?Instructions ?Recorded ?Confirmed buspirone 15 mg tablet 1 tab PO BID 03/17/21 01/30/25 acetaminophen 325 mg tablet 650 mg PO BID PRN Pain 03/20/24 01/30/25 divalproex 500 mg tablet,delayed 500 mg PO DAILY 03/20/24 01/30/25 release hydroxyzine pamoate 50 mg capsule 100 mg PO BEDTIME 03/20/24 01/30/25 quetiapine 100 mg tablet 100 mg PO BEDTIME 03/20/24 01/30/25 lidocaine 4 % topical patch 1 patch topical DAILY PRN Pain 01/29/25 01/30/25 Lactobacillus acidophilus 1 1,000 mmu cells PO DAILY 01/30/25 01/30/25 billion cell capsule albuterol sulfate 90 mcg/actuation 2 puff inhalation Q4H PRN 01/30/25 01/30/25 aerosol inhaler Shortness Of Breath Or Wheezing amoxicillin 875 mg-potassium 1 tab PO BID 01/30/25 01/30/25 clavulanate 125 mg tablet divalproex 250 mg tablet,delayed 750 mg PO BEDTIME 01/30/25 01/30/25 release fluoxetine 10 mg capsule 30 mg PO DAILY 01/30/25 01/30/25 guanfacine 2 mg tablet 2 mg PO BID 01/30/25 01/30/25 hydroxyzine pamoate 25 mg capsule 25 mg PO BID@0900,1200 01/30/25 01/30/25 metformin 500 mg tablet 500 mg PO BID 01/30/25 01/30/25 nystatin 100,000 unit/mL oral 5 ml PO QIDWMHS 01/30/25 01/30/25 suspension olanzapine 20 mg tablet 20 mg PO BEDTIME 01/30/25 01/30/25 pantoprazole 40 mg tablet,delayed 40 mg PO DAILY@0630 01/30/25 01/30/25 release quetiapine 50 mg tablet 50 mg PO BEDTIME 01/30/25 01/30/25 Allergies Allergy/AdvReac Type Severity Reaction Status Date / Time No Known Allergies Allergy Verified 01/29/25 16:16 Review of Systems Review of Systems: Yes all other systems are reviewed and are negative [facility] Past Medical History [facility] Narrative: Social history: The patient is currently on a [address] [facility]. He has been there for 3 months for PCP use and states he is going to get out soon. Medical History Hodgkin lymphoma Hx of fracture of foot ADHD Asthma Surgical History Hx of brain surgery Family History Family History Maternal Aunt Breast cancer Family/Other Colon cancer Maternal Aunt Ovarian cancer Maternal Grandfather Stroke Pulmonary emboli Heart attack Diabetes Parkinson disease Mother Asthma Father Diabetes Social History Social History Household Members: Other Household Members Other:: at [facility] x 3 months Housing: Other Are you a primary tree care foreman to a significant other at home: No Do you presently have visiting nurse or other home services: No Alcohol intake: former Patient Tobacco Use Status: Never used Tobacco Tobacco use type: Cigarette Cigarette Packs Per Day: 0.5 Years Smoked: 12 Substance Use Type: Marijuana Advance Directives Date on File: 06/17/21 service: No Current occupational status: unemployed Physical Exam ED Vital Signs: Vital Signs - 24 hr 01/29/25 16:12 01/29/25 18:00 01/29/25 19:53 Temperature 97.8 F 97.4 F 97.8 F Pulse Rate 93 82 73 Respiratory Rate 12 16 16 Blood Pressure 106/35 L 101/35 L 99/44 L Pulse Oximetry 96 96 96 Oxygen Delivery Method Room Air Room Air 01/29/25 21:14 01/29/25 21:16 01/29/25 22:00 Temperature 98.5 F 97.9 F Pulse Rate 66 66 Respiratory Rate 17 18 16 Blood Pressure 103/32 L 85/36 L Pulse Oximetry 98 98 Oxygen Delivery Method Room Air Room Air 01/29/25 22:16 01/29/25 22:32 Temperature 97.7 F Pulse Rate 67 68 Respiratory Rate 17 17 Blood Pressure 129/62 122/58 L Pulse Oximetry 98 99 Oxygen Delivery Method Room Air Room Air BMI result Body Mass Index 42.8 Exam: General: Awake, alert in no distress Head: Normocephalic, atraumatic EENT: PERRL, Lids normal, sclera normal, conjunctiva normal, nose normal , ears normal, mouth in his consistent with thrush, moist membranes Neck: Supple, no adenopathy Lung: breath sounds symmetric, no wheezing, rales or rhonchi Chest: symmetric movement, nontender Heart: regular rate and rhythm, normal S1, S2 no murmurs or rubs Abdomen: soft, mild diffuse abdominal tenderness with increased tenderness in the lower quadrants, negative Dye sign, nondistended, normal bowel sounds Back: no vertebral tenderness, no CVAT Extremities: The patient has erythema to her lower extremity with increased warmth, see pictures below Neuro: Awake, alert, oriented, normal speech, cranial nerves intact, moves all extremities symmetrically Psych: Pleasant, cooperative Medications Administered Generic Name Dose Route Start Last Admin Trade Name Freq PRN Reason Stop Dose Admin Benzocaine 1 lozenge 01/29/25 23:59 01/31/25 21:57 Throat Lozenge, Medicated Lozenge MUCOUS MEM 1 lozenge Q2H PRN Administration Sore Throat Buspirone HCl 15 mg 01/31/25 09:00 01/31/25 21:45 Buspirone Hcl 5 Mg Tablet PO 15 mg BID JANNA Administration Divalproex Sodium 750 mg 01/31/25 21:00 01/31/25 21:45 Divalproex Sodium 250 Mg Tablet. PO 750 mg BEDTIME JANNA Administration Divalproex Sodium 500 mg 01/31/25 09:00 01/31/25 11:21 Divalproex Sodium 500 Mg Tablet. PO 500 mg DAILY JANNA Administration Fluoxetine HCl 30 mg 01/31/25 09:00 01/31/25 11:21 Fluoxetine Hcl 10 Mg Capsule PO 30 mg DAILY JANNA Administration Hydroxyzine HCl 25 mg 01/31/25 09:00 01/31/25 14:37 Hydroxyzine Hcl 25 Mg Tablet PO 25 mg BID@0900,1200 JANNA Administration Hydroxyzine HCl 100 mg 01/31/25 21:00 01/31/25 21:45 Hydroxyzine Hcl 50 Mg Tablet PO 100 mg BEDTIME JANNA Administration Lactated Ringer's 1,000 mls @ 80 mls/hr 01/29/25 23:45 01/31/25 14:31 Lr IVCONT 80 mls/hr .[id number] JANNA Administration Fluconazole 100 mg/ IV 50 mls @ 50 mls/hr 01/30/25 10:00 01/31/25 11:28 Miscellaneous Supplies IV Infused Q24H JANNA Infusion Cefepime HCl 2 gm in 50 mls @ 100 mls/hr 01/30/25 15:00 01/31/25 15:23 Maxipime IV Infused Q8H JANNA Infusion Vancomycin HCl 1,250 mg/ 250 mls @ 166.667 mls/hr 01/31/25 08:00 01/31/25 19:40 Sodium Chloride IV Infused Q8H JANNA Infusion Insulin Human Lispro 0 unit 01/30/25 00:00 01/31/25 17:57 Insulin Lispro 100 Unit/Ml 3 Ml Vial SUBCUT 2 unit Q6H JANNA Administration Protocol Morphine Sulfate 2 mg 01/30/25 00:30 01/31/25 19:16 Morphine Sulfate 4 Mg/Ml Cartridge IVPUSH 2 mg Q4H PRN Administration Pain, Moderate(Pain Scale 4-6) Protocol Nicotine 21 mg 01/30/25 09:00 01/31/25 08:58 Nicotine 21 Mg Patch.Td24 TRANSDERMA 21 mg DAILY JANNA Administration Pt Own Medication ( 2 mg 01/31/25 21:00 01/31/25 21:57 Guanfacine 1 Mg PO 2 mg Tablet) BID JANNA Administration Omeprazole 40 mg 01/30/25 07:00 01/31/25 05:56 Omeprazole 40 Mg Capsule.Dr PO 40 mg DAILY@629 JANNA Administration Ondansetron HCl 4 mg 01/29/25 23:31 01/31/25 15:19 Ondansetron Hcl 4 Mg/2 Ml Vial IVPUSH 4 mg Q8H PRN Administration Nausea and Vomiting Prednisone 60 mg 01/30/25 08:00 01/31/25 17:56 Prednisone 20 Mg Tablet PO 60 mg BIDWM JANNA Administration Quetiapine Fumarate 100 mg 01/31/25 21:00 01/31/25 21:45 Quetiapine Fumarate 100 Mg Tablet PO 100 mg BEDTIME JANNA Administration Quetiapine Fumarate 50 mg 01/31/25 21:00 01/31/25 21:45 Quetiapine Fumarate 50 Mg Tablet PO 50 mg BEDTIME JANNA Administration Sodium Chloride 3 ml 01/30/25 00:00 01/31/25 21:45 0.9 % Sodium Chloride Flush 3 Ml Syringe IVFLUSH 3 ml QSHIFT JANNA Administration Discontinued Medications Generic Name Dose Route Start Last Admin Trade Name Freq PRN Reason Stop Dose Admin Hydromorphone HCl 0.5 mg 01/29/25 23:31 01/30/25 10:56 Hydromorphone Hcl 1 Mg/Ml Syringe IVPUSH 0.5 mg Q4H PRN Administration Pain, Severe (Pain Scale 7-10) Protocol Hydromorphone HCl 1 mg 01/30/25 14:25 01/31/25 05:56 Hydromorphone Hcl 1 Mg/Ml Syringe IVPUSH 1 mg Q4H PRN Administration Pain, Severe (Pain Scale 7-10) Protocol Piperacillin Sod/Tazobactam 100 mls @ 200 mls/hr 01/29/25 20:09 01/29/25 21:15 Sod 4.5 gm/ Sodium Chloride IV 01/29/25 20:38 Infused ONCE ONE Infusion Sodium Chloride 1,000 mls @ 999 mls/hr 01/29/25 20:13 01/29/25 20:43 Ns IV 01/29/25 21:13 Not Given .Q1H1M STA Vancomycin HCl 2,000 mg in 500 mls @ 250 mls/hr 01/29/25 20:25 01/29/25 23:50 Vancomycin/Ns IV 01/29/25 22:24 Infused ONCE ONE Infusion Sodium Chloride 2,190 mls @ 2,190 mls/hr 01/29/25 20:26 01/29/25 23:08 Ns IV 01/29/25 21:25 Infused .Q1H STA Infusion Fluconazole 200 mg in 100 mls @ 100 mls/hr 01/29/25 21:01 01/30/25 00:54 Diflucan IV 01/29/25 22:00 Infused ONCE ONE Infusion Piperacillin Sod/Tazobactam 100 mls @ 200 mls/hr 01/30/25 04:00 01/30/25 14:15 Sod 4.5 gm/ Sodium Chloride IV Infused Q8H JANNA Infusion Vancomycin HCl 1,500 mg/ 500 mls @ 333.333 mls/hr 01/30/25 08:00 01/30/25 09:11 Sodium Chloride IV Infused Q8H JANNA Infusion Vancomycin HCl 1,500 mg/ 500 mls @ 333.333 mls/hr 01/30/25 16:00 01/31/25 02:35 Sodium Chloride IV Infused Q8H JANNA Infusion Iohexol 100 ml 01/29/25 18:19 01/29/25 18:20 Iohexol 350 Mg/Ml 100 Ml Infus..Btl IV 01/29/25 18:20 100 ml ONCE ONE Administration Methylprednisolone Sodium Succinate 125 mg 01/29/25 17:30 01/29/25 17:48 Methylprednisolone Sod Succ 125 Mg Vial IVPUSH 01/29/25 17:31 125 mg ONCE ONE Administration Methylprednisolone Sodium Succinate 125 mg 01/29/25 17:20 01/29/25 17:54 Methylprednisolone Sod Succ 125 Mg/2 Ml Vial IVPUSH 01/29/25 17:21 Not Given ONCE ONE Methylprednisolone Sodium Succinate 125 mg 01/30/25 07:15 01/30/25 07:35 Methylprednisolone Sod Succ 125 Mg Vial IVPUSH 01/30/25 07:16 125 mg ONCE ONE Administration Morphine Sulfate 4 mg 01/29/25 17:20 01/29/25 17:47 Morphine Sulfate 4 Mg/Ml Cartridge IVPUSH 01/29/25 17:21 4 mg ONCE STA Administration Protocol Morphine Sulfate 4 mg 01/29/25 20:26 01/29/25 21:14 Morphine Sulfate 4 Mg/Ml Cartridge IVPUSH 01/29/25 20:27 4 mg ONCE STA Administration Protocol Nystatin 500,000 unit 01/30/25 07:15 01/30/25 07:39 Nystatin Oral Susp 500,000 Unit/5 Ml Oral.Susp PO 500,000 unit QID JANNA Administration Protocol Ondansetron HCl 4 mg 01/29/25 17:20 01/29/25 17:48 Ondansetron Hcl 4 Mg/2 Ml Vial IVPUSH 01/29/25 17:21 4 mg ONCE ONE Administration Prochlorperazine Edisylate 5 mg 01/30/25 20:51 01/30/25 21:16 Prochlorperazine Edisylate 10 Mg/2 Ml Vial IVPUSH 01/30/25 20:52 5 mg ONCE ONE Administration Medical Decision Making Medical Decision Making MDM Narrative: 29-year-old male with a history of recurrent non-Hodgkin's lymphoma who is followed by Dr. Solomon. The patient restarted chemotherapy and had 2 cycles of chemotherapy (01/15/2025 and 01/22/2025). The patient was hospitalized at [facility] for cellulitis and discharged discharged on 01/27/2025 (2 days prior to evaluation). He states that the swelling and rash has improved in his lower extremities but not resolved completely. He states that over the last week however he has not been able to eat or drink in his had at least a 20 lb weight loss. He states he is having difficulty swallowing secondary to pain. Patient has had nausea but no vomiting. He has noted 2-3 loose diarrheal stools and is complaining of lower abdominal pain. Patient was seen by Dr. Solomon today and had elevated LFTs and he was referred to the emergency department for possible immune mediated hepatitis. Patient denied fever but did have chills. He states that he has an occasional nonproductive cough which is causing him to have chest pain. Feels short of breath and has dyspnea on exertion. He denied dark stools or black stools. He denied frequency, urgency or dysuria. Vital signs did reveal low blood pressures but otherwise were unremarkable. Abdominal exam revealed diffuse abdominal tenderness with increased tenderness in the lower abdomen with no increased tenderness in the right upper quadrant and a negative Dye sign. Patient also has lower extremity erythema consistent with cellulitis. Differential diagnosis: ?Includes but is not limited to: Elevated liver tests: Non alcoholic fatty liver disease, drug-induced liver injury, viral hepatitis, autoimmune hepatitis, hepatitis Dysphagia: Oral thrush, esophageal candidiasis Course: 21:29 The patient's lower extremity erythema is consistent with cellulitis, patient was recently treated at [facility] in his at high-risk for MRSA. Patient's systolic blood pressure is soft at 99/44 therefore I made the patient has sepsis alert at this time. Patient is obese with an kg per m2 therefore I ordered a normal saline bolus based on his ideal body weight. Patient was ordered to get vancomycin 2 g IV and Zosyn 4.[address] scan of the abdomen pelvis with IV contrast revealed moderate hepatomegaly with diffuse hepatic steatosis. No focal lesions with stable mild retroperitoneal, pelvic and inguinal lymphadenopathy measuring up to 1.7 cm in transverse diameter. I did discuss the patient's acute rise in his LFTs with Dr. Solomon and she is concerned that the patient may have an immune mediated hepatitis therefore he was given Solu-Medrol 125 mg IV. She is recommending repeating Solu-Medrol 125 mg IV tomorrow. Patient has been trying to swallow ice chips but he is having too much pain most likely secondary to thrush vs esophageal candidiasis . The patient is treated with morphine 4 mg IV with improves pain. 21:49 Patient's lactic acid was normal at 1.2. I did discuss the patient's presentation with the covering hospitalist, Dr. Hearn. Given the high potential for esophageal candidiasis the patient will be treated with fluconazole [address] Hearn was also concerned about the patient's low blood pressures and requests that we keep the patient in the emergency department until he completes his fluid bolus and has his blood pressure rechecked. My impression is that the patient's low prior pressure is due to his poor oral intake secondary to his odynophagia, the patient has lost 20 lb over the last week in his not been able to eat or drink fluids and I suspect that his blood pressure will increase after he gets his IV fluid bolus. 22:49 Blood pressures did improve after IV fluid, at this time I do not think that this is secondary to sepsis with due to volume depletion/dehydration from his inability to eat and drink secondary to his esophageal candidiasis. The patient was seen by the hospitalist and admitted to the hospitalist service. Admission/Observation Consideration of admission/observation: Escalation of care including admission/observation considered (Yes) Consult Healthcare Provider Management of the patient was discussed with: Manager Hris ([employer] Developer/oncologist, Dr. Solomon) Lab Data MDM Lab Attestation statement: I reviewed the patient's lab results. 01/31/25 06:12 01/31/25 06:12 Labs: Lab Results 01/29/25 01/29/25 Range/Units 19:03 20:41 Lactic Acid 1.2 (0.5-2.0) mmol/L Hepatitis A IgM Ab Nonreactive (Nonreactive) Hep Bs Antigen Negative (Negative) Hep Bs Antibody NONREACTIVE (Nonreactive) Hep B Core Total Ab Nonreactive (Nonreactive) Hepatitis C Ab (EIA) Nonreactive (Nonreactive) Radiology Impression Discussion of test interpretation with radiology: I have reviewed the radiologist's reading. Radiologist Impression: CT abdomen and pelvis with contrast Comparison: CT/UT/SR - CT ABDOMEN PELVIS W IV CON - 08/19/24 13:25 EST Findings: No consolidation or effusion. Moderate hepatomegaly with liver measuring 24 cm in craniocaudal dimension with diffuse hepatic steatosis. Gallbladder is within normal limits. Remainder of the solid organs are unremarkable. No hydronephrosis. No urolithiasis. No bowel obstruction, pneumoperitoneum, or pneumatosis. Stable mildly enlarged retroperitoneal, pelvic and inguinal lymph nodes, measuring up to 1.7 cm in transverse diameter. Pelvic contents unremarkable. Normal appendix. No acute fracture. IMPRESSION: No acute findings. Moderate hepatomegaly with diffuse hepatic steatosis. No focal lesions. Stable mild retroperitoneal, pelvic and inguinal lymphadenopathy measuring up to 1.7 cm in transverse diameter. This document has been electronically signed by: Bay Allen MD on 01/29/2025 19:22:59 External Record Review External record reviewed: Office record Chronic Conditions Patient?s care impacted by: Other (Recurrent Non-Hodgkin's lymphoma) Critical Care Time Critical Care Time Critical Care Time: Yes Total Critical Care Time: 45 Attestation: Critical Care: The patient was critically ill with a high probability of imminent or life threatening deterioration. I spent greater than 30 minutes of discontinuous time evaluating the patient,delivering critical care at the bedside, discussing and evaluating pertinent data with consultants. Critical care time does not include time spent performing separately billable procedures or teaching. Total time spent performing critical care was 45 minutes. Discharge Plan Discharge Clinical Impression: Acute hepatitis, Cellulitis of both lower extremities, Thrush, Odynophagia Patient Disposition: Admitted As Inpatient Interventions: Admission Worksheet (ED) Last Done: 01/30/25 18:08 Discharge Date/Time: 01/30/25 19:03
[2025-01-29] MEDS: Morphine Sulfate 4 MG/ML CARTRIDGE IVPUSH ×2 (17:47→21:14)
[2025-01-29] MEDS: ondansetron HCL 4 MG/2 ML VIAL IVPUSH (17:48)
[2025-01-29] MEDS: iohexoL 350 MG/ML 100 ML INFUS..BTL IV (18:20)
--- NOTE | 2025-01-29 18:34 | PC.NURSE ---
patient brought down from oncology, patient being followed for hodgkins lymphoma- diagnosed in 2020 was in remission when cancer came back. patient has been getting treatment for [id number]. patient is currently at [facility] for pcp use, has been there for treatment x3 months. patient was recently admitted at [facility] for sepsis related two bilat lower leg swelling. patient today states he has lost 20 pounds in 5 days. patient also states he developed a sore throat and was tested at [facility] and was positive for souleymane. Today patient is brought down to ED for increased weakness, weight loss, sore throat and worsening bilat lower leg swelling. patient bilat lower legs and feet noted to be mottled, patient states pain is 7/10. patient has pedal pulses bilat. patient is alert and oriented x4, able to stand and pivot. patient difficult IV start, US guided line started in right upper arm by TASHIA dowell.
--- NOTE | 2025-01-29 19:13 | PC.NURSE ---
assumed care of pt. Pt given ice chips and juana crackers, security at bed side. Respirations even and unlabored. Pt waiting on Cat scan
--- NOTE | 2025-01-29 20:31 | PC.NURSE ---
pt is a hard stick, attempting to get cultures at this time. Pt does not want anyone accessing his port as he states he is cared it will get infected.
[2025-01-29] MEDS: 0.9 % Sodium Chloride 2,190 ML 2190 ML IV (20:42)
[2025-01-29] MEDS: Piperacillin Sodium/Tazobactam 4.5 GM in 0.9 % Sodium Chloride 100 ML IV (20:42)
--- NOTE | 2025-01-29 21:00 | PC.NURSE ---
blood cultures obtained, pt medicated per mar, fluids administering at this time.
[2025-01-29 21:06] LABS: Lactic Acid 1.2 mmol/L (0.5-2.0)
--- NOTE | 2025-01-29 21:06 | PC.NURSE ---
pt reports pain to US guided iv, iv it patent at this time. new 22g iv placed in right hand, fluids continue to administer at this time.
[2025-01-29] MEDS: vancomycin/NS 2,000 MG/500 ML PLAST..BAG 250 MG IV (21:15)
--- NOTE | 2025-01-29 22:15 | PC.NURSE ---
pt ambulatory to bathroom with steady gait, denies pain.
--- NOTE | 2025-01-29 23:11 | PM.IMHP ---
History of Present Illness Date of Service: 01/29/25 Attending physician on admission: Omar Hearn Chief Complaint: cellulitis, odynophagia patient is a 29-year-old male with a past medical history significant for recurrent non-Hodgkin's lymphoma followed by Dr. Solomon receiving chemotherapy, type 2 diabetes on metformin, current smoker and history of substance abuse ( PCP, last use 3 months ago ), who presented to the ED due to persistent lower extremity cellulitis as well as odynophagia. The patient reports that he was recently admitted at [facility] for lower extremity cellulitis, discharged 2 days ago. He has been unable to eat for the past week due to a gout aphasia and has lost about 20 lb. He was told that he possibly has thrush and has been unable to take any medications p.o. due to the pain. He has been hydrating somewhat but reports he has not been able to eat any solid foods. He has not been taking any of his home medications due to the pain. he denies any fever, chills, nausea or vomiting. His bilateral lower extremity cellulitis is painful to touch, no warmth or drainage. Review of Systems Constitutional: Constitutional: Denies chills, Denies fatigue and Denies fever(s) Eyes: Eyes: Denies change in vision and Denies photophobia ENT: Denies nasal congestion, Denies nasal discharge and Denies sore throat Cardiovascular: Cardiovascular: Denies chest pain, Denies rapid heart rate, Reports leg edema, Denies lightheadedness and Denies dyspnea Respiratory: Respiratory: Denies chest congestion, Denies cough, Denies dyspnea and Denies wheezing Gastrointestinal: Gastrointestinal: Denies abdominal pain, Denies diarrhea, Denies nausea and Denies vomiting Genitourinary: Genitourinary: Denies dysuria, Denies urinary frequency and Denies urinary urgency Integumentary/Breasts: Skin/Breast: Reports as per HPI Neurologic: Denies confusion Psychiatric: Psychiatric: Denies confusion Endocrine: Endocrine: Denies fatigue Hematologic/Lymphatic: Hematologic/Lymphatic: Denies easy bleeding and Denies easy bruising Allergic/Immunologic: Allergic/Immunologic: Denies wheezing [facility] Medical History Hodgkin lymphoma Hx of fracture of foot ADHD Asthma Functional capacity: independent ambulation Family History Maternal Aunt Breast cancer Family/Other Colon cancer Maternal Aunt Ovarian cancer Maternal Grandfather Stroke Pulmonary emboli Heart attack Diabetes Parkinson disease Mother Asthma Father Diabetes Surgical History Hx of brain surgery Social History Household Members: Significant Other Household Members Other:: 6 children Housing: Apartment Are you a primary director medicare sales to a significant other at home: No Do you presently have visiting nurse or other home services: No Alcohol intake: former Patient Tobacco Use Status: Current everyday Tobacco user Tobacco use type: Cigarette Cigarette Packs Per Day: 0.5 Cigarettes Per Day: 10.0 Years Smoked: 12 Smoked in Last 30 Days: No Substance Use Type: Marijuana Advance Directives: Yes Advance Directives on File: Yes Advance Directives Date on File: 06/17/21 Do you have a plan to hurt others: No Plan service: No Current occupational status: unemployed Narrative: Smokes 1 pack per day, no alcohol, previous PCP use ( sober x3 months) Meds Allergies Allergy/AdvReac Type Severity Reaction Status Date / Time No Known Allergies Allergy Verified 01/29/25 16:16 Home Medications ?Medication ?Instructions ?Recorded ?Confirmed ?Last Taken ?Type buspirone 15 mg tablet 1 tab PO BID 03/17/21 01/29/25 Unknown History fluoxetine 40 mg capsule 2 cap PO DAILY 03/17/21 01/29/25 06/08/21 History guanfacine 1 mg tablet 1 tab PO BID 03/17/21 01/29/25 06/08/21 History olanzapine 10 mg tablet 10 mg PO DAILY 09/26/23 01/29/25 Unknown History acetaminophen 325 mg tablet 325 mg PO DAILY 03/20/24 01/29/25 Unknown History albuterol 90 mcg-budesonide 80 2 inh inhalation TID PRN prn 03/20/24 01/29/25 Unknown History mcg/actuation HFA aerosol inhaler divalproex 250 mg tablet,extended 250 mg PO BID 03/20/24 01/29/25 Unknown History release 24 hr divalproex 500 mg tablet,delayed 500 mg PO DAILY 03/20/24 01/29/25 Unknown History release hydroxyzine pamoate 50 mg capsule 25 mg PO DAILY 03/20/24 01/29/25 Unknown History quetiapine 100 mg tablet 100 mg PO DAILY 03/20/24 01/29/25 Unknown History cephalexin 500 mg capsule 500 mg PO TID 01/22/25 01/22/25 Unknown History Lactobacillus acidophilus 1 cell 01/29/25 Unknown History billion cell capsule amoxicillin 500 mg-clarithromycin 875 PO DAILY 01/29/25 Unknown History 500 mg-lansoprazole 30 mg combo pack lidocaine 4 % topical patch patch topical 01/29/25 Unknown History metformin 500 mg tablet mg 01/29/25 Unknown History nut.tx.gluc.intol,lac-free,soy ea 01/29/25 Unknown History (Glucerna oral liquid) nystatin 100,000 unit vaginal unit vaginal 01/29/25 Unknown History tablet pantoprazole 40 mg tablet,delayed mg PO 01/29/25 Unknown History release Physical Exam Vital Signs and Narrative: Vital Signs: Last Vital Signs Temp 97.7 F 01/29/25 22:16 Pulse 68 01/29/25 22:32 Resp 17 01/29/25 22:32 BP 122/58 L 01/29/25 22:32 Pulse Ox 99 01/29/25 22:32 O2 Del Method Room Air 01/29/25 22:32 BMI result Body Mass Index 42.8 General: AOx3, no acute distress Resp: CTA bilaterally CVS: S1, S2, RRR GI: +BS, NT, no distention Skin: Warm, dry Neuro: Cranial nerves II-XII grossly intact bilaterally. Motor grossly intact bilaterally Extremities: bilaeral LE edema, non-pitting. erthematous and painful to touch, no increased warmth or drainage. Psych: Appropriate affect Const: General: No confusion Orientation/consciousness: No confusion Eyes: Direct Ophthalmoscopy: No photophobia Neuro: General: No confusion Results Labs Labs: Laboratory Results - last 24 hr 01/29/25 20:41 Lactic Acid 1.2 Assessment and Plan (1) Sepsis: Status: Acute (2) Cellulitis of both lower extremities: Status: Acute (3) Acute hepatitis: Status: Acute (4) Thrush: Status: Acute (5) Tobacco use disorder: Status: Chronic (6) Morbid obesity: Status: Chronic Plan patient is a 29-year-old male with a past medical history significant for recurrent non-Hodgkin's lymphoma followed by Dr. Solomon receiving chemotherapy, type 2 diabetes on metformin, current smoker, history of substance abuse ( PCP, last use 3 months ago ), mood disorder,who presented to the ED due to persistent lower extremity cellulitis as well as odynophagia. sepsis secondary to bilateral lower extremity cellulitis - WBC 4.2, tachycardic and hypothermic at 96.5, lactic acid normal, blood cultures x2 pending, not severe sepsis - ESR 20 - given Zosyn and vancomycin in ED, continue - given 30 cc/kg bolus in ED plus additional L due to hypotension - follow CBC and BMP acute hepatitis - abdominopelvic CT with hepatic steatosis - LFTs elevated, AST 314, ALT 544, alk-phos 195, T bili 1.2, PLT 72 - hepatitis panel pending - ED provider spoke with oncologist who suggested treatment for autoimmune hepatitis, Solu-Medrol 125 mg now and again in the morning - oncology consult - GI consult - follow LFTs thrush, possible esophageal candidiasis - physical exam consistent with thrush, patient with odynophagia and recent weight loss due to inability to eat due to pain - NPO - IV fluconazole - infectious Disease/GI consult type 2 diabetes - sliding scale insulin - hold metformin - diabetic diet once regular diet resumed tobacco use disorder - nicotine patch - smoking cessation encouraged history substance abuse - patient reports remission mood disorder - continue home meds when able to tolerate p.o. morbid obesity - BMI 42.8 - weight loss encouraged Full Code VTE prophylaxis: SCDs due to low platelets patient with sepsis secondary to bilateral lower extremity cellulitis, complicated by acute hepatitis and thrush with possible esophageal candidiasis, requiring admission for at least 2 midnight stay for IV antibiotics, specialty consultation, steroids and monitoring. Quality Stroke Does the patient have a stroke diagnosis?: No VTE Prior VTE?: No VTE Risk Level:: Medical - moderate - high VTE Device Contraindication: Treatment Not Tolerated VTE Drug Contraindication: N/A - Med Ordered
[2025-01-29 23:52] LABS: Glucose, Whole Blood 214 mg/dL (60-115)
[2025-01-29] MEDS: Fluconazole in NaCl,Iso-Osm 200 MG/100 ML PIGGYBACK 100 MG IV (23:53)
[2025-01-29] MEDS: Lactated Ringers 1,000 ML 80 ML IVCONT (23:53)
[2025-01-29] MEDS: Insulin Lispro 100 UNIT/ML 3 ML VIAL SUBCUT (23:55)
[2025-01-30] VITALS (8 sets, daily range): BP systolic 100–121; BP diastolic 52–63; PULSE 56–63; RESP 16–20; TEMP 36.2–37; O2SAT 92–97; BMI 42.8
[2025-01-30] MEDS: Throat Lozenge, Medicated LOZENGE 1 LOZENGE MUCOUS MEM ×7 (01:27→20:40)
--- NOTE | 2025-01-30 01:37 | PC.NURSE ---
pt given Lozenge per request for sore throat
[2025-01-30] MEDS: Piperacillin Sodium/Tazobactam 4.5 GM in 0.9 % Sodium Chloride 100 ML IV ×2 (03:50→13:05)
--- NOTE | 2025-01-30 04:04 | PC.NURSE ---
administered medication per OCT. Pt comfortably resting.
[2025-01-30 05:20] LABS: HBc Num1 0.07 S/CO (0.00-0.79); HBsAGNum1 0.39 S/CO (0.00-0.99); Hepatitis A Antibody IgM 0.18 Index (0-0.79); Hepatitis B Core Antibody Nonreactive (Nonreactive); Hepatitis B Surface Antigen Negative (Negative); ~HepC Num1 0.04 S/CO (0.00-0.79); ~Hepatitis A Antibody IgM Nonreactive (Nonreactive); ~Hepatitis B Surface Antibody NONREACTIVE (Nonreactive); ~Hepatitis C Antibody Nonreactive (Nonreactive)
[2025-01-30 05:43] LABS: Hematocrit 34.6 % (42.0-52.0); Hemoglobin 11.2 g/dl (14.0-18.0); Mean Corpuscular HGB Conc 32.4 g/dl (31.0-36.0); Mean Corpuscular Hemoglobin 27.2 pg (27.0-33.0); Mean Platelet Volume 9.8 fL (9.4-12.4); Red Blood Count 4.12 X10*6/uL (4.60-5.80); Red Cell Distribution Width 11.6 % (11.0-16.0); White Blood Count 3.9 X10*3/uL (4.8-10.8)
[2025-01-30 05:48] LABS: Platelet Count 43 X10*3/uL (160-400)
[2025-01-30 06:01] LABS: Alanine Aminotransferase 462 U/L (0-40); Albumin Level 3.9 g/dL (3.5-5.0); Alkaline Phosphatase 186 U/L (39-117); Anion Gap 12 (12-20); Aspartate Amino Transferase 221 U/L (5-37); Blood Urea Nitrogen 6 mg/dL (9-16); Calcium 9.1 mg/dL (8.4-10.2); Carbon Dioxide 25 mmol/L (22-29); Chloride 106 mmol/L (96-108); Creatinine Clr Calc Pharmacy 256.1; Estimated Glomerular Filt Rate > 60; Glucose Random 151 mg/dL (60-115); Potassium 4.3 mmol/L (3.3-5.1); Sodium 139 mmol/L (135-145); Total Protein 5.9 g/dL (6.5-8.0)
[2025-01-30 06:06] LABS: Band Neutrophils Percent 12 % (3-5); Lymphocytes Absolute Manual 0.7 X10*3/uL (1.2-4.9); Lymphocytes Percent Manual 17 % (20-40); Neutrophils Absolute Manual 3.2 X10*3/uL (2.0-8.3); Neutrophils Percent Manual 71 % (45-73)
[2025-01-30 06:10] LABS: Dohle Bodies PRESENT; Ovalocytes 1+ (5-14) /OIF; Platelet Estimate DECREASED (NORMAL); Platelet Morphology Comment NORMAL; RBC Morphology NOTED; Tear Drop Cells 1+ (0-2) /OIF; Toxic Granulation PRESENT
--- NOTE | 2025-01-30 07:03 | P.CNHO_ITS ---
Subjective - Subjective Chief complaint: Weakness, odynophagia Patient: known to practice within the last 3 years Consult date: 01/30/25 Primary Care Provider: Celso Bone MD Advertising Space Clerk Utilized?: No - [place]iboutian Speaking HPI - Consult Narrative Reason for consult: Hodgkin's lymphoma, on chemotherapy Narrative: Shon Marion is a 29 year old male with history of recurrent Hodgkin's lymphoma who is currently on chemotherapy and admitted for worsening odynophagia and abnormal liver enzymes. Patient was brought in urgently yesterday to the clinic because of complaints of generalized weakness, worsening throat pain as well as persistent redness of his legs. Patient states that he was discharged from the hospital, [facility] on Monday. He has been taking antibiotics as prescribed. He says he is having increasing pain in the back of his throat and is having difficulty swallowing. He did take a couple of doses of nystatin. He denies fever or chills. He denies shortness of breath, chest pain, palpitations. He denies abdominal pain, nausea, vomiting, diarrhea. Reports occasional constipation. Denies melena or bright red blood per rectum. He received GVD plus pembrolizumab immuno-chemotherapy, started 01/15/25. He developed infusion reaction to Taxol which was managed with increased doses of steroids, Benadryl and Pepcid. He was admitted to [facility] on 01/24/25 for cellulitis of lower extremities. On admission he was also noted to have elevated LFTs. CT abdomen/pelvis with IV contrast did not show any significant biliary pathology. He was treated with vancomycin and Zosyn and discharged on p.o. Augmentin and doxycycline. Review of Systems - Neurologic Denies confusion [facility] Medical History: Medical History (Last Reviewed 01/29/25 @ 23:15 by Bing Shahid PA-C) ADHD Asthma Hodgkin lymphoma Hx of fracture of foot Functional capacity: independent ambulation Family History: Family History (Last Reviewed 12/27/24 @ 14:57 by Halle Saldivar) Maternal Aunt Breast cancer Family/Other Colon cancer Maternal Aunt Ovarian cancer Maternal Grandfather Stroke Pulmonary emboli Heart attack Diabetes Parkinson disease Mother Asthma Father Diabetes Surgical History: Surgical History (Last Reviewed 12/27/24 @ 14:57 by Halle Saldivar) Hx of brain surgery Social History: Social History (Last Reviewed 12/27/24 @ 14:57 by Halle Saldivar) Living Situation History: Household Members: Significant Other Household Members Other:: 6 children Housing: Apartment Are you a primary care professionals to a significant other at home: No Do you presently have visiting nurse or other home services: No Alcohol History Details: 1. How often do you have a drink containing alcohol?: a. Never 3. How often do you have six or more drinks on one occasion?: a. Never AUDIT-C Alcohol total score: 0 Tobacco History: Patient Tobacco Use Status: Never used Tobacco Tobacco use type: Cigarette Cigarette Packs Per Day: 0.5 Years Smoked: 12 Smoked in Last 30 Days: No Substance Use History: Substance Use Type: Marijuana Advance Directives: Advance Directives: Yes Advance Directives on File: Yes Advance Directives Date on File: 06/17/21 Homicidal Assessment: Do you have a plan to hurt others: No Plan Nutrition Assessment: Nutrition Risks: No Nutritional Risk Occupation Assessmet: service: No Current occupational status: unemployed Home Medications and Allergies Current Medications: Current Medications Benzocaine (Throat Lozenge, Medicated Lozenge) 1 lozenge MUCOUS MEM Q2H PRN PRN Reason: Sore Throat Last Admin: 01/30/25 01:27 Dose: 1 lozenge Calcium Carbonate (Calcium Carbonate 750 Mg Tab.Chew) 750 mg PO Q4H PRN PRN Reason: Heartburn Dextrose (Dextrose 50 % 25 Gm/50 Ml Syringe) 25 gm IVPUSH Q15M PRN; Protocol PRN Reason: per Hypoglycemia Standing Ord. Glucose (Glucose Gel 15 Gm Gel..Gram.) 15 gm PO Q15M PRN; Protocol PRN Reason: per Hypoglycemia Standing Ord. Hydromorphone HCl (Hydromorphone Hcl 1 Mg/Ml Syringe) 0.5 mg IVPUSH Q4H PRN; Protocol PRN Reason: Pain, Severe (Pain Scale 7-10) Piperacillin Sod/Tazobactam (Sod 4.5 gm/ Sodium Chloride) 100 mls @ 200 mls/hr IV Q8H [facility] Last Infusion: 01/30/25 04:36 Dose: Infused Lactated Ringer's (Lr) 1,000 mls @ 80 mls/hr IVCONT .[id number] [facility] Last Admin: 01/29/25 23:53 Dose: 80 mls/hr Insulin Human Lispro (Insulin Lispro 100 Unit/Ml 3 Ml Vial) 0 unit SUBCUT Q6H [facility]; Protocol Last Admin: 01/30/25 06:11 Dose: Not Given Lidocaine/Diphenhydr/Alum/Mg/Simeth (Mag&Al/Sim/Diphenhyd/Lidocaine 10 Ml Oral.Susp) 10 ml PO Q4H PRN; Protocol PRN Reason: Sore Throat Magnesium Hydroxide (Milk Of Magnesia 30 Ml Oral.Susp) 30 ml PO DAILY PRN PRN Reason: Constipation Melatonin (Melatonin 3 Mg Tablet) 6 mg PO BEDTIME PRN PRN Reason: Insomnia Morphine Sulfate (Morphine Sulfate 4 Mg/Ml Cartridge) 2 mg IVPUSH Q4H PRN; Protocol PRN Reason: Pain, Severe (Pain Scale 7-10) Nicotine (Nicotine 21 Mg Patch.Td24) 21 mg TRANSDERMA DAILY [facility] Nystatin (Nystatin Oral Susp 500,000 Unit/5 Ml Oral.Susp) 500,000 unit PO QID [facility]; Protocol Omeprazole (Omeprazole 40 Mg Capsule.Dr) 40 mg PO DAILY@0630 [facility] Ondansetron HCl (Ondansetron Hcl 4 Mg/2 Ml Vial) 4 mg IVPUSH Q8H PRN PRN Reason: Nausea and Vomiting Pharmacy Consult (Consult Rx Vancomycin Dosing) 1 each MISCELLANE DAILY PRN PRN Reason: Consult order Prednisone (Prednisone 20 Mg Tablet) 60 mg PO BIDWM [facility] Sodium Chloride (0.9 % Sodium Chloride Flush 3 Ml Syringe) 3 ml IVFLUSH QSHIFT [facility] Last Admin: 01/30/25 00:54 Dose: Not Given Home Medications ?Medication ?Instructions ?Recorded ?Confirmed ?Type buspirone 15 mg tablet 1 tab PO BID 03/17/21 01/29/25 History olanzapine 10 mg tablet 10 mg PO DAILY 09/26/23 01/29/25 History acetaminophen 325 mg tablet 650 mg PO TID PRN Pain 03/20/24 01/29/25 History albuterol 90 mcg-budesonide 80 2 inh inhalation TID PRN prn 03/20/24 01/29/25 History mcg/actuation HFA aerosol inhaler divalproex 250 mg tablet,extended 250 mg PO BID 03/20/24 01/29/25 History release 24 hr divalproex 500 mg tablet,delayed 500 mg PO DAILY 03/20/24 01/29/25 History release hydroxyzine pamoate 50 mg capsule 25 mg PO DAILY 03/20/24 01/29/25 History quetiapine 100 mg tablet 100 mg PO DAILY 03/20/24 01/29/25 History Lactobacillus acidophilus 1 cell 01/29/25 History billion cell capsule lidocaine 4 % topical patch patch topical 01/29/25 History nut.tx.gluc.intol,lac-free,soy ea 01/29/25 History (Glucerna oral liquid) nystatin 100,000 unit vaginal unit vaginal 01/29/25 History tablet amoxicillin 875 mg-potassium 1 tab PO BID 01/30/25 01/30/25 History clavulanate 125 mg tablet doxycycline monohydrate 100 mg 100 mg PO Q12H 01/30/25 History capsule fluoxetine 40 mg capsule 40 mg PO DAILY 01/30/25 History guanfacine 2 mg tablet 2 mg PO BID 01/30/25 History metformin 500 mg tablet 500 mg PO BID 01/30/25 History pantoprazole 40 mg tablet,delayed 40 mg PO DAILY 01/30/25 History release Allergies Allergy/AdvReac Type Severity Reaction Status Date / Time No Known Allergies Allergy Verified 01/29/25 16:16 Physical Exam Vital signs: Vital Signs Temp 98 F 01/30/25 06:38 Pulse 58 01/30/25 06:38 Resp 16 01/30/25 06:38 BP 115/57 L 01/30/25 06:38 Pulse Ox 97 01/30/25 06:38 O2 Del Method Room Air 01/30/25 06:38 Intake & Output 01/29/25 01/30/25 01/30/25 18:59 06:59 18:59 Intake Total 2990 / 2990 Balance 2990 / 2990 Intake: Intake, IV Amount 2990 / 2990 0.9 % Sodium Chloride 2,190 ml 2190 / 2190 @ 2190 mls/hr IV .Q1H [facility] Rx#: [id number] Fluconazole in NaCl,Iso-Osm 200 100 / 100 mg In 100 ml @ 100 mls/hr IV ONCE ONE Rx#:[id number] Piperacillin Sodium/Tazobactam 200 / 200 4.5 gm In 0.9 % Sodium Chloride 100 ml @ 200 mls/hr IV Q8H [facility]NA Rx#:[id number] vancomycin/NS 2,000 mg In 500 500 / 500 ml @ 250 mls/hr IV ONCE ONE Rx# :[id number] Other: Weight 135.3 kg Weight 135.3 kg Hem/Onc Consult Result - Labs CBC & Chem 7: 01/30/25 05:28 01/30/25 05:28 Labs: Short CBC 01/30/25 Range/Units 05:28 WBC 3.9 L (4.8-10.8) X10*3/uL Hgb 11.2 L (14.0-18.0) g/dl Hct 34.6 L (42.0-52.0) % Plt Count 43 L D (160-400) X10*3/uL BMP 01/30/25 05:28 Sodium 139 Potassium 4.3 Chloride 106 Carbon Dioxide 25 BUN 6 L Creatinine 0.60 Calcium 9.1 D Liver Function 01/30/25 Range/Units 05:28 Total Bilirubin 1.0 (0.0-1.0) mg/dL AST 221 H (5-37) U/L ALT 462 H (0-40) U/L Alkaline Phosphatase 186 H (39-117) U/L Albumin 3.9 (3.5-5.0) g/dL Assessment and Plan Patient Active problem list reviewed?: Yes (1) Acute hepatitis Status: Acute Assessment and plan: 1. This is a 29-year-old male with classical Hodgkin's lymphoma currently admitted with acute hepatitis. He was diagnosed with Hodgkin lymphoma in 2020. He developed a recurrence in 2024. On 03/19/2021 patient underwent core biopsy of right inguinal lymph node which revealed atypical lymphoid infiltrate consistent with classical Hodgkin's lymphoma. He underwent excision biopsy after missing several appointments on 11/08/2024. This revealed Hodgkin lymphoma. He received GVD plus pembrolizumab immuno-chemotherapy, started 01/15/25. He developed infusion reaction to Taxol which was managed with increased doses of steroids, Benadryl and Pepcid. He was admitted to [facility] on 01/24/25 for cellulitis of lower extremities. On admission he was also noted to have elevated LFTs. CT abdomen/pelvis with IV contrast did not show any significant biliary pathology. He was treated with vancomycin and Zosyn and discharged on p.o. Augmentin and doxycycline. He now has developed acute hepatitis which seems to correlate with him having received pembrolizumab 2 weeks ago. Probably this is immune mediated hepatitis. He has been started on methylprednisolone. Has been slight improvement in his liver enzymes. Continue with steroids and monitor labs daily. Start patient on PPI. 2. Oral thrush. He is on Diflucan and nystatin. 3. Leg cellulitis. Currently receiving IV antibiotics begin he can be switched to oral antibiotics. 4. Thrombocytopenia. Combination of chemotherapy as well as hepatitis. SUNNI Barnard. Thank you will follow. - Time Spent With Patient Time Spent with Patient (in minutes): 15 Additional Coding: - Additional E/M codes Complex E/M visit Add On: CPT G2211
[2025-01-30] MEDS: Nicotine 21 MG PATCH.TD24 TRANSDERMA (07:33)
[2025-01-30] MEDS: predniSONE 20 MG TABLET 60 MG PO ×2 (07:38→17:18)
[2025-01-30] MEDS: Nystatin Oral Susp 500,000 UNIT/5 ML ORAL.SUSP 500000 UNIT PO (07:39)
[2025-01-30] MEDS: vancomycin HCL 1,500 MG in 0.9 % Sodium Chloride 500 ML 333.33 MG IV ×2 (07:40→18:38)
[2025-01-30] MEDS: Omeprazole 40 MG CAPSULE.DR PO (07:41)
[2025-01-30] MEDS: ondansetron HCL 4 MG/2 ML VIAL IVPUSH ×2 (07:46→17:16)
[2025-01-30] MEDS: 0.9 % Sodium Chloride Flush 3 ML SYRINGE IVFLUSH ×2 (07:56→18:36)
[2025-01-30 08:11] LABS: C Reactive Protein 4.31 mg/dL (< or = 0.50)
[2025-01-30 09:31] LABS: INTERNATIONAL NORM RATIO 1.3 (0.9-1.1); Prothrombin Time 14.7 SEC (10.9-12.4)
[2025-01-30] MEDS: Fluconazole in NaCl,Iso-Osm 100 MG in Container,Empty 0 ML 50 MG IV (09:58)
[2025-01-30] MEDS: HYDROmorphone HCl 1 MG/ML SYRINGE 0.5 MG IVPUSH (10:56)
[2025-01-30 12:29] LABS: Glucose, Whole Blood 184 mg/dL (60-115)
[2025-01-30] MEDS: Lactated Ringers 1,000 ML 80 ML IVCONT (14:13)
--- NOTE | 2025-01-30 14:25 | P.PNIM_ITS ---
Subjective Subjective Date of Service: 01/30/25 Interval History: no fever endorses dysphagia no abd pain legs swollen, red Review of Systems Review of Systems: Yes all other systems are reviewed and are negative Physical Exam 2 Vital Signs: Vital Signs: Last Vital Signs Temp 97.8 F 01/30/25 12:53 Pulse 59 01/30/25 12:53 Resp 16 01/30/25 12:53 BP 121/56 L 01/30/25 12:53 Pulse Ox 95 01/30/25 12:53 O2 Del Method Room Air 01/30/25 12:53 BMI result Body Mass Index 42.8 Gen: in no acute distress HEENT: sclera anicteric, moist mucus membranes, thrush Neck: supple, R subclavian port Lungs: clear to auscultation bilaterally Heart: regular rate and rhythm, no murmurs Abd: soft, non-tender, non-distended Ext: bilateral leg swelling + erythema Skin: warm/well-perfused Neuro: alert and oriented x3, no focal findings Psych: appropriate affect Objective Data Active Medications Benzocaine (Throat Lozenge, Medicated Lozenge) 1 lozenge MUCOUS MEM Q2H PRN PRN Reason: Sore Throat Last Admin: 01/30/25 13:05 Dose: 1 lozenge Documented By: SERENITY Calcium Carbonate (Calcium Carbonate 750 Mg Tab.Chew) 750 mg PO Q4H PRN PRN Reason: Heartburn Dextrose (Dextrose 50 % 25 Gm/50 Ml Syringe) 25 gm IVPUSH Q15M PRN; Protocol PRN Reason: per Hypoglycemia Standing Ord. Glucose (Glucose Gel 15 Gm Gel..Gram.) 15 gm PO Q15M PRN; Protocol PRN Reason: per Hypoglycemia Standing Ord. Hydromorphone HCl (Hydromorphone Hcl 1 Mg/Ml Syringe) 0.5 mg IVPUSH Q4H PRN; Protocol PRN Reason: Pain, Severe (Pain Scale 7-10) Last Admin: 01/30/25 10:56 Dose: 0.5 mg Documented By: SERENITY Lactated Ringer's (Lr) 1,000 mls @ 80 mls/hr IVCONT .[id number] JANNA Last Admin: 01/30/25 14:13 Dose: 80 mls/hr Documented By: SERENITY Fluconazole 100 mg/ IV (Miscellaneous Supplies) 50 mls @ 50 mls/hr IV Q24H [facility] Last Infusion: 01/30/25 10:58 Dose: Infused Documented By: SERENITY Insulin Human Lispro (Insulin Lispro 100 Unit/Ml 3 Ml Vial) 0 unit SUBCUT Q6H [facility]; Protocol Last Admin: 01/30/25 13:13 Dose: Not Given Documented By: SERENITY Non-Admin Reason: NPO Lidocaine/Diphenhydr/Alum/Mg/Simeth (Mag&Al/Sim/Diphenhyd/Lidocaine 10 Ml Oral.Susp) 10 ml PO Q4H PRN; Protocol PRN Reason: Sore Throat Magnesium Hydroxide (Milk Of Magnesia 30 Ml Oral.Susp) 30 ml PO DAILY PRN PRN Reason: Constipation Melatonin (Melatonin 3 Mg Tablet) 6 mg PO BEDTIME PRN PRN Reason: Insomnia Morphine Sulfate (Morphine Sulfate 4 Mg/Ml Cartridge) 2 mg IVPUSH Q4H PRN; Protocol PRN Reason: Pain, Severe (Pain Scale 7-10) Nicotine (Nicotine 21 Mg Patch.Td24) 21 mg TRANSDERMA DAILY [facility] Last Admin: 01/30/25 07:33 Dose: 21 mg Documented By: DUSTIN Omeprazole (Omeprazole 40 Mg Capsule.Dr) 40 mg PO DAILY@0630 [facility] Last Admin: 01/30/25 07:41 Dose: 40 mg Documented By: DUSTIN Ondansetron HCl (Ondansetron Hcl 4 Mg/2 Ml Vial) 4 mg IVPUSH Q8H PRN PRN Reason: Nausea and Vomiting Last Admin: 01/30/25 07:46 Dose: 4 mg Documented By: DUSTIN Pharmacy Consult (Consult Rx Vancomycin Dosing) 1 each MISCELLANE DAILY PRN PRN Reason: Consult order Prednisone (Prednisone 20 Mg Tablet) 60 mg PO BIDWM [facility] Last Admin: 01/30/25 07:38 Dose: 60 mg Documented By: DUSTIN Sodium Chloride (0.9 % Sodium Chloride Flush 3 Ml Syringe) 3 ml IVFLUSH QSHIFT [facility] Last Admin: 01/30/25 07:56 Dose: 3 ml Documented By: DUSTIN Labs 01/30/25 05:28 01/30/25 05:28 Labs: Laboratory Results - last 24 hr 01/29/25 01/29/2501/29/25 19:03 20:41 23:49 MCV MCH MCHC RDW Plt Count MPV Immature Gran % (Auto) Neut % (Auto) Lymph % (Auto) [place] % (Auto) Eos % (Auto) Baso % (Auto) Lymph # (Auto) [place] # (Auto) Eos # (Auto) Baso # (Auto) Abs Immat Gran (auto) Absolute Neuts (auto) Absolute Nucleated RBC Nucleated RBC % (auto) Neutrophils % (Manual) Band Neutrophils % Lymphocytes % (Manual) Abs Neuts (Manual) Lymphocytes # (Manual) Toxic Granulation Dohle Bodies Platelet Estimate Plt Morphology Comment RBC Morphology Tear Drop Cells Ovalocytes PT INR Anion Gap Estim Creat Clear Calc Estimated GFR POC Glucose 214 H Random Glucose Lactic Acid 1.2 Calcium Total Bilirubin AST ALT Alkaline Phosphatase C-Reactive Protein Total Protein Albumin Hepatitis A IgM Ab Nonreactive Hep Bs Antigen Negative Hep Bs Antibody NONREACTIVE Hep B Core Total Ab Nonreactive Hepatitis C Ab (EIA) Nonreactive 01/30/25 01/30/25 01/30/25 05:28 09:04 12:26 MCV 84.0 MCH 27.2 MCHC 32.4 RDW 11.6 Plt Count 43 L D MPV 9.8 Immature Gran % (Auto) Cancelled Neut % (Auto) Cancelled Lymph % (Auto) Cancelled [place] % (Auto) Cancelled Eos % (Auto) Cancelled Baso % (Auto) Cancelled Lymph # (Auto) Cancelled [place] # (Auto) Cancelled Eos # (Auto) Cancelled Baso # (Auto) Cancelled Abs Immat Gran (auto) Cancelled Absolute Neuts (auto) Cancelled Absolute Nucleated RBC 0.000 Nucleated RBC % (auto) 0.0 Neutrophils % (Manual) 71 Band Neutrophils % 12 H Lymphocytes % (Manual) 17 L Abs Neuts (Manual) 3.2 Lymphocytes # (Manual) 0.7 L Toxic Granulation PRESENT Dohle Bodies PRESENT Platelet Estimate DECREASED Plt Morphology Comment NORMAL RBC Morphology NOTED Tear Drop Cells 1+ (0-2) Ovalocytes 1+ (5-14) PT 14.7 H INR 1.3 H Anion Gap 12 Estim Creat Clear Calc 256.1 Estimated GFR > 60 POC Glucose 184 H Random Glucose 151 H Lactic Acid Calcium 9.1 D Total Bilirubin 1.0 AST 221 H ALT 462 H Alkaline Phosphatase 186 H C-Reactive Protein 4.31 H Total Protein 5.9 L Albumin 3.9 Hepatitis A IgM Ab Hep Bs Antigen Hep Bs Antibody Hep B Core Total Ab Hepatitis C Ab (EIA) Assessment and Plan (1) Cellulitis of both lower extremities: Status: Acute Plan d2 for 29yo M with 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, DM2, morbid obesity presenting with dysphagia/odynophagia + bilateral leg swelling/redness sepsis due to leg cellulitis - /- vanco, /-01/30 piperacillin-tazobactam changed to cefepime, follow BCx acute hepatitis - suspect immune effect of pembrolizumab, Heme-Onc and GI consulted, giving steroids/PPI, monitor LFTs; viral hepatitis serologies negative thrush - fluconazole 01/29- pancytopenia - due to chemotherapy; continue to monitor DM2 - correction-dose lispro, DM diet tobacco abuse - NRT morbid obesity - diet/exercise counseling mood disorder - resume medications pending medication reconciliation VTE ppx - SCDs, no heparin given thrombocytopenia dispo - eventual home In my clinical judgment, the patient requires continued inpatient hospitalization for the following reasons: IV ABX Total time managing care of this patient today: 50 minutes. Quality Stroke Does the patient have a stroke diagnosis?: No VTE Prior VTE?: No VTE Risk Level:: Medical - moderate - high VTE Device Contraindication: N/A - Device Ordered VTE Drug Contraindication: Treatment Not Indicated
--- NOTE | 2025-01-30 14:33 | CONS_ITS ---
DATE OF SERVICE: 01/30/2025 REFERRING PHYSICIAN: LUTHER Carvajal REASON FOR CONSULTATION: Hepatitis and odynophagia. HISTORY OF PRESENT ILLNESS: The patient is a pleasant 29-year-old man seen today in consultation at the request of his admitting physician. He came to the emergency department [facility] where he has been treated for lymphoma. He complains of oral thrush, which is currently being treated. He has also had some odynophagia, suggestive of Chloe esophagitis. During his evaluation, he was noted to have elevated liver function tests with transaminases in the 300 to 500 range and mild elevation of his bilirubin. Alkaline phosphatase was elevated at 195. He does have a history of undergoing treatment for Hodgkin lymphoma with pembrolizumab. He denies any other history of liver disease except for fatty liver and denies risk factors for hepatitis. CURRENT MEDICATIONS: His current medication list is reviewed in the chart. ALLERGIES: THERE ARE NONE REPORTED. FAMILY HISTORY: This is reviewed with the patient and is noncontributory. SOCIAL HISTORY: There is no current tobacco or alcohol abuse by his report. REVIEW OF SYSTEMS: SKIN: No pruritus. HEENT: Negative. CARDIOPULMONARY: No shortness of breath or chest pain. GASTROINTESTINAL: As above. GENITOURINARY: Negative. NEUROPSYCHIATRIC: Negative. PHYSICAL EXAMINATION: GENERAL: Shows a pleasant male, lying comfortably in bed. VITAL SIGNS: Reviewed in the electronic medical record and are stable. SKIN: Anicteric. HEENT: Shows no scleral icterus. NECK: Without lymphadenopathy or thyromegaly. LUNGS: Clear. HEART: Shows a regular rate and rhythm. S1, S2. No murmur. ABDOMEN: Soft without focal masses or tenderness. Bowel sounds are present. No organomegaly is noted. EXTREMITIES: Without edema. LABORATORY DATA: Including liver function tests and imaging studies are reviewed. IMPRESSION: Elevated liver function tests. 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 I discussed this with the patient. As far as his odynophagia goes, this is likely related to Chloe esophagitis, although no thrush was seen orally today on examination. I agree with treating him with antifungal medication, and if he has no improvement then I would recommend upper endoscopy. This was discussed with him as well. Thanks for asking me to see him. I will follow him in the hospital with you. MD FIDE Doherty/CHANCE / [phone]
[2025-01-30] MEDS: HYDROmorphone HCl 1 MG/ML SYRINGE IVPUSH ×3 (15:11→21:15)
--- NOTE | 2025-01-30 15:23 | PC.NURSE ---
22g IV access to right hand infiltrated while administering Dilaudid 1mg. Spoke with Dr. Rodríguez regarding IV infiltration, and that I was no longer able to flush this IV access without significant pain to the patient. Dr. Rodríguez to order one-time Dilaudid 1mg dose, to be administered upon obtaining new patent IV access. Bedside ultrasound in progress at this time. Will attempt new access after ultrasound is complete.
--- NOTE | 2025-01-30 15:43 | PHA.MEDREC ---
Addendum entered by Wai Price RPh 01/30/25 16:15: Reviewed by [facility]. Augmentin to complete on 02/02. Original Note: Pharmacy Consult ? Medication Reconciliation Pharmacy has completed the medication reconciliation. Spoke with pt and he had a list from the [facility] I utilized to confirm the med rec. Pt confirmed he was taking the Augmentin 875mg tab and started it this past Wednesday 12/27.
--- NOTE | 2025-01-30 17:17 | P.CNGI_ITS ---
History of Present Illness Data of Consult Service Date: 01/30/25 Primary Care Provider: Celso Bone MD HPI Reason for consult: hepatitis 29 yr old m w/ hx of substance use, Hodgkin lymphoma, obesity who I am seeing for assessment for abn LFT PMFSH Past Medical History Medical History Hodgkin lymphoma Hx of fracture of foot ADHD Asthma Family History Family History Maternal Aunt Breast cancer Family/Other Colon cancer Maternal Aunt Ovarian cancer Maternal Grandfather Stroke Pulmonary emboli Heart attack Diabetes Parkinson disease Mother Asthma Father Diabetes Surgical History Surgical History Hx of brain surgery Social History Social History Household Members: Other Household Members Other:: at [facility] x 3 months Housing: Other Are you a primary furnace caretaker to a significant other at home: No Do you presently have visiting nurse or other home services: No Alcohol intake: former Patient Tobacco Use Status: Never used Tobacco Tobacco use type: Cigarette Cigarette Packs Per Day: 0.5 Years Smoked: 12 Substance Use Type: Marijuana Advance Directives Date on File: 06/17/21 service: No Current occupational status: unemployed Meds Allergies Allergy/AdvReac Type Severity Reaction Status Date / Time No Known Allergies Allergy Verified 01/29/25 16:16 Active Medications: Current Medications Benzocaine (Throat Lozenge, Medicated Lozenge) 1 lozenge MUCOUS MEM Q2H PRN PRN Reason: Sore Throat Last Admin: 01/30/25 15:11 Dose: 1 lozenge Calcium Carbonate (Calcium Carbonate 750 Mg Tab.Chew) 750 mg PO Q4H PRN PRN Reason: Heartburn Dextrose (Dextrose 50 % 25 Gm/50 Ml Syringe) 25 gm IVPUSH Q15M PRN; Protocol PRN Reason: per Hypoglycemia Standing Ord. Glucose (Glucose Gel 15 Gm Gel..Gram.) 15 gm PO Q15M PRN; Protocol PRN Reason: per Hypoglycemia Standing Ord. Hydromorphone HCl (Hydromorphone Hcl 1 Mg/Ml Syringe) 1 mg IVPUSH Q4H PRN; Protocol PRN Reason: Pain, Severe (Pain Scale 7-10) Last Admin: 01/30/25 15:11 Dose: 1 mg Lactated Ringer's (Lr) 1,000 mls @ 80 mls/hr IVCONT .[id number] [facility] Last Admin: 01/30/25 14:13 Dose: 80 mls/hr Fluconazole 100 mg/ IV (Miscellaneous Supplies) 50 mls @ 50 mls/hr IV Q24H [facility] Last Infusion: 01/30/25 10:58 Dose: Infused Cefepime HCl (Maxipime) 2 gm in 50 mls @ 100 mls/hr IV Q8H [facility] Last Admin: 01/30/25 15:11 Dose: 100 mls/hr Vancomycin HCl 1,500 mg/ (Sodium Chloride) 500 mls @ 333.333 mls/hr IV Q8H [facility] Insulin Human Lispro (Insulin Lispro 100 Unit/Ml 3 Ml Vial) 0 unit SUBCUT Q6H [facility]; Protocol Last Admin: 01/30/25 13:13 Dose: Not Given Lidocaine/Diphenhydr/Alum/Mg/Simeth (Mag&Al/Sim/Diphenhyd/Lidocaine 10 Ml Oral.Susp) 10 ml PO Q4H PRN; Protocol PRN Reason: Sore Throat Magnesium Hydroxide (Milk Of Magnesia 30 Ml Oral.Susp) 30 ml PO DAILY PRN PRN Reason: Constipation Melatonin (Melatonin 3 Mg Tablet) 6 mg PO BEDTIME PRN PRN Reason: Insomnia Morphine Sulfate (Morphine Sulfate 4 Mg/Ml Cartridge) 2 mg IVPUSH Q4H PRN; Protocol PRN Reason: Pain, Moderate(Pain Scale 4-6) Nicotine (Nicotine 21 Mg Patch.Td24) 21 mg TRANSDERMA DAILY [facility] Last Admin: 01/30/25 07:33 Dose: 21 mg Omeprazole (Omeprazole 40 Mg Capsule.Dr) 40 mg PO DAILY@0630 [facility] Last Admin: 01/30/25 07:41 Dose: 40 mg Ondansetron HCl (Ondansetron Hcl 4 Mg/2 Ml Vial) 4 mg IVPUSH Q8H PRN PRN Reason: Nausea and Vomiting Last Admin: 01/30/25 07:46 Dose: 4 mg Pharmacy Consult (Consult Rx Vancomycin Dosing) 1 each MISCELLANE DAILY [facility] Prednisone (Prednisone 20 Mg Tablet) 60 mg PO BIDWM [facility] Last Admin: 01/30/25 07:38 Dose: 60 mg Sodium Chloride (0.9 % Sodium Chloride Flush 3 Ml Syringe) 3 ml IVFLUSH QSHIFT [facility] Last Admin: 01/30/25 07:56 Dose: 3 ml Home Medications ?Medication ?Instructions ?Recorded ?Confirmed ?Last Taken ?Type buspirone 15 mg tablet 1 tab PO BID 03/17/21 01/30/25 01/29/25 History acetaminophen 325 mg tablet 650 mg PO BID PRN Pain 03/20/24 01/30/25 Unknown History divalproex 500 mg tablet,delayed 500 mg PO DAILY 03/20/24 01/30/25 01/29/25 History release hydroxyzine pamoate 50 mg capsule 100 mg PO BEDTIME 03/20/24 01/30/25 01/29/25 History quetiapine 100 mg tablet 100 mg PO BEDTIME 03/20/24 01/30/25 01/29/25 History lidocaine 4 % topical patch 1 patch topical DAILY PRN Pain 01/29/25 01/30/25 Unknown History Lactobacillus acidophilus 1 1,000 mmu cells PO DAILY 01/30/25 01/30/25 01/29/25 History billion cell capsule albuterol sulfate 90 mcg/actuation 2 puff inhalation Q4H PRN 01/30/25 01/30/25 Unknown History aerosol inhaler Shortness Of Breath Or Wheezing amoxicillin 875 mg-potassium 1 tab PO BID 01/30/25 01/30/25 01/29/25 History clavulanate 125 mg tablet divalproex 250 mg tablet,delayed 750 mg PO BEDTIME 01/30/25 01/30/25 01/29/25 History release fluoxetine 10 mg capsule 30 mg PO DAILY 01/30/25 01/30/25 01/29/25 History guanfacine 2 mg tablet 2 mg PO BID 01/30/25 01/30/25 01/29/25 History hydroxyzine pamoate 25 mg capsule 25 mg PO BID@0900,1200 01/30/25 01/30/25 01/29/25 History metformin 500 mg tablet 500 mg PO BID 01/30/25 01/30/25 01/29/25 History nystatin 100,000 unit/mL oral 5 ml PO QIDWMHS 01/30/25 01/30/25 01/29/25 History suspension olanzapine 20 mg tablet 20 mg PO BEDTIME 01/30/25 01/30/25 01/29/25 History pantoprazole 40 mg tablet,delayed 40 mg PO DAILY@0630 01/30/25 01/30/25 01/29/25 History release quetiapine 50 mg tablet 50 mg PO BEDTIME 01/30/25 01/30/25 01/29/25 History Physical Exam 2 Vital Signs: Vital Signs: Last Vital Signs Temp 97.8 F 01/30/25 12:53 Pulse 59 01/30/25 12:53 Resp 20 01/30/25 15:11 BP 121/56 L 01/30/25 12:53 Pulse Ox 95 01/30/25 12:53 O2 Del Method Room Air 01/30/25 12:53 BMI result Body Mass Index 42.8 Results Labs 01/30/25 05:28 01/30/25 05:28 Labs: Short CBC 01/30/25 Range/Units 05:28 WBC 3.9 L (4.8-10.8) X10*3/uL Hgb 11.2 L (14.0-18.0) g/dl Hct 34.6 L (42.0-52.0) % Plt Count 43 L D (160-400) X10*3/uL BMP 01/30/25 05:28 Sodium 139 Potassium 4.3 Chloride 106 Carbon Dioxide 25 BUN 6 L Creatinine 0.60 Calcium 9.1 D Liver Function 01/30/25 Range/Units 05:28 Total Bilirubin 1.0 (0.0-1.0) mg/dL AST 221 H (5-37) U/L ALT 462 H (0-40) U/L Alkaline Phosphatase 186 H (39-117) U/L Albumin 3.9 (3.5-5.0) g/dL Procedures Date of Service Date of Service: 01/30/25
[2025-01-30] MEDS: cefEPime HCl/D5W 2 GM/50 ML PIGGYBACK IV (17:19)
--- NOTE | 2025-01-30 17:29 | PC.NURSE ---
New IV access established by Johanna Escoto RN to left bicep (20g). Patent & intact. Cefepime infusing, start time adjusted in EMAR. 22g IV from right hand removed, 20g from right bicep removed. Both IVs removed due to infiltration.
[2025-01-30 18:39] LABS: Glucose, Whole Blood 184 mg/dL (60-115)
[2025-01-30] MEDS: Insulin Lispro 100 UNIT/ML 3 ML VIAL SUBCUT (18:41)
[2025-01-30 20:54] LABS: Glucose, Whole Blood 206 mg/dL (60-115)
[2025-01-30] MEDS: Prochlorperazine Edisylate 10 MG/2 ML VIAL 5 MG IVPUSH (21:16)
[2025-01-30 23:51] LABS: Glucose, Whole Blood 218 mg/dL (60-115)
[2025-01-31] MEDS: cefEPime HCl/D5W 2 GM/50 ML PIGGYBACK IV ×4 (00:08→23:27)
[2025-01-31] MEDS: Insulin Lispro 100 UNIT/ML 3 ML VIAL SUBCUT ×3 (00:09→17:57)
[2025-01-31] MEDS: vancomycin HCL 1,500 MG in 0.9 % Sodium Chloride 500 ML 333.33 MG IV (00:57)
[2025-01-31] MEDS: ondansetron HCL 4 MG/2 ML VIAL IVPUSH ×3 (00:59→23:26)
[2025-01-31] MEDS: HYDROmorphone HCl 1 MG/ML SYRINGE IVPUSH ×2 (00:59→05:56)
[2025-01-31 03:22] VITALS: BP 98/58; PULSE 50; RESP 18; TEMP 36.3; O2SAT 96
[2025-01-31] MEDS: Omeprazole 40 MG CAPSULE.DR PO (05:56)
[2025-01-31 05:58] LABS: Glucose, Whole Blood 143 mg/dL (60-115)
[2025-01-31 06:34] LABS: Hematocrit 34.3 % (42.0-52.0); Hemoglobin 11.2 g/dl (14.0-18.0); Mean Corpuscular HGB Conc 32.7 g/dl (31.0-36.0); Mean Corpuscular Hemoglobin 27.2 pg (27.0-33.0); Mean Corpuscular Volume 83.3 fL (80.0-98.0); Mean Platelet Volume 11.6 fL (9.4-12.4); NRBC Pct Auto 0.8 /100WBC (0.0-0.2); Platelet Count 51 X10*3/uL (160-400); Red Blood Count 4.12 X10*6/uL (4.60-5.80); Red Cell Distribution Width 11.6 % (11.0-16.0); White Blood Count 4.9 X10*3/uL (4.8-10.8)
[2025-01-31 06:35] LABS: Vancomycin Trough 18.9 mcg/mL (10.0-20.0)
[2025-01-31 06:38] LABS: Alanine Aminotransferase 463 U/L (0-40); Albumin Level 3.7 g/dL (3.5-5.0); Alkaline Phosphatase 171 U/L (39-117); Anion Gap 10 (12-20); Aspartate Amino Transferase 228 U/L (5-37); Bilirubin Total 0.8 mg/dL (0.0-1.0); Blood Urea Nitrogen 7 mg/dL (9-16); Carbon Dioxide 28 mmol/L (22-29); Chloride 106 mmol/L (96-108); Creatinine Clr Calc Pharmacy 251.8; Estimated Glomerular Filt Rate > 60; Glucose Random 148 mg/dL (60-115); Potassium 4.2 mmol/L (3.3-5.1); Sodium 140 mmol/L (135-145); Total Protein 5.5 g/dL (6.5-8.0)
--- NOTE | 2025-01-31 06:50 | HE.PHANOTE ---
VANCO DOSE ADJUSTMENT BASED ON SCR AND TROUGH OF 18.9 DOSE DECREASED TO 1250 Q 8H. NEXT LEVEL 02/01 @ 0600
[2025-01-31 06:57] LABS: HIV AB/AG Nonreactive (Nonreactive); HIV Num 1 0.05 S/CO (0.00-0.99)
[2025-01-31 07:52] LABS: Glucose, Whole Blood 141 mg/dL (60-115)
[2025-01-31 08:00] VITALS: BP 113/55; PULSE 54; RESP 16; TEMP 36.4; O2SAT 97
[2025-01-31] MEDS: vancomycin HCL 1,250 MG in 0.9 % Sodium Chloride 250 ML 166.67 MG IV ×2 (08:48→17:57)
[2025-01-31] MEDS: Fluconazole in NaCl,Iso-Osm 100 MG in Container,Empty 0 ML 50 MG IV (08:52)
[2025-01-31] MEDS: predniSONE 20 MG TABLET 60 MG PO ×2 (08:53→17:56)
[2025-01-31] MEDS: 0.9 % Sodium Chloride Flush 3 ML SYRINGE IVFLUSH ×3 (08:57→21:45)
[2025-01-31] MEDS: Nicotine 21 MG PATCH.TD24 TRANSDERMA (08:58)
[2025-01-31 09:31] LABS: Atypical Lymphs Percent Manual 1 % (0-6); Band Neutrophils Percent 7 % (3-5); Lymphocytes Absolute Manual 1.2 X10*3/uL (1.2-4.9); Lymphocytes Percent Manual 24 % (20-40); Metamyelocytes Absolute 0.1 X10*3/uL; Metamyelocytes Percent 2 %; Monocytes Absolute Manual 0.3 X10*3/uL (0.1-1.2); Monocytes Percent Manual 7 % (2-11); Neutrophils Absolute Manual 3.2 X10*3/uL (2.0-8.3); Neutrophils Percent Manual 59 % (45-73); Nucleated Red Blood Cells 2 /100WBC (0-0)
[2025-01-31 09:34] LABS: RBC Morphology NORMAL
[2025-01-31 09:35] LABS: Hypochromasia 1+ (5-14) /OIF; Platelet Estimate DECREASED (NORMAL); Platelet Morphology Comment NORMAL
--- NOTE | 2025-01-31 10:28 | MHC.CLN ---
NUTRITION CONSULT FOR POOR PO PATIENT CURRENTLY NPO WITH DYSPHAGIA/ODYNOPHAGIA. REVIEW OF WEIGHT HX SHOWS VARIABLE WEIGHTS X ONE YEAR. WEIGHT 08/09/24=136.5 KG, APPROX EQUAL TO CURRENT WEIGHT. MONITOR FOR DIET ADVANCEMENT.
[2025-01-31] MEDS: FLUoxetine HCl 10 MG CAPSULE 30 MG PO (11:21)
[2025-01-31] MEDS: busPIRone HCl 5 MG TABLET 15 MG PO ×2 (11:21→21:45)
[2025-01-31] MEDS: Divalproex Sodium 500 MG TABLET.DR PO (11:21)
[2025-01-31] MEDS: hydrOXYzine HCL 25 MG TABLET PO ×2 (11:21→14:37)
[2025-01-31] MEDS: Throat Lozenge, Medicated LOZENGE 1 LOZENGE MUCOUS MEM ×3 (11:23→21:57)
[2025-01-31 11:43] LABS: Glucose, Whole Blood 152 mg/dL (60-115)
[2025-01-31 12:00] VITALS: BP 115/63; PULSE 66; RESP 20; TEMP 36.4; O2SAT 96
--- NOTE | 2025-01-31 12:45 | PM.HEMONCPN ---
Medical Summary - Medical Summary Date of Service: 01/31/25 Chief complaint: Odynophagia Primary Care Provider: Celso Bone MD Hand Worker Utilized?: No - Pashto Speaking Interval History Interval history: Shon Marion is a 29 year old male with history of recurrent Hodgkin's lymphoma who is currently on chemotherapy and admitted for worsening odynophagia and abnormal liver enzymes. Patient was brought in urgently yesterday to the clinic because of complaints of generalized weakness, worsening throat pain as well as persistent redness of his legs. Patient states that he was discharged from the hospital, [facility] on Monday. He has been taking antibiotics as prescribed. He says he is having increasing pain in the back of his throat and is having difficulty swallowing. He did take a couple of doses of nystatin. He denies fever or chills. He denies shortness of breath, chest pain, palpitations. He denies abdominal pain, nausea, vomiting, diarrhea. Reports occasional constipation. Denies melena or bright red blood per rectum. He received GVD plus pembrolizumab immuno-chemotherapy, started 01/15/25. He developed infusion reaction to Taxol which was managed with increased doses of steroids, Benadryl and Pepcid. He was admitted to [facility] on 01/24/25 for cellulitis of lower extremities. On admission he was also noted to have elevated LFTs. CT abdomen/pelvis with IV contrast did not show any significant biliary pathology. He was treated with vancomycin and Zosyn and discharged on p.o. Augmentin and doxycycline. Is feeling better overall since admission to the hospital. Review of Systems - Constitutional Reports as per HPI - Neurologic Denies confusion [facility] Medical History: Medical History (Last Reviewed 01/30/25 @ 20:41 by Shannan Wick RN) ADHD Asthma Hodgkin lymphoma Hx of fracture of foot Functional capacity: independent ambulation Family History: Family History (Last Reviewed 12/27/24 @ 14:57 by Halle Saldivar) Maternal Aunt Breast cancer Family/Other Colon cancer Maternal Aunt Ovarian cancer Maternal Grandfather Stroke Pulmonary emboli Heart attack Diabetes Parkinson disease Mother Asthma Father Diabetes Surgical History: Surgical History (Last Reviewed 01/30/25 @ 20:41 by Shannan Wick RN) Hx of brain surgery Social History: Social History (Last Reviewed 12/27/24 @ 14:57 by Halle Saldivar) Living Situation History: Household Members: Other Household Members Other:: at [facility] x 3 months Housing: Other Are you a primary elderly caregiver to a significant other at home: No Do you presently have visiting nurse or other home services: No Tobacco History: Patient Tobacco Use Status: Never used Tobacco Tobacco use type: Cigarette Cigarette Packs Per Day: 0.5 Years Smoked: 12 Substance Use History: Substance Use Type: Marijuana Advance Directives: Advance Directives Date on File: 06/17/21 Occupation Assessmet: service: No Current occupational status: unemployed Home Medications and Allergies Current Medications: Current Medications Albuterol Sulfate (Albuterol Sulfate 90 Mcg 8 Gm Inhaler) 2 puff INHALE Q4H PRN PRN Reason: Shortness Of Breath Or Wheezing Benzocaine (Throat Lozenge, Medicated Lozenge) 1 lozenge MUCOUS MEM Q2H PRN PRN Reason: Sore Throat Last Admin: 01/31/25 11:23 Dose: 1 lozenge Buspirone HCl (Buspirone Hcl 5 Mg Tablet) 15 mg PO BID [facility] Last Admin: 01/31/25 11:21 Dose: 15 mg Calcium Carbonate (Calcium Carbonate 750 Mg Tab.Chew) 750 mg PO Q4H PRN PRN Reason: Heartburn Dextrose (Dextrose 50 % 25 Gm/50 Ml Syringe) 25 gm IVPUSH Q15M PRN; Protocol PRN Reason: per Hypoglycemia Standing Ord. Divalproex Sodium (Divalproex Sodium 250 Mg Tablet.) 750 mg PO BEDTIME [facility] Divalproex Sodium (Divalproex Sodium 500 Mg Tablet.) 500 mg PO DAILY [facility] Last Admin: 01/31/25 11:21 Dose: 500 mg Fluoxetine HCl (Fluoxetine Hcl 10 Mg Capsule) 30 mg PO DAILY [facility] Last Admin: 01/31/25 11:21 Dose: 30 mg Glucose (Glucose Gel 15 Gm Gel..Gram.) 15 gm PO Q15M PRN; Protocol PRN Reason: per Hypoglycemia Standing Ord. Hydroxyzine HCl (Hydroxyzine Hcl 25 Mg Tablet) 25 mg PO BID@0900,1200 [facility] Last Admin: 01/31/25 11:21 Dose: 25 mg Hydroxyzine HCl (Hydroxyzine Hcl 50 Mg Tablet) 100 mg PO BEDTIME [facility] Lactated Ringer's (Lr) 1,000 mls @ 80 mls/hr IVCONT .[id number] [facility] Last Infusion: 01/31/25 05:37 Dose: Infused Fluconazole 100 mg/ IV (Miscellaneous Supplies) 50 mls @ 50 mls/hr IV Q24H [facility] Last Infusion: 01/31/25 11:28 Dose: Infused Cefepime HCl (Maxipime) 2 gm in 50 mls @ 100 mls/hr IV Q8H [facility] Last Infusion: 01/31/25 07:00 Dose: Infused Vancomycin HCl 1,250 mg/ (Sodium Chloride) 250 mls @ 166.667 mls/hr IV Q8H [facility] Last Infusion: 01/31/25 11:29 Dose: Infused Insulin Human Lispro (Insulin Lispro 100 Unit/Ml 3 Ml Vial) 0 unit SUBCUT Q6H [facility]; Protocol Last Admin: 01/31/25 06:19 Dose: Not Given Lidocaine/Diphenhydr/Alum/Mg/Simeth (Mag&Al/Sim/Diphenhyd/Lidocaine 10 Ml Oral.Susp) 10 ml PO Q4H PRN; Protocol PRN Reason: Sore Throat Magnesium Hydroxide (Milk Of Magnesia 30 Ml Oral.Susp) 30 ml PO DAILY PRN PRN Reason: Constipation Melatonin (Melatonin 3 Mg Tablet) 6 mg PO BEDTIME PRN PRN Reason: Insomnia Morphine Sulfate (Morphine Sulfate 4 Mg/Ml Cartridge) 2 mg IVPUSH Q4H PRN; Protocol PRN Reason: Pain, Moderate(Pain Scale 4-6) Nicotine (Nicotine 21 Mg Patch.Td24) 21 mg TRANSDERMA DAILY [facility] Last Admin: 01/31/25 08:58 Dose: 21 mg Non-Formulary Medication (Guanfacine) 2 mg PO BID [facility] Omeprazole (Omeprazole 40 Mg Capsule.Dr) 40 mg PO DAILY@0630 [facility] Last Admin: 01/31/25 05:56 Dose: 40 mg Ondansetron HCl (Ondansetron Hcl 4 Mg/2 Ml Vial) 4 mg IVPUSH Q8H PRN PRN Reason: Nausea and Vomiting Last Admin: 01/31/25 00:59 Dose: 4 mg Pharmacy Consult (Consult Rx Vancomycin Dosing) 1 each MISCELLANE DAILY [facility] Prednisone (Prednisone 20 Mg Tablet) 60 mg PO BIDWM [facility] Last Admin: 01/31/25 08:53 Dose: 60 mg Quetiapine Fumarate (Quetiapine Fumarate 100 Mg Tablet) 100 mg PO BEDTIME [facility] Quetiapine Fumarate (Quetiapine Fumarate 50 Mg Tablet) 50 mg PO BEDTIME [facility] Sodium Chloride (0.9 % Sodium Chloride Flush 3 Ml Syringe) 3 ml IVFLUSH QSHIFT [facility] Last Admin: 01/31/25 08:57 Dose: 3 ml Home Medications ?Medication ?Instructions ?Recorded ?Confirmed ?Type buspirone 15 mg tablet 1 tab PO BID 03/17/21 01/30/25 History acetaminophen 325 mg tablet 650 mg PO BID PRN Pain 03/20/24 01/30/25 History divalproex 500 mg tablet,delayed 500 mg PO DAILY 03/20/24 01/30/25 History release hydroxyzine pamoate 50 mg capsule 100 mg PO BEDTIME 03/20/24 01/30/25 History quetiapine 100 mg tablet 100 mg PO BEDTIME 03/20/24 01/30/25 History lidocaine 4 % topical patch 1 patch topical DAILY PRN Pain 01/29/25 01/30/25 History Lactobacillus acidophilus 1 1,000 mmu cells PO DAILY 01/30/25 01/30/25 History billion cell capsule albuterol sulfate 90 mcg/actuation 2 puff inhalation Q4H PRN 01/30/25 01/30/25 History aerosol inhaler Shortness Of Breath Or Wheezing amoxicillin 875 mg-potassium 1 tab PO BID 01/30/25 01/30/25 History clavulanate 125 mg tablet divalproex 250 mg tablet,delayed 750 mg PO BEDTIME 01/30/25 01/30/25 History release fluoxetine 10 mg capsule 30 mg PO DAILY 01/30/25 01/30/25 History guanfacine 2 mg tablet 2 mg PO BID 01/30/25 01/30/25 History hydroxyzine pamoate 25 mg capsule 25 mg PO BID@0900,1200 01/30/25 01/30/25 History metformin 500 mg tablet 500 mg PO BID 01/30/25 01/30/25 History nystatin 100,000 unit/mL oral 5 ml PO QIDWMHS 01/30/25 01/30/25 History suspension olanzapine 20 mg tablet 20 mg PO BEDTIME 01/30/25 01/30/25 History pantoprazole 40 mg tablet,delayed 40 mg PO DAILY@0630 01/30/25 01/30/25 History release quetiapine 50 mg tablet 50 mg PO BEDTIME 01/30/25 01/30/25 History Allergies Allergy/AdvReac Type Severity Reaction Status Date / Time No Known Allergies Allergy Verified 01/29/25 16:16 Exam Vital signs: Vital Signs Temp 97.6 F 01/31/25 08:00 Pulse 54 01/31/25 08:00 Resp 16 01/31/25 08:00 BP 113/55 L 01/31/25 08:00 Pulse Ox 97 01/31/25 08:00 O2 Del Method Room Air 01/31/25 08:00 Intake & Output 01/30/25 01/31/25 01/31/25 18:59 06:59 18:59 Intake Total 1700 / 3800 2050 / 3800 350 / 350 Output Total 200 / 200 Balance 1700 / 3600 1850 / 3600 350 / 350 Urine Output (Average ml/kg/hr) 0.12 0.12 Intake: Intake, IV Amount 1700 / 3800 2050 / 3800 350 / 350 Fluconazole in NaCl,Iso-Osm 100 50 / 50 50 / 50 mg In Container,Empty 0 ml @ 50 mls/hr IV Q24H [facility] Rx#: [id number] Piperacillin Sodium/Tazobactam 100 / 100 4.5 gm In 0.9 % Sodium Chloride 100 ml @ 200 mls/hr IV Q8H [facility] Rx#:[id number] cefEPime HCl/D5W 2 gm In 50 ml 50 / 150 50 / 150 50 / 50 @ 100 mls/hr IV Q8H [facility] Rx#: [id number] vancomycin HCL 1,250 mg In 0.9 250 / 250 % Sodium Chloride 250 ml @ 166. 667 mls/hr IV Q8H [facility] Rx#: [id number] vancomycin HCL 1,500 mg In 0.9 500 / 1500 1000 / 1500 % Sodium Chloride 500 ml @ 333. 333 mls/hr IV Q8H [facility] Rx#: [id number] Lactated Ringers 1,000 ml @ 80 1000 / 2000 1000 / 2000 mls/hr IVCONT .[id number] [facility] Rx#: [id number] Output: Output, Urine Amount 200 / 200 Other: Number of Unmeasured Voids 1 Urine Urinal Urine Color Yellow Last Bowel Movement 01/29/25 Weight 135.2 kg Weight in Grams 324608 Weight 135.2 kg BMI result Body Mass Index 42.8 - Constitutional Present: no acute distress - Routine HEENT Exam Head: Present: normal inspection Eye: Present: PERRL - Routine Neck Exam Present: full ROM. Absent: lymphadenopathy - Routine Respiratory Exam Present: CTAB - Routine Cardiovascular Exam Cardiovascular: Present: S1, S2 - Routine Abdominal Exam Present: soft Data - Labs CBC & Chem 7: 01/31/25 06:12 01/31/25 06:12 Labs: Laboratory Last Values WBC 4.9 X10*3/uL (4.8-10.8) 01/31/25 06:12 RBC 4.12 X10*6/uL (4.60-5.80) L 01/31/25 06:12 Hgb 11.2 g/dl (14.0-18.0) L 01/31/25 06:12 Hct 34.3 % (42.0-52.0) L 01/31/25 06:12 MCV 83.3 fL (80.0-98.0) 01/31/25 06:12 MCH 27.2 pg (27.0-33.0) 01/31/25 06:12 MCHC 32.7 g/dl (31.0-36.0) 01/31/25 06:12 RDW 11.6 % (11.0-16.0) 01/31/25 06:12 Plt Count 51 X10*3/uL (160-400) L 01/31/25 06:12 MPV 11.6 fL (9.4-12.4) 01/31/25 06:12 Immature Gran % (Auto) Cancelled 01/31/25 06:12 Neut % (Auto) Cancelled 01/31/25 06:12 Lymph % (Auto) Cancelled 01/31/25 06:12 Haakon % (Auto) Cancelled 01/31/25 06:12 Eos % (Auto) Cancelled 01/31/25 06:12 Baso % (Auto) Cancelled 01/31/25 06:12 Lymph # (Auto) Cancelled 01/31/25 06:12 Haakon # (Auto) Cancelled 01/31/25 06:12 Eos # (Auto) Cancelled 01/31/25 06:12 Baso # (Auto) Cancelled 01/31/25 06:12 Abs Immat Gran (auto) Cancelled 01/31/25 06:12 Absolute Neuts (auto) Cancelled 01/31/25 06:12 Absolute Nucleated RBC 0.040 X10*3/uL (0.0-0.012) H 01/31/25 06:12 Nucleated RBC % (auto) 0.8 /100WBC (0.0-0.2) H 01/31/25 06:12 Neutrophils % (Manual) 59 % (45-73) 01/31/25 06:12 Band Neutrophils % 7 % (3-5) H 01/31/25 06:12 Lymphocytes % (Manual) 24 % (20-40) 01/31/25 06:12 Atypical Lymphs % (Man) 1 % (0-6) 01/31/25 06:12 Monocytes % (Manual) 7 % (2-11) 01/31/25 06:12 Metamyelocytes % 2 % 01/31/25 06:12 Abs Neuts (Manual) 3.2 X10*3/uL (2.0-8.3) 01/31/25 06:12 Lymphocytes # (Manual) 1.2 X10*3/uL (1.2-4.9) 01/31/25 06:12 Monocytes # (Manual) 0.3 X10*3/uL (0.1-1.2) 01/31/25 06:12 Metamyelocytes # 0.1 X10*3/uL 01/31/25 06:12 Nucleated RBCs 2 /100WBC (0-0) H 01/31/25 06:12 Toxic Granulation PRESENT 01/30/25 05:28 Dohle Bodies PRESENT 01/30/25 05:28 Platelet Estimate DECREASED (NORMAL) 01/31/25 06:12 Plt Morphology Comment NORMAL 01/31/25 06:12 RBC Morphology NORMAL 01/31/25 06:12 Hypochromasia 1+ (5-14) /OIF 01/31/25 06:12 Tear Drop Cells 1+ (0-2) /OIF 01/30/25 05:28 Ovalocytes 1+ (5-14) /OIF 01/30/25 05:28 PT 14.7 SEC (10.9-12.4) H 01/30/25 09:04 INR 1.3 (0.9-1.1) H 01/30/25 09:04 Sodium 140 mmol/L (135-145) 01/31/25 06:12 Potassium 4.2 mmol/L (3.3-5.1) 01/31/25 06:12 Chloride 106 mmol/L (96-108) 01/31/25 06:12 Carbon Dioxide 28 mmol/L (22-29) 01/31/25 06:12 Anion Gap 10 (12-20) L 01/31/25 06:12 BUN 7 mg/dL (9-16) L 01/31/25 06:12 Creatinine 0.61 mg/dL (0.5-1.4) 01/31/25 06:12 Estim Creat Clear Calc 251.8 01/31/25 06:12 Estimated GFR > 60 01/31/25 06:12 POC Glucose 152 mg/dL (60-115) H 01/31/25 11:33 Random Glucose 148 mg/dL (60-115) H 01/31/25 06:12 Lactic Acid 1.2 mmol/L (0.5-2.0) 01/29/25 20:41 Calcium 9.0 mg/dL (8.4-10.2) 01/31/25 06:12 Total Bilirubin 0.8 mg/dL (0.0-1.0) 01/31/25 06:12 AST 228 U/L (5-37) H 01/31/25 06:12 ALT 463 U/L (0-40) H 01/31/25 06:12 Alkaline Phosphatase 171 U/L (39-117) H 01/31/25 06:12 C-Reactive Protein 4.31 mg/dL (< or = 0.50) H 01/30/25 05:28 Total Protein 5.5 g/dL (6.5-8.0) L 01/31/25 06:12 Albumin 3.7 g/dL (3.5-5.0) 01/31/25 06:12 Vancomycin Trough 18.9 mcg/mL (10.0-20.0) 01/31/25 06:12 Hepatitis A IgM Ab Nonreactive (Nonreactive) 01/29/25 19:03 Hep Bs Antigen Negative (Negative) 01/29/25 19:03 Hep Bs Antibody NONREACTIVE (Nonreactive) 01/29/25 19:03 Hep B Core Total Ab Nonreactive (Nonreactive) 01/29/25 19:03 Hepatitis C Ab (EIA) Nonreactive (Nonreactive) 01/29/25 19:03 HIV 1&2 Ab/P24 Ag 4thGn Nonreactive (Nonreactive) 01/31/25 06:12 - Imaging Radiologist's impression: ITS Impressions Abdomen Ultrasound 01/30/25 14:14 IMPRESSION: 1. As per technologist note, significantly limited examination due to patient habitus. 2. Mild hepatic enlargement with diffusely increased echogenicity, likely steatosis. Cannot exclude hepatocellular disease. No focal discrete lesion. 3. Splenomegaly. 4. No free fluid seen. Electronically signed by: Myles Carlisle MD 01/31/2025 09:06 AM EDT RP Assessment and Plan Patient Active problem list reviewed?: Yes (1) Acute hepatitis Status: Acute Assessment and plan: 1. This is a 29-year-old male with classical Hodgkin's lymphoma currently admitted with acute hepatitis. He was diagnosed with Hodgkin lymphoma in 2020. He developed a recurrence in 2024. On 03/19/2021 patient underwent core biopsy of right inguinal lymph node which revealed atypical lymphoid infiltrate consistent with classical Hodgkin's lymphoma. He underwent excision biopsy after missing several appointments on 11/08/2024. This revealed Hodgkin lymphoma. He received GVD plus pembrolizumab immuno-chemotherapy, started 01/15/25. He developed infusion reaction to Taxol which was managed with increased doses of steroids, Benadryl and Pepcid. He was admitted to [facility] on 01/24/25 for cellulitis of lower extremities. On admission he was also noted to have elevated LFTs. CT abdomen/pelvis with IV contrast did not show any significant biliary pathology. He was treated with vancomycin and Zosyn and discharged on p.o. Augmentin and doxycycline. He now has developed acute hepatitis which seems to correlate with him having received pembrolizumab 2 weeks ago. Probably this is immune mediated hepatitis. He has been started on methylprednisolone. Has been slight improvement in his liver enzymes. Continue with steroids and monitor labs daily. Continue omeprazole. 2. Oral thrush. He is on Diflucan and nystatin. 3. Leg cellulitis. Currently receiving IV antibiotics begin he can be switched to oral antibiotics. 4. Thrombocytopenia. Combination of chemotherapy as well as hepatitis. DC Zosyn. He can be discharged home. Please DC all narcotic pain meds. He has a follow up next week in Hematology Clinic. - Time Spent With Patient Time Spent with Patient (in minutes): 20 Additional Coding: - Additional E/M codes Complex E/M visit Add On: CPT G2211
--- NOTE | 2025-01-31 12:56 | P.CNID_ITS ---
History of Present Illness Data of Consult Service Date: 01/31/25 Requesting physician: Thai Rodríguez Primary Care Provider: Celso Bone MD HPI Reason for consult: leg redness,increased LFTs He presents with redness bilateral lower extremities. He has no fever or chills. He has NHL lymphoma and is seeing Dr Solomon. Review of Systems 2 Review of Systems: Yes all other systems are reviewed and are negative PMFSH Past Medical History Medical History Hodgkin lymphoma Hx of fracture of foot ADHD Asthma Family History Family History Maternal Aunt Breast cancer Family/Other Colon cancer Maternal Aunt Ovarian cancer Maternal Grandfather Stroke Pulmonary emboli Heart attack Diabetes Parkinson disease Mother Asthma Father Diabetes Family history: reviewed and not pertinent Surgical History Surgical History Hx of brain surgery Social History Social History Household Members: Other Household Members Other:: at [facility] x 3 months Housing: Other Are you a primary manager intensive care unit to a significant other at home: No Do you presently have visiting nurse or other home services: No Alcohol intake: former Patient Tobacco Use Status: Never used Tobacco Tobacco use type: Cigarette Cigarette Packs Per Day: 0.5 Years Smoked: 12 Substance Use Type: Marijuana Advance Directives Date on File: 06/17/21 service: No Current occupational status: unemployed Meds Allergies Allergy/AdvReac Type Severity Reaction Status Date / Time No Known Allergies Allergy Verified 01/29/25 16:16 Active Medications: Current Medications Albuterol Sulfate (Albuterol Sulfate 90 Mcg 8 Gm Inhaler) 2 puff INHALE Q4H PRN PRN Reason: Shortness Of Breath Or Wheezing Benzocaine (Throat Lozenge, Medicated Lozenge) 1 lozenge MUCOUS MEM Q2H PRN PRN Reason: Sore Throat Last Admin: 01/31/25 11:23 Dose: 1 lozenge Buspirone HCl (Buspirone Hcl 5 Mg Tablet) 15 mg PO BID JANNA Last Admin: 01/31/25 11:21 Dose: 15 mg Calcium Carbonate (Calcium Carbonate 750 Mg Tab.Chew) 750 mg PO Q4H PRN PRN Reason: Heartburn Dextrose (Dextrose 50 % 25 Gm/50 Ml Syringe) 25 gm IVPUSH Q15M PRN; Protocol PRN Reason: per Hypoglycemia Standing Ord. Divalproex Sodium (Divalproex Sodium 250 Mg Tablet.) 750 mg PO BEDTIME JANNA Divalproex Sodium (Divalproex Sodium 500 Mg Tablet.) 500 mg PO DAILY [facility] Last Admin: 01/31/25 11:21 Dose: 500 mg Fluoxetine HCl (Fluoxetine Hcl 10 Mg Capsule) 30 mg PO DAILY [facility] Last Admin: 01/31/25 11:21 Dose: 30 mg Glucose (Glucose Gel 15 Gm Gel..Gram.) 15 gm PO Q15M PRN; Protocol PRN Reason: per Hypoglycemia Standing Ord. Hydroxyzine HCl (Hydroxyzine Hcl 25 Mg Tablet) 25 mg PO BID@0900,1200 [facility] Last Admin: 01/31/25 11:21 Dose: 25 mg Hydroxyzine HCl (Hydroxyzine Hcl 50 Mg Tablet) 100 mg PO BEDTIME [facility] Lactated Ringer's (Lr) 1,000 mls @ 80 mls/hr IVCONT .[id number] [facility] Last Infusion: 01/31/25 05:37 Dose: Infused Fluconazole 100 mg/ IV (Miscellaneous Supplies) 50 mls @ 50 mls/hr IV Q24H [facility] Last Infusion: 01/31/25 11:28 Dose: Infused Cefepime HCl (Maxipime) 2 gm in 50 mls @ 100 mls/hr IV Q8H [facility] Last Infusion: 01/31/25 07:00 Dose: Infused Vancomycin HCl 1,250 mg/ (Sodium Chloride) 250 mls @ 166.667 mls/hr IV Q8H [facility] Last Infusion: 01/31/25 11:29 Dose: Infused Insulin Human Lispro (Insulin Lispro 100 Unit/Ml 3 Ml Vial) 0 unit SUBCUT Q6H [facility], [facility]; Protocol Last Admin: 01/31/25 06:19 Dose: Not Given Lidocaine/Diphenhydr/Alum/Mg/Simeth (Mag&Al/Sim/Diphenhyd/Lidocaine 10 Ml Oral.Susp) 10 ml PO Q4H PRN; Protocol PRN Reason: Sore Throat Magnesium Hydroxide (Milk Of Magnesia 30 Ml Oral.Susp) 30 ml PO DAILY PRN PRN Reason: Constipation Melatonin (Melatonin 3 Mg Tablet) 6 mg PO BEDTIME PRN PRN Reason: Insomnia Morphine Sulfate (Morphine Sulfate 4 Mg/Ml Cartridge) 2 mg IVPUSH Q4H PRN; Protocol PRN Reason: Pain, Moderate(Pain Scale 4-6) Nicotine (Nicotine 21 Mg Patch.Td24) 21 mg TRANSDERMA DAILY [facility] Last Admin: 01/31/25 08:58 Dose: 21 mg Non-Formulary Medication (Guanfacine) 2 mg PO BID [facility] Omeprazole (Omeprazole 40 Mg Capsule.Dr) 40 mg PO DAILY@0630 [facility] Last Admin: 01/31/25 05:56 Dose: 40 mg Ondansetron HCl (Ondansetron Hcl 4 Mg/2 Ml Vial) 4 mg IVPUSH Q8H PRN PRN Reason: Nausea and Vomiting Last Admin: 01/31/25 00:59 Dose: 4 mg Pharmacy Consult (Consult Rx Vancomycin Dosing) 1 each MISCELLANE DAILY [facility] Prednisone (Prednisone 20 Mg Tablet) 60 mg PO BIDWM [facility] Last Admin: 01/31/25 08:53 Dose: 60 mg Quetiapine Fumarate (Quetiapine Fumarate 100 Mg Tablet) 100 mg PO BEDTIME [facility] Quetiapine Fumarate (Quetiapine Fumarate 50 Mg Tablet) 50 mg PO BEDTIME [facility] Sodium Chloride (0.9 % Sodium Chloride Flush 3 Ml Syringe) 3 ml IVFLUSH QSHIFT [facility] Last Admin: 01/31/25 08:57 Dose: 3 ml Home Medications ?Medication ?Instructions ?Recorded ?Confirmed ?Last Taken ?Type buspirone 15 mg tablet 1 tab PO BID 03/17/21 01/30/25 01/29/25 History acetaminophen 325 mg tablet 650 mg PO BID PRN Pain 03/20/24 01/30/25 Unknown History divalproex 500 mg tablet,delayed 500 mg PO DAILY 03/20/24 01/30/25 01/29/25 History release hydroxyzine pamoate 50 mg capsule 100 mg PO BEDTIME 03/20/24 01/30/25 01/29/25 History quetiapine 100 mg tablet 100 mg PO BEDTIME 03/20/24 01/30/25 01/29/25 History lidocaine 4 % topical patch 1 patch topical DAILY PRN Pain 01/29/25 01/30/25 Unknown History Lactobacillus acidophilus 1 1,000 mmu cells PO DAILY 01/30/25 01/30/25 01/29/25 History billion cell capsule albuterol sulfate 90 mcg/actuation 2 puff inhalation Q4H PRN 01/30/25 01/30/25 Unknown History aerosol inhaler Shortness Of Breath Or Wheezing amoxicillin 875 mg-potassium 1 tab PO BID 01/30/25 01/30/25 01/29/25 History clavulanate 125 mg tablet divalproex 250 mg tablet,delayed 750 mg PO BEDTIME 01/30/25 01/30/25 01/29/25 History release fluoxetine 10 mg capsule 30 mg PO DAILY 01/30/25 01/30/25 01/29/25 History guanfacine 2 mg tablet 2 mg PO BID 01/30/25 01/30/25 01/29/25 History hydroxyzine pamoate 25 mg capsule 25 mg PO BID@0900,1200 01/30/25 01/30/25 01/29/25 History metformin 500 mg tablet 500 mg PO BID 01/30/25 01/30/25 01/29/25 History nystatin 100,000 unit/mL oral 5 ml PO QIDWMHS 01/30/25 01/30/25 01/29/25 History suspension olanzapine 20 mg tablet 20 mg PO BEDTIME 01/30/25 01/30/25 01/29/25 History pantoprazole 40 mg tablet,delayed 40 mg PO DAILY@0630 01/30/25 01/30/25 01/29/25 History release quetiapine 50 mg tablet 50 mg PO BEDTIME 01/30/25 01/30/25 01/29/25 History Physical Exam 2 Vital Signs: Vital Signs: Last Vital Signs Temp 97.6 F 01/31/25 08:00 Pulse 54 01/31/25 08:00 Resp 16 01/31/25 08:00 BP 113/55 L 01/31/25 08:00 Pulse Ox 97 01/31/25 08:00 O2 Del Method Room Air 01/31/25 08:00 BMI result Body Mass Index 42.8 Results Labs 01/31/25 06:12 01/31/25 06:12 Labs: Short CBC 01/31/25 Range/Units 06:12 WBC 4.9 (4.8-10.8) X10*3/uL Hgb 11.2 L (14.0-18.0) g/dl Hct 34.3 L (42.0-52.0) % Plt Count 51 L (160-400) X10*3/uL BMP 01/31/25 06:12 Sodium 140 Potassium 4.2 Chloride 106 Carbon Dioxide 28 BUN 7 L Creatinine 0.61 Calcium 9.0 Liver Function 01/31/25 Range/Units 06:12 Total Bilirubin 0.8 (0.0-1.0) mg/dL AST 228 H (5-37) U/L ALT 463 H (0-40) U/L Alkaline Phosphatase 171 H (39-117) U/L Albumin 3.7 (3.5-5.0) g/dL Microbiology Microbiology Results: Microbiology 01/29/25 20:41 Blood - Venous Blood Culture - Preliminary No growth after 24 hours. 01/29/25 20:41 Blood - Venous Blood Culture - Preliminary No growth after 24 hours. Assessment and Plan (1) Thrush: Status: Acute (2) Cellulitis of both lower extremities: Status: Acute Plan Cellulitis has resolved. He has resolved thrush LFT abnormality believed to be from Keytruda. Can give po Doxycycline and Diflucan for a week due to some dysphagia.
--- NOTE | 2025-01-31 13:47 | PM.GIPN ---
Subjective Subjective Date of Service: 01/31/25 Critical Care Time (minutes): 0 Physical Exam Vital Signs: Vital Signs: Last Vital Signs Temp 97.5 F 01/31/25 12:00 Pulse 66 01/31/25 12:00 Resp 20 01/31/25 12:00 BP 115/63 01/31/25 12:00 Pulse Ox 96 01/31/25 12:00 O2 Del Method Room Air 01/31/25 12:00 BMI result Body Mass Index 42.8 GI: Other: abdomen is soft and nontender Objective Data Labs 01/31/25 06:12 01/31/25 06:12 Labs: Laboratory Results - last 24 hr 01/30/25 01/30/25 01/30/25 18:34 20:49 23:47 WBC RBC Hgb Hct MCV MCH MCHC RDW Plt Count MPV Immature Gran % (Auto) Neut % (Auto) Lymph % (Auto) [place] % (Auto) Eos % (Auto) Baso % (Auto) Lymph # (Auto) [place] # (Auto) Eos # (Auto) Baso # (Auto) Abs Immat Gran (auto) Absolute Neuts (auto) Absolute Nucleated RBC Nucleated RBC % (auto) Neutrophils % (Manual) Band Neutrophils % Lymphocytes % (Manual) Atypical Lymphs % (Man) Monocytes % (Manual) Metamyelocytes % Abs Neuts (Manual) Lymphocytes # (Manual) Monocytes # (Manual) Metamyelocytes # Nucleated RBCs Platelet Estimate Plt Morphology Comment RBC Morphology Hypochromasia Sodium Potassium Chloride Carbon Dioxide Anion Gap BUN Creatinine Estim Creat Clear Calc Estimated GFR POC Glucose 184 H 206 H 218 H Random Glucose Calcium Total Bilirubin AST ALT Alkaline Phosphatase Total Protein Albumin Vancomycin Trough HIV 1&2 Ab/P24 Ag 4thGn 01/31/25 01/31/25 01/31/25 05:54 06:12 07:44 WBC 4.9 RBC 4.12 L Hgb 11.2 L Hct 34.3 L MCV 83.3 MCH 27.2 MCHC 32.7 RDW 11.6 Plt Count 51 L MPV 11.6 Immature Gran % (Auto) Cancelled Neut % (Auto) Cancelled Lymph % (Auto) Cancelled [place] % (Auto) Cancelled Eos % (Auto) Cancelled Baso % (Auto) Cancelled Lymph # (Auto) Cancelled [place] # (Auto) Cancelled Eos # (Auto) Cancelled Baso # (Auto) Cancelled Abs Immat Gran (auto) Cancelled Absolute Neuts (auto) Cancelled Absolute Nucleated RBC 0.040 H Nucleated RBC % (auto) 0.8 H Neutrophils % (Manual) 59 Band Neutrophils % 7 H Lymphocytes % (Manual) 24 Atypical Lymphs % (Man) 1 Monocytes % (Manual) 7 Metamyelocytes % 2 Abs Neuts (Manual) 3.2 Lymphocytes # (Manual) 1.2 Monocytes # (Manual) 0.3 Metamyelocytes # 0.1 Nucleated RBCs 2 H Platelet Estimate DECREASED Plt Morphology Comment NORMAL RBC Morphology NORMAL Hypochromasia 1+ (5-14) Sodium 140 Potassium 4.2 Chloride 106 Carbon Dioxide 28 Anion Gap 10 L BUN 7 L Creatinine 0.61 Estim Creat Clear Calc 251.8 Estimated GFR > 60 POC Glucose 143 H 141 H Random Glucose 148 H Calcium 9.0 Total Bilirubin 0.8 AST 228 H ALT 463 H Alkaline Phosphatase 171 H Total Protein 5.5 L Albumin 3.7 Vancomycin Trough 18.9 HIV 1&2 Ab/P24 Ag 4thGn Nonreactive 01/31/25 11:33 WBC RBC Hgb Hct MCV MCH MCHC RDW Plt Count MPV Immature Gran % (Auto) Neut % (Auto) Lymph % (Auto) [place] % (Auto) Eos % (Auto) Baso % (Auto) Lymph # (Auto) [place] # (Auto) Eos # (Auto) Baso # (Auto) Abs Immat Gran (auto) Absolute Neuts (auto) Absolute Nucleated RBC Nucleated RBC % (auto) Neutrophils % (Manual) Band Neutrophils % Lymphocytes % (Manual) Atypical Lymphs % (Man) Monocytes % (Manual) Metamyelocytes % Abs Neuts (Manual) Lymphocytes # (Manual) Monocytes # (Manual) Metamyelocytes # Nucleated RBCs Platelet Estimate Plt Morphology Comment RBC Morphology Hypochromasia Sodium Potassium Chloride Carbon Dioxide Anion Gap BUN Creatinine Estim Creat Clear Calc Estimated GFR POC Glucose 152 H Random Glucose Calcium Total Bilirubin AST ALT Alkaline Phosphatase Total Protein Albumin Vancomycin Trough HIV 1&2 Ab/P24 Ag 4thGn Microbiology Microbiology Results: Microbiology 01/29/25 20:41 Blood - Venous Blood Culture - Preliminary No growth after 24 hours. 01/29/25 20:41 Blood - Venous Blood Culture - Preliminary No growth after 24 hours. Procedures Date of Service Date of Service: 01/31/25 Progress Note: A&P Assessment and plan (1) Elevated LFTs: Status: Acute Assessment and Plan: lfts better since admission continue present rx hepatitis testing is negative swallowing seems ok continue diflucan as planned Time Spent With Patient Time: Total time managing care of this patient today ____ minutes. Quality Stroke Does the patient have a stroke diagnosis?: No VTE Prior VTE?: No VTE Risk Level:: Medical - moderate - high VTE Device Contraindication: N/A - Device Ordered VTE Drug Contraindication: Treatment Not Indicated
[2025-01-31] MEDS: Morphine Sulfate 4 MG/ML CARTRIDGE 2 MG IVPUSH ×3 (14:31→23:26)
[2025-01-31] MEDS: Lactated Ringers 1,000 ML 80 ML IVCONT (14:31)
--- NOTE | 2025-01-31 15:30 | P.PNIM_ITS ---
Subjective Subjective Date of Service: 01/31/25 Interval History: no fever still c/o dysphagia redness on legs improved Review of Systems Review of Systems: Yes all other systems are reviewed and are negative Physical Exam 2 Vital Signs: Vital Signs: Last Vital Signs Temp 97.5 F 01/31/25 12:00 Pulse 66 01/31/25 12:00 Resp 20 01/31/25 12:00 BP 115/63 01/31/25 12:00 Pulse Ox 96 01/31/25 12:00 O2 Del Method Room Air 01/31/25 12:00 BMI result Body Mass Index 42.8 Gen: in no acute distress HEENT: sclera anicteric, moist mucus membranes, thrush Neck: supple, R subclavian port Lungs: clear to auscultation bilaterally Heart: regular rate and rhythm, no murmurs Abd: soft, non-tender, non-distended Ext: bilateral leg swelling + erythema Skin: warm/well-perfused Neuro: alert and oriented x3, no focal findings Psych: appropriate affect Objective Data Active Medications Albuterol Sulfate (Albuterol Sulfate 90 Mcg 8 Gm Inhaler) 2 puff INHALE Q4H PRN PRN Reason: Shortness Of Breath Or Wheezing Benzocaine (Throat Lozenge, Medicated Lozenge) 1 lozenge MUCOUS MEM Q2H PRN PRN Reason: Sore Throat Last Admin: 01/31/25 11:23 Dose: 1 lozenge Documented By: TRINO Buspirone HCl (Buspirone Hcl 5 Mg Tablet) 15 mg PO BID [facility] Last Admin: 01/31/25 11:21 Dose: 15 mg Documented By: TRINO Calcium Carbonate (Calcium Carbonate 750 Mg Tab.Chew) 750 mg PO Q4H PRN PRN Reason: Heartburn Dextrose (Dextrose 50 % 25 Gm/50 Ml Syringe) 25 gm IVPUSH Q15M PRN; Protocol PRN Reason: per Hypoglycemia Standing Ord. Divalproex Sodium (Divalproex Sodium 250 Mg Tablet.) 750 mg PO BEDTIME [facility] Divalproex Sodium (Divalproex Sodium 500 Mg Tablet.) 500 mg PO DAILY [facility] Last Admin: 01/31/25 11:21 Dose: 500 mg Documented By: TRINO Fluoxetine HCl (Fluoxetine Hcl 10 Mg Capsule) 30 mg PO DAILY [facility] Last Admin: 01/31/25 11:21 Dose: 30 mg Documented By: TRINO Glucose (Glucose Gel 15 Gm Gel..Gram.) 15 gm PO Q15M PRN; Protocol PRN Reason: per Hypoglycemia Standing Ord. Hydroxyzine HCl (Hydroxyzine Hcl 25 Mg Tablet) 25 mg PO BID@0900,1200 [facility] Last Admin: 01/31/25 14:37 Dose: 25 mg Documented By: TRINO Hydroxyzine HCl (Hydroxyzine Hcl 50 Mg Tablet) 100 mg PO BEDTIME [facility] Lactated Ringer's (Lr) 1,000 mls @ 80 mls/hr IVCONT .[id number] [facility] Last Admin: 01/31/25 14:31 Dose: 80 mls/hr Documented By: TRINO Fluconazole 100 mg/ IV (Miscellaneous Supplies) 50 mls @ 50 mls/hr IV Q24H [facility] Last Infusion: 01/31/25 11:28 Dose: Infused Documented By: TRINO Cefepime HCl (Maxipime) 2 gm in 50 mls @ 100 mls/hr IV Q8H [facility] Last Infusion: 01/31/25 15:23 Dose: Infused Documented By: ALECIA Vancomycin HCl 1,250 mg/ (Sodium Chloride) 250 mls @ 166.667 mls/hr IV Q8H [facility] Last Infusion: 01/31/25 11:29 Dose: Infused Documented By: TRINO Insulin Human Lispro (Insulin Lispro 100 Unit/Ml 3 Ml Vial) 0 unit SUBCUT Q6H [facility]; Protocol Last Admin: 01/31/25 14:33 Dose: 2 unit Documented By: TRINO Lidocaine/Diphenhydr/Alum/Mg/Simeth (Mag&Al/Sim/Diphenhyd/Lidocaine 10 Ml Oral.Susp) 10 ml PO Q4H PRN; Protocol PRN Reason: Sore Throat Magnesium Hydroxide (Milk Of Magnesia 30 Ml Oral.Susp) 30 ml PO DAILY PRN PRN Reason: Constipation Melatonin (Melatonin 3 Mg Tablet) 6 mg PO BEDTIME PRN PRN Reason: Insomnia Morphine Sulfate (Morphine Sulfate 4 Mg/Ml Cartridge) 2 mg IVPUSH Q4H PRN; Protocol PRN Reason: Pain, Moderate(Pain Scale 4-6) Last Admin: 01/31/25 14:31 Dose: 2 mg Documented By: TRINO Nicotine (Nicotine 21 Mg Patch.Td24) 21 mg TRANSDERMA DAILY [facility] Last Admin: 01/31/25 08:58 Dose: 21 mg Documented By: TRINO Non-Formulary Medication (Guanfacine) 2 mg PO BID [facility] Omeprazole (Omeprazole 40 Mg Capsule.Dr) 40 mg PO DAILY@0630 [facility] Last Admin: 01/31/25 05:56 Dose: 40 mg Documented By: TRINO Ondansetron HCl (Ondansetron Hcl 4 Mg/2 Ml Vial) 4 mg IVPUSH Q8H PRN PRN Reason: Nausea and Vomiting Last Admin: 01/31/25 15:19 Dose: 4 mg Documented By: ALECIA Pharmacy Consult (Consult Rx Vancomycin Dosing) 1 each MISCELLANE DAILY [facility] Prednisone (Prednisone 20 Mg Tablet) 60 mg PO BIDWM [facility] Last Admin: 01/31/25 08:53 Dose: 60 mg Documented By: TRINO Quetiapine Fumarate (Quetiapine Fumarate 100 Mg Tablet) 100 mg PO BEDTIME [facility] Quetiapine Fumarate (Quetiapine Fumarate 50 Mg Tablet) 50 mg PO BEDTIME [facility] Sodium Chloride (0.9 % Sodium Chloride Flush 3 Ml Syringe) 3 ml IVFLUSH QSHIFT [facility] Last Admin: 01/31/25 15:19 Dose: 3 ml Documented By: ALECIA Labs 01/31/25 06:12 01/31/25 06:12 Labs: Laboratory Results - last 24 hr 01/30/25 01/30/25 01/30/25 18:34 20:49 23:47 MCV MCH MCHC RDW Plt Count MPV Immature Gran % (Auto) Neut % (Auto) Lymph % (Auto) [place] % (Auto) Eos % (Auto) Baso % (Auto) Lymph # (Auto) [place] # (Auto) Eos # (Auto) Baso # (Auto) Abs Immat Gran (auto) Absolute Neuts (auto) Absolute Nucleated RBC Nucleated RBC % (auto) Neutrophils % (Manual) Band Neutrophils % Lymphocytes % (Manual) Atypical Lymphs % (Man) Monocytes % (Manual) Metamyelocytes % Abs Neuts (Manual) Lymphocytes # (Manual) Monocytes # (Manual) Metamyelocytes # Nucleated RBCs Platelet Estimate Plt Morphology Comment RBC Morphology Hypochromasia Anion Gap Estim Creat Clear Calc Estimated GFR POC Glucose 184 H 206 H 218 H Random Glucose Calcium Total Bilirubin AST ALT Alkaline Phosphatase Total Protein Albumin Vancomycin Trough HIV 1&2 Ab/P24 Ag 4thGn 01/31/25 01/31/25 01/31/25 05:54 06:12 07:44 MCV 83.3 MCH 27.2 MCHC 32.7 RDW 11.6 Plt Count 51 L MPV 11.6 Immature Gran % (Auto) Cancelled Neut % (Auto) Cancelled Lymph % (Auto) Cancelled [place] % (Auto) Cancelled Eos % (Auto) Cancelled Baso % (Auto) Cancelled Lymph # (Auto) Cancelled [place] # (Auto) Cancelled Eos # (Auto) Cancelled Baso # (Auto) Cancelled Abs Immat Gran (auto) Cancelled Absolute Neuts (auto) Cancelled Absolute Nucleated RBC 0.040 H Nucleated RBC % (auto) 0.8 H Neutrophils % (Manual) 59 Band Neutrophils % 7 H Lymphocytes % (Manual) 24 Atypical Lymphs % (Man) 1 Monocytes % (Manual) 7 Metamyelocytes % 2 Abs Neuts (Manual) 3.2 Lymphocytes # (Manual) 1.2 Monocytes # (Manual) 0.3 Metamyelocytes # 0.1 Nucleated RBCs 2 H Platelet Estimate DECREASED Plt Morphology Comment NORMAL RBC Morphology NORMAL Hypochromasia 1+ (5-14) Anion Gap 10 L Estim Creat Clear Calc 251.8 Estimated GFR > 60 POC Glucose 143 H 141 H Random Glucose 148 H Calcium 9.0 Total Bilirubin 0.8 AST 228 H ALT 463 H Alkaline Phosphatase 171 H Total Protein 5.5 L Albumin 3.7 Vancomycin Trough 18.9 HIV 1&2 Ab/P24 Ag 4thGn Nonreactive 01/31/25 11:33 MCV MCH MCHC RDW Plt Count MPV Immature Gran % (Auto) Neut % (Auto) Lymph % (Auto) [place] % (Auto) Eos % (Auto) Baso % (Auto) Lymph # (Auto) [place] # (Auto) Eos # (Auto) Baso # (Auto) Abs Immat Gran (auto) Absolute Neuts (auto) Absolute Nucleated RBC Nucleated RBC % (auto) Neutrophils % (Manual) Band Neutrophils % Lymphocytes % (Manual) Atypical Lymphs % (Man) Monocytes % (Manual) Metamyelocytes % Abs Neuts (Manual) Lymphocytes # (Manual) Monocytes # (Manual) Metamyelocytes # Nucleated RBCs Platelet Estimate Plt Morphology Comment RBC Morphology Hypochromasia Anion Gap Estim Creat Clear Calc Estimated GFR POC Glucose 152 H Random Glucose Calcium Total Bilirubin AST ALT Alkaline Phosphatase Total Protein Albumin Vancomycin Trough HIV 1&2 Ab/P24 Ag 4thGn Microbiology Microbiology Results: Microbiology 01/29/25 20:41 Blood Culture - Preliminary Blood - Venous No growth after 24 hours. 01/29/25 20:41 Blood Culture - Preliminary Blood - Venous No growth after 24 hours. Assessment and Plan (1) Cellulitis of both lower extremities: Status: Acute Plan d3 for 29yo M with 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, DM2, morbid obesity presenting with dysphagia/odynophagia + bilateral leg swelling/redness sepsis due to leg cellulitis - 01/29- vanco, 01/29-01/30 piperacillin-tazobactam changed to cefepime, follow BCx and if negative tomorrow change to oral doxycycline + amoxicillin-clavulanate acute hepatitis - suspect immune effect of pembrolizumab, Heme-Onc and GI consulted, giving steroids/PPI, monitor LFTs; viral hepatitis serologies negative; f/u next week with Dr Solomon as outpt thrush - fluconazole 01/29-02/08 pancytopenia - due to chemotherapy; continue to monitor; improving DM2 - correction-dose lispro, DM diet tobacco abuse - NRT morbid obesity - diet/exercise counseling mood disorder - resume buspirone, valproate, fluoxetine, guanfacine, hydroxyzine, olanzapine, quetiapine VTE ppx - SCDs, no heparin given thrombocytopenia dispo - on [address] at [facility] In my clinical judgment, the patient requires continued inpatient hospitalization for the following reasons: IV ABX Total time managing care of this patient today: 35 minutes. Quality Stroke Does the patient have a stroke diagnosis?: No VTE Prior VTE?: No VTE Risk Level:: Medical - moderate - high VTE Device Contraindication: N/A - Device Ordered VTE Drug Contraindication: Treatment Not Indicated
[2025-01-31 15:43] VITALS: BP 98/57; PULSE 67; RESP 16; TEMP 36.1; O2SAT 93
--- NOTE | 2025-01-31 15:55 | PM.EVENT ---
Event Note Date of Service: 01/31/25 Event Note: Addiction consult placed for patient Please see Recovery Support RN note for details No follow up indicated at this time Time Spent With Patient Time: Total time managing care of this patient today ____ minutes.
[2025-01-31 17:48] LABS: Glucose, Whole Blood 172 mg/dL (60-115)
[2025-01-31 19:15] VITALS: BP 154/59; PULSE 68; RESP 18; TEMP 36.4; O2SAT 96
[2025-01-31] MEDS: QUEtiapine Fumarate 100 MG TABLET PO (21:45)
[2025-01-31] MEDS: Divalproex Sodium 250 MG TABLET.DR 750 MG PO (21:45)
[2025-01-31] MEDS: hydrOXYzine HCL 50 MG TABLET 100 MG PO (21:45)
[2025-01-31] MEDS: QUEtiapine Fumarate 50 MG TABLET PO (21:45)
[2025-01-31] MEDS: GUANFACINE 1 MG 2 EACH PO (21:57)
[2025-01-31 23:40] VITALS: BP 117/56; PULSE 79; RESP 16; TEMP 36.2; O2SAT 94
[2025-02-01 00:21] LABS: Glucose, Whole Blood 250 mg/dL (60-115)
[2025-02-01] MEDS: vancomycin HCL 1,250 MG in 0.9 % Sodium Chloride 250 ML 166.67 MG IV ×2 (00:51→07:58)
[2025-02-01] MEDS: Insulin Lispro 100 UNIT/ML 3 ML VIAL SUBCUT ×2 (00:53→05:38)
[2025-02-01] MEDS: Lactated Ringers 1,000 ML 80 ML IVCONT ×2 (00:54→05:39)
[2025-02-01 04:00] VITALS: BP 100/48; PULSE 54; RESP 16; TEMP 36.4; O2SAT 95
[2025-02-01 04:53] LABS: Glucose, Whole Blood 178 mg/dL (60-115)
[2025-02-01] MEDS: cefEPime HCl/D5W 2 GM/50 ML PIGGYBACK IV (05:38)
[2025-02-01] MEDS: Omeprazole 40 MG CAPSULE.DR PO (05:38)
[2025-02-01] MEDS: Morphine Sulfate 4 MG/ML CARTRIDGE 2 MG IVPUSH ×2 (05:50→11:15)
[2025-02-01 06:24] LABS: Hematocrit 34.2 % (42.0-52.0); Hemoglobin 11.4 g/dl (14.0-18.0); Mean Corpuscular HGB Conc 33.3 g/dl (31.0-36.0); Mean Corpuscular Hemoglobin 27.5 pg (27.0-33.0); Mean Corpuscular Volume 82.4 fL (80.0-98.0); Mean Platelet Volume 10.3 fL (9.4-12.4); Platelet Count 115 X10*3/uL (160-400); Red Blood Count 4.15 X10*6/uL (4.60-5.80); Red Cell Distribution Width 11.9 % (11.0-16.0); White Blood Count 7.2 X10*3/uL (4.8-10.8)
[2025-02-01 06:25] LABS: NRBC Pct Auto 1.5 /100WBC (0.0-0.2)
[2025-02-01 06:35] LABS: Vancomycin Trough 16.1 mcg/mL (10.0-20.0)
[2025-02-01 06:44] LABS: Alanine Aminotransferase 455 U/L (0-40); Alkaline Phosphatase 170 U/L (39-117); Anion Gap 12 (12-20); Aspartate Amino Transferase 200 U/L (5-37); Bilirubin Total 0.7 mg/dL (0.0-1.0); Blood Urea Nitrogen 9 mg/dL (9-16); Calcium 8.8 mg/dL (8.4-10.2); Carbon Dioxide 28 mmol/L (22-29); Chloride 105 mmol/L (96-108); Estimated Glomerular Filt Rate > 60; Glucose Random 144 mg/dL (60-115); Potassium 4.1 mmol/L (3.3-5.1); Sodium 141 mmol/L (135-145); Total Protein 5.4 g/dL (6.5-8.0)
[2025-02-01 07:19] VITALS: BP 108/54; PULSE 60; RESP 20; TEMP 36.4; O2SAT 96
[2025-02-01] MEDS: FLUoxetine HCl 10 MG CAPSULE 30 MG PO (07:57)
[2025-02-01] MEDS: Divalproex Sodium 500 MG TABLET.DR PO (07:58)
[2025-02-01] MEDS: busPIRone HCl 5 MG TABLET 15 MG PO (07:58)
[2025-02-01] MEDS: hydrOXYzine HCL 25 MG TABLET PO ×2 (07:58→11:16)
[2025-02-01] MEDS: predniSONE 20 MG TABLET 60 MG PO (07:58)
[2025-02-01] MEDS: 0.9 % Sodium Chloride Flush 3 ML SYRINGE IVFLUSH (07:59)
[2025-02-01] MEDS: GUANFACINE 1 MG 2 EACH PO (08:03)
[2025-02-01] MEDS: Nicotine 21 MG PATCH.TD24 TRANSDERMA (08:08)
[2025-02-01] MEDS: Mag&Al/Sim/Diphenhyd/Lidocaine 10 ML ORAL.SUSP PO (08:09)
[2025-02-01] MEDS: ondansetron HCL 4 MG/2 ML VIAL IVPUSH (08:14)
[2025-02-01 08:18] LABS: C Reactive Protein 1.04 mg/dL (< or = 0.50)
[2025-02-01 08:54] LABS: Atypical Lymph Absolute Manual 0.1 x10*3/uL; Atypical Lymphs Percent Manual 1 % (0-6); Band Neutrophils Percent 11 % (3-5); Basophils Abs Manual 0.1 X10*3/uL (0.0-0.2); Basophils Percent Manual 1 % (0-2); Lymphocytes Absolute Manual 1.9 X10*3/uL (1.2-4.9); Lymphocytes Percent Manual 27 % (20-40); Metamyelocytes Absolute 0.4 X10*3/uL; Metamyelocytes Percent 5 %; Monocytes Absolute Manual 0.2 X10*3/uL (0.1-1.2); Monocytes Percent Manual 3 % (2-11); Myelocytes Absolute 0.6 X10*/uL; Myelocytes Percent 8 %; Neutrophils Absolute Manual 3.9 X10*3/uL (2.0-8.3); Neutrophils Percent Manual 43 % (45-73); Nucleated Red Blood Cells 4 /100WBC (0-0); Promyelocytes Absolute 0.1 X10*3/uL; Promyelocytes Percent 1 %
[2025-02-01 08:57] LABS: Platelet Estimate DECREASED (NORMAL); Platelet Morphology Comment NORMAL; RBC Morphology NORMAL
--- NOTE | 2025-02-01 10:44 | P.DS_ITS ---
DS: Providers Provider Date of Service: 02/01/25 Date of admission: 01/29/25 22:14 Date of discharge: 02/01/25 Primary care physician: Celso Bone MD Consults: 01/29/25 23:31 Consult to Gastroenterology Routine Consulting Provider: Redd Gavin Reason for consultation: hepatitis, odynophagia Has provider been notified: No Consult to Hematology / Oncology Routine Consulting Provider: Lenore Solomon Reason for consultation: ?AIH, on chemo Has provider been notified: Yes Consult to Infectious Diseases Routine Consulting Provider: [facility] Reason for consultation: thrush Has provider been notified: No 01/30/25 20:45 Addiction Medicine Provider Routine Consulting Provider: Addiction Covering Reason for consultation: PCP use, has been in a treatment program for 3 months 01/31/25 08:45 Inpt - Recovery Team Routine Comment: Reason for consultation: CALE/BH eval DS: Diagnosis Discharge Diagnosis (1) Cellulitis of both lower extremities: Status: Acute (2) Acute hepatitis: Status: Acute (3) Hodgkin lymphoma: Status: Acute (4) Sepsis: Status: Acute (5) Thrush: Status: Acute (6) Pancytopenia: Status: Acute DS: Summary Hospital Course Hospital Course: From the history and physical by the admitting hospitalist, LUTHER Carvajal, 01/29/25: 29-year-old male with a past medical history significant for recurrent non- Hodgkin's lymphoma followed by Dr. Solomon receiving chemotherapy, type 2 diabetes on metformin, current smoker and history of substance abuse ( PCP, last use 3 months ago ), who presented to the ED due to persistent lower extremity cellulitis as well as odynophagia. The patient reports that he was recently admitted at [facility] for lower extremity cellulitis, discharged 2 days ago. He has been unable to eat for the past week due to a gout aphasia and has lost about 20 lb. He was told that he possibly has thrush and has been unable to take any medications p.o. due to the pain. He has been hydrating somewhat but reports he has not been able to eat any solid foods. He has not been taking any of his home medications due to the pain. he denies any fever, chills, nausea or vomiting. His bilateral lower extremity cellulitis is painful to touch, no warmth or drainage. 29yo M with 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, DM2, morbid obesity on section 35 at [facility] presenting with dysphagia/odynophagia + bilateral leg swelling/redness. He was admitted to the telemetry unit. Hospital course by problem: sepsis due to leg cellulitis - Treated with vancomycin 01/29-02/01, piperacillin-tazobactam 01/29-01/30 then cefepime 01/30-02/01 with clinical improvement. Blood cultures negative and he was discharged on 5 days of doxycycline monohydrate plus amoxicillin-clavulanate. acute hepatitis - suspect immune effect of pembrolizumab, Heme-Onc and GI consulted; viral hepatitis serologies negative; started on steroids with some improvement in transminases and will continue prednisone 60 mg bid [while continuing pantoprazole] and follow up with Dr Solomon, his oncologist, at [facility] Oncology next week for tapering. Repeat CMP in 3 days. thrush - treated with IV fluconazole 01/29-02/01 and discharged on 10 days of PO fluconazole pancytopenia - due to chemotherapy; improving with platelet count going from 43 to 115. Repeat CBC in 3 days. He was discharged back to [facility]. Time Attestation Discharge Coordination Time (in mins): 45 Quality: Safe Use of Opioids Does Pt have an Active Cancer Diagnosis on the Problem List?: No Quality: Stroke Does the patient have a stroke diagnosis?: No Physical Exam Vital Signs: Vital Signs: Last Vital Signs Temp 97.6 F 02/01/25 07:19 Pulse 60 02/01/25 07:19 Resp 20 02/01/25 07:19 BP 108/54 L 02/01/25 07:19 Pulse Ox 96 02/01/25 07:19 O2 Del Method Room Air 02/01/25 07:19 BMI result Body Mass Index 42.8 Gen: in no acute distress HEENT: sclera anicteric, moist mucus membranes, thrush resolved Neck: supple, R subclavian port Lungs: clear to auscultation bilaterally Heart: regular rate and rhythm, no murmurs Abd: soft, non-tender, non-distended Ext: bilateral leg with minimal swelling and erythema, improved from adission Skin: warm/well-perfused Neuro: alert and oriented x3, no focal findings Psych: appropriate affect DS: Data Data Completed and Pending Completed studies during hospitalization [Text1]: Procedures Excision of Pelvic Region Subcutaneous Tissue and Fascia, Open Approach (06/09/21) Labs on day of discharge: Laboratory Results - last 24 hr 01/31/25 01/31/25 02/01/25 11:33 17:44 00:17 WBC RBC Hgb Hct MCV MCH MCHC RDW Plt Count MPV Immature Gran % (Auto) Neut % (Auto) Lymph % (Auto) Webb % (Auto) Eos % (Auto) Baso % (Auto) Lymph # (Auto) Webb # (Auto) Eos # (Auto) Baso # (Auto) Abs Immat Gran (auto) Absolute Neuts (auto) Absolute Nucleated RBC Nucleated RBC % (auto) Neutrophils % (Manual) Band Neutrophils % Lymphocytes % (Manual) Atypical Lymphs % (Man) Monocytes % (Manual) Basophils % (Manual) Metamyelocytes % Myelocytes % Promyelocytes % Abs Neuts (Manual) Lymphocytes # (Manual) Atyp Lymphs # (Manual) Monocytes # (Manual) Basophils # (Manual) Metamyelocytes # Myelocytes # Promyelocytes # Nucleated RBCs Platelet Estimate Plt Morphology Comment RBC Morphology Sodium Potassium Chloride Carbon Dioxide Anion Gap BUN Creatinine Estim Creat Clear Calc Estimated GFR POC Glucose 152 H 172 H 250 H Random Glucose Calcium Total Bilirubin AST ALT Alkaline Phosphatase C-Reactive Protein Total Protein Albumin Vancomycin Trough 02/01/25 02/01/25 04:48 05:55 WBC 7.2 RBC 4.15 L Hgb 11.4 L Hct 34.2 L MCV 82.4 MCH 27.5 MCHC 33.3 RDW 11.9 Plt Count 115 L D MPV 10.3 Immature Gran % (Auto) Cancelled Neut % (Auto) Cancelled Lymph % (Auto) Cancelled Webb % (Auto) Cancelled Eos % (Auto) Cancelled Baso % (Auto) Cancelled Lymph # (Auto) Cancelled Webb # (Auto) Cancelled Eos # (Auto) Cancelled Baso # (Auto) Cancelled Abs Immat Gran (auto) Cancelled Absolute Neuts (auto) Cancelled Absolute Nucleated RBC 0.110 H Nucleated RBC % (auto) 1.5 H Neutrophils % (Manual) 43 L Band Neutrophils % 11 H Lymphocytes % (Manual) 27 Atypical Lymphs % (Man) 1 Monocytes % (Manual) 3 Basophils % (Manual) 1 Metamyelocytes % 5 Myelocytes % 8 Promyelocytes % 1 Abs Neuts (Manual) 3.9 Lymphocytes # (Manual) 1.9 Atyp Lymphs # (Manual) 0.1 Monocytes # (Manual) 0.2 Basophils # (Manual) 0.1 Metamyelocytes # 0.4 Myelocytes # 0.6 Promyelocytes # 0.1 Nucleated RBCs 4 H Platelet Estimate DECREASED Plt Morphology Comment NORMAL RBC Morphology NORMAL Sodium 141 Potassium 4.1 Chloride 105 Carbon Dioxide 28 Anion Gap 12 BUN 9 Creatinine 0.60 Estim Creat Clear Calc 256.0 Estimated GFR > 60 POC Glucose 178 H Random Glucose 144 H Calcium 8.8 Total Bilirubin 0.7 AST 200 H ALT 455 H Alkaline Phosphatase 170 H C-Reactive Protein 1.04 H Total Protein 5.4 L Albumin 4.0 Vancomycin Trough 16.1 Preliminary micro results at discharge 01/29/25 20:41 Blood Culture - Preliminary Blood - Venous No growth after 48 hours. 01/29/25 20:41 Blood Culture - Preliminary Blood - Venous No growth after 48 hours. Discharge Plan Discharge Anticipated Discharge Date/Time: 02/01/25 10:34 Patient Disposition: Xfer Other Discharge Diagnosis: sepsis due to cellulitis candidiasis hepatitis due to pembrolizumab non-Hodgkin lymphoma Referrals: Celso Lewis MD [Primary Care Provider] - 1 Week Lenore Solomon MD [Physician] - 1 Week Discharge Medications: New prednisone 20 mg Tablet 60 mg PO BIDWM Qty: 60 0RF Rx Instructions: taper at direction of Dr Solomon nicotine 21 mg/24 hr Patch 24 Hour 21 mg transdermal DAILY Qty: 30 0RF doxycycline monohydrate 100 mg tablet 100 mg PO BID Qty: 10 0RF fluconazole 100 mg tablet 100 mg PO DAILY Qty: 10 0RF Continued buspirone 15 mg tablet 1 tab PO BID acetaminophen 325 mg Tablet 650 mg PO BID PRN (Reason: Pain) hydroxyzine pamoate 50 mg Capsule 100 mg PO BEDTIME divalproex 500 mg Tablet,Delayed Release (Dr/Ec) 500 mg PO DAILY quetiapine 100 mg Tablet 100 mg PO BEDTIME lidocaine 4 % Adhesive Patch,Medicated 1 patch TOPICAL DAILY PRN (Reason: Pain) metformin 500 mg tablet 500 mg PO BID pantoprazole 40 mg tablet,delayed release (DR/EC) 40 mg PO DAILY@0630 fluoxetine 10 mg Capsule 30 mg PO DAILY olanzapine 20 mg Tablet 20 mg PO BEDTIME hydroxyzine pamoate 25 mg capsule 25 mg PO BID@0900,1200 quetiapine 50 mg Tablet 50 mg PO BEDTIME Lactobacillus acidophilus 1 billion cell Capsule 1,000 mmu cells PO DAILY albuterol sulfate 90 mcg/actuation Hfa Aerosol Inhaler 2 puff INHALATION Q4H PRN (Reason: Shortness Of Breath Or Wheezing) guanfacine 2 mg tablet 2 mg PO BID divalproex 250 mg tablet,delayed release (DR/EC) 750 mg PO BEDTIME amoxicillin-pot clavulanate 875-125 mg tablet 1 tab PO BID Qty: 10 0RF Discontinued nystatin [Mycostatin] 100,000 unit/mL Suspension 5 ml PO QIDWMHS Rx Instructions: swish and swallow After meals and before bed. Discharge Orders: Discharge Order (Routine); Ordered 02/01/25 Ordered By: Thai Rodríguez Diet: Diabetic diet Activity on Discharge: As tolerated Stand Alone Forms: Patient Portal Discharge page Print Language: Estonian Other Ambulatory Orders: Complete Blood Count Auto Diff (Routine) Timeframe: 3 Days Facility: [facility] - Location: Laboratory Ordered By: Thai Rodríguez Comprehensive Met. Panel (Routine) Timeframe: 3 Days Facility: [facility] - Location: Laboratory Ordered By: Thai Rodríguez Care Plan Goals: cure of infection liver health treatment of lymphoma Health Concerns: sepsis due to cellulitis candidiasis hepatitis due to pembrolizumab non-Hodgkin lymphoma Plan of Treatment: take doxycycline monohydrate 100 mg twice daily PLUS amoxicillin-clavulanate 100 mg twice daily for 5 days take fluconazole 100 mg once daily for 10 days take prednisone 60 mg twice daily; to be tapered by Dr Solomon from [facility] Oncology; please see her next week for follow-up recheck CBCd + CMP in 3 days Please follow up with your primary care doctor within 1 week. Return to the hospital if you experience recurrent or worsening symptoms. Assessment: See Discharge Summary.
--- NOTE | 2025-02-01 11:11 | MHC.CM.PN ---
See dc summary.
[2025-02-01 11:17] LABS: Glucose, Whole Blood 150 mg/dL (60-115)
[2025-02-01] MEDS: Fluconazole in NaCl,Iso-Osm 100 MG in Container,Empty 0 ML 50 MG IV (11:19)
[2025-02-01] MEDS: Throat Lozenge, Medicated LOZENGE 1 LOZENGE MUCOUS MEM (11:23)
[2025-02-01 12:00] VITALS: BP 96/52; PULSE 80; RESP 17; TEMP 35.9; O2SAT 97
--- NOTE | 2025-02-01 13:12 | PC.NURSE ---
discharge instructions given to patient and landing signal officer in room. patient and [facility] staff agreeable to picking up prescriptions from the [facility] in [place]. Nurse from facilty called with questions on prednisone taper. this Rn instructed per discharge summary and doctor's order to have patient continue with 60mg BID dose of prednisone this week and to follow up with from oncology for further taper instructions
[2025-02-03 14:18] LABS: HCV RNA PCR Qn <1.18 NOT DETECTED Log IU/mL (NOT DETECTED); HCV RNA PCR Qn <15 NOT DETECTED IU/mL (NOT DETECTED)
[2025-02-03 14:33] LABS: Cytomegalovirus Ab IgG <0.60 U/mL; Cytomegalovirus Ab IgM <30.00 AU/mL
[2025-02-04 14:34] LABS: Immunoglobulin G 214 mg/dL (600-1640)
[2025-02-04 18:24] LABS: Hepatitis E Virus HEV IgG NOT DETECTED; Hepatitis E Virus HEV IgM NOT DETECTED
== END 2025-02-01 12:53 | disposition other institution (70) | DRG 720 ==
LOC: HO.ED 22:49 → HO.EDOVER 22:52 → HO.IMC 01-30 17:17
PROVIDERS: Internal Medicine Gastroenterology; Admitting Provider Physician Assistant; Emergency Provider Emergency Medicine Emergency Medical Services; PCP Internal Medicine; Visit Provider Family Medicine
DX: A41.9 Sepsis, unspecified organism (principal); D61.810 Antineoplastic chemotherapy induced pancytopenia; B37.81 Candidal esophagitis; B37.0 Candidal stomatitis; C81.90 Hodgkin lymphoma, unspecified, unspecified site; K71.2 Toxic liver disease with acute hepatitis; K76.0 Fatty (change of) liver, not elsewhere classified; T45.1X5A Adverse effect of antineoplastic and immunosuppressive drugs, initial encounter; L03.115 Cellulitis of right lower limb; L03.116 Cellulitis of left lower limb; F17.210 Nicotine dependence, cigarettes, uncomplicated; F39 Unspecified mood [affective] disorder; E66.01 Morbid (severe) obesity due to excess calories; Z68.41 Body mass index [BMI] 40.0-44.9, adult; Z79.84 Long term (current) use of oral hypoglycemic drugs; Z79.899 Other long term (current) drug therapy
CPT/HCPCS: 36415; 74177; 76705; 80053; 80202; 82784; 82947; 83605; 85007; 85027; 85610; 86140; 86644; 86645; 86704; 86706; 86709; 86790; 86803; 87040; 87340; 87389; 87522; 99285; J0692; J0737; J1171; J1450; J2270; J2405; J2543; J2919; J3370; J3371; J7120; Q9967; S9485

== ENCOUNTER → 2025-01-29 17:21 | Outpatient (BNV) | payer MEDICAID, SELFPAY | PROVIDERS: Emergency Provider Emergency Medicine Emergency Medical Services; PCP Internal Medicine; Visit Provider Student in an Organized Health Care Education/Training Program | DX: K76.0 Fatty (change of) liver, not elsewhere classified (principal); R16.0 Hepatomegaly, not elsewhere classified; R59.0 Localized enlarged lymph nodes | CPT/HCPCS: 74177 ==

== ENCOUNTER 2025-01-29 22:14 | Outpatient (BNV) | payer MEDICAID, SELFPAY | END 2025-01-30 14:14 | PROVIDERS: Admitting Provider Physician Assistant; Emergency Provider Emergency Medicine Emergency Medical Services; PCP Internal Medicine; Visit Provider Radiology Diagnostic Radiology | DX: R16.1 Splenomegaly, not elsewhere classified (principal) | CPT/HCPCS: 76705 ==

== ENCOUNTER → 2025-01-29 22:14 | Outpatient (BNV) | payer OTHER, SELFPAY | PROVIDERS: Admitting Provider Physician Assistant; Emergency Provider Emergency Medicine Emergency Medical Services; PCP Internal Medicine; Visit Provider Nurse Practitioner Psychiatric/Mental Health | DX: F16.11 Hallucinogen abuse, in remission (principal) | CPT/HCPCS: 99499 ==

== ENCOUNTER → 2025-01-29 22:14 | Outpatient (BNV) | payer MEDICAID, SELFPAY | PROVIDERS: Admitting Provider Physician Assistant; Emergency Provider Emergency Medicine Emergency Medical Services; PCP Internal Medicine; Visit Provider Internal Medicine | DX: B17.9 Acute viral hepatitis, unspecified (principal) | CPT/HCPCS: 99222; 99232 ==

== ENCOUNTER → 2025-01-29 22:14 | Outpatient (BNV) | payer MEDICAID, SELFPAY | PROVIDERS: Admitting Provider Physician Assistant; Emergency Provider Emergency Medicine Emergency Medical Services; PCP Internal Medicine; Visit Provider Internal Medicine | DX: B37.0 Candidal stomatitis (principal); L03.115 Cellulitis of right lower limb; L03.116 Cellulitis of left lower limb | CPT/HCPCS: 99222 ==

== ENCOUNTER → 2025-01-29 22:14 | Outpatient (BNV) | payer MEDICAID, SELFPAY | PROVIDERS: Admitting Provider Physician Assistant; Emergency Provider Emergency Medicine Emergency Medical Services; PCP Internal Medicine; Visit Provider Family Medicine | DX: A41.9 Sepsis, unspecified organism (principal); L03.115 Cellulitis of right lower limb; L03.116 Cellulitis of left lower limb; B17.9 Acute viral hepatitis, unspecified; B37.0 Candidal stomatitis; F17.200 Nicotine dependence, unspecified, uncomplicated; E66.01 Morbid (severe) obesity due to excess calories | CPT/HCPCS: 99223; 99232; 99233; 99239 ==

== ENCOUNTER → 2025-02-25 13:15 | Outpatient (REF) | payer OTHER, SELFPAY ==
--- NOTE | 2025-02-25 13:18 | CA_ITS ---
Transthoracic Echocardiogram Patient (Last, First, Middle): Shon Marion, Gender: Male Date of : 1995 Age: 29 Procedure Date: 02/25/2025 Procedure Type: Transthoracic Echocardiogram Location: OP Height: 170.18 cm Weight: 136.08 kg BSA: 2.40 m2 Heart Rate: bpm BP: 118 / 70 mmHg Collection Administrator: TO/RC Referring MD: Lenore Solomon MD Impregnator Helper: Castillo Park MD Symptoms: Chemotherapy adverse effect Study Quality: Fair/contrast ECG Rhythm: Tachycardia Conclusions: - Normal LV systolic function with grade 1 diastolic dysfunction Findings Procedure Information Contrast agent, definity, is being given per protocol without apparent complications. Left Ventricle Normal left ventricular size, thickness, and systolic function. Spectral Doppler is indicative of an impaired relaxation filling pattern. E/E prime ratio is <8, consistent with normal filling pressures. Evidence suggests grade I (mild) diastolic dysfunction. Peak GLS is -18.1%, within normal limits. Prior Study Comparison No significant change compared to prior study dated: 12/27/2024. Measurements 2D Linear Measurements IVSd: 1.04 0.6-0.9/0.6-1.0 cm LVIDd: 4.78 3.9-5.3/4.2-5.9 cm LVIDd Index: 1.99 2.4-3.2/2.2-3.1 cm/m2 LVIDs: 3.25 2.0-3.6 cm LVPWd: 0.89 0.7-1.1 cm LV Mass: 200.61 67-162/88-224 g LV Mass Index: 83.59 43-95/49-115 g/m2 LVOT Diam: 2.20 3.0+(-)1.3 cm 2D Systolic Function EF 4C: 61.50 >55% EF 2C: 59.90 >55% EF BiP: 60.10 >55% Mitral Valve MV Pk E: 0.57 MV PK A: 1.01 MV Decel Time: 78.00 E/A: 0.60 E'Lateral: 13.70 E'Medial: 7.07 E/E' Med: 8.10 E/E' Lat: 4.20 PHT: 23.00 MVA PHT: 9.57 Decel Marathon: 7.36 Aortic Valve AoV Pk Brandan: 1.58 AoV Mn Brandan: 1.03 AoV VTI: 0.23 AoV Pk Grad: 10.00 Aov Mn Grad: 5.00 JUAN [place]IE[place] Cont.VTI: 2.99 LVOT LVOT Pk Brandan: 1.44 LVOT Mn Brandan: 0.91 LVOT VTI: 0.18 LVOT Pk Grad: 8.00 LVOT Mn Grad: 4.00 LVOT Diam: 2.20 LVOT Area: 3.80 Diastolic Function MV Pk E: 0.57 MV Pk A: 1.01 E/A: 0.60 E'Medial: 7.07 E/E' Med: 8.10 E' Laterial: 13.70 E/E' Lat: 4.20 Right Ventricle TAPSE (mm): 17.30 TVS' Brandan: 12.60 Tricuspid Valve RA Press: 3.00 Great Vessels Aorta Sinus of Valsalva: 3.26 2.0-3.5 cm Ao Asc: 2.90 2.1-3.4 cm Updated in Other Vendor System with Status of Final Castillo Park MD electronically signed on 02/25/2025 4:10:26 PM with status of Final
--- OUTSIDE RECORDS SUMMARY | 2025-02-25 14:25 | XMS_ITS | Encounter Summary ---
Author Organization [employer] Address [address] [facility] [address] [place] [address] Care Team Providers Care Cattle Shipper Name Role Phone Celso Lewis MD Primary Care Prov ider Bing Bunch RN Unavailable [phone] Unavailable Reason for Visit * Reason Onset Date Comments Med Change Request 05/23/2024 Encounter Details Date Type Department Care Team (Late Contact Info) Description 05/23/2024 Telephone [facility] [address] [place] [address] Celso Lewis MD [address], [place] [id number] Med Change Request Social History Tobacco Use Types Packs/Day Years Used Date Smoking Tobacco: Every Day Cigarettes 0.5 10.5 Started: 2014 Smokeless Tobacco: Never Sex and [...] Care Team (Late st Contact Info) Description 03/03/2025 2:45 PM EDT Office Visit [facility] [address] [place] [address] Celso Lewis MD [address] [place] [address] documented as of this encounter Visit Diagnoses Not on filedocumented in this encounter Care Teams Cattle Shipper Relationship Specialty Start Date End Date Celso Lewis MD [address] [place] [address] PCP - General Internal Medicine 02/21/24 Bing Bunch RN [address] [place] [address] Registered Nurse Family Medicine 01/27/25 Rio Basurto 01/27/25 documented as of this encounter
== END ==
LOC: HO.CARD 13:15
PROVIDERS: PCP Internal Medicine; Visit Provider Internal Medicine
DX: C81.90 Hodgkin lymphoma, unspecified, unspecified site (principal)
CPT/HCPCS: 93306; Q9957

== ENCOUNTER → 2025-02-25 13:18 | Outpatient (BNV) | payer MEDICAID, SELFPAY | PROVIDERS: PCP Internal Medicine; Visit Provider Internal Medicine Cardiovascular Disease | DX: Z51.81 Encounter for therapeutic drug level monitoring (principal); T45.1X5A Adverse effect of antineoplastic and immunosuppressive drugs, initial encounter; I51.89 Other ill-defined heart diseases | CPT/HCPCS: 93308; 93321; 93356 ==